=== PATIENT | female | born 1950 | race Caucasian/White ===

== ENCOUNTER 2019-08-03 11:05 | Emergency (ER) | payer MEDICARE, OTHER, SELFPAY ==
[2019-08-03 11:05] VITALS: BP 133/86; PULSE 68; RESP 18; TEMP 36.9; O2SAT 100
[2019-08-03 11:23] VITALS: PULSE 68
--- NOTE | 2019-08-03 12:37 | ED_ITS ---
HPI - Extremity Problem <RAGINI Bonilla - Last Filed: 08/03/19 14:10> General Chief complaint: Extremity Problem,Nontraumatic Stated complaint: right foot circulation being cut,numbness,pain Time Seen by Provider: 08/03/19 11:12 Source: patient Mode of arrival: Ambulatory Limitations: no limitations History of Present Illness HPI Narrative: This is a 69-year-old female, former smoker, who presents to ED with chief complaint of discomfort, numbness and tight fascia in right mid foot radiating to ankle. Patient states she has problem on right ankle since 2014 and had corrective surgery done in March [address] Villa for artificial joint removal and replacement. However, the surgery did not go well and has been having pain on right foot and ankle. 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 Patient has an appointment at [facility] with senior marketing specialist next week Tuesday. Patient had an appointment with pain management clinic this past Tuesday which got canceled due to bad weather. Patient was instructed by senior marketing specialist office that she needs to elevate her affected leg in 45 degree and states has been following the instruction at home. Patient had used gabapentin and opioids in the past for the nerve pain which do nothing for the pain. Patient denies fever, chills, nausea or vomiting. She has been using walking boot on affected food with ambulation. She states has a difficult time arranging a ride to [employer] to [facility]. Related Data Home Medications Medication Instructions Recorded Confirmed venlafaxine 25 mg PO DAILY #0 07/10/16 08/03/19 albuterol sulfate [ProAir HFA] 1 puff INHALATION DIRECTED 08/03/19 08/03/19 clobetasol 1 applic TOPICAL DIRECTED 08/03/19 08/03/19 diazepam 5 mg PO Q4H PRN 08/03/19 levothyroxine [Levoxyl] 75 mcg PO DAILY 08/03/19 08/03/19 liothyronine 5 mcg PO DAILY 08/03/19 08/03/19 metoprolol succinate [Toprol XL] 25 mg PO DAILY 08/03/19 08/03/19 mometasone 1 applic TOPICAL DAILY PRN 08/03/19 08/03/19 montelukast 10 mg PO DAILY 08/03/19 08/03/19 Allergies Allergy/AdvReac Type Severity Reaction Status Date / Time shellfish derived Allergy Mild N/V Verified 07/17/18 13:37 [SHELLFISH DERIVED] silver Allergy Mild Hives Verified 08/03/19 11:23 [From Tegaderm AG Mesh] cephalexin [From KEFLEX] Allergy Unknown HIVES Verified 07/17/18 13:37 midazolam [From Versed] AdvReac Unknown Verified 08/03/19 11:23 Review of Systems <RAGINI Bonilla - Last Filed: 08/03/19 14:10> Review of Systems Narrative: General: Denies fever, chills, fatigue, malaise, sweats. HEENT: Denies sinus pain, ear pain, sore throat, difficulty swallowing, dizzin ess. Respiratory: Denies dyspnea, cough, wheezing, hemoptysis, sputum. Cardiovascular: Denies chest pain, palpitations, orthopnea, edema. Gastrointestinal: Denies nausea, vomiting, abdominal pain, diarrhea, constipation, melena. : Denies dysuria, frequency, incontinence, hematuria, urinary retention. Musculoskeletal: See HPI Skin: Denies rash, skin lesions, or other. Neurologic: Denies weakness, headache, (+) numbness to R ankle/mid foot, change in speech, confusion, seizures, incoordination. Psychiatric: No concerning psychosocial issues. 12-point review of systems is negative except for those stated above. Patient History <RAGINI Bonilla - Last Filed: 08/03/19 14:10> Medical History Cauda equina syndrome (Acute) Colon polyps (Acute) Osteoporosis (Acute) Psoriasis (Acute) Rheumatoid arthritis (Acute) Shingles (Acute) Surgical History H/O foot surgery (Acute) History of colon resection (Acute) History of hip surgery (Acute) Social History Smoking Status: Former smoker Smoking Status: Former smoker alcohol intake frequency: 0-2 drinks per day Alcohol type: beer and wine Substance Use Type: marijuana Exam <Jez AndersRAGINI - Last Filed: 08/03/19 14:10> Narrative Exam Narrative: General appearance: well developed, well nourished, in no acute distress. Head: normocephalic, atraumatic, no scalp lesions, non-tender. ENT: Hearing grossly intact. Nose without bleeding, purulent discharge, septal hematoma or deviation. Turbinate without erythema or swelling. Mucous membrane moist, no mucosal lesion. Throat without erythema, tonsillar hypertrophy or exudate. Uvula in midline, airway patent. Neck/Thyroid: neck supple, full range of motion, no visible masses or meningeal signs. No JVD, non-tender without lymphadenopathy. Skin: no suspicious rashes, lesions over visible areas. Warm and dry and appropriate color for ethnicity. Heart: no clubbing, no cyanosis, no edema. Lungs: Breathing even and unlabored. No stridor. No accessory muscles used. Able to speak in full sentences. Chest: normal shape and expansion. Abdomen: non-obese, non-distended. Neurologic: alert and oriented. 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 Psych: good eye contact, normal affect. Initial Vital Signs Initial Vital Signs: Vital Signs Temperature 98.4 F 08/03/19 11:05 Pulse Rate 68 08/03/19 11:05 Respiratory Rate 18 08/03/19 11:05 Blood Pressure 133/86 08/03/19 11:05 Pulse Oximetry 100 08/03/19 11:05 Extrem Right lower extremity: foot Details: normal capillary refill, normal to inspection (Surgical wound near right 1st toe without signs and symptoms for infection), tenderness (R great toe when depressed), toes with normal ROM, no edema, vascular exam Details: dorsalis pedis pulse present, posterior tibial pulse present and normal capillary refill, tendon exam Details: active flexion normal and active flexion abnormal and motor-sensory exam Details: light-touch normal; no abrasion and no ecchymosis <Mary Goodwin DO - Last Filed: 08/04/19 07:04> Initial Vital Signs Initial Vital Signs: Vital Signs Temperature 98.4 F 08/03/19 11:05 Pulse Rate 68 08/03/19 11:05 Respiratory Rate 18 08/03/19 11:05 Blood Pressure 133/86 08/03/19 11:05 Pulse Oximetry 100 08/03/19 11:05 Scores <Jez RAGINI Anders - Last Filed: 08/03/19 14:10> GCS Suze coma scale eye opening: Spontaneous Ward coma scale verbal response: Orientated Ward coma scale motor response: Obey commands Ward coma scale total score: 15 Course <Jez RAGINI Anders - Last Filed: 08/03/19 14:10> Orders Ordered: Discontinued Medications Acetaminophen (Tylenol) 650 mg PO NOW ONE Stop: 08/03/19 12:22 Last Admin: 08/03/19 12:39 Dose: 650 mg Documented by: JOSE MIGUEL Ketorolac Tromethamine (Toradol) 30 mg IM NOW ONE Stop: 08/03/19 12:22 Last Admin: 08/03/19 12:38 Dose: 30 mg Documented by: JOSE MIGUEL Vital Signs Vital signs: Vital Signs - 8 hr 08/03/19 11:05 08/03/19 11:23 08/03/19 13:06 Temperature 98.4 F Pulse Rate 68 62 Pulse Rate [Right Dorsalis Pedis] 68 Pulse Rate [Right Posterior Tibial] 68 Respiratory Rate 18 18 Blood Pressure 133/86 134/72 Pulse Oximetry 100 100 <Mary Goodwin DO - Last Filed: 08/04/19 07:04> Orders Ordered: Discontinued Medications Acetaminophen (Tylenol) 650 mg PO NOW ONE Stop: 08/03/19 12:22 Last Admin: 08/03/19 12:39 Dose: 650 mg Documented by: JOSE MIGUEL Ketorolac Tromethamine (Toradol) 30 mg IM NOW ONE Stop: 08/03/19 12:22 Last Admin: 08/03/19 12:38 Dose: 30 mg Documented by: JOSE MIGUEL Vital Signs Vital signs: Vital Signs - 8 hr 08/03/19 11:05 08/03/19 11:23 08/03/19 13:06 Temperature 98.4 F Pulse Rate 68 62 Pulse Rate [Right Dorsalis Pedis] 68 Pulse Rate [Right Posterior Tibial] 68 Respiratory Rate 18 18 Blood Pressure 133/86 134/72 Pulse Oximetry 100 100 MDM - Extremity (Nontraumatic) <Jez RAGINI Anders - Last Filed: 08/03/19 14:10> Differential Diagnosis Differential diagnosis: Likely other (Right foot and ankle pain, postsurgical pain) Medical Records Attestation: I reviewed the patient's medical records. MDM Narrative Medical decision making narrative: This is a 69 year female who presents to ED with chronic low right foot and ankle pain. She has an appointment with senior marketing specialist at [facility] this coming week and is waiting to be seen by pain management clinic. Patient has been having pain since 2014 and had corrective surgery done in March 2019 without much change in pain. Patient has good dorsal pedal and posterior tibial pulses. Patient is not in severe discomfort at this time. There is no swelling noted. Cap refill is brisk. Patient requested to be transferred to higher level of care at [place] which patient does not meet criteria for transfer at this time. Patient advised to arrange a right [facility] for an appointment with senior marketing specialist as scheduled. Patient assured that patient's presentation is not consistent with compartment syndrome today. Patient was medicated with Tylenol and Toradol IM injection for pain management while in ED. patient advised to use [id number] Tylenol and or Motrin as needed for discomfort and return precautions were discussed with the patient. Patient verbalized understanding and agrees with the treatment plan at this time. Discharge Plan Departure Patient Disposition: Home Clinical Impression: Foot pain, right Ankle pain, right Qualifiers: Chronicity: unspecified Qualified Code(s): M25.571 - Pain in right ankle and joints of right foot Discharge Date/Time: 08/03/19 13:06 Instructions: DI for Ankle Pain, DI for Foot Pain Activity Restrictions/Additional Instructions: You have been diagnosed with [ and finding right foot and ankle paint after surgical procedure. You were medicated with Toradol injection and Tylenol in ED. Please follow-up with the senior marketing specialist at [facility] next week as scheduled. Please follow-up with pain management clinic for the 1st appointment as you are planning. Please arrange a ride to [place] appointment]. What to do: *Take your medications as directed. *Follow up with your primary care provider in 2-3 days, call for an appointment. Let them know you were seen in the ED and that we asked you to be seen in follow up. *Return to ED if you have any new, worsening, or concerning symptoms, such as [severe pain/swelling/numbness/weakness, chest pain, breathing difficulty, or any acute concerns]. Prescriptions: No Action venlafaxine 25 MG tablet 25 mg PO DAILY Qty: 0 RF: 0 liothyronine 5 mcg tablet 5 mcg PO DAILY RF: 0 levothyroxine [Levoxyl] 75 mcg tablet 75 mcg PO DAILY RF: 0 montelukast 10 mg tablet 10 mg PO DAILY RF: 0 metoprolol succinate [Toprol XL] 25 mg tablet extended release 24 hr 25 mg PO DAILY RF: 0 albuterol sulfate [ProAir HFA] 90 mcg/actuation HFA aerosol inhaler 1 puff INHALATION DIRECTED RF: 0 clobetasol 0.05 % solution 1 applic TOPICAL DIRECTED RF: 0 diazepam 5 mg tablet 5 mg PO Q4H PRN (Reason: Anxiety) RF: 0 mometasone 0.1 % solution 1 applic TOPICAL DAILY PRN (Reason: as directed) RF: 0 Referrals: Maria Dolores Mancia MD [Primary Care Provider] -
[2019-08-03] MEDS: KETOROLAC 60 MG/2 ML VIAL 30 MG IM (12:38)
[2019-08-03] MEDS: ACETAMINOPHEN 325 MG TABLET 650 MG PO (12:39)
[2019-08-03 13:06] VITALS: BP 134/72; PULSE 62; RESP 18; O2SAT 100
== END 2019-08-03 13:06 | disposition home or self-care (01) ==
PROVIDERS: Emergency Provider Nurse Practitioner Family; Family Provider Internal Medicine; PCP Internal Medicine
DX: M79.671 Pain in right foot (principal); M25.571 Pain in right ankle and joints of right foot
CPT/HCPCS: 96372; 99283; J1885

== ENCOUNTER → 2019-08-18 14:35 | Outpatient (CLI) | payer MEDICARE, OTHER, SELFPAY ==
--- NOTE | 2019-08-18 14:39 | DI.MRI.S_ITS ---
PROCEDURE: MR LUMBAR SPINE WO CON INDICATIONS: Lower back pain TECHNIQUE: Noncontrast sagittal T1 spin echo and T2 fast echo, sagittal STIR, axial T1 and T2 fast spin echo through the lumbar spine. In cases with scoliosis, additional coronal T2 fast spin echo may be performed. COMPARISON: None. FINDINGS: Image quality: Excellent. Alignment and Curvature: There is normal bony alignment. Bones: Postsurgical changes compatible with L4 laminectomy noted. Marrow is of normal overall signal. No acute vertebral body compression fractures. Spinal Cord: Conus medullaris terminates at the L1 level. Visualized cord demonstrates normal signal and size. Paraspinous Soft Tissues: No paravertebral masses. L1-L2: Loss of the signal and slight loss of disc height. Mild, diffuse disc bulge. Fissure noted in the posterior anulus. No central stenosis. No neural foraminal narrowing. No neural compression. L2-L3: Normal appearance. L3-L4: Slight loss of disc signal. Minimal, diffuse disc bulge. Mild bilateral facet hypertrophy. Mild narrowing of the central canal. No neural foraminal narrowing. No neural compression. L4-L5: Loss of the signal. Mild diffuse disc bulge. Fissure noted in posterior annulus. Moderate bilateral facet hypertrophy. Mild to moderate narrowing of the central canal. Mild bilateral neural foraminal narrowing. No neural compression. L5-S1: Slight loss of the signal. Minimal, diffuse disc bulge. Mild to moderate bilateral facet hypertrophy. No central stenosis. No neural foraminal narrowing. No neural compression. IMPRESSION: 1. Postsurgical compatible prior L4 laminectomy. 2. Multilevel degenerative disc disease. 3. Multilevel facet arthropathy. 4. Nevd-st-ilygazwi L4-L5 central canal narrowing. Mild L3-L4 central canal narrowing. 5. Mild bilateral L4-L5 neural foraminal narrowing. 6. No neural compression. 7. L1-L2 and L4-L5 disc annulus fissures. Dictated by: Telma Rodríguez MD, PhD on 08/20/2019 at 14:28 Approved by: Telma Rodríguez MD, PhD on 08/20/2019 at 14:34
== END ==
PROVIDERS: Family Provider Internal Medicine; PCP Internal Medicine; Referring Provider Psychiatry & Neurology Neurology; Visit Provider Physical Medicine & Rehabilitation
DX: M54.5 Low back pain (principal); G83.4 Cauda equina syndrome; M51.36 Other intervertebral disc degeneration, lumbar region; M47.816 Spondylosis without myelopathy or radiculopathy, lumbar region; M47.817 Spondylosis without myelopathy or radiculopathy, lumbosacral region; M48.061 Spinal stenosis, lumbar region without neurogenic claudication
CPT/HCPCS: 72148

== ENCOUNTER → 2019-08-21 09:27 | Outpatient (CLI) | payer MEDICARE, OTHER, SELFPAY ==
[2019-08-21 11:12] LABS: Thyroid Stimulating Hormone 0.05 uIU/mL (0.47-4.68)
[2019-08-22 15:45] LABS: Triiodothyronine T3 Total 119 ng/dL (76-181)
== END ==
PROVIDERS: Family Provider Internal Medicine; PCP Internal Medicine; Referring Provider Internal Medicine; Visit Provider Internal Medicine
DX: E06.3 Autoimmune thyroiditis (principal)
CPT/HCPCS: 36415; 84439; 84443; 84480

== ENCOUNTER → 2019-08-29 15:16 | Outpatient (CLI) | payer MEDICARE, OTHER, SELFPAY ==
--- NOTE | 2019-08-29 | DI.MG.S_ITS ---
BILATERAL DIGITAL SCREENING MAMMOGRAM 3D/2D WITH CAD WITH AUGMENTATION: 08/29/2019 CLINICAL: Patient presents for routine screening. S/P bilateral augmentation. Comparison is made to exams dated: 07/04/2015 mammogram - [facility] and 08/30/2017 mammogram - [facility]. The tissue of both breasts is heterogeneously dense. This may lower the sensitivity of mammography. Current study was also evaluated with a Computer Aided Detection (CAD) system. Bilateral breast implants are stable. There are benign vascular calcifications in both breasts. No significant masses, calcifications, or other findings are seen in either breast. There has been no significant interval change. IMPRESSION: There is no mammographic evidence of malignancy. A 1 year screening mammogram is recommended. This exam was interpreted at Station ID: [id number]. NOTE: For mammograms, a report in lay terms will be sent to the patient. Approximately 15% of breast malignancies will not be visualized mammographically. In the management of a palpable breast mass, a negative mammogram must not discourage biopsy of a clinically suspicious lesion. Electronically Signed By: Emeli vogt/lynnette:08/29/2019 16:51:14 letter sent: Normal Exam ACR BI-RADS Category 2: Benign Finding(s) [id number]
== END ==
PROVIDERS: Family Provider Internal Medicine; PCP Internal Medicine; Referring Provider Internal Medicine; Visit Provider Internal Medicine
DX: Z12.31 Encounter for screening mammogram for malignant neoplasm of breast (principal); Z98.82 Breast implant status; M85.832 Other specified disorders of bone density and structure, left forearm; Z78.0 Asymptomatic menopausal state; E07.9 Disorder of thyroid, unspecified; K92.9 Disease of digestive system, unspecified; Z90.722 Acquired absence of ovaries, bilateral; Z82.62 Family history of osteoporosis
CPT/HCPCS: 77063; 77067; 77080

== ENCOUNTER 2019-10-01 16:15 | Emergency (ER) | payer MEDICARE, OTHER, SELFPAY ==
[2019-10-01 16:20] VITALS: BP 133/60; PULSE 68; RESP 16; TEMP 36.8; O2SAT 97; BMI 17.7
--- NOTE | 2019-10-01 16:28 | DI.RAD.S_ITS ---
PROCEDURE: XR CHEST 2V INDICATIONS: cough, SOB. TECHNIQUE: 2 views of the chest were acquired. COMPARISON: [facility], , CHEST 1 VIEW, 07/10/2016, 22:41. FINDINGS: Surgical changes and devices: None. Lungs and pleura: Lungs are clear. No pleural effusions or pneumothorax. Mediastinum: Mediastinal contours are normal. Heart size is normal. Bones and chest wall: No suspicious bony abnormalities. Soft tissues appear unremarkable. IMPRESSION: Normal for age, source of current cough symptoms is not seen. Dictated by: Chuck Cole M.D. on 10/01/2019 at 16:52 Approved by: Chuck Cole M.D. on 10/01/2019 at 16:53
[2019-10-01 17:13] LABS: Influenza A - CEPHEID Flu A NEGATIVE (NEGATIVE); Influenza B - CEPHEID Flu B NEGATIVE (NEGATIVE)
--- NOTE | 2019-10-01 18:50 | ED.URI ---
HPI - URI/Sore Throat <Kristie PeraltaRAGINI - Last Filed: 10/01/19 20:59> General Chief Complaint: Upper Respiratory Symptoms Stated Complaint: WOULD LIKE TO GET TEST COV19 COUGH PAIN CHEST Time Seen by Provider: 10/01/19 16:28 Source: patient Mode of arrival: Ambulatory History of Present Illness HPI Narrative: 69-year-old female presents to the emergency department for COVID-19 concerns. She states she has had a dry cough for over week. She does have a history of asthma and has been using her Singulair to control it. She states she has not used her steroid inhaler as this may cause increased replication of the virus. Patient states she does have some rhinorrhea, reports chills. She states she feels like she had a fever but did not measure. She states that her daughter also has symptoms, she is concerned or increased shortness of breath. Patient has intermittent diarrhea, denies nausea vomiting or sore throat. She denies chest pain, vision changes, headaches, abdominal pain, or any other concerns. Related Data Home Medications Medication Instructions Recorded Confirmed venlafaxine 25 mg PO DAILY #0 07/10/16 08/03/19 albuterol sulfate [ProAir HFA] 1 puff INHALATION DIRECTED 08/03/19 08/03/19 clobetasol 1 applic TOPICAL DIRECTED 08/03/19 08/03/19 diazepam 5 mg PO Q4H PRN 08/03/19 levothyroxine [Levoxyl] 75 mcg PO DAILY 08/03/19 08/03/19 liothyronine 5 mcg PO DAILY 08/03/19 08/03/19 metoprolol succinate [Toprol XL] 25 mg PO DAILY 08/03/19 08/03/19 mometasone 1 applic TOPICAL DAILY PRN 08/03/19 08/03/19 montelukast 10 mg PO DAILY 08/03/19 08/03/19 alpha lipoic acid 300 mg capsule 300 - 1,000 mg PO DAILY cap 08/08/19 08/08/19 amoxicillin 500 mg capsule 2,000 mg PO ONCE PRN cap 08/08/19 08/08/19 ashwagandan 570 mg PO 08/08/19 aspirin 81 mg tablet,delayed 81 mg PO DAILY 08/08/19 08/08/19 release biotin 1,000 mcg chewable tablet 1,000 mcg PO DAILY 08/08/19 08/08/19 calcium 600 mg PO BID 08/08/19 cholecalciferol (vitamin D3) 25 2,000 unit PO BID cap 08/08/19 08/08/19 mcg (1,000 unit) capsule coenzyme Q10 75 mg capsule 100 mg PO DAILY cap 08/08/19 08/08/19 lysine 1,000 mg tablet 1,000 mg PO DAILY 08/08/19 08/08/19 magnesium malate PO 08/08/19 xcfssmkyhyyy-ihjyarpf-etucyi PO 08/08/19 08/08/19 nortriptyline 10 mg capsule 10 mg PO Q OTHER DAY cap 08/08/19 08/08/19 omega 3-6-9 1,000 mg PO TID 08/08/19 optimized folate 1,000 mg PO DAILY 08/08/19 vitamin E 1,000 unit capsule 1,000 unit PO DAILY 08/08/19 08/08/19 zinc sulfate 220 mg tablet 220 mg PO DAILY 08/08/19 08/08/19 Allergies Allergy/AdvReac Type Severity Reaction Status Date / Time fluoxetine [From Prozac] Allergy Severe Hallucinati Verified 10/01/19 16:26 ng shellfish derived Allergy Mild N/V Verified 10/01/19 16:26 [SHELLFISH DERIVED] silver Allergy Mild Hives Verified 10/01/19 16:26 [From Tegaderm AG Mesh] aripiprazole [From Abilify] Allergy Unknown Verified 10/01/19 16:27 cephalexin [From KEFLEX] Allergy Unknown HIVES Verified 10/01/19 16:26 midazolam [From Versed] AdvReac Unknown Verified 10/01/19 16:26 Review of Systems <RAGINI Roberts - Last Filed: 10/01/19 20:59> Review of Systems Narrative: REVIEW OF SYSTEMS: GENERAL: Reports chose. HENT: No head trauma or hearing loss. EYES: No loss of vision, double vision, eye pain, irritation or discharge. CARDIOVASCULAR: No chest pain or syncope. RESPIRATORY: Reports shortness of breath, see HPI. GASTROINTESTINAL: No nausea, vomiting, diarrhea, or constipation. MUSCULOSKELETAL: No weakness or injury. INTEGUMENTARY: No rash, lesions, or pruritus. NEURO: No memory loss, or confusion. Patient History <RAGINI Roberts - Last Filed: 10/01/19 20:59> Medical History Cauda equina syndrome (Acute) Chronic pain syndrome (Acute) Colon polyps (Acute) Gait instability (Acute) Osteoporosis (Acute) Psoriasis (Acute) Rheumatoid arthritis (Acute) Shingles (Acute) Surgical History H/O foot surgery (Acute) History of colon resection (Acute) History of hip surgery (Acute) Social History Smoking Status: Former smoker Smoking Status: Former smoker alcohol intake frequency: 0-2 drinks per day Alcohol type: beer and wine Substance Use Type: marijuana Exam <RAGINI Roberts - Last Filed: 10/01/19 20:59> Initial Vital Signs Initial Vital Signs: Vital Signs Temperature 98.3 F 10/01/19 16:20 Pulse Rate 68 10/01/19 16:20 Respiratory Rate 16 10/01/19 16:20 Blood Pressure 133/60 10/01/19 16:20 Pulse Oximetry 97 10/01/19 16:20 PHYSICAL EXAMINATION: GENERAL: Well groomed, alert, and cooperative. Answers questions promptly and appropriately. Vital signs noted. HENT: Normocephalic, atraumatic. Ear canals patent. Oropharynx without erythema. Tonsils are not present. EYES: Conjunctiva pink, sclera white, no periorbital swelling. No discharge. CHEST: Normal to inspection and without deformities. CARDIOVASCULAR: S1 and S2 sounds normal. Regular rate and rhythm, no murmurs, clicks, or bruits. RESPIRATORY: Normal respiratory rate, trachea midline, airway patent. No stridor, nasal flaring or accessory muscle use. Able to speak in full sentences. Lungs are clear in all cast without wheeze, rhonchi, or crackles. Occasional dry cough noted throughout exam. MUSCULOSKELETAL: Normal gait and coordination. Equal tone and mass bilaterally. EXTREMITIES: Moves all extremities. SKIN: Warm, dry, soft, appropriate color for ethnicity. No lesions, rashes, or wounds to visualized areas. NEURO: Alert and Oriented X 3. Good coordination. No ataxia or cognitive issues. PSYCH: Appropriate affect and mood. <Ephraim Friend DO - Last Filed: 10/01/19 23:20> Initial Vital Signs Initial Vital Signs: Vital Signs Temperature 98.3 F 10/01/19 16:20 Pulse Rate 68 10/01/19 16:20 Respiratory Rate 16 10/01/19 16:20 Blood Pressure 133/60 10/01/19 16:20 Pulse Oximetry 97 10/01/19 16:20 Course <RAGINI Roberts - Last Filed: 10/01/19 20:59> Orders Ordered: ED Orders 10/01/19 16:28 Chest [XR chest 2V] Stat 10/01/19 16:30 Influenza A & B (PCR) Stat Vital Signs Vital signs: Vital Signs - 8 hr 10/01/19 16:20 10/01/19 20:00 Temperature 98.3 F Pulse Rate 68 66 Respiratory Rate 16 18 Blood Pressure 133/60 Blood Pressure [Right Arm] 139/74 Pulse Oximetry 97 99 <Ephraim Friend DO - Last Filed: 10/01/19 23:20> Orders Ordered: ED Orders 10/01/19 16:28 Chest [XR chest 2V] Stat 10/01/19 16:30 Influenza A & B (PCR) Stat Vital Signs Vital signs: Vital Signs - 8 hr 10/01/19 16:20 10/01/19 20:00 Temperature 98.3 F Pulse Rate 68 66 Respiratory Rate 16 18 Blood Pressure 133/60 Blood Pressure [Right Arm] 139/74 Pulse Oximetry 97 99 MDM - URI/Sore Throat <RAGINI Roberts - Last Filed: 10/01/19 20:59> Medical Records Attestation: I reviewed the patient's medical records. Lab Data Attestation: I reviewed the patient's lab results. Labs: Lab Results 10/01/19 Range/Units 16:30 Influenza A (RT-PCR) Flu a negative (NEGATIVE) Influenza B (RT-PCR) Flu b negative (NEGATIVE) Imaging Data Chest x-ray: Radiologist's Impression: [address] [address] XRay Report Signed Patient: Rizwana Abarca TMR#: [id number] : 2Acct:[id number] Age/Sex: 69 / FDate of Service: 10/01/19 Loc: ED Accession Number: [id number] Procedure: XR chest 2V Ordering Provider: Roseline Reaves MD PROCEDURE: XR CHEST 2V INDICATIONS: cough, SOB. TECHNIQUE: 2 views of the chest were acquired. COMPARISON: [facility], , CHEST 1 VIEW, 07/10/2016, 22:41. FINDINGS: Surgical changes and devices: None. Lungs and pleura: Lungs are clear. No pleural effusions or pneumothorax. Mediastinum: Mediastinal contours are normal. Heart size is normal. Bones and chest wall: No suspicious bony abnormalities. Soft tissues appear unremarkable. IMPRESSION: Normal for age, source of current cough symptoms is not seen. Dictated by: Chuck Cole M.D. on 10/01/2019 at 16:52 Approved by: Chuck Cole M.D. on 10/01/2019 at 16:53 [facility] Narrative Medical decision making narrative: 69-year-old female with a history of asthma presenting to the emergency department for worsening shortness of breath over the past week, cough, and concerns for COVID-19. Patient's chest x-ray and influenza swab were negative. After an extensive conversation with patient, COVID-19 tests were sent to lab given worsening cough and shortness of breath and comorbidities. Patient was informed she will receive results in 5-6 days. She was instructed to remain on quarantine and home isolation, [id number] cold medications for symptom relief. Strict ED return precautions given for new or worsening symptoms such as severe shortness of breath, uncontrollable wheezing, uncontrollable vomiting, or any other concerns. Patient is well-appearing, hemodynamically stable and has good oxygen saturation, she was an appropriate candidate for discharge <Ephraim Friend DO - Last Filed: 10/01/19 23:20> Lab Data Labs: Lab Results 10/01/19 Range/Units 16:30 Influenza A (RT-PCR) Flu a negative (NEGATIVE) Influenza B (RT-PCR) Flu b negative (NEGATIVE) Discharge Plan Departure Patient Disposition: Home Clinical Impression: Cough Asthma Qualifiers: Asthma severity: mild Asthma persistence: intermittent Asthma complication type: uncomplicated Qualified Code(s): J45.20 - Mild intermittent asthma, uncomplicated Discharge Date/Time: 10/01/19 20:17 Instructions: DI for Viral Upper Respiratory Infection -- Adult Activity Restrictions/Additional Instructions: Thank you for entrusting me with your care today. As discussed, your chest x-ray and influenza swab are negative. You have been tested for the COVID-19 virus, this test can take 5-6 days to results. You need to remain in quarantine while your symptoms last and 3 days after symptoms have subsided. This means isolate herself with in your house as well. Take your asthma medications as directed, return to the emergency department for any new or worsening symptoms such as severe shortness of breath, chest pain, syncope, or any other concerns. Prescriptions: No Action venlafaxine 25 MG tablet 25 mg PO DAILY Qty: 0 RF: 0 liothyronine 5 mcg tablet 5 mcg PO DAILY RF: 0 levothyroxine [Levoxyl] 75 mcg tablet 75 mcg PO DAILY RF: 0 montelukast 10 mg tablet 10 mg PO DAILY RF: 0 metoprolol succinate [Toprol XL] 25 mg tablet extended release 24 hr 25 mg PO DAILY RF: 0 albuterol sulfate [ProAir HFA] 90 mcg/actuation HFA aerosol inhaler 1 puff INHALATION DIRECTED RF: 0 clobetasol 0.05 % solution 1 applic TOPICAL DIRECTED RF: 0 diazepam 5 mg tablet 5 mg PO Q4H PRN (Reason: Anxiety) RF: 0 mometasone 0.1 % solution 1 applic TOPICAL DAILY PRN (Reason: as directed) RF: 0 nortriptyline 10 mg capsule 10 mg PO Q OTHER DAY RF: 0 aspirin [Adult Low Dose Aspirin] 81 mg tablet,delayed release (DR/EC) 81 mg PO DAILY RF: 0 amoxicillin 500 mg capsule 2,000 mg PO ONCE PRN (Reason: prior to dental work) RF: 0 ashwagandan 570 mg PO RF: 0 vitamin E 1,000 unit capsule 1,000 unit PO DAILY RF: 0 alpha lipoic acid 300 mg capsule 300 - 1,000 mg PO DAILY RF: 0 Ultra CoQ10 75 mg capsule 100 mg PO DAILY RF: 0 biotin 1,000 mcg tablet,chewable 1,000 mcg PO DAILY RF: 0 zinc sulfate 220 mg tablet 220 mg PO DAILY RF: 0 omega 3-6-9 1,000 mg PO TID RF: 0 calcium 600 mg PO BID RF: 0 cholecalciferol (vitamin D3) 1,000 unit capsule 2,000 unit PO BID RF: 0 optimized folate 1,000 mg PO DAILY RF: 0 magnesium malate PO RF: 0 lysine 1,000 mg tablet 1,000 mg PO DAILY RF: 0 ieptwxcrqeie-csalfzwt-okjndy PO RF: 0 Referrals: Maria Dolores Mancia MD [Primary Care Provider] - <Ephraim Friend DO - Last Filed: 10/01/19 23:20> Sign Out Provider Sign Out Attestation: Dr Friend Co-Sign Statement: I was available for consultation during this patient's emergency department visit. This chart is signed by myself for administrative purposes only. I did not have direct contact with this patient during this visit. They were seen independently by the APC.
[2019-10-01 20:00] VITALS: BP 139/74; PULSE 66; RESP 18; O2SAT 99
[2019-10-11 01:34] LABS: COVID19 Sendout Not Detected (Not Detected)
== END 2019-10-01 20:17 | disposition home or self-care (01) ==
PROVIDERS: Emergency Medicine; Emergency Provider Nurse Practitioner; Family Provider Internal Medicine; PCP Internal Medicine
DX: J45.20 Mild intermittent asthma, uncomplicated (principal); R05 Cough; Z87.891 Personal history of nicotine dependence
CPT/HCPCS: 71046; 87502; 87635; 99282; 99283

== ENCOUNTER 2019-11-30 14:40 | Emergency (ER) | payer MEDICARE, OTHER, SELFPAY ==
[2019-11-30 14:49] VITALS: BP 133/89; PULSE 79; RESP 16; TEMP 36.8; O2SAT 100; BMI 17.2
[2019-11-30 15:00] VITALS: BP 167/85; PULSE 74; RESP 14; O2SAT 97
[2019-11-30 16:00] VITALS: BP 132/85; PULSE 68; RESP 19; O2SAT 99
--- NOTE | 2019-11-30 16:00 | DI.US.S_ITS ---
PROCEDURE: US ABDOMEN LIMITED INDICATIONS: UPPER ABD AND LEFT FLANK PAIN TECHNIQUE: Real-time focused scanning was performed of the abdomen, with image documentation. COMPARISON: None. FINDINGS: The liver is normal in size and appears homogeneous in echotexture. No gallstones, gallbladder wall thickening, or pericholecystic fluid. No biliary ductal dilatation. Visualized pancreas appears unremarkable sonographically. The spleen is normal in size. Left kidney measures up to 10.4 cm. No left hydronephrosis. Evaluation of the abdominal wall demonstrates a supraumbilical ventral abdominal hernia with a fascial defect measuring approximately 0.6 cm. Bowel herniation cannot be excluded. MPRESSION: 1. Small supraumbilical ventral abdominal wall hernia with bowel herniation excluded. Further evaluation may be obtained with a CT if clinically indicated. Dictated by: Inder Robertson M.D. on 11/30/2019 at 17:58 Approved by: Inder Robertson M.D. on 11/30/2019 at 18:00
--- NOTE | 2019-11-30 16:04 | PC.NURSE ---
Pt states she has a hernia, declines further assessment by RN, prefering to wait for Provider.
[2019-11-30 16:08] LABS: Add Manual Diff / Slide Review NO; Basophils Absolute Auto 100 /uL (0-100); Eosinophils Absolute Auto 400 /uL (0-450); Hematocrit 41.6 % (36-46); Lymphocytes Absolute Auto 1700 /uL (1100-4500); Lymphocytes Percent Auto 29.6 % (25-40); Mean Corpuscular HGB Conc 33.7 % (30-36); Mean Corpuscular Hemoglobin 32.6 PG (26-34); Mean Corpuscular Volume 96.8 fL (80-100); Monocytes Absolute Auto 600 /uL (0-900); Monocytes Percent Auto 9.8 % (3-14); Neutrophils Absolute Auto 3200 /uL (1500-7000); Neutrophils Percent Auto 53.6 % (50-75); Platelet Count 251 X10^3/uL (150-400); Red Blood Cell Count 4.29 X10^6/uL (4.0-5.2); Red Cell Distribution Width 13.2 % (11.6-14.8); White Blood Cell Count 5.9 X10^3/uL (4.5-11.0)
[2019-11-30 16:11] LABS: INR 0.9 (0.9-1.3); Prothrombin Time 10.2 SECONDS (10.1-12.7)
[2019-11-30] MEDS: SODIUM CHLORIDE 0.9% 1,000 ML 150 ML IV (16:13)
[2019-11-30 16:14] LABS: PTT Partial Thromboplastin Tim 30 SECONDS (26.4-36.2)
[2019-11-30] MEDS: PANTOPRAZOLE 40 MG VIAL IV (16:14)
[2019-11-30] MEDS: ONDANSETRON 4 MG/2 ML INJ IV (16:14)
[2019-11-30 16:16] LABS: Alanine Aminotransferase 27 IU/L (<35); Albumin 4.6 g/dL (3.5-5.0); Albumin Globulin Ratio 1.6 (1.0-2.8); Alkaline Phosphatase 73 U/L (38-126); Aspartate Aminotransferase 44 IU/L (14-36); BUN Creatinine Ratio 29.4 (6-22); Bilirubin Total 0.4 mg/dL (0.2-1.3); Blood Urea Nitrogen 15 mg/dL (7-17); Calcium 9.3 mg/dL (8.4-10.2); Carbon Dioxide 29 mmol/L (22-32); Chloride 98 mmol/L (98-107); Estimated Glomerular Filt Rate > 60.0 mL/min (>60); Globulin 2.9 g/dL (1.7-4.1); Glucose 110 mg/dL (80-110); HEMOLYSIS 19 (0-50); Lipase 93 U/L (23-300); Potassium 4.2 mmol/L (3.4-5.1); Sodium 136 mmol/L (137-145); Total Protein 7.5 g/dL (6.3-8.2)
[2019-11-30 18:00] VITALS: BP 142/80; PULSE 72; RESP 16; O2SAT 98
[2019-11-30] MEDS: DICYCLOMINE 10 MG CAPSULE PO (18:40)
[2019-11-30 19:00] VITALS: BP 140/83; PULSE 73; RESP 16; O2SAT 96
--- NOTE | 2019-12-01 00:28 | ED.ABDPAIN ---
HPI - Abdominal Pain <RAGINI Bonilla - Last Filed: 12/01/19 00:59> General Chief Complaint: Abdominal Pain Stated Complaint: Stomach pain, Left side pain front and back Time Seen by Provider: 11/30/19 15:31 Source: patient Mode of arrival: Ambulatory Limitations: no limitations History of Present Illness HPI narrative: This is a 69 year female, former smoker, who has chronic medical history as hypothyroidism, autoimmune disease, asthma, Raynaud syndrome, hepatitis-C, hypertension, cauda equina syndrome, foot and hip surgeries, colon resection due to GI bleed from colon polyps, osteoporosis, rheumatoid arthritis presents to ED with chief complain of nausea and left upper abdominal cramping and gas pain, diarrhea. Patient denies fever, chills, urinary symptoms. Reports unintentional weight loss of 16 lb since August 2019 and difficulty regaining weight even with high-caloric intake. Patient reports she has multiple food intolerances but her pain is not associated with certain types of foods. She states anything and everything she eats causes her discomfort symptoms. Patient reports the abdominal discomfort is constant and feels as pins and needles. She reports today the pain appears to be radiating to her back which is new and felt lightheaded since yesterday. She also states she had false negative test results for coronavirus in September and she was sick for 6 weeks. Patient states she is able to palpate hernia in her abdomen above the umbilicus which is easily reducible while she is in supine position but difficulty with reducing when she is standing position during last 10 days. Patient states her immune systems blow and she has been working on this problem last 1 year with multiple supplements including ashheididha. Related Data Home Medications Medication Instructions Recorded Confirmed venlafaxine 25 mg PO DAILY #0 07/10/16 08/03/19 albuterol sulfate [ProAir HFA] 1 puff INHALATION DIRECTED 08/03/19 08/03/19 clobetasol 1 applic TOPICAL DIRECTED 08/03/19 08/03/19 diazepam 5 mg PO Q4H PRN 08/03/19 levothyroxine [Levoxyl] 75 mcg PO DAILY 08/03/19 08/03/19 liothyronine 5 mcg PO DAILY 08/03/19 08/03/19 metoprolol succinate [Toprol XL] 25 mg PO DAILY 08/03/19 08/03/19 mometasone 1 applic TOPICAL DAILY PRN 08/03/19 08/03/19 montelukast 10 mg PO DAILY 08/03/19 08/03/19 alpha lipoic acid 300 mg capsule 300 - 1,000 mg PO DAILY cap 08/08/19 08/08/19 amoxicillin 500 mg capsule 2,000 mg PO ONCE PRN cap 08/08/19 08/08/19 ashwagandan 570 mg PO 08/08/19 aspirin 81 mg tablet,delayed 81 mg PO DAILY 08/08/19 08/08/19 release biotin 1,000 mcg chewable tablet 1,000 mcg PO DAILY 08/08/19 08/08/19 calcium 600 mg PO BID 08/08/19 cholecalciferol (vitamin D3) 25 2,000 unit PO BID cap 08/08/19 08/08/19 mcg (1,000 unit) capsule coenzyme Q10 75 mg capsule 100 mg PO DAILY cap 08/08/19 08/08/19 lysine 1,000 mg tablet 1,000 mg PO DAILY 08/08/19 08/08/19 magnesium malate PO 08/08/19 bysgdpwdmulv-cjgvfwpx-drdttj PO 08/08/19 08/08/19 nortriptyline 10 mg capsule 10 mg PO Q OTHER DAY cap 08/08/19 08/08/19 omega 3-6-9 1,000 mg PO TID 08/08/19 optimized folate 1,000 mg PO DAILY 08/08/19 vitamin E 1,000 unit capsule 1,000 unit PO DAILY 08/08/19 08/08/19 zinc sulfate 220 mg tablet 220 mg PO DAILY 08/08/19 08/08/19 Allergies Allergy/AdvReac Type Severity Reaction Status Date / Time fluoxetine [From Prozac] Allergy Severe Hallucinati Verified 10/01/19 16:26 ng shellfish derived Allergy Mild N/V Verified 10/01/19 16:26 [SHELLFISH DERIVED] silver Allergy Mild Hives Verified 10/01/19 16:26 [From Tegaderm AG Mesh] aripiprazole [From Abilify] Allergy Unknown Verified 10/01/19 16:27 cephalexin [From KEFLEX] Allergy Unknown HIVES Verified 10/01/19 16:26 midazolam [From Versed] AdvReac Unknown Verified 10/01/19 16:26 lactose AdvReac Verified 11/30/19 14:58 soy AdvReac Verified 11/30/19 14:58 sulfite AdvReac Verified 11/30/19 14:58 Review of Systems <RAGINI Bonilla - Last Filed: 12/01/19 00:59> Review of Systems Narrative: General: Denies fever, chills, fatigue, malaise, sweats. HEENT: Denies sinus pain, ear pain, sore throat, difficulty swallowing, (+) dizziness. Respiratory: Denies dyspnea, cough, wheezing, hemoptysis, sputum. Cardiovascular: Denies chest pain, palpitations, orthopnea, edema. Gastrointestinal: See HPI : Denies dysuria, frequency, incontinence, hematuria, urinary retention. Musculoskeletal: Denies weakness, joint pain or bony pain. Skin: Denies rash, skin lesions, or other. Neurologic: Denies weakness, headache, numbness, change in speech, confusion, seizures, incoordination. Psychiatric: No concerning psychosocial issues. 12-point review of systems is negative except for those stated above. Patient History <RAGINI Bonilla - Last Filed: 12/01/19 00:59> Medical History Asthma (Acute) Autoimmune disease (Acute) Cauda equina syndrome (Acute) Chronic pain syndrome (Acute) Colon polyps (Acute) Gait instability (Acute) Hepatitis C (Acute) Hypertension (Acute) Hypothyroidism (Acute) Osteoporosis (Acute) Psoriasis (Acute) Raynaud disease (Acute) Rheumatoid arthritis (Acute) Shingles (Acute) Surgical History H/O foot surgery (Acute) History of colon resection (Acute) History of hip surgery (Acute) Social History Smoking Status: Former smoker Smoking Status: Former smoker alcohol intake frequency: 0-2 drinks per day Alcohol type: beer and wine Substance Use Type: marijuana Exam <RAGINI Bonilla - Last Filed: 12/01/19 00:59> Narrative Exam Narrative: GEN: Alert, oriented x 3, thin appearing and nourished, and in no acute distress. Head: Normal cephalic, atraumatic. No scalp or temporal tenderness, palpable mass or rash. EYES: Pupils are equal, round, and reactive to light and accommodation. Extraocular muscles are intact bilaterally. There is no subconjunctival hemorrhage, exudate and sclera non-icteric. ENT: Hearing grossly intact. Nose without bleeding, purulent discharge or deviation. Facial sinuses nontender to palpate. Mucous membrane moist, no mucosal lesion. Throat without erythema, tonsillar hypertrophy or exudate. Uvula in midline, airway patent. Neck: Trachea in midline. No JVD, non-tender without lymphadenopathy. No masses or thyroid megaly. Supple, non-tender and no meningeal signs. CARDIAC: Normal regular rate and rhythm without murmurs, gallops, or rubs. No chest wall tenderness. No peripheral edema, cyanosis or pallor. Capillary refill is less than 2 seconds. RESPIRATORY: Lungs are clear to auscultate bilaterally. No cough, wheezes, rales, or rhonchi. No stridor, respiratory distress, increase work of breathing, or accessary muscle used. ABD: Abdomen soft, nontender and non-distended. Small nodule palpated in mid abdomen above umbelicus w/o bulging. No guarding or rebound tenderness to palpate. Bowel sounds are normal in all 4 quadrants. There is no palpable masses or organomegaly. Negative murphyps sign. EXT: Full painless ROM of all extremities with no loss of sensation, strength, effusion or edema. SKIN: Warm, dry, normal color for patient. No erythema, lesions or rash over visible areas. BACK: Nontender without deformity or crepitance. No flank tenderness. NEUROLOGICAL: Alert and oriented to place, time and person. Sensation and motor function intact bilaterally. No facial droops, dysphasia. PSYCHIATRIC: Anxious without hallucinations, abnormal affect or abnormal behaviors during the examination. Patient is not suicidal. Initial Vital Signs Initial Vital Signs: Vital Signs Temperature 98.2 F 11/30/19 14:49 Pulse Rate 79 11/30/19 14:49 Respiratory Rate 16 11/30/19 14:49 Blood Pressure 133/89 11/30/19 14:49 Pulse Oximetry 100 11/30/19 14:49 <Leatha Ma, DO - Last Filed: 12/01/19 08:00> Initial Vital Signs Initial Vital Signs: Vital Signs Temperature 98.2 F 11/30/19 14:49 Pulse Rate 79 11/30/19 14:49 Respiratory Rate 16 11/30/19 14:49 Blood Pressure 133/89 11/30/19 14:49 Pulse Oximetry 100 11/30/19 14:49 Scores <Jez TonCHALO barbourP - Last Filed: 12/01/19 00:59> GCS [place] coma scale eye opening: Spontaneous Suze coma scale verbal response: Orientated Suze coma scale motor response: Obey commands Suze coma scale total score: 15 Course <[facility] TrevinoP - Last Filed: 12/01/19 00:59> Orders Ordered: Discontinued Medications Dicyclomine HCl (Bentyl) 10 mg PO NOW ONE Stop: 11/30/19 18:35 Last Admin: 11/30/19 18:40 Dose: 10 mg Documented by: KBROTEM Sodium Chloride (Normal Saline 0.9%) 1,000 mls @ 150 mls/hr IV CONT PHI Last Infusion: 11/30/19 19:15 Dose: 0 mls/hr Documented by: Admin: 11/30/19 16:13 Dose: 150 mls/hr Documented by: NELLIE Ondansetron HCl (Zofran) 4 mg IV NOW ONE Stop: 11/30/19 16:01 Last Admin: 11/30/19 16:14 Dose: 4 mg Documented by: NELLIE Pantoprazole Sodium (Protonix) 40 mg IV NOW ONE Stop: 11/30/19 16:01 Last Admin: 11/30/19 16:14 Dose: 40 mg Documented by: NELLIE Vital Signs Vital signs: Vital Signs - 8 hr 11/30/19 18:00 11/30/19 19:00 Pulse Rate 72 73 Respiratory Rate 16 16 Blood Pressure [Left Arm] 142/80 H 140/83 Pulse Oximetry 98 96 <Leatha Ma DO - Last Filed: 12/01/19 08:00> Orders Ordered: Discontinued Medications Dicyclomine HCl (Bentyl) 10 mg PO NOW ONE Stop: 11/30/19 18:35 Last Admin: 11/30/19 18:40 Dose: 10 mg Documented by: KBROTEM Sodium Chloride (Normal Saline 0.9%) 1,000 mls @ 150 mls/hr IV CONT PHI Last Infusion: 11/30/19 19:15 Dose: 0 mls/hr Documented by: Admin: 11/30/19 16:13 Dose: 150 mls/hr Documented by: NELLIE Ondansetron HCl (Zofran) 4 mg IV NOW ONE Stop: 11/30/19 16:01 Last Admin: 11/30/19 16:14 Dose: 4 mg Documented by: NELLIE Pantoprazole Sodium (Protonix) 40 mg IV NOW ONE Stop: 11/30/19 16:01 Last Admin: 11/30/19 16:14 Dose: 40 mg Documented by: NELLIE Vital Signs Vital signs: Vital Signs - 8 hr 11/30/19 18:00 11/30/19 19:00 Pulse Rate 72 73 Respiratory Rate 16 16 Blood Pressure [Left Arm] 142/80 H 140/83 Pulse Oximetry 98 96 MDM - Abdominal Pain <Jez RAGINI Anders - Last Filed: 12/01/19 00:59> Differential Diagnosis Differential diagnosis: Likely abdominal pain, pancreatitis and other (Gallstone, cholecystitis, ventral hernia) Medical Records Attestation: I reviewed the patient's medical records. Lab Data Attestation: I reviewed the patient's lab results. Result diagrams: 11/30/19 15:38 11/30/19 15:38 Labs: Lab Results 11/30/19 11/30/19 11/30/19 Range/Units 15:38 15:38 15:38 WBC 5.9 (4.5-11.0) X10^3/uL RBC 4.29 (4.0-5.2) X10^6/uL Hgb 14.0 (12.0-16.0) g/dL Hct 41.6 (36-46) % MCV 96.8 (80-100) fL MCH 32.6 (26-34) PG MCHC 33.7 (30-36) % RDW 13.2 (11.6-14.8) % Plt Count 251 (150-400) X10^3/uL Neut % (Auto) 53.6 (50-75) % Lymph % (Auto) 29.6 (25-40) % Scott % (Auto) 9.8 (3-14) % Eos % (Auto) 6.0 H (2-4) % Baso % (Auto) 1.0 (0-2) % Neut # (Auto) 3200 (7786-6300) /uL Lymph # (Auto) 1700 (1735-2513) /uL Scott # (Auto) 600 (0-900) /uL Eos # (Auto) 400 (0-450) /uL Baso # (Auto) 100 (0-100) /uL PT 10.2 (10.1-12.7) SECONDS INR 0.9 (0.9-1.3) APTT 30 (26.4-36.2) SECONDS Sodium 136 L (137-145) mmol/L Potassium 4.2 (3.4-5.1) mmol/L Chloride 98 (98-107) mmol/L Carbon Dioxide 29 (22-32) mmol/L BUN 15 (7-17) mg/dL Creatinine 0.51 L (0.52-1.04) mg/dL Estimated GFR > 60.0 (>60) mL/min BUN/Creatinine Ratio 29.4 H (6-22) Glucose 110 (80-110) mg/dL Calcium 9.3 (8.4-10.2) mg/dL Total Bilirubin 0.4 (0.2-1.3) mg/dL AST 44 H (14-36) IU/L ALT 27 (<35) IU/L Alkaline Phosphatase 73 (38-126) U/L Total Protein 7.5 (6.3-8.2) g/dL Albumin 4.6 (3.5-5.0) g/dL Globulin 2.9 (1.7-4.1) g/dL Albumin/Globulin Ratio 1.6 (1.0-2.8) Lipase 93 (23-300) U/L Point of care testing: Urine Dip Bedside Urine Glucose Negative Bedside Urine Bilirubin - Negative Bedside Urine Ketone - Negative Urine Specific [place] 1.010 Bedside Urine Occult Blood - Negative Bedside Urine pH 7.5 Bedside Urine Protein - Negative Bedside Urine Urobilinogen - Negative Bedside Urine Nitrite - Negative Bedside Urine Leukocytes - Negative Esterase Imaging Data US - abdomen: Radiologist's Impression: [address] [address] Ultrasound Report Signed Patient: Rizwana Abarca TMR#: [id number] : [id number]:[id number] Age/Sex: 69 / FDate of Service: 11/30/19 Loc: ED Accession Number: [id number] Procedure: US abdomen limited Ordering Provider: Jez Anders PROCEDURE: US ABDOMEN LIMITED INDICATIONS: UPPER ABD AND LEFT FLANK PAIN TECHNIQUE: Real-time focused scanning was performed of the abdomen, with image documentation. COMPARISON: None. FINDINGS: The liver is normal in size and appears homogeneous in echotexture. No gallstones, gallbladder wall thickening, or pericholecystic fluid. No biliary ductal dilatation. Visualized pancreas appears unremarkable sonographically. The spleen is normal in size. Left kidney measures up to 10.4 cm. No left hydronephrosis. Evaluation of the abdominal wall demonstrates a supraumbilical ventral abdominal hernia with a fascial defect measuring approximately 0.6 cm. Bowel herniation cannot be excluded. MPRESSION: 1. Small supraumbilical ventral abdominal wall hernia with bowel herniation excluded. Further evaluation may be obtained with a CT if clinically indicated. Dictated by: Inder Robertson M.D. on 11/30/2019 at 17:58 Approved by: Inder Robertson M.D. on 11/30/2019 at 18:00 ECG Data Attestation: I personally reviewed and interpreted this ECG as follows: Prior ECG tracings: available for review Interpretation: Sinus rhythm rate at 69. Normal axis. IN interval 135, QRS duration 93, QT/QTC 375/394. No ST elevation or depression. MDM Narrative Medical decision making narrative: This is a 69-year-old female who is very anxious presents to ED with chief complain of upper left abdominal pain radiating to her back with nausea. Patient is very concerned of unintentional weight loss with difficulty regaining since August 2019. Patient has history of colon resection in 2010 due to colon polyps and GI bleed. Since then, patient reports she has been getting colonoscopy frequently and regularly by [facility] GI specialist. Patient reports she has multiple food intolerance but her pain is not associated with certain types of foods. She takes multiple supplements to boost her immune system for last 1 year. Physical exam appreciated small palpable nodule above umbilicus in mid abdomen which is easily reducible. patient was afebrile with within normal limits of vital signs. abdominal Ultrasound test indicates normal size liver with homogeneous echotexture, no gallstones, normal gallbladder or thickening without pericholecystic fluid. There is no biliary duct dilatation appreciated. Normal appearing pancreas without left hydronephrosis. There was 0.6 cm measuring supraumbilical ventral abdominal hernia with a fascial defect measuring approximately 0.6 cm without certain bowel herniation. Patient advised to avoid straining or lifting to prevent worsening hernia. CBC, CMP, lipase were unremarkable. POC urine test does not indicate infection. Patient was medicated with IV fluid, Protonix, Zofran, Bentyl for her discomfort and patient was not in acute distress. Patient advised to take tbha-cql-sfavkgi omeprazole, Tums, or Pepcid for symptoms persists and advised to take Tylenol and or Motrin as needed for discomfort. Patient advised to follow-up with primary care physician for re-evaluation and return precautions were discussed with the patient. Patient provided with [facility] contact information and a referral if patient has persistent discomfort or worsening signs and symptoms for hernia. Patient verbalized understanding and agreement with the treatment plan. <Leatha Ma, DO - Last Filed: 12/01/19 08:00> Lab Data Labs: Lab Results 11/30/19 11/30/19 11/30/19 Range/Units 15:38 15:38 15:38 WBC 5.9 (4.5-11.0) X10^3/uL RBC 4.29 (4.0-5.2) X10^6/uL Hgb 14.0 (12.0-16.0) g/dL Hct 41.6 (36-46) % MCV 96.8 (80-100) fL MCH 32.6 (26-34) PG MCHC 33.7 (30-36) % RDW 13.2 (11.6-14.8) % Plt Count 251 (150-400) X10^3/uL Neut % (Auto) 53.6 (50-75) % Lymph % (Auto) 29.6 (25-40) % Scott % (Auto) 9.8 (3-14) % Eos % (Auto) 6.0 H (2-4) % Baso % (Auto) 1.0 (0-2) % Neut # (Auto) 3200 (2966-3150) /uL Lymph # (Auto) 1700 (7991-0387) /uL Scott # (Auto) 600 (0-900) /uL Eos # (Auto) 400 (0-450) /uL Baso # (Auto) 100 (0-100) /uL PT 10.2 (10.1-12.7) SECONDS INR 0.9 (0.9-1.3) APTT 30 (26.4-36.2) SECONDS Sodium 136 L (137-145) mmol/L Potassium 4.2 (3.4-5.1) mmol/L Chloride 98 (98-107) mmol/L Carbon Dioxide 29 (22-32) mmol/L BUN 15 (7-17) mg/dL Creatinine 0.51 L (0.52-1.04) mg/dL Estimated GFR > 60.0 (>60) mL/min BUN/Creatinine Ratio 29.4 H (6-22) Glucose 110 (80-110) mg/dL Calcium 9.3 (8.4-10.2) mg/dL Total Bilirubin 0.4 (0.2-1.3) mg/dL AST 44 H (14-36) IU/L ALT 27 (<35) IU/L Alkaline Phosphatase 73 (38-126) U/L Total Protein 7.5 (6.3-8.2) g/dL Albumin 4.6 (3.5-5.0) g/dL Globulin 2.9 (1.7-4.1) g/dL Albumin/Globulin Ratio 1.6 (1.0-2.8) Lipase 93 (23-300) U/L Point of care testing: Urine Dip Bedside Urine Glucose Negative Bedside Urine Bilirubin - Negative Bedside Urine Ketone - Negative Urine Specific [place] 1.010 Bedside Urine Occult Blood - Negative Bedside Urine pH 7.5 Bedside Urine Protein - Negative Bedside Urine Urobilinogen - Negative Bedside Urine Nitrite - Negative Bedside Urine Leukocytes - Negative Esterase Discharge Plan Departure Patient Disposition: Home Clinical Impression: Abdominal pain Qualifiers: Abdominal location: upper abdomen, unspecified Qualified Code(s): R10.10 - Upper abdominal pain, unspecified Ventral hernia Qualifiers: Obstruction and gangrene presence: without obstruction or gangrene Qualified Code(s): K43.9 - Ventral hernia without obstruction or gangrene Discharge Date/Time: 11/30/19 19:27 Instructions: DI for Abdominal Pain-Adult, DI for Ventral Hernia Activity Restrictions/Additional Instructions: You have been diagnosed with [abdominal pain and small supraumbilical ventral abdominal wall hernia. Lab tests were unremarkable. Urine test does not indicate infection.]. What to do: *Take your medications as directed. You can try joqm-ysw-[id number] Tums that you have as needed. Please continue to reduced when he noticed hernia and avoid lifting or straining activity. You can take vrjl-[id number]-[id number] Tylenol and or Motrin as needed for discomfort. *Follow up with your primary care provider in 2-3 days, call for an appointment. Let them know you were seen in the ED and that we asked you to be seen in follow up. Please contact [facility] if hernia becomes persistent or worsening. *Return to ED if you have any new, worsening, or concerning symptoms, such as [chest pain, breathing difficulty, unable to tolerate fluids, fever, unable to reduce hernia, increasing pain or any acute concerns]. Prescriptions: No Action venlafaxine 25 MG tablet 25 mg PO DAILY Qty: 0 RF: 0 liothyronine 5 mcg tablet 5 mcg PO DAILY RF: 0 levothyroxine [Levoxyl] 75 mcg tablet 75 mcg PO DAILY RF: 0 montelukast 10 mg tablet 10 mg PO DAILY RF: 0 metoprolol succinate [Toprol XL] 25 mg tablet extended release 24 hr 25 mg PO DAILY RF: 0 albuterol sulfate [ProAir HFA] 90 mcg/actuation HFA aerosol inhaler 1 puff INHALATION DIRECTED RF: 0 clobetasol 0.05 % solution 1 applic TOPICAL DIRECTED RF: 0 diazepam 5 mg tablet 5 mg PO Q4H PRN (Reason: Anxiety) RF: 0 mometasone 0.1 % solution 1 applic TOPICAL DAILY PRN (Reason: as directed) RF: 0 nortriptyline 10 mg capsule 10 mg PO Q OTHER DAY RF: 0 aspirin [Adult Low Dose Aspirin] 81 mg tablet,delayed release (DR/EC) 81 mg PO DAILY RF: 0 amoxicillin 500 mg capsule 2,000 mg PO ONCE PRN (Reason: prior to dental work) RF: 0 ashwagandan 570 mg PO RF: 0 vitamin E 1,000 unit capsule 1,000 unit PO DAILY RF: 0 alpha lipoic acid 300 mg capsule 300 - 1,000 mg PO DAILY RF: 0 Ultra CoQ10 75 mg capsule 100 mg PO DAILY RF: 0 biotin 1,000 mcg tablet,chewable 1,000 mcg PO DAILY RF: 0 zinc sulfate 220 mg tablet 220 mg PO DAILY RF: 0 omega 3-6-9 1,000 mg PO TID RF: 0 calcium 600 mg PO BID RF: 0 cholecalciferol (vitamin D3) 1,000 unit capsule 2,000 unit PO BID RF: 0 optimized folate 1,000 mg PO DAILY RF: 0 magnesium malate PO RF: 0 lysine 1,000 mg tablet 1,000 mg PO DAILY RF: 0 ljywkcjerhor-mwpjgskn-vidcyq PO RF: 0 Referrals: [facility] [Provider Group] Maria Dolores Mancia MD [Primary Care Provider] -
== END 2019-11-30 19:27 | disposition home or self-care (01) ==
PROVIDERS: Emergency Provider Nurse Practitioner Family; Family Provider Internal Medicine; PCP Internal Medicine
DX: R10.10 Upper abdominal pain, unspecified (principal); K43.9 Ventral hernia without obstruction or gangrene; R19.7 Diarrhea, unspecified
CPT/HCPCS: 36415; 76705; 80053; 81003; 83690; 85025; 85610; 85730; 93005; 96361; 96374; 96375; 99284; C9113; J2405

== ENCOUNTER → 2019-12-18 09:52 | Outpatient (CLI) | payer MEDICARE, OTHER, SELFPAY ==
[2019-12-18 12:37] LABS: Free T3, Triiodothyronine Free 3.49 pg/mL (2.77-5.27); Free T4, Direct Thyroxine 0.71 ng/dL (0.78-2.19)
[2019-12-18 12:51] LABS: Thyroid Stimulating Hormone 2.32 uIU/mL (0.47-4.68)
== END ==
PROVIDERS: Family Provider Internal Medicine; PCP Internal Medicine; Referring Provider Internal Medicine; Visit Provider Internal Medicine
DX: E03.9 Hypothyroidism, unspecified (principal); E00.9 Congenital iodine-deficiency syndrome, unspecified
CPT/HCPCS: 36415; 84439; 84443; 84481

== ENCOUNTER → 2019-12-27 10:05 | Outpatient (CLI) | payer MEDICARE, OTHER, SELFPAY ==
[2019-12-27 11:18] LABS: Amylase 74 U/L (30-110); BUN Creatinine Ratio 34.5 (6-22); Blood Urea Nitrogen 19 mg/dL (7-17); Calcium 9.9 mg/dL (8.4-10.2); Carbon Dioxide 35 mmol/L (22-32); Chloride 97 mmol/L (98-107); Estimated Glomerular Filt Rate > 60.0 mL/min (>60); Glucose 90 mg/dL (80-110); HEMOLYSIS < 15 (0-50); Lipase 121 U/L (23-300); Sodium 136 mmol/L (137-145)
== END ==
PROVIDERS: Family Provider Internal Medicine; PCP Internal Medicine; Referring Provider Internal Medicine; Visit Provider Internal Medicine
DX: R10.12 Left upper quadrant pain (principal)
CPT/HCPCS: 36415; 80048; 82150; 83690

== ENCOUNTER → 2019-12-28 10:00 | Outpatient (CLI) | payer MEDICARE, OTHER, SELFPAY ==
--- NOTE | 2019-12-28 10:47 | DI.CT.S_ITS ---
PROCEDURE: CT ABDOMEN W CON INDICATIONS: Left upper quadrant pain TECHNIQUE: After the administration of oral and intravenous contrast, 5 mm thick sections acquired from the diaphragms to the iliac crests. 5 mm thick coronal and sagittal reformats were acquired. For radiation dose reduction, the following was used: automated exposure control, adjustment of mA and/or kV according to patient size. COMPARISON: None. FINDINGS: Image quality: Excellent. Lung bases: Lung bases are clear. Heart size is normal. Bilateral breast prostheses Solid organs: Mild hepatic steatosis. Liver is enlarged. Gallbladder unremarkable. Biliary system is non dilated. Pancreas enhances normally. Spleen is normal in size and enhancement. No adrenal nodules. Kidneys are normal in size, without hydronephrosis. Peritoneum and bowel: Contrast enhanced bowel loops appear normal in caliber. No free fluid or air. Nodes and vessels: No retroperitoneal or mesenteric adenopathy by size criteria. Aorta and inferior vena cava are normal in size. Bones: No suspicious bony lesions. No vertebral body compression fractures. Miscellaneous: No ventral hernias. IMPRESSION: Hepatic steatosis Hepatomegaly No specific visualized etiology for reported left upper quadrant pain. Dictated by: Emery Hudson M.D. on 12/28/2019 at 12:40 Approved by: Emery Hudson M.D. on 12/28/2019 at 12:46
== END ==
PROVIDERS: Family Provider Internal Medicine; PCP Internal Medicine; Referring Provider Internal Medicine; Visit Provider Internal Medicine
DX: R10.12 Left upper quadrant pain (principal); K76.0 Fatty (change of) liver, not elsewhere classified; R16.0 Hepatomegaly, not elsewhere classified
CPT/HCPCS: 74160; Q9967

== ENCOUNTER → 2020-01-03 10:37 | Outpatient (CLI) | payer MEDICARE, OTHER, SELFPAY ==
[2020-01-04 06:36] LABS: Thyroid Peroxidase Antibodies 36 IU/mL (0-34)
[2020-01-04 21:35] LABS: Thyroglobulin Antibodies < 1.0 IU/mL (0.0-0.9)
== END ==
PROVIDERS: Family Provider Internal Medicine; PCP Internal Medicine; Referring Provider Internal Medicine; Visit Provider Internal Medicine
DX: E03.9 Hypothyroidism, unspecified (principal)
CPT/HCPCS: 36415; 84432; 86376; 86800

== ENCOUNTER → 2020-01-17 11:13 | Outpatient (CLI) | payer MEDICARE, OTHER, SELFPAY ==
--- NOTE | 2020-01-17 | DI.US.S_ITS ---
PROCEDURE: US THYROID INDICATIONS: NONTOXIC SINGLE THYROID NODULE TECHNIQUE: Real-time scanning was performed of the thyroid gland, with image documentation. COMPARISON: None. FINDINGS: Right: Thyroid lobe measures 3.8 x 1.1 x 1.0 cm, and is homogeneous in echotexture. Left: Thyroid lobe measures 3.5 x 1.2 x 1.0 cm, and is homogenous in echotexture. Isthmus: 2.5 mm thick. IMPRESSION: Normal thyroid. Dictated by: Virgil PUENTE Interpreted: Dania Nguyen MD on 01/17/2020 at 12:39 Approved by: Dania Nguyen M.D. on 01/17/2020 at 13:35
== END ==
PROVIDERS: Family Provider Internal Medicine; PCP Internal Medicine; Referring Provider Internal Medicine; Visit Provider Internal Medicine
DX: E04.1 Nontoxic single thyroid nodule (principal)
CPT/HCPCS: 76536

== ENCOUNTER → 2020-01-23 18:41 | Outpatient (ROUT) | payer MEDICARE, OTHER, SELFPAY ==
[2020-01-23 19:33] LABS: Thyroid Stimulating Hormone 0.561 uIU/mL (0.47-4.68)
== END ==
PROVIDERS: Family Provider Internal Medicine; PCP Internal Medicine; Visit Provider Internal Medicine
DX: E03.9 Hypothyroidism, unspecified (principal)
CPT/HCPCS: 84439; 84443; 84481

== ENCOUNTER 2020-03-26 15:38 | Emergency (ER) | payer MEDICARE, OTHER, SELFPAY ==
[2020-03-26 15:46] VITALS: BP 146/80; PULSE 85; RESP 14; TEMP 37.2; O2SAT 95; BMI 17.6
--- NOTE | 2020-03-26 16:10 | DI.MRI.S_ITS ---
PROCEDURE: MR LUMBAR SPINE WO/W CON INDICATIONS: CAdua equina syndrome with hx of same TECHNIQUE: Noncontrast sagittal T1 spin echo and T2 fast spin echo, sagittal STIR, axial T1 and T2 fast spin echo through the lumbar spine. In cases with scoliosis, additional coronal T2 fast spin echo may be performed. After the administration of contrast, sagittal and axial T1 spin echo with fat saturation through the lumbar spine. COMPARISON: [facility], , MR LUMBAR SPINE WO CON, 08/18/2019, 14:46. FINDINGS: Image quality: Excellent. Alignment and curvature: There is normal bony alignment. Bones: There are postsurgical changes at L5. Marrow is of normal overall signal. No acute vertebral body compression fractures. No suspicious marrow enhancement. Spinal cord: Conus medullaris terminates at the L1 level. Visualized spinal cord demonstrates normal signal, without suspicious enhancement. Paraspinous soft tissues: No paravertebral masses or abnormal enhancement. L1-L2: Mild loss of disc height and disc desiccation. There is posterior posterior disc bulge and small posterior central annular fissure. The central canal is patent. No foraminal stenosis. No definitive nerve root impingement. No significant change from the last exam. L2-L3: Normal appearance. L3-L4: Mild loss of disc height and disc desiccation. There is mild posterior disc bulge. Mild bilateral facet arthropathy and hypertrophy of ligamentum flavum. The central canal is mildly narrowed. No foraminal stenosis. No definitive nerve root impingement. No significant change from the last exam. L4-L5: Left L5 hemilaminectomy. Preserved disc height. There is mild disc desiccation. There is mild posterior disc bulge and posterior central annular fissure. Mild bilateral facet arthropathy. The central canal is fqof-js-zhnamwelqa narrowed. Mild bilateral foraminal stenosis. No definitive nerve root impingement. No significant change from the last exam. L5-S1: Normal appearance of intervertebral disc. Ldmv-fo-yolpiqrv bilateral facet arthropathy. No central canal or foraminal stenosis. No significant change from the last exam. IMPRESSION: 1. Multilevel degenerative disc disease and facet arthropathy as described. 2. Hwvj-ne-yssdezep central canal stenosis at L4-L5, and mild central canal stenosis at L3-L4. 3. Mild bilateral foraminal stenosis at L4-L5. Dictated by: Dania Nguyen M.D. on 03/26/2020 at 17:19 Approved by: Dania Nguyen M.D. on 03/26/2020 at 17:27
[2020-03-26 16:23] LABS: Add Manual Diff / Slide Review NO; Basophils Absolute Auto 100 /uL (0-100); Basophils Percent Auto 0.9 % (0-2); Eosinophils Absolute Auto 300 /uL (0-450); Eosinophils Percent Auto 5.1 % (2-4); Hematocrit 37.9 % (36-46); Hemoglobin 12.5 g/dL (12.0-16.0); Lymphocytes Absolute Auto 2000 /uL (1100-4500); Lymphocytes Percent Auto 33.8 % (25-40); Mean Corpuscular HGB Conc 33.1 % (30-36); Mean Corpuscular Hemoglobin 32.1 PG (26-34); Mean Corpuscular Volume 96.9 fL (80-100); Monocytes Absolute Auto 500 /uL (0-900); Monocytes Percent Auto 8.5 % (3-14); Neutrophils Absolute Auto 3000 /uL (1500-7000); Neutrophils Percent Auto 51.7 % (50-75); Platelet Count 282 X10^3/uL (150-400); Red Blood Cell Count 3.91 X10^6/uL (4.0-5.2); Red Cell Distribution Width 12.8 % (11.6-14.8); White Blood Cell Count 5.9 X10^3/uL (4.5-11.0)
[2020-03-26 16:26] LABS: Alanine Aminotransferase 22 IU/L (<35); Albumin 4.4 g/dL (3.5-5.0); Albumin Globulin Ratio 1.7 (1.0-2.8); Alkaline Phosphatase 74 U/L (38-126); Aspartate Aminotransferase 34 IU/L (14-36); BUN Creatinine Ratio 33.3 (6-22); Bilirubin Total 0.3 mg/dL (0.2-1.3); Blood Urea Nitrogen 18 mg/dL (7-17); Carbon Dioxide 27 mmol/L (22-32); Chloride 100 mmol/L (98-107); Estimated Glomerular Filt Rate > 60.0 mL/min (>60); Globulin 2.6 g/dL (1.7-4.1); Glucose 124 mg/dL (80-110); HEMOLYSIS < 15 (0-50); Potassium 4.2 mmol/L (3.4-5.1); Sodium 134 mmol/L (137-145)
[2020-03-26 16:28] LABS: Appearance Urine UA CLEAR; Bacteria Urine None Seen; Bilirubin Urine UA NEGATIVE (NEGATIVE); Color Urine UA YELLOW; Glucose Urine UA NEGATIVE (Negative); Ketones Urine UA NEGATIVE (NEGATIVE); Leukocyte Esterase Urine UA NEGATIVE (NEGATIVE); Nitrite Urine UA NEGATIVE (Negative); Occult Blood Urine UA NEGATIVE (Negative); Protein Urine UA NEGATIVE (Negative); RBC Urine None Seen (0-5/HPF); Specific Gravity Urine UA <=1.005 (1.000-1.035); Urobilinogen Urine UA 0.2 E.U./dL (0.2); WBC Urine None Seen (0-5/HPF)
--- NOTE | 2020-03-26 16:28 | ED_ITS ---
HPI - Back Pain/Injury <Mary Goodwin, DO - Last Filed: 03/27/20 07:03> General Chief Complaint: Back Pain/Injury Stated Complaint: ?syndrome - states medical emergency Time Seen by Provider: 03/26/20 15:49 Source: patient Mode of arrival: Ambulatory Limitations: no limitations History of Present Illness HPI Narrative: Patient is a 69-year-old female with history of cauda equina syndrome presenting with right leg spasming and worsening urine and stool incontinence. She said a year ago and [place] she had emergency surgery for cauda equina syndrome at that time she had severe pain and weakness in her right leg. Today she is having spasming in that right leg and having some low back pain and spasming as well. She has had incontinence of urine since November but that has progressively gotten worse and now has incontinence of stool as well. She has chronic ongoing numbness of her right leg, but worse her today is she feels like she is having increased pain and spasming of that leg MD Complaint: back pain Related Data Home Medications Medication Instructions Recorded Confirmed venlafaxine 25 mg PO DAILY #0 07/10/16 12/12/19 albuterol sulfate [ProAir HFA] 1 puff INHALATION DIRECTED 08/03/19 12/12/19 clobetasol 1 applic TOPICAL DIRECTED 08/03/19 12/12/19 diazepam 5 mg PO Q4H PRN 08/03/19 12/12/19 levothyroxine [Levoxyl] 75 mcg PO DAILY 08/03/19 12/12/19 liothyronine 5 mcg PO DAILY 08/03/19 12/12/19 metoprolol succinate [Toprol XL] 25 mg PO DAILY 08/03/19 12/12/19 mometasone 1 applic TOPICAL DAILY PRN 08/03/19 12/12/19 montelukast 10 mg PO DAILY 08/03/19 12/12/19 alpha lipoic acid 300 mg capsule 300 - 1,000 mg PO DAILY cap 08/08/19 12/12/19 amoxicillin 500 mg capsule 2,000 mg PO ONCE PRN cap 08/08/19 12/12/19 ashwagandan 570 mg PO 08/08/19 12/12/19 aspirin 81 mg tablet,delayed 81 mg PO DAILY 08/08/19 12/12/19 release biotin 1,000 mcg chewable tablet 1,000 mcg PO DAILY 08/08/19 12/12/19 calcium 600 mg PO BID 08/08/19 12/12/19 cholecalciferol (vitamin D3) 25 2,000 unit PO BID cap 08/08/19 12/12/19 mcg (1,000 unit) capsule coenzyme Q10 75 mg capsule 100 mg PO DAILY cap 08/08/19 12/12/19 lysine 1,000 mg tablet 1,000 mg PO DAILY 08/08/19 12/12/19 magnesium malate PO 08/08/19 12/12/19 lollltfzvbql-tbktrvlx-czsxeg PO 08/08/19 12/12/19 nortriptyline 10 mg capsule 10 mg PO Q OTHER DAY cap 08/08/19 12/12/19 omega 3-6-9 1,000 mg PO TID 08/08/19 12/12/19 optimized folate 1,000 mg PO DAILY 08/08/19 12/12/19 vitamin E 1,000 unit capsule 1,000 unit PO DAILY 08/08/19 12/12/19 zinc sulfate 220 mg tablet 220 mg PO DAILY 08/08/19 12/12/19 Allergies Allergy/AdvReac Type Severity Reaction Status Date / Time fluoxetine [From Prozac] Allergy Severe Hallucinati Verified 12/12/19 09:43 ng shellfish derived Allergy Mild N/V Verified 12/12/19 09:43 [SHELLFISH DERIVED] silver Allergy Mild Hives Verified 12/12/19 09:43 [From Tegaderm AG Mesh] aripiprazole [From Abilify] Allergy Unknown Verified 12/12/19 09:43 cephalexin [From KEFLEX] Allergy Unknown HIVES Verified 12/12/19 09:43 midazolam [From Versed] AdvReac Unknown Verified 12/12/19 09:43 gluten AdvReac Verified 03/26/20 15:52 lactose AdvReac Verified 12/12/19 09:43 soy AdvReac Verified 12/12/19 09:43 sulfite AdvReac Verified 12/12/19 09:43 Review of Systems <Mary Goodwin DO - Last Filed: 03/27/20 07:03> Review of Systems Narrative: GENERAL: Denies chills, fatigue, malaise, fever, sweats, travel HEENT: Denies sinus pain, ear pain, sore throat, difficulty swallowing, neck pain RESPIRATORY: Denies dyspnea, cough, wheezing, hemoptysis, sputum. CARDIOVASCULAR: Denies chest pain, palpitations, orthopnea, edema GASTROINTESTINAL: Denies nausea, vomiting, abdominal pain, diarrhea, constipation, melena. : + incontinence MUSCULOSKELETAL: Denies weakness, joint pain, or bony pain SKIN: No rash, no erythema, no pruritus NEUROLOGIC: See HPI PSYCHIATRIC: No concerning psychosocial issues. 12 point review of systems is negative except for those stated above and HPI Patient History <Mary Goodwin DO - Last Filed: 03/27/20 07:03> Medical History Asthma (Acute) Autoimmune disease (Acute) Cauda equina syndrome (Acute) Chronic pain syndrome (Acute) Colon polyps (Acute) Gait instability (Acute) Hepatitis C (Acute) Hypertension (Acute) Hypothyroidism (Acute) Osteoporosis (Acute) Psoriasis (Acute) Raynaud disease (Acute) Rheumatoid arthritis (Acute) Shingles (Acute) Surgical History H/O foot surgery (Acute) History of colon resection (Acute) History of hip surgery (Acute) Social History Smoking Status: Former smoker Smoking Status: Former smoker alcohol intake frequency: 0-2 drinks per day Alcohol type: beer and wine Substance Use Type: marijuana Exam <Mary Goodwin DO - Last Filed: 03/27/20 07:03> Initial Vital Signs Initial Vital Signs: Vital Signs Temperature 98.9 F 03/26/20 15:46 Pulse Rate 85 03/26/20 15:46 Respiratory Rate 14 03/26/20 15:46 Blood Pressure 146/80 H 03/26/20 15:46 Pulse Oximetry 95 03/26/20 15:46 GENERAL: Well-appearing, well-nourished and in no acute distress. HEENT: Head atraumatic,EOMI, pupils reactive, face symmetric, moist mucous membranes CARDIOVASCULAR: Regular rate and rhythm without murmurs, rubs or gallops. RESPIRATORY: Breath sounds equal bilaterally, no wheezes rales or rhonchi. ABDOMEN: Soft, nontender. Normoactive bowel sounds all 4 quadrants. No guarding or rebound. EXTREMITIES: Normal range of motion, no clubbing or edema. Neurovascularly intact NEUROLOGICAL: Alert and oriented x4.Normal gait and speech. Cranial nerves II through XII grossly intact. Increased reflexes on the right side 3 out of for, decreased sensation to sharp and dull on the right side strength is equal bilaterally 5/5. No saddle anesthesia SKIN: Warm, dry, no laceration, no petechiae, no rashes or lesions. <Roseline Reaves MD - Last Filed: 03/26/20 19:02> Initial Vital Signs Initial Vital Signs: Vital Signs Temperature 98.9 F 03/26/20 15:46 Pulse Rate 85 03/26/20 15:46 Respiratory Rate 14 03/26/20 15:46 Blood Pressure 146/80 H 03/26/20 15:46 Pulse Oximetry 95 03/26/20 15:46 Scores <Mary Goodwin DO - Last Filed: 03/27/20 07:03> ABCD2 Citation: Lancet. 2006Aug 13;369(8780):283-92. Validation and refinement of scores to predict very early stroke risk after transient ischaemic attack. Jake SC1, Roxy PM, Ludy MN, Harley MF, Laura JS, Maryam AL, Edis S. Course <Mary Goodwin DO - Last Filed: 03/27/20 07:03> Orders Ordered: ED Orders 03/26/20 16:00 Complete Blood Count AUTO DIFF Stat Comprehensive Metabolic Panel Stat 03/26/20 16:10 MR lumbar spine wo/w con Stat 03/26/20 16:20 Urinalysis and Microscopic Stat Vital Signs Vital signs: Vital Signs - 8 hr 03/26/20 15:46 03/26/20 18:36 Temperature 98.9 F Pulse Rate 85 72 Respiratory Rate 14 18 Blood Pressure 146/80 H 128/62 Pulse Oximetry 95 96 <Roseline Reaves MD - Last Filed: 03/26/20 19:02> Orders Ordered: ED Orders 03/26/20 16:00 Complete Blood Count AUTO DIFF Stat Comprehensive Metabolic Panel Stat 03/26/20 16:10 MR lumbar spine wo/w con Stat 03/26/20 16:20 Urinalysis and Microscopic Stat Vital Signs Vital signs: Vital Signs - 8 hr 03/26/20 15:46 03/26/20 18:36 Temperature 98.9 F Pulse Rate 85 72 Respiratory Rate 14 18 Blood Pressure 146/80 H 128/62 Pulse Oximetry 95 96 MDM - Back Pain/Injury <Mary Goodwin, - Last Filed: 03/27/20 07:03> Lab Data Result diagrams: 03/26/20 16:00 03/26/20 16:00 Labs: Lab Results 03/26/20 03/26/20 03/26/20 Range/Units 16:00 16:00 16:20 WBC 5.9 (4.5-11.0) X10^3/uL RBC 3.91 L (4.0-5.2) X10^6/uL Hgb 12.5 (12.0-16.0) g/dL Hct 37.9 (36-46) % MCV 96.9 (80-100) fL MCH 32.1 (26-34) PG MCHC 33.1 (30-36) % RDW 12.8 (11.6-14.8) % Plt Count 282 (150-400) X10^3/uL Neut % (Auto) 51.7 (50-75) % Lymph % (Auto) 33.8 (25-40) % [place] % (Auto) 8.5 (3-14) % Eos % (Auto) 5.1 H (2-4) % Baso % (Auto) 0.9 (0-2) % Neut # (Auto) 3000 (2173-6146) /uL Lymph # (Auto) 2000 (9489-4996) /uL [place] # (Auto) 500 (0-900) /uL Eos # (Auto) 300 (0-450) /uL Baso # (Auto) 100 (0-100) /uL Sodium 134 L (137-145) mmol/L Potassium 4.2 (3.4-5.1) mmol/L Chloride 100 (98-107) mmol/L Carbon Dioxide 27 (22-32) mmol/L BUN 18 H (7-17) mg/dL Creatinine 0.54 (0.52-1.04) mg/dL Estimated GFR > 60.0 (>60) mL/min BUN/Creatinine Ratio 33.3 H (6-22) Glucose 124 H (80-110) mg/dL Calcium 9.0 (8.4-10.2) mg/dL Total Bilirubin 0.3 (0.2-1.3) mg/dL AST 34 (14-36) IU/L ALT 22 (<35) IU/L Alkaline Phosphatase 74 (38-126) U/L Total Protein 7.0 (6.3-8.2) g/dL Albumin 4.4 (3.5-5.0) g/dL Globulin 2.6 (1.7-4.1) g/dL Albumin/Globulin Ratio 1.7 (1.0-2.8) Urine Color Yellow Urine Appearance Clear Urine pH 5.0 (4.5-8.0) Ur Specific [place] <=1.005 (1.000-1.035) Urine Protein Negative (Negative) Urine Glucose (UA) Negative (Negative) g/dL Urine Ketones Negative (NEGATIVE) Urine Occult Blood Negative (Negative) Urine Nitrate Negative (Negative) Urine Bilirubin Negative (NEGATIVE) Urine Urobilinogen 0.2 (0.2) E.U./dL Ur Leukocyte Esterase Negative (NEGATIVE) Urine RBC None seen (0-5/HPF) Urine WBC None seen (0-5/HPF) Urine Bacteria None seen (None) Ur Culture Indicated? Cult not indicated MDM Narrative Medical decision making narrative: Signed out to Dr. Delvalle awaiting MRI results anticipate discharge. <Roseline Reaves MD - Last Filed: 03/26/20 19:02> Medical Records Attestation: I reviewed the patient's medical records. Lab Data Attestation: I reviewed the patient's lab results. Labs: Lab Results 03/26/20 03/26/20 03/26/20 Range/Units 16:00 16:00 16:20 WBC 5.9 (4.5-11.0) X10^3/uL RBC 3.91 L (4.0-5.2) X10^6/uL Hgb 12.5 (12.0-16.0) g/dL Hct 37.9 (36-46) % MCV 96.9 (80-100) fL MCH 32.1 (26-34) PG MCHC 33.1 (30-36) % RDW 12.8 (11.6-14.8) % Plt Count 282 (150-400) X10^3/uL Neut % (Auto) 51.7 (50-75) % Lymph % (Auto) 33.8 (25-40) % [place] % (Auto) 8.5 (3-14) % Eos % (Auto) 5.1 H (2-4) % Baso % (Auto) 0.9 (0-2) % Neut # (Auto) 3000 (2334-4668) /uL Lymph # (Auto) 2000 (0051-2426) /uL [place] # (Auto) 500 (0-900) /uL Eos # (Auto) 300 (0-450) /uL Baso # (Auto) 100 (0-100) /uL Sodium 134 L (137-145) mmol/L Potassium 4.2 (3.4-5.1) mmol/L Chloride 100 (98-107) mmol/L Carbon Dioxide 27 (22-32) mmol/L BUN 18 H (7-17) mg/dL Creatinine 0.54 (0.52-1.04) mg/dL Estimated GFR > 60.0 (>60) mL/min BUN/Creatinine Ratio 33.3 H (6-22) Glucose 124 H (80-110) mg/dL Calcium 9.0 (8.4-10.2) mg/dL Total Bilirubin 0.3 (0.2-1.3) mg/dL AST 34 (14-36) IU/L ALT 22 (<35) IU/L Alkaline Phosphatase 74 (38-126) U/L Total Protein 7.0 (6.3-8.2) g/dL Albumin 4.4 (3.5-5.0) g/dL Globulin 2.6 (1.7-4.1) g/dL Albumin/Globulin Ratio 1.7 (1.0-2.8) Urine Color Yellow Urine Appearance Clear Urine pH 5.0 (4.5-8.0) Ur Specific [place] <=1.005 (1.000-1.035) Urine Protein Negative (Negative) Urine Glucose (UA) Negative (Negative) g/dL Urine Ketones Negative (NEGATIVE) Urine Occult Blood Negative (Negative) Urine Nitrate Negative (Negative) Urine Bilirubin Negative (NEGATIVE) Urine Urobilinogen 0.2 (0.2) E.U./dL Ur Leukocyte Esterase Negative (NEGATIVE) Urine RBC None seen (0-5/HPF) Urine WBC None seen (0-5/HPF) Urine Bacteria None seen (None) Ur Culture Indicated? Cult not indicated Imaging Data Lumbar spine MRI: Radiologist's Impression: FINDINGS: Image quality: Excellent. Alignment and curvature: There is normal bony alignment. Bones: There are postsurgical changes at L5. Marrow is of normal overall signal. No acute vertebral body compression fractures. No suspicious marrow enhancement. Spinal cord: Conus medullaris terminates at the L1 level. Visualized spinal cord demonstrates normal signal, without suspicious enhancement. Paraspinous soft tissues: No paravertebral masses or abnormal enhancement. L1-L2: Mild loss of disc height and disc desiccation. There is posterior posterior disc bulge and small posterior central annular fissure. The central canal is patent. No foraminal stenosis. No definitive nerve root impingement. No significant change from the last exam. L2-L3: Normal appearance. L3-L4: Mild loss of disc height and disc desiccation. There is mild posterior disc bulge. Mild bilateral facet arthropathy and hypertrophy of ligamentum flavum. The central canal is mildly narrowed. No foraminal stenosis. No definitive nerve root impingement. No significant change from the last exam. L4-L5: Left L5 hemilaminectomy. Preserved disc height. There is mild disc desiccation. There is mild posterior disc bulge and posterior central annular fissure. Mild bilateral facet arthropathy. The central canal is nqrg-ya-ahrmlexeke narrowed. Mild bilateral foraminal stenosis. No definitive nerve root impingement. No significant change from the last exam. L5-S1: Normal appearance of intervertebral disc. Airw-ur-upyiltmt bilateral facet arthropathy. No central canal or foraminal stenosis. No significant change from the last exam. IMPRESSION: 1. Multilevel degenerative disc disease and facet arthropathy as described. 2. Luux-mk-neaigvyv central canal stenosis at L4-L5, and mild central canal stenosis at L3-L4. 3. Mild bilateral foraminal stenosis at L4-L5. Dictated by: Dania Nguyen M.D. on 03/26/2020 at 17:19 MDM Narrative Medical decision making narrative: No acute findings on MRI to suggest immediate pathology to explain the worsening urinary and bowel incontinence. She is safe for home discharge. Recommended close follow-up Discharge Plan Departure Patient Disposition: Home Clinical Impression: Bladder incontinence Qualifiers: Urinary Incontinence type: other incontinence Qualified Code(s): N39.498 - Other specified urinary incontinence Bowel incontinence Qualifiers: Fecal incontinence type: unspecified Qualified Code(s): R15.9 - Full incontinence of feces Discharge Date/Time: 03/26/20 19:15 Instructions: DI for Low Back Pain Activity Restrictions/Additional Instructions: Your MRI scan does not show any acute findings and specifically does not show an abscess or cauda equinus syndrome. I would recommend that you go back to Dr. Mancia so she can help you figure out which specialists to see next to help with the dramatic bowel and bladder incontinence issues. My guess is that a urogynecologist as well as a interior decorator painting of both going to be helpful in figuring out where the actual pathology is so that then we can find effective treatment for you. I wish you the best Prescriptions: No Action venlafaxine 25 MG tablet 25 mg PO DAILY Qty: 0 RF: 0 liothyronine 5 mcg tablet 5 mcg PO DAILY RF: 0 levothyroxine [Levoxyl] 75 mcg tablet 75 mcg PO DAILY RF: 0 montelukast 10 mg tablet 10 mg PO DAILY RF: 0 metoprolol succinate [Toprol XL] 25 mg tablet extended release 24 hr 25 mg PO DAILY RF: 0 albuterol sulfate [ProAir HFA] 90 mcg/actuation HFA aerosol inhaler 1 puff INHALATION DIRECTED RF: 0 clobetasol 0.05 % solution 1 applic TOPICAL DIRECTED RF: 0 diazepam 5 mg tablet 5 mg PO Q4H PRN (Reason: Anxiety) RF: 0 mometasone 0.1 % solution 1 applic TOPICAL DAILY PRN (Reason: as directed) RF: 0 nortriptyline 10 mg capsule 10 mg PO Q OTHER DAY RF: 0 aspirin [Adult Low Dose Aspirin] 81 mg tablet,delayed release (DR/EC) 81 mg PO DAILY RF: 0 amoxicillin 500 mg capsule 2,000 mg PO ONCE PRN (Reason: prior to dental work) RF: 0 ashwagandan 570 mg PO RF: 0 vitamin E 1,000 unit capsule 1,000 unit PO DAILY RF: 0 alpha lipoic acid 300 mg capsule 300 - 1,000 mg PO DAILY RF: 0 Ultra CoQ10 75 mg capsule 100 mg PO DAILY RF: 0 biotin 1,000 mcg tablet,chewable 1,000 mcg PO DAILY RF: 0 zinc sulfate 220 mg tablet 220 mg PO DAILY RF: 0 omega 3-6-9 1,000 mg PO TID RF: 0 calcium 600 mg PO BID RF: 0 cholecalciferol (vitamin D3) 1,000 unit capsule 2,000 unit PO BID RF: 0 optimized folate 1,000 mg PO DAILY RF: 0 magnesium malate PO RF: 0 lysine 1,000 mg tablet 1,000 mg PO DAILY RF: 0 zxcjegvmyzta-jddtfghd-imkvat PO RF: 0 Referrals: Maria Dolores Mancia MD [Primary Care Provider] -
[2020-03-26 16:35] LABS: Culture Indicated Urine Cult Not Indicated
--- NOTE | 2020-03-26 17:17 | PC.NURSE ---
Pt is at MRI
[2020-03-26 18:36] VITALS: BP 128/62; PULSE 72; RESP 18; O2SAT 96
== END 2020-03-26 19:15 | disposition home or self-care (01) ==
PROVIDERS: Emergency Medicine; Emergency Provider Emergency Medicine; Family Provider Internal Medicine; PCP Internal Medicine
DX: N39.498 Other specified urinary incontinence (principal); R15.9 Full incontinence of feces; M54.5 Low back pain; M79.604 Pain in right leg
CPT/HCPCS: 72158; 80053; 81001; 85025; 99283; 99284

== ENCOUNTER → 2020-04-03 11:33 | Outpatient (CLI) | payer MEDICARE, OTHER, SELFPAY ==
[2020-04-03 16:42] LABS: Hep C Virus Ab w/Reflex Quant REACTIVE s/c (NEGATIVE)
[2020-04-05 18:36] LABS: ANA Screen, IFA Negative (.)
== END ==
PROVIDERS: Family Provider Internal Medicine; PCP Internal Medicine; Referring Provider Internal Medicine; Visit Provider Internal Medicine
DX: B18.2 Chronic viral hepatitis C (principal); M25.50 Pain in unspecified joint
CPT/HCPCS: 36415; 86038; 86803; 87522

== ENCOUNTER → 2020-05-23 13:15 | Outpatient (CLI) | payer MEDICARE, OTHER, SELFPAY ==
[2020-05-23 14:43] LABS: Free T3, Triiodothyronine Free 2.57 pg/mL (2.77-5.27)
== END ==
PROVIDERS: Family Provider Internal Medicine; PCP Internal Medicine; Referring Provider Internal Medicine; Visit Provider Internal Medicine
DX: E03.9 Hypothyroidism, unspecified (principal)
CPT/HCPCS: 36415; 84439; 84443; 84481

== ENCOUNTER → 2020-06-09 13:54 | Outpatient (CLI) | payer MEDICARE, OTHER, SELFPAY ==
[2020-06-09 15:50] LABS: Free T3, Triiodothyronine Free 3.19 pg/mL (2.77-5.27); Free T4, Direct Thyroxine 0.96 ng/dL (0.78-2.19)
[2020-06-09 16:04] LABS: Thyroid Stimulating Hormone 1.29 uIU/mL (0.47-4.68)
[2020-06-10 17:58] LABS: Anti Thyroglobulin Antibody <1.0 IU/mL (0.0-0.9); Thyroid Peroxidase Antibodies 12 IU/mL (0-34)
== END ==
PROVIDERS: Family Provider Internal Medicine; PCP Internal Medicine; Referring Provider Internal Medicine; Visit Provider Internal Medicine
DX: E03.9 Hypothyroidism, unspecified (principal)
CPT/HCPCS: 36415; 84439; 84443; 84481; 86376; 86800

== ENCOUNTER 2020-07-25 16:19 | Emergency (ER) | payer MEDICARE, OTHER, SELFPAY ==
[2020-07-25 16:29] VITALS: BP 171/87; PULSE 85; RESP 14; TEMP 37.2; O2SAT 97; BMI 18.3
--- NOTE | 2020-07-25 19:27 | ED_ITS ---
HPI - Skin/Abscess/Foreign Bdy <Rl Bhatt, DO - Last Filed: 07/27/20 00:21> General Chief complaint: Skin/Abscess/Foreign Body Stated complaint: worms in whole body Time Seen by Provider: 07/25/20 19:24 Source: patient and family Mode of arrival: Ambulatory Limitations: no limitations History of Present Illness HPI narrative: 70-year-old female former smoker who uses marijuana, with history of asthma and hypothyroidism presents with her family and a chief complaint of a massive worm infestation from head to toe. She states that this has been going on for least a few days and she has worms crawling out of her scalp, her ears her nose and in her bowel movements. She states they constantly crawl out of her skin and in fast food. She states she was at the local grocery store and she watched worms crawl out of her arms into the cucumber, back of the cucumber and into her arms. She has calmed was photos in her phone that are demonstrating examples of this. She denies any thoughts of hurting herself or others. She has no insight into her arrival. She denies any trauma, use of drugs or alcohol. She denies any change in her medications. She has had no international travel MD complaint: lesion Onset (ago): day(s) Tetanus up to date: yes Location: generalized Severity: moderate Relieving factors: none Exacerbating factors: none Treatments prior to arrival: none Related Data Home Medications Medication Instructions Recorded Confirmed venlafaxine 25 mg PO DAILY #0 07/10/16 12/12/19 albuterol sulfate [ProAir HFA] 1 puff INHALATION DIRECTED 08/03/19 12/12/19 clobetasol 1 applic TOPICAL DIRECTED 08/03/19 12/12/19 diazepam 5 mg PO Q4H PRN 08/03/19 12/12/19 levothyroxine [Levoxyl] 75 mcg PO DAILY 08/03/19 12/12/19 liothyronine 5 mcg PO DAILY 08/03/19 12/12/19 metoprolol succinate [Toprol XL] 25 mg PO DAILY 08/03/19 12/12/19 mometasone 1 applic TOPICAL DAILY PRN 08/03/19 12/12/19 montelukast 10 mg PO DAILY 08/03/19 12/12/19 alpha lipoic acid 300 mg capsule 300 - 1,000 mg PO DAILY cap 08/08/19 12/12/19 amoxicillin 500 mg capsule 2,000 mg PO ONCE PRN cap 08/08/19 12/12/19 ashwagandan 570 mg PO 08/08/19 12/12/19 aspirin 81 mg tablet,delayed 81 mg PO DAILY 08/08/19 12/12/19 release biotin 1,000 mcg chewable tablet 1,000 mcg PO DAILY 08/08/19 12/12/19 calcium 600 mg PO BID 08/08/19 12/12/19 cholecalciferol (vitamin D3) 25 2,000 unit PO BID cap 08/08/19 12/12/19 mcg (1,000 unit) capsule coenzyme Q10 75 mg capsule 100 mg PO DAILY cap 08/08/19 12/12/19 lysine 1,000 mg tablet 1,000 mg PO DAILY 08/08/19 12/12/19 magnesium malate PO 08/08/19 12/12/19 [id number] PO 08/08/19 12/12/19 nortriptyline 10 mg capsule 10 mg PO Q OTHER DAY cap 08/08/19 12/12/19 omega 3-6-9 1,000 mg PO TID 08/08/19 12/12/19 optimized folate 1,000 mg PO DAILY 08/08/19 12/12/19 vitamin E 1,000 unit capsule 1,000 unit PO DAILY 08/08/19 12/12/19 zinc sulfate 220 mg tablet 220 mg PO DAILY 08/08/19 12/12/19 Allergies Allergy/AdvReac Type Severity Reaction Status Date / Time fluoxetine [From Prozac] Allergy Severe Hallucinati Verified 07/25/20 16:29 ng shellfish derived Allergy Mild N/V Verified 07/25/20 16:29 [SHELLFISH DERIVED] silver Allergy Mild Hives Verified 07/25/20 16:29 [From Tegaderm AG Mesh] aripiprazole [From Abilify] Allergy Unknown Verified 07/25/20 16:29 cephalexin [From KEFLEX] Allergy Unknown HIVES Verified 07/25/20 16:29 midazolam [From Versed] AdvReac Unknown Verified 07/25/20 16:29 gluten AdvReac Verified 07/25/20 16:29 lactose AdvReac Verified 07/25/20 16:29 soy AdvReac Verified 07/25/20 16:29 sulfite AdvReac Verified 07/25/20 16:29 Review of Systems <Rl Bhatt DO - Last Filed: 07/27/20 00:21> Constitutional Constitutional: Denies chills, Denies fatigue, Denies fever(s), Denies frequent falls, Denies lethargy and Denies weakness Eyes Eyes: Denies change in vision, Denies eye discharge, Denies irritation and Denies loss of vision ENT Ears, Nose, Mouth, and Throat: Denies change in voice, Denies dizziness, Denies neck pain, Denies sore throat and Denies throat swelling Cardiovascular Cardiovascular: Denies chest pain, Denies irregular heart rhythm, Denies lightheadedness, Denies palpitations, Denies dyspnea, Denies dyspnea on exertion and Denies orthopnea Respiratory Respiratory: Denies cough, Denies dyspnea, Denies dyspnea on exertion and Denies wheezing Gastrointestinal Gastrointestinal: Denies abdominal pain, Denies change in bowel habits, Denies diarrhea, Denies nausea and Denies vomiting Musculoskeletal Musculoskeletal: Denies neck pain and Denies numbness Integumentary/Breasts Skin/Breast: Denies pruritus, Denies erythema, Denies rash, Reports sores and Reports wounds Neurologic Neurologic: Denies behavioral changes, Denies confusion, Denies dizziness, Denies frequent falls, Denies loss of vision, Denies numbness and Denies weakness Psychiatric Psychiatric: Denies anxiety, Denies behavioral changes, Denies confusion, Denies depression, Denies homicidal ideation and Denies suicidal ideation Endocrine Endocrine: Denies fatigue, Denies flushing and Denies palpitations Hematologic/Lymphatic Hematologic/Lymphatic: Denies easy bruising Allergic/Immunologic Allergic/Immunologic: Denies urticaria, Denies throat swelling and Denies wheezing Patient History <Rl Bhatt DO - Last Filed: 07/27/20 00:21> Medical History (Updated 07/26/20 @ 11:36 by Leatha Ma DO) Asthma Autoimmune disease Cauda equina syndrome Chronic pain syndrome Colon polyps Gait instability Hepatitis C Hypertension Hypothyroidism Osteoporosis Psoriasis Raynaud disease Rheumatoid arthritis Shingles Surgical History H/O foot surgery History of colon resection History of hip surgery Social History Smoking Status: Former smoker Smoking Status: Former smoker alcohol intake frequency: 0-2 drinks per day Alcohol type: beer and wine Substance Use Type: marijuana Exam <Rl Bhatt DO - Last Filed: 07/27/20 00:21> Narrative Exam Narrative: GENERAL: [62] year old patient appears stated age. Well- nourished, well-developed patient, in mild distress. Pressured speech, difficult to direct HEAD: Atraumatic. Normocephalic. Scalp examined for worms, none obviously noted. EYES: Pupils equal round and reactive. Extraocular motions intact. No scleral icterus. No injection or drainage. ENT: Nose without bleeding, purulent drainage. Throat without erythema, tonsillar hypertrophy or exudate. Airway patent. NECK: Trachea midline. Non tender CARDIOVASCULAR: Regular rate and rhythm without murmurs, gallops, or rubs. RESPIRATORY: Clear to auscultation. Breath sounds equal bilaterally. No wheezes, rales, or rhonchi. GASTROINTESTINAL: Abdomen soft, non-tender, nondistended. EXTREMITIES: No edema or joint tenderness. BACK: Nontender without deformity or crepitance. No flank tenderness. NEURO: AOx3. SKIN: No rash or erythema of visible areas. Few areas of dried skin between her toes which she refers to as clear evidence of worms. Initial Vital Signs Initial Vital Signs: Vital Signs Temperature 99.0 F 07/25/20 16:29 Pulse Rate 85 07/25/20 16:29 Respiratory Rate 14 07/25/20 16:29 Blood Pressure 171/87 H 07/25/20 16:29 Pulse Oximetry 97 07/25/20 16:29 <Leatha Ma DO - Last Filed: 07/26/20 19:51> Initial Vital Signs Initial Vital Signs: Vital Signs Temperature 99.0 F 07/25/20 16:29 Pulse Rate 85 07/25/20 16:29 Respiratory Rate 14 07/25/20 16:29 Blood Pressure 171/87 H 07/25/20 16:29 Pulse Oximetry 97 07/25/20 16:29 Course <Rl Bhatt DO - Last Filed: 07/27/20 00:21> Course Course Narrative: There is no evidence of worm infestation. Her presentation would suggest that she is having an acute psychotic episode. There is no medical abnormality noted. She is gravely disabled and lacks insight. She is medically cleared and certainly seems fit for psychiatric evaluation by DCR for likely hospitalization. Our [employer] OFFICER has seen patient and written a note, recommending DCR involvement I share the opinion with [employer] OFFICER and DCR that this is acute barbara with psychosis. This has been rapid in onset. Patient has no evidence of memory impairment, chronic evolution or other classic elements of dementia. It is my opinion that this patient needs hospitalization and treatment of her acute condition. Orders Ordered: Discontinued Medications Sodium Chloride (Normal Saline 0.9%) 1,000 mls @ 150 mls/hr IV CONT PHI Last Admin: 07/26/20 00:49 Dose: Not Given Documented by: KGALLAG Levothyroxine Sodium (Levothyroxine 75 Mcg Tablet) 75 mcg PO DAILY@0600 [facility]I Levothyroxine Sodium (Levothyroxine 75 Mcg Tablet) 75 mcg PO DAILY@0600 [facility] Last Admin: 07/26/20 02:49 Dose: 75 mcg Documented by: MATT Magnesium Oxide (Magnesium Oxide 400 Mg Tablet) 400 mg PO NOW ONE Stop: 07/26/20 02:14 Last Admin: 07/26/20 02:49 Dose: 400 mg Documented by: KGMANINDERAG Olanzapine (Olanzapine Odt 10 Mg Tab) 10 mg PO NOW ONE Stop: 07/26/20 02:37 Last Admin: 07/26/20 02:49 Dose: 10 mg Documented by: KGALLAG Olanzapine (Olanzapine Odt 10 Mg Tab) 10 mg PO NOW ONE Stop: 07/26/20 12:22 Last Admin: 07/26/20 12:29 Dose: Not Given Documented by: MMINOR Vital Signs Vital signs: Vital Signs - 8 hr 07/26/20 11:55 Temperature 98.1 F Pulse Rate 82 Respiratory Rate 18 Blood Pressure 123/67 Pulse Oximetry 98 <Leatha Ma DO - Last Filed: 07/26/20 19:51> Orders Ordered: Discontinued Medications Sodium Chloride (Normal Saline 0.9%) 1,000 mls @ 150 mls/hr IV CONT PHI Last Admin: 07/26/20 00:49 Dose: Not Given Documented by: KGALLAG Levothyroxine Sodium (Levothyroxine 75 Mcg Tablet) 75 mcg PO DAILY@0600 [facility] Levothyroxine Sodium (Levothyroxine 75 Mcg Tablet) 75 mcg PO DAILY@0600 [facility] Last Admin: 07/26/20 02:49 Dose: 75 mcg Documented by: MATT Magnesium Oxide (Magnesium Oxide 400 Mg Tablet) 400 mg PO NOW ONE Stop: 07/26/20 02:14 Last Admin: 07/26/20 02:49 Dose: 400 mg Documented by: MATT Olanzapine (Olanzapine Odt 10 Mg Tab) 10 mg PO NOW ONE Stop: 07/26/20 02:37 Last Admin: 07/26/20 02:49 Dose: 10 mg Documented by: MATT Olanzapine (Olanzapine Odt 10 Mg Tab) 10 mg PO NOW ONE Stop: 07/26/20 12:22 Last Admin: 07/26/20 12:29 Dose: Not Given Documented by: SUZY Reevaluation(s) Reevaluation #1: Patient is awake, alert. She received olanzapine overnight which allowed her to sleep. Gabriella from [facility] was here earlier this evening, he has returned in effort to find the patient placement. Time: 09:19 Reevaluation #2: Patient accepted at [facility]. She is current involuntary second to debility from her delusions and psychiatric issues but she has been cooperative during her stay. Time: 11:36 Vital Signs Vital signs: Vital Signs - 8 hr 07/26/20 11:55 Temperature 98.1 F Pulse Rate 82 Respiratory Rate 18 Blood Pressure 123/67 Pulse Oximetry 98 MDM - Skin/Abscess/Foreign Bdy <Rl Bhatt, DO - Last Filed: 07/27/20 00:21> Lab Data Result diagrams: 07/25/20 19:46 07/25/20 19:46 Labs: Lab Results 07/25/20 07/25/20 07/25/20 Range/Units 19:46 19:46 19:46 WBC 6.5 (4.5-11.0) X10^3/uL RBC 4.26 (4.0-5.2) X10^6/uL Hgb 13.7 (12.0-16.0) g/dL Hct 40.2 (36-46) % MCV 94.3 (80-100) fL MCH 32.1 (26-34) PG MCHC 34.1 (30-36) % RDW 13.8 (11.6-14.8) % Plt Count 254 (150-400) X10^3/uL Neut % (Auto) 56.7 (50-75) % Lymph % (Auto) 24.8 L (25-40) % [place] % (Auto) 13.8 (3-14) % Eos % (Auto) 3.9 (2-4) % Baso % (Auto) 0.8 (0-2) % Neut # (Auto) 3700 (6552-0683) /uL Lymph # (Auto) 1600 (2016-8604) /uL [place] # (Auto) 900 (0-900) /uL Eos # (Auto) 200 (0-450) /uL Baso # (Auto) 100 (0-100) /uL Sodium 137 (137-145) mmol/L Potassium 4.2 (3.4-5.1) mmol/L Chloride 100 (98-107) mmol/L Carbon Dioxide 31 (22-32) mmol/L BUN 23 H (7-17) mg/dL Creatinine 0.78 (0.52-1.04) mg/dL Estimated GFR > 60.0 (>60) mL/min BUN/Creatinine Ratio 29.5 H (6-22) Glucose 110 (80-110) mg/dL Calcium 9.6 (8.4-10.2) mg/dL Total Bilirubin 0.3 (0.2-1.3) mg/dL AST 47 H (14-36) IU/L ALT 42 H (<35) IU/L Alkaline Phosphatase 69 (38-126) U/L Total Protein 8.0 (6.3-8.2) g/dL Albumin 5.0 (3.5-5.0) g/dL Globulin 3.0 (1.7-4.1) g/dL Albumin/Globulin Ratio 1.7 (1.0-2.8) TSH 4.39 (0.47-4.68) uIU/mL Urine Color Urine Appearance Urine pH (4.5-8.0) Ur Specific [place] (1.000-1.035) Urine Protein (Negative) Urine Glucose (UA) (Negative) g/dL Urine Ketones (NEGATIVE) Urine Occult Blood (Negative) Urine Nitrate (Negative) Urine Bilirubin (NEGATIVE) Urine Urobilinogen (0.2) E.U./dL Ur Leukocyte Esterase (NEGATIVE) Urine RBC (0-5/HPF) Urine WBC (0-5/HPF) Urine Bacteria (None) Ur Culture Indicated? Salicylates < 1.0 (<20) mg/dL U Opiates 300ng/mL cut (Negative) Ur Oxycodone Screen (Negative) Urine Methadone Screen (Negative) Ur Barbiturates Screen (Negative) U Tricyclic Antidepress (Negative) Ur Phencyclidine Scrn (Negative) Ur Amphetamines Screen (Negative) U Methamphetamines Scrn (Negative) Ur MDMA Scrn (Ecstasy) (Negative) U Benzodiazepines Scrn (Negative) Urine Cocaine Screen (Negative) U Marijuana (THC) Screen (Negative) Ethyl Alcohol < 10 ( - 10) mg/dL SARS-CoV-2 (PCR) (Negative) 07/25/20 07/25/20 07/26/20 Range/Units 19:46 19:46 00:40 WBC (4.5-11.0) X10^3/uL RBC (4.0-5.2) X10^6/uL Hgb (12.0-16.0) g/dL Hct (36-46) % MCV (80-100) fL MCH (26-34) PG MCHC (30-36) % RDW (11.6-14.8) % Plt Count (150-400) X10^3/uL Neut % (Auto) (50-75) % Lymph % (Auto) (25-40) % [place] % (Auto) (3-14) % Eos % (Auto) (2-4) % Baso % (Auto) (0-2) % Neut # (Auto) (9916-0789) /uL Lymph # (Auto) (3787-5266) /uL [place] # (Auto) (0-900) /uL Eos # (Auto) (0-450) /uL Baso # (Auto) (0-100) /uL Sodium (137-145) mmol/L Potassium (3.4-5.1) mmol/L Chloride (98-107) mmol/L Carbon Dioxide (22-32) mmol/L BUN (7-17) mg/dL Creatinine (0.52-1.04) mg/dL Estimated GFR (>60) mL/min BUN/Creatinine Ratio (6-22) Glucose (80-110) mg/dL Calcium (8.4-10.2) mg/dL Total Bilirubin (0.2-1.3) mg/dL AST (14-36) IU/L ALT (<35) IU/L Alkaline Phosphatase (38-126) U/L Total Protein (6.3-8.2) g/dL Albumin (3.5-5.0) g/dL Globulin (1.7-4.1) g/dL Albumin/Globulin Ratio (1.0-2.8) TSH (0.47-4.68) uIU/mL Urine Color Yellow Urine Appearance Clear Urine pH 6.0 (4.5-8.0) Ur Specific [place] 1.020 (1.000-1.035) Urine Protein Negative (Negative) Urine Glucose (UA) Negative (Negative) g/dL Urine Ketones Trace H (NEGATIVE) Urine Occult Blood 1+ H (Negative) Urine Nitrate Negative (Negative) Urine Bilirubin Negative (NEGATIVE) Urine Urobilinogen 0.2 (0.2) E.U./dL Ur Leukocyte Esterase Negative (NEGATIVE) Urine RBC 5-10/hpf H (0-5/HPF) Urine WBC None seen (0-5/HPF) Urine Bacteria None seen (None) Ur Culture Indicated? Cult not indicated Salicylates (<20) mg/dL U Opiates 300ng/mL cut Negative (Negative) Ur Oxycodone Screen Negative (Negative) Urine Methadone Screen Negative (Negative) Ur Barbiturates Screen Negative (Negative) U Tricyclic Antidepress Negative (Negative) Ur Phencyclidine Scrn Negative (Negative) Ur Amphetamines Screen Negative (Negative) U Methamphetamines Scrn Negative (Negative) Ur MDMA Scrn (Ecstasy) Negative (Negative) U Benzodiazepines Scrn Negative (Negative) Urine Cocaine Screen Negative (Negative) U Marijuana (THC) Screen Positive H (Negative) Ethyl Alcohol ( - 10) mg/dL SARS-CoV-2 (PCR) Negative (Negative) <Leatha Ma DO - Last Filed: 07/26/20 19:51> Lab Data Attestation: I reviewed the patient's lab results. Labs: Lab Results 07/25/20 07/25/20 07/25/20 Range/Units 19:46 19:46 19:46 WBC 6.5 (4.5-11.0) X10^3/uL RBC 4.26 (4.0-5.2) X10^6/uL Hgb 13.7 (12.0-16.0) g/dL Hct 40.2 (36-46) % MCV 94.3 (80-100) fL MCH 32.1 (26-34) PG MCHC 34.1 (30-36) % RDW 13.8 (11.6-14.8) % Plt Count 254 (150-400) X10^3/uL Neut % (Auto) 56.7 (50-75) % Lymph % (Auto) 24.8 L (25-40) % [place] % (Auto) 13.8 (3-14) % Eos % (Auto) 3.9 (2-4) % Baso % (Auto) 0.8 (0-2) % Neut # (Auto) 3700 (9990-6691) /uL Lymph # (Auto) 1600 (2046-7175) /uL [place] # (Auto) 900 (0-900) /uL Eos # (Auto) 200 (0-450) /uL Baso # (Auto) 100 (0-100) /uL Sodium 137 (137-145) mmol/L Potassium 4.2 (3.4-5.1) mmol/L Chloride 100 (98-107) mmol/L Carbon Dioxide 31 (22-32) mmol/L BUN 23 H (7-17) mg/dL Creatinine 0.78 (0.52-1.04) mg/dL Estimated GFR > 60.0 (>60) mL/min BUN/Creatinine Ratio 29.5 H (6-22) Glucose 110 (80-110) mg/dL Calcium 9.6 (8.4-10.2) mg/dL Total Bilirubin 0.3 (0.2-1.3) mg/dL AST 47 H (14-36) IU/L ALT 42 H (<35) IU/L Alkaline Phosphatase 69 (38-126) U/L Total Protein 8.0 (6.3-8.2) g/dL Albumin 5.0 (3.5-5.0) g/dL Globulin 3.0 (1.7-4.1) g/dL Albumin/Globulin Ratio 1.7 (1.0-2.8) TSH 4.39 (0.47-4.68) uIU/mL Urine Color Urine Appearance Urine pH (4.5-8.0) Ur Specific [place] (1.000-1.035) Urine Protein (Negative) Urine Glucose (UA) (Negative) g/dL Urine Ketones (NEGATIVE) Urine Occult Blood (Negative) Urine Nitrate (Negative) Urine Bilirubin (NEGATIVE) Urine Urobilinogen (0.2) E.U./dL Ur Leukocyte Esterase (NEGATIVE) Urine RBC (0-5/HPF) Urine WBC (0-5/HPF) Urine Bacteria (None) Ur Culture Indicated? Salicylates < 1.0 (<20) mg/dL U Opiates 300ng/mL cut (Negative) Ur Oxycodone Screen (Negative) Urine Methadone Screen (Negative) Ur Barbiturates Screen (Negative) U Tricyclic Antidepress (Negative) Ur Phencyclidine Scrn (Negative) Ur Amphetamines Screen (Negative) U Methamphetamines Scrn (Negative) Ur MDMA Scrn (Ecstasy) (Negative) U Benzodiazepines Scrn (Negative) Urine Cocaine Screen (Negative) U Marijuana (THC) Screen (Negative) Ethyl Alcohol < 10 ( - 10) mg/dL SARS-CoV-2 (PCR) (Negative) 07/25/20 07/25/20 07/26/20 Range/Units 19:46 19:46 00:40 WBC (4.5-11.0) X10^3/uL RBC (4.0-5.2) X10^6/uL Hgb (12.0-16.0) g/dL Hct (36-46) % MCV (80-100) fL MCH (26-34) PG MCHC (30-36) % RDW (11.6-14.8) % Plt Count (150-400) X10^3/uL Neut % (Auto) (50-75) % Lymph % (Auto) (25-40) % [place] % (Auto) (3-14) % Eos % (Auto) (2-4) % Baso % (Auto) (0-2) % Neut # (Auto) (4685-6545) /uL Lymph # (Auto) (0907-0536) /uL [place] # (Auto) (0-900) /uL Eos # (Auto) (0-450) /uL Baso # (Auto) (0-100) /uL Sodium (137-145) mmol/L Potassium (3.4-5.1) mmol/L Chloride (98-107) mmol/L Carbon Dioxide (22-32) mmol/L BUN (7-17) mg/dL Creatinine (0.52-1.04) mg/dL Estimated GFR (>60) mL/min BUN/Creatinine Ratio (6-22) Glucose (80-110) mg/dL Calcium (8.4-10.2) mg/dL Total Bilirubin (0.2-1.3) mg/dL AST (14-36) IU/L ALT (<35) IU/L Alkaline Phosphatase (38-126) U/L Total Protein (6.3-8.2) g/dL Albumin (3.5-5.0) g/dL Globulin (1.7-4.1) g/dL Albumin/Globulin Ratio (1.0-2.8) TSH (0.47-4.68) uIU/mL Urine Color Yellow Urine Appearance Clear Urine pH 6.0 (4.5-8.0) Ur Specific [place] 1.020 (1.000-1.035) Urine Protein Negative (Negative) Urine Glucose (UA) Negative (Negative) g/dL Urine Ketones Trace H (NEGATIVE) Urine Occult Blood 1+ H (Negative) Urine Nitrate Negative (Negative) Urine Bilirubin Negative (NEGATIVE) Urine Urobilinogen 0.2 (0.2) E.U./dL Ur Leukocyte Esterase Negative (NEGATIVE) Urine RBC 5-10/hpf H (0-5/HPF) Urine WBC None seen (0-5/HPF) Urine Bacteria None seen (None) Ur Culture Indicated? Cult not indicated Salicylates (<20) mg/dL U Opiates 300ng/mL cut Negative (Negative) Ur Oxycodone Screen Negative (Negative) Urine Methadone Screen Negative (Negative) Ur Barbiturates Screen Negative (Negative) U Tricyclic Antidepress Negative (Negative) Ur Phencyclidine Scrn Negative (Negative) Ur Amphetamines Screen Negative (Negative) U Methamphetamines Scrn Negative (Negative) Ur MDMA Scrn (Ecstasy) Negative (Negative) U Benzodiazepines Scrn Negative (Negative) Urine Cocaine Screen Negative (Negative) U Marijuana (THC) Screen Positive H (Negative) Ethyl Alcohol ( - 10) mg/dL SARS-CoV-2 (PCR) Negative (Negative) MDM Narrative Medical decision making narrative: Patient accepted for transfer to the [facility]. Discharge Plan Departure Patient Disposition: [facility] Clinical Impression: Delusion Prescriptions: No Action venlafaxine 25 MG tablet 25 mg PO DAILY Qty: 0 RF: 0 liothyronine 5 mcg tablet 5 mcg PO DAILY RF: 0 levothyroxine [Levoxyl] 75 mcg tablet 75 mcg PO DAILY RF: 0 montelukast 10 mg tablet 10 mg PO DAILY RF: 0 metoprolol succinate [Toprol XL] 25 mg tablet extended release 24 hr 25 mg PO DAILY RF: 0 albuterol sulfate [ProAir HFA] 90 mcg/actuation HFA aerosol inhaler 1 puff INHALATION DIRECTED RF: 0 clobetasol 0.05 % solution 1 applic TOPICAL DIRECTED RF: 0 diazepam 5 mg tablet 5 mg PO Q4H PRN (Reason: Anxiety) RF: 0 mometasone 0.1 % solution 1 applic TOPICAL DAILY PRN (Reason: as directed) RF: 0 nortriptyline 10 mg capsule 10 mg PO Q OTHER DAY RF: 0 aspirin [Adult Low Dose Aspirin] 81 mg tablet,delayed release (DR/EC) 81 mg PO DAILY RF: 0 amoxicillin 500 mg capsule 2,000 mg PO ONCE PRN (Reason: prior to dental work) RF: 0 ashwagandan 570 mg PO RF: 0 vitamin E 1,000 unit capsule 1,000 unit PO DAILY RF: 0 alpha lipoic acid 300 mg capsule 300 - 1,000 mg PO DAILY RF: 0 Ultra CoQ10 75 mg capsule 100 mg PO DAILY RF: 0 biotin 1,000 mcg tablet,chewable 1,000 mcg PO DAILY RF: 0 zinc sulfate 220 mg tablet 220 mg PO DAILY RF: 0 omega 3-6-9 1,000 mg PO TID RF: 0 calcium 600 mg PO BID RF: 0 cholecalciferol (vitamin D3) 1,000 unit capsule 2,000 unit PO BID RF: 0 optimized folate 1,000 mg PO DAILY RF: 0 magnesium malate PO RF: 0 lysine 1,000 mg tablet 1,000 mg PO DAILY RF: 0 [id number]-vlarolmi-sccbbk PO RF: 0 Referrals: Maria Dolores Mancia MD [Primary Care Provider] -
--- NOTE | 2020-07-25 19:31 | DI.CT.S_ITS ---
PROCEDURE: CT HEAD/BRAIN WO CON INDICATIONS: altered TECHNIQUE: Noncontrast 4.5 mm thick angled axial sections acquired from the foramen magnum to the vertex, with coronal and sagittal reformats. For radiation dose reduction, the following was used: automated exposure control, adjustment of mA and/or kV according to patient size. COMPARISON: None. FINDINGS: Image quality: Excellent. CSF spaces: Basal cisterns are patent. No extra-axial fluid collections. The ventricles are symmetric in size and shape. Brain: No intracranial bleeds or masses. There is cerebral volume loss for age, with resultant ventricular and sulcal prominence. There are periventricular and deep white matter chronic small vessel ischemic changes. There is intracranial internal carotid artery atherosclerosis. Skull and face: Calvarium and visualized facial bones appear intact, without suspicious lesions. Sinuses: Visualized sinuses and mastoids are clear. IMPRESSION: No acute intracranial process. Dictated by: Emery Hudson M.D. on 07/25/2020 at 20:35 Approved by: Emery Hudson M.D. on 07/25/2020 at 20:37
[2020-07-25 19:35] VITALS: BP 173/90; PULSE 94; RESP 16; O2SAT 96
--- NOTE | 2020-07-25 19:35 | CM.SWNOTE ---
FARMWORKER ANIMAL assessment FARMWORKER ANIMAL - Building Energy Consultant Assessment FARMWORKER ANIMAL - Building Energy Consultant Assessment Start: 07/25/20 19:07 Freq: Status: Active Protocol: Document 07/25/20 19:07 ESPERANZA (Rec: 07/25/20 19:35 ESPERANZA [id number]) FARMWORKER ANIMAL/Building Energy Consultant Assessment Time Spent with Patient Start date 07/25/20 Visit Start Time 18:30 End date 07/25/20 Visit End Time 19:05 Total time Care Management spent on 35 patient visit-in minutes Mental Health Screening Include Onset, Duration, Intensity Presenting Problem Patient presents to ED with stated complaint of worms all over my body. Patient explains that she has samples which she brought to ED, has noticed them jumping off of her body onto the produce at the grocery store, and has noticed them crawling out of her cat's eyes. Patient also explains she has a purpose and was sent by God to fulfill this purpose. When asked to elaborate, patient states that the purpose is good but that god has directed her not to disclose purpose. Precipitating Event(s) Patient reports that on May 23, she pulled out of my major depressive disorder, and states that her psychiatrist told her she no longer needs to see him. Patient states she became enlightened on May 23, and states that she discovered many skills that she did not know she had prior to this. Patient endorses poor sleep previous night and limited eating. Patient Strengths Patient presents as very articulate. Current Behavioral Health Provider(s) Greg Mark psychiatrist. Include Facility, Provider, Ph. # Psych. Hx Mental Health and Chemical Patient endorses history of Dependency major depressive disorder. Patient denies ETOH or other substance use, states she cleansed herself from chemicals. Family Hx of Behavioral Abuse None reported. Psychiatric Hospitalizations (date(s)/ None reported. location) Psychosocial information & Support Patient is a 70 y/o female who Systems lives with her daughter and young grandchild. 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 Patient presents to ED with other daughter who appears supportive and expresses concern for the safety of patient and grandchild based on patient's current presentation. School/Work None reported. Legal Concerns Legal Matters - Outstanding Issues None reported. Mental Status Orientation (Person/Place/Time) Oriented x3. Stated Mood I have these worms Affect (Congruent with Mood?) Slightly Euphoric, incongruent with mood and thought content . Thought Content - Specify/Describe Patient presents with fixed Obsessions, Delusions, Hallucinations obsession and delusion of worms which she explains are throughout her body, and states that she is specifically concerned with the ones that are crawling in my head. Patient explains these worms in significant detail, and at various points in assessment, points to spots on her body where she can see the worms. Patient also demonstrates grandiose thinking, discussing and discusses that she has a purpose assigned by God that no one else would understand. Thought Processes (Zurwxsn-Uwpoydvp-Yajs Detailed Objwdube-Lqfemcsy-Qdhafsbqxk- Guehbjtplksqgy-Pjkilre-Uixomsrxixkd- Thought Blocking) Speech (Fnowwa-Beus-Kjgfncp-Rapid-Soft- Rapid Loud-Pressured) Motor (Qrhaxc-Exmlhqogs-Vqtk-Other) Slightly excessive Insight (Tryf-Oubw-Oyiz/Limited) Poor. Patient volunteers I'm not psychotic during conversation with FARMWORKER ANIMAL. Judgement (Qfet-Wcau-Flrr/Limited) Poor/Limited Impulse Control (Adequate-Impaired) Intact for assessment Memory (Xkgqztehn-Dfhizl-Lunvim, Intact for interview, not Impaired-Intact) formally assessed. Concentration (Intact-Impaired) Mostly intact. Attention (Intact-Impaired) Mostly intact. Behavior (Appropriate-Inappropriate) Appropriate. Risk Assessment Suicidal Ideation (Plan) No Homicidal Ideation (Plan) No Comment Patient denies SI/HI. Intervention Intervention FARMWORKER ANIMAL meets with patient and daughter in waiting room due to high ED census. Patient explains that she is worried about worms that she has throughout her body. Patient is unable to state an exact date that she began to notice the worms, but does anchor much of her conversation to May 23. Patient reports that on this date she began to feel enlightened. Patient endorses lack of sleep and reduced appetite, though is unable to put a specific timeline on this. Patient's daughter expresses significant worry based on patient's current presentation and states that patient's fixation with worms has been getting worse. Based on presentation of grandiose thinking, delusion with visual hallucination, lack of insight, symptoms consistent with manic episode, it is the opinion of this FARMWORKER ANIMAL that patient receive inpatient treatment for current episode of psychosis. Recommend DCR consult for KHUSHI/ grave disability if patient not voluntary. Plan RA Plan FARMWORKER ANIMAL will update ED staff on current presentation due to upcoming shift change. CARMEN Meier
[2020-07-25 19:58] LABS: Add Manual Diff / Slide Review NO; Basophils Absolute Auto 100 /uL (0-100); Basophils Percent Auto 0.8 % (0-2); Eosinophils Absolute Auto 200 /uL (0-450); Eosinophils Percent Auto 3.9 % (2-4); Hematocrit 40.2 % (36-46); Hemoglobin 13.7 g/dL (12.0-16.0); Lymphocytes Absolute Auto 1600 /uL (1100-4500); Lymphocytes Percent Auto 24.8 % (25-40); Mean Corpuscular HGB Conc 34.1 % (30-36); Mean Corpuscular Hemoglobin 32.1 PG (26-34); Mean Corpuscular Volume 94.3 fL (80-100); Monocytes Absolute Auto 900 /uL (0-900); Monocytes Percent Auto 13.8 % (3-14); Neutrophils Absolute Auto 3700 /uL (1500-7000); Neutrophils Percent Auto 56.7 % (50-75); Platelet Count 254 X10^3/uL (150-400); Red Blood Cell Count 4.26 X10^6/uL (4.0-5.2); Red Cell Distribution Width 13.8 % (11.6-14.8); White Blood Cell Count 6.5 X10^3/uL (4.5-11.0)
[2020-07-25 20:05] LABS: Alanine Aminotransferase 42 IU/L (<35); Albumin Globulin Ratio 1.7 (1.0-2.8); Alkaline Phosphatase 69 U/L (38-126); Aspartate Aminotransferase 47 IU/L (14-36); BUN Creatinine Ratio 29.5 (6-22); Bilirubin Total 0.3 mg/dL (0.2-1.3); Blood Urea Nitrogen 23 mg/dL (7-17); Calcium 9.6 mg/dL (8.4-10.2); Carbon Dioxide 31 mmol/L (22-32); Chloride 100 mmol/L (98-107); Estimated Glomerular Filt Rate > 60.0 mL/min (>60); Ethanol (ETOH) < 10 mg/dL; Glucose 110 mg/dL (80-110); HEMOLYSIS < 15 (0-50); Potassium 4.2 mmol/L (3.4-5.1); Salicylate < 1.0 mg/dL (<20); Sodium 137 mmol/L (137-145); UR Morphine/Opiate cutoff 300 Negative (Negative); Ur Creatinine Normal (Normal); Ur Specific Gravity Normal (Normal); Urine Amphetamines Negative (Negative); Urine Barbiturates Negative (Negative); Urine Benzodiazepines Negative (Negative); Urine Cocaine Negative (Negative); Urine MDMA Negative (Negative); Urine Methadone Negative (Negative); Urine Methamphetamines Negative (Negative); Urine Oxycodone Negative (Negative); Urine Phencyclidine Negative (Negative); Urine Tetrahydrocannabinol Positive (Negative); Urine Tricyclic Antidepressant Negative (Negative); Urine pH Normal (Normal)
--- NOTE | 2020-07-25 20:17 | PC.NURSE ---
Pt has been itching her whole body trying to get the worms out. Red and scabbed areas over bilateral legs and across abdomen. States she has been itching her head aggressively as well but for years. She has been trying to get the worms out with tweezers and such at home. She believes her grandson has the worms as well.
[2020-07-25 20:38] LABS: Bacteria Urine None Seen; WBC Urine None Seen (0-5/HPF)
[2020-07-25 20:40] LABS: Appearance Urine UA CLEAR; Bilirubin Urine UA NEGATIVE (NEGATIVE); Color Urine UA YELLOW; Glucose Urine UA NEGATIVE (Negative); Ketones Urine UA TRACE (NEGATIVE); Leukocyte Esterase Urine UA NEGATIVE (NEGATIVE); Nitrite Urine UA NEGATIVE (Negative); Occult Blood Urine UA 1+ (Negative); Protein Urine UA NEGATIVE (Negative); Urobilinogen Urine UA 0.2 E.U./dL (0.2)
[2020-07-25 20:41] LABS: Thyroid Stimulating Hormone 4.39 uIU/mL (0.47-4.68)
[2020-07-25 20:46] LABS: Culture Indicated Urine Cult Not Indicated; RBC Urine 5-10/HPF (0-5/HPF)
--- NOTE | 2020-07-26 00:11 | PC.NURSE ---
DCR here talking with patient
[2020-07-26 01:08] LABS: COVID19 -Nasal RAPID Negative (Negative)
[2020-07-26 02:07] VITALS: BP 149/67; PULSE 90; RESP 18; TEMP 37.3; O2SAT 96
[2020-07-26] MEDS: OLANZapine ODT 10 MG TAB PO (02:49)
[2020-07-26] MEDS: MAGNESIUM OXIDE 400 MG TABLET PO (02:49)
[2020-07-26] MEDS: LEVOTHYROXINE 75 MCG TABLET PO (02:49)
[2020-07-26 11:55] VITALS: BP 123/67; PULSE 82; RESP 18; TEMP 36.7; O2SAT 98
--- NOTE | 2020-07-26 12:37 | PC.NURSE ---
Report to TORIE Duque at [facility], #[phone]
== END 2020-07-26 12:30 | disposition short-term general hospital (02) ==
PROVIDERS: Emergency Medicine; Emergency Provider Emergency Medicine; Family Provider Internal Medicine; PCP Internal Medicine
DX: F22 Delusional disorders (principal); R07.9 Chest pain, unspecified; J45.909 Unspecified asthma, uncomplicated; F12.90 Cannabis use, unspecified, uncomplicated; E03.9 Hypothyroidism, unspecified; Z20.822 Contact with and (suspected) exposure to COVID-19
CPT/HCPCS: 36415; 70450; 80053; 80305; 80320; 80329; 81001; 84443; 85025; 87635; 93005; 99284; C9803; G0480

== ENCOUNTER 2020-09-22 21:28 | Emergency (ER) | payer MEDICARE, OTHER, SELFPAY ==
[2020-09-22 21:36] VITALS: BP 178/89; PULSE 115; RESP 24; TEMP 37.3; O2SAT 100
--- NOTE | 2020-09-22 21:51 | ED_ITS ---
HPI - Psych General Chief Complaint: Psychiatric Symptoms Stated Complaint: WORDS ARE COMING OUT WRONG Time Seen by Provider: 09/22/20 21:34 Source: patient and police Mode of arrival: other (Place) Limitations: no limitations History of Present Illness HPI Narrative: Patient is a 70-year-old female who arrived to the emergency department by police for evaluation of potential bipolar/manic episode. The police were called by the patient's daughter. The patient lives with her daughter and also her grand kids. Per report over the past couple days the patient has been having episodes where she has been very excited. Per the police and also per the patient's daughter who I talked to over the phone the patient has been making comments about going through a ?portal ?and also comments about ?the devil? the patient's daughter also states that the patient told her today that she was diagnosed with a ?brain cancer ?by her doctor. Patient's daughter states this is not true. Here the patient states that she w as brought here to the emergency department by the police for evaluation. She states she feels safe at home. She states she is not hearing voices. She states that her daughter ?over reacts ?. She also states that her daughter is very concerned because her daughter's just left for work for month. Patient denies any alcohol use. Denies any drug use. She states that she has been ?misdiagnosed ?with bipolar in the past. She has seen a psychiatrist in the past but not now. She states she is not currently on any medications. Related Data Home Medications Medication Instructions Recorded Confirmed venlafaxine 25 mg PO DAILY #0 07/10/16 12/12/19 albuterol sulfate [ProAir HFA] 1 puff INHALATION DIRECTED 08/03/19 12/12/19 clobetasol 1 applic TOPICAL DIRECTED 08/03/19 12/12/19 diazepam 5 mg PO Q4H PRN 08/03/19 12/12/19 levothyroxine [Levoxyl] 75 mcg PO DAILY 08/03/19 12/12/19 liothyronine 5 mcg PO DAILY 08/03/19 12/12/19 metoprolol succinate [Toprol XL] 25 mg PO DAILY 08/03/19 12/12/19 mometasone 1 applic TOPICAL DAILY PRN 08/03/19 12/12/19 montelukast 10 mg PO DAILY 08/03/19 12/12/19 alpha lipoic acid 300 mg capsule 300 - 1,000 mg PO DAILY cap 08/08/19 12/12/19 amoxicillin 500 mg capsule 2,000 mg PO ONCE PRN cap 08/08/19 12/12/19 ashwagandan 570 mg PO 08/08/19 12/12/19 aspirin 81 mg tablet,delayed 81 mg PO DAILY 08/08/19 12/12/19 release biotin 1,000 mcg chewable tablet 1,000 mcg PO DAILY 08/08/19 12/12/19 calcium 600 mg PO BID 08/08/19 12/12/19 cholecalciferol (vitamin D3) 25 2,000 unit PO BID cap 08/08/19 12/12/19 mcg (1,000 unit) capsule coenzyme Q10 75 mg capsule 100 mg PO DAILY cap 08/08/19 12/12/19 lysine 1,000 mg tablet 1,000 mg PO DAILY 08/08/19 12/12/19 magnesium malate PO 08/08/19 12/12/19 vmzxiqthoqqw-owotpduj-afyfbm PO 08/08/19 12/12/19 nortriptyline 10 mg capsule 10 mg PO Q OTHER DAY cap 08/08/19 12/12/19 omega 3-6-9 1,000 mg PO TID 08/08/19 12/12/19 optimized folate 1,000 mg PO DAILY 08/08/19 12/12/19 vitamin E 1,000 unit capsule 1,000 unit PO DAILY 08/08/19 12/12/19 zinc sulfate 50 mg zinc (220 mg) 220 mg PO DAILY 08/08/19 12/12/19 tablet Allergies Allergy/AdvReac Type Severity Reaction Status Date / Time fluoxetine [From Prozac] Allergy Severe Hallucinati Verified 07/25/20 16:29 ng shellfish derived Allergy Mild N/V Verified 07/25/20 16:29 [SHELLFISH DERIVED] silver Allergy Mild Hives Verified 07/25/20 16:29 [From Tegaderm AG Mesh] aripiprazole [From Abilify] Allergy Unknown Verified 07/25/20 16:29 cephalexin [From KEFLEX] Allergy Unknown HIVES Verified 07/25/20 16:29 midazolam [From Versed] AdvReac Unknown Verified 01/08/21 16:29 gluten AdvReac Verified 07/25/20 16:29 lactose AdvReac Verified 07/25/20 16:29 soy AdvReac Verified 07/25/20 16:29 sulfite AdvReac Verified 07/25/20 16:29 Review of Systems Constitutional Constitutional: Denies fever(s) and Denies headache(s) ENT Ears, Nose, Mouth, and Throat: Denies headache(s) Cardiovascular Cardiovascular: Denies chest pain and Denies dyspnea Respiratory Respiratory: Denies dyspnea Gastrointestinal Gastrointestinal: Denies abdominal pain Integumentary/Breasts Skin/Breast: Denies rash Neurologic Neurologic: Denies headache(s) Comments: see hpi Psychiatric Comments: see hpi Hematologic/Lymphatic On Anticoagulants: No Allergic/Immunologic Allergic/Immunologic: Denies urticaria Patient History Medical History Asthma Autoimmune disease Cauda equina syndrome Chronic pain syndrome Colon polyps Gait instability Hepatitis C Hypertension Hypothyroidism Osteoporosis Psoriasis Raynaud disease Rheumatoid arthritis Shingles Surgical History H/O foot surgery History of colon resection History of hip surgery Social History Smoking Status: Former smoker Smoking Status: Former smoker alcohol intake frequency: 0-2 drinks per day Alcohol type: beer and wine Substance Use Type: marijuana Exam Initial Vital Signs Initial Vital Signs: Vital Signs Temperature 99.1 F 09/22/20 21:36 Pulse Rate 115 H 09/22/20 21:36 Respiratory Rate 24 09/22/20 21:36 Blood Pressure 178/89 H 09/22/20 21:36 Pulse Oximetry 100 09/22/20 21:36 Const General: cooperative, well developed and well groomed Limitations: mental status not altered HENMT Head: normal to inspection and normocephalic Resp Effort & Inspection: normal respiratory effort Cardio Rate: tachycardic Skin Lesions: no lesions Rashes: no rashes Neuro General: patient alert, patient awake and patient oriented x3 Speech: other (Pressured speech) Gait: normal gait Extrem General: normal to inspection Psych Appearance: grossly normal, well kempt and not disheveled Speech and Movement: not agitated and speech clear Mood: manic mood, No angry and No irritable mood Affect: normal affect Attitude: cooperative Thought Process: tangential Thought Content: no hallucinations, no homicidality and suicidality Scores GCS Suze coma scale eye opening: Spontaneous Suze coma scale verbal response: Orientated [place] coma scale motor response: Obey commands Suze coma scale total score: 15 Course Vital Signs Vital signs: Vital Signs - 8 hr 09/22/20 21:36 09/22/20 22:58 Temperature 99.1 F Pulse Rate 115 H 99 H Respiratory Rate 24 18 Blood Pressure 178/89 H 186/90 H Pulse Oximetry 100 100 MDM - Psych MDM Narrative Medical decision making narrative: Patient is alert oriented x3. Has a GCS of 15. Is not clinically intoxicated. She is calm and cooperative. She is not disheveled. She denies SI or HI. Patient states that she feels safe at home. States she is not hearing voices. She is not seeing things that others do not see. Patient states she does not want to be admitted to the hospital. States she does not want to stay here in the emergency department tonight to talk with social Work tomorrow. Patient is somewhat tangential with talking about why she is here however she is easily redirectable. Patient does not want voluntary admission. I do not feel patient meets criteria for grave disability. I do not feel she meets criteria for an involuntary admission. I did talk with the patient's daughter over the phone. I do understand their concern however I tried to explain to her that unfortunately if the patient does not want to stay here in the emergency department to talk with social Work overnight that we may be limited on what we can offer her this evening. I asked the patient multiple times she would like to stay and she said no. States she does feel safe at home. Will discharge the patient home. Discharge Plan Departure Patient Disposition: Home Clinical Impression: Bipolar disorder Instructions: DI for Bipolar Disorder Activity Restrictions/Additional Instructions: I recommend you continue all of your medications as directed. I also highly recommend that tomorrow you contact your primary doctor and also your psychiatrist for a follow-up. You can return to the emergency department for any new or worsening symptoms Prescriptions: No Action venlafaxine 25 MG tablet 25 mg PO DAILY Qty: 0 RF: 0 liothyronine 5 mcg tablet 5 mcg PO DAILY RF: 0 levothyroxine [Levoxyl] 75 mcg tablet 75 mcg PO DAILY RF: 0 montelukast 10 mg tablet 10 mg PO DAILY RF: 0 metoprolol succinate [Toprol XL] 25 mg tablet extended release 24 hr 25 mg PO DAILY RF: 0 albuterol sulfate [ProAir HFA] 90 mcg/actuation HFA aerosol inhaler 1 puff INHALATION DIRECTED RF: 0 clobetasol 0.05 % solution 1 applic TOPICAL DIRECTED RF: 0 diazepam 5 mg tablet 5 mg PO Q4H PRN (Reason: Anxiety) RF: 0 mometasone 0.1 % solution 1 applic TOPICAL DAILY PRN (Reason: as directed) RF: 0 nortriptyline 10 mg capsule 10 mg PO Q OTHER DAY RF: 0 aspirin [Adult Low Dose Aspirin] 81 mg tablet,delayed release (DR/EC) 81 mg PO DAILY RF: 0 amoxicillin 500 mg capsule 2,000 mg PO ONCE PRN (Reason: prior to dental work) RF: 0 ashwagandan 570 mg PO RF: 0 vitamin E 1,000 unit capsule 1,000 unit PO DAILY RF: 0 alpha lipoic acid 300 mg capsule 300 - 1,000 mg PO DAILY RF: 0 Ultra CoQ10 75 mg capsule 100 mg PO DAILY RF: 0 biotin 1,000 mcg tablet,chewable 1,000 mcg PO DAILY RF: 0 zinc sulfate 220 mg tablet 220 mg PO DAILY RF: 0 omega 3-6-9 1,000 mg PO TID RF: 0 calcium 600 mg PO BID RF: 0 cholecalciferol (vitamin D3) 1,000 unit capsule 2,000 unit PO BID RF: 0 optimized folate 1,000 mg PO DAILY RF: 0 magnesium malate PO RF: 0 lysine 1,000 mg tablet 1,000 mg PO DAILY RF: 0 chiujqjbaaoe-lgwxjzab-mlptoh PO RF: 0 Referrals: Maria Dolores Mancia MD [Primary Care Provider] -
[2020-09-22 22:58] VITALS: BP 186/90; PULSE 99; RESP 18; O2SAT 100
== END 2020-09-22 23:11 | disposition home or self-care (01) ==
PROVIDERS: Emergency Provider Emergency Medicine; Family Provider Internal Medicine; PCP Internal Medicine
DX: F31.9 Bipolar disorder, unspecified (principal)
CPT/HCPCS: 99283

== ENCOUNTER 2020-09-27 13:07 | Emergency (ER) | payer MEDICARE, OTHER, SELFPAY ==
[2020-09-27 13:14] VITALS: BP 114/83; PULSE 94; RESP 16; TEMP 36.8; O2SAT 97; BMI 17.4
--- NOTE | 2020-09-27 13:56 | PC.NURSE ---
patient speaks in short choppy sentences. skips from idea to idea and does not explain the transitions. She asked staff what do you see then does not wait for a response stating i have a bag because everyone will humor me the says Im fully awake now and im challenged. She reports she has had some parasites in her for a long time. 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 Nothing is seen on the patients skin beyond what looks like a small 2mm splinter in her finger
--- NOTE | 2020-09-27 13:59 | ED_ITS ---
HPI - Psych <Leatha Tovar, CONFLICT RESOLUTION PROFESSIONAL-BC - Last Filed: 09/27/20 20:22> General Chief Complaint: Psychiatric Symptoms Stated Complaint: Parasites Time Seen by Provider: 09/27/20 13:26 Source: patient Mode of arrival: Ambulatory Limitations: no limitations History of Present Illness HPI Narrative: The patient is a 70-year-old female former smoker with history of asthma and hypothyroidism who presents with a chief complaint of a ?massive parasite infestation.She states that her parasites have been worst over the past a few days to weeks. She states that she is being washed, and that people have tried to get into her house. She presents with a bag of parasites that she is removed from her body as well as pictures thereof, she states that one is shaped like a shark. She was seen at this facility on the she states that people are coming through her cellphone at this time. She does not stay whether she feels safe at home or not. She states that she sees things that the rest above cannot. She refers to her primary care provider as ?a robot.She states that her psychiatrist recently put her on Seroquel and risperidone, but they paralyzed her. She stops as medications as the parasites were able to feed on her all night and she woke up soaked. She states that the parasites are now and he informed and are attacking her through her cellphone, and that they scanned 500 dollars from her. She states that she does not eat and drink like the rest of us that she has different requirements. She states that she does not sleep like rest of us as she has different requirements. Related Data Home Medications Medication Instructions Recorded Confirmed venlafaxine 25 mg PO DAILY #0 07/10/16 12/12/19 albuterol sulfate [ProAir HFA] 1 puff INHALATION DIRECTED 08/03/19 12/12/19 clobetasol 1 applic TOPICAL DIRECTED 08/03/19 12/12/19 diazepam 5 mg PO Q4H PRN 08/03/19 12/12/19 levothyroxine [Levoxyl] 75 mcg PO DAILY 08/03/19 12/12/19 liothyronine 5 mcg PO DAILY 08/03/19 12/12/19 metoprolol succinate [Toprol XL] 25 mg PO DAILY 08/03/19 12/12/19 mometasone 1 applic TOPICAL DAILY PRN 08/03/19 12/12/19 montelukast 10 mg PO DAILY 08/03/19 12/12/19 alpha lipoic acid 300 mg capsule 300 - 1,000 mg PO DAILY cap 08/08/19 12/12/19 amoxicillin 500 mg capsule 2,000 mg PO ONCE PRN cap 08/08/19 12/12/19 ashwagandan 570 mg PO 08/08/19 12/12/19 aspirin 81 mg tablet,delayed 81 mg PO DAILY 08/08/19 12/12/19 release biotin 1,000 mcg chewable tablet 1,000 mcg PO DAILY 08/08/19 12/12/19 calcium 600 mg PO BID 08/08/19 12/12/19 cholecalciferol (vitamin D3) 25 2,000 unit PO BID cap 08/08/19 12/12/19 mcg (1,000 unit) capsule coenzyme Q10 75 mg capsule 100 mg PO DAILY cap 08/08/19 12/12/19 lysine 1,000 mg tablet 1,000 mg PO DAILY 08/08/19 12/12/19 magnesium malate PO 08/08/19 12/12/19 eazjszcwilpo-ynfzpsne-wrkthd PO 08/08/19 12/12/19 nortriptyline 10 mg capsule 10 mg PO Q OTHER DAY cap 08/08/19 12/12/19 omega 3-6-9 1,000 mg PO TID 08/08/19 12/12/19 optimized folate 1,000 mg PO DAILY 08/08/19 12/12/19 vitamin E 1,000 unit capsule 1,000 unit PO DAILY 08/08/19 12/12/19 zinc sulfate 50 mg zinc (220 mg) 220 mg PO DAILY 08/08/19 12/12/19 tablet Allergies Allergy/AdvReac Type Severity Reaction Status Date / Time fluoxetine [From Prozac] Allergy Severe Hallucinati Verified 07/25/20 16:29 ng shellfish derived Allergy Mild N/V Verified 07/25/20 16:29 [SHELLFISH DERIVED] silver Allergy Mild Hives Verified 07/25/20 16:29 [From Tegaderm AG Mesh] aripiprazole [From Abilify] Allergy Unknown Verified 07/25/20 16:29 cephalexin [From KEFLEX] Allergy Unknown HIVES Verified 07/25/20 16:29 midazolam [From Versed] AdvReac Unknown Verified 07/25/20 16:29 gluten AdvReac Verified 07/25/20 16:29 lactose AdvReac Verified 07/25/20 16:29 soy AdvReac Verified 07/25/20 16:29 sulfite AdvReac Verified 07/25/20 16:29 Review of Systems <ELIZA Berger - Last Filed: 09/27/20 20:22> Review of Systems Narrative: GENERAL: Denies chills, fatigue, malaise, fever, sweats. HEENT: Denies sinus pain, ear pain, sore throat, difficulty swallowing, dizziness. RESPIRATORY: Denies dyspnea, cough, wheezing, hemoptysis, sputum. CARDIOVASCULAR: Denies chest pain, palpitations, orthopnea, edema, GASTROINTESTINAL: Denies nausea, vomiting, abdominal pain, diarrhea, cons tipation, melena. : Denies dysuria, frequency, incontinence, hematuria, urinary retention. MUSCULOSKELETAL: denies weakness, joint pain, or bony pain SKIN: Denies rash, skin lesions, or other NEUROLOGIC: See HPI PSYCHIATRIC: See HPI 12 point review of systems is negative except for those stated above Patient History <ELIZA Berger - Last Filed: 09/27/20 20:22> Medical History (Updated 09/27/20 @ 20:07 by ELIZA Berger) Asthma Autoimmune disease Cauda equina syndrome Chronic pain syndrome Colon polyps Gait instability Hepatitis C Hypertension Hypothyroidism Osteoporosis Psoriasis Raynaud disease Rheumatoid arthritis Shingles Surgical History H/O foot surgery History of colon resection History of hip surgery Social History Smoking Status: Former smoker Smoking Status: Former smoker alcohol intake frequency: 0-2 drinks per day Alcohol type: beer and wine Substance Use Type: marijuana Exam <ELIZA Berger - Last Filed: 09/27/20 20:22> Narrative Exam Narrative: GENERAL: This is a well-nourished, well-developed patient, in mild distress. HEAD: Atraumatic. Normocephalic. No temporal or scalp tenderness. EYES: Pupils equal round and reactive. Extraocular motions intact. No scleral icterus. No injection or drainage. ENT: Nose without bleeding, purulent drainage or septal hematoma. Wearing a mass Airway patent. NECK: Trachea midline. No JVD or lymphadenopathy. Supple, nontender, no meningeal signs. CARDIOVASCULAR: Regular rate and rhythm RESPIRATORY: Clear to auscultation. Breath sounds equal bilaterally. No wheezes, rales, or rhonchi. No cough. No increased respiratory effort. No accessory muscle use. GASTROINTESTINAL: Abdomen soft, non-tender, nondistended. No hepato- splenomegaly, or palpable masses. No guarding. EXTREMITIES: No clubbing, cyanosis, or edema. No joint tenderness, effusion, or edema noted. BACK: Nontender without deformity or crepitance. No flank tenderness. NEURO: Alert, tangential, pressured speech SKIN: No rash or erythema. Multiple scabs noted over bilateral arms, head. 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 - [employer] Urgent 09/27/20 14:10 UA Complete [Urinalysis and Microscopic] Stat Urine Drug Screen, Rapid Stat 09/27/20 14:40 COVID19 Stat 09/27/20 15:10 Acetaminophen Stat Complete Blood Count AUTO DIFF Stat Comprehensive Metabolic Panel Stat Ethanol (ETOH) Stat Salicylate Stat Thyroid Stimulating Hormone Stat Vital Signs Vital signs: Vital Signs - 8 hr 09/27/20 13:14 Temperature 98.3 F Pulse Rate 94 H Respiratory Rate 16 Blood Pressure 114/83 Pulse Oximetry 97 <Roseline Reaves MD - Last Filed: 09/28/20 06:58> Orders Ordered: ED Orders 09/27/20 13:47 Consult to RUBBISH 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 Result diagrams: 09/27/20 15:10 09/27/20 15:10 Labs: Lab Results 09/27/20 09/27/20 09/27/20 Range/Units 14:10 14:10 14:40 WBC (4.5-11.0) X10^3/uL RBC (4.0-5.2) X10^6/uL Hgb (12.0-16.0) g/dL Hct (36-46) % MCV (80-100) fL MCH (26-34) PG MCHC (30-36) % RDW (11.6-14.8) % Plt Count (150-400) X10^3/uL Neut % (Auto) (50-75) % Lymph % (Auto) (25-40) % [place] % (Auto) (3-14) % Eos % (Auto) (2-4) % Baso % (Auto) (0-2) % Neut # (Auto) (0415-7816) /uL Lymph # (Auto) (0490-2334) /uL [place] # (Auto) (0-900) /uL Eos # (Auto) (0-450) /uL Baso # (Auto) (0-100) /uL Sodium (137-145) mmol/L Potassium (3.4-5.1) mmol/L Chloride (98-107) mmol/L Carbon Dioxide (22-32) mmol/L BUN (7-17) mg/dL Creatinine (0.52-1.04) mg/dL Estimated GFR (>60) mL/min BUN/Creatinine Ratio (6-22) Glucose (80-110) mg/dL Calcium (8.4-10.2) mg/dL Total Bilirubin (0.2-1.3) mg/dL AST (14-36) IU/L ALT (<35) IU/L Alkaline Phosphatase (38-126) U/L Total Protein (6.3-8.2) g/dL Albumin (3.5-5.0) g/dL Globulin (1.7-4.1) g/dL Albumin/Globulin Ratio (1.0-2.8) TSH (0.47-4.68) uIU/mL Urine Color Yellow Urine Appearance Clear Urine pH 6.0 (4.5-8.0) Ur Specific [place] 1.025 (1.000-1.035) Urine Protein Negative (Negative) Urine Glucose (UA) Negative (Negative) g/dL Urine Ketones Negative (NEGATIVE) Urine Occult Blood Trace-intact (Negative) Urine Nitrate Negative (Negative) Urine Bilirubin Negative (NEGATIVE) Urine Urobilinogen 0.2 (0.2) E.U./dL Ur Leukocyte Esterase Negative (NEGATIVE) Urine RBC 1-5/hpf (0-5/HPF) Urine WBC None seen (0-5/HPF) Ur Squamous Epith Cells 0-1 /hpf (0-5/HPF) Calcium Oxalate Crystal Occasional H Urine Bacteria None seen (None) Ur Culture Indicated? Cult not indicated Salicylates (<20) mg/dL U Opiates 300ng/mL cut Negative (Negative) Ur Oxycodone Screen Negative (Negative) Urine Methadone Screen Negative (Negative) Acetaminophen (10-30) ug/mL Ur Barbiturates Screen Negative (Negative) U Tricyclic Antidepress Negative (Negative) Ur Phencyclidine Scrn Negative (Negative) Ur Amphetamines Screen Negative (Negative) U Methamphetamines Scrn Negative (Negative) Ur MDMA Scrn (Ecstasy) Negative (Negative) U Benzodiazepines Scrn Negative (Negative) Urine Cocaine Screen Negative (Negative) U Marijuana (THC) Screen Positive H (Negative) Ethyl Alcohol ( - 10) mg/dL SARS-CoV-2 (PCR) Negative (Negative) 09/27/20 09/27/20 09/27/20 Range/Units 15:10 15:10 15:10 WBC 6.3 (4.5-11.0) X10^3/uL RBC 4.39 (4.0-5.2) X10^6/uL Hgb 13.7 (12.0-16.0) g/dL Hct 41.2 (36-46) % MCV 93.8 (80-100) fL MCH 31.2 (26-34) PG MCHC 33.2 (30-36) % RDW 12.8 (11.6-14.8) % Plt Count 334 (150-400) X10^3/uL Neut % (Auto) 65.4 (50-75) % Lymph % (Auto) 22.1 L (25-40) % [place] % (Auto) 9.2 (3-14) % Eos % (Auto) 2.4 (2-4) % Baso % (Auto) 0.9 (0-2) % Neut # (Auto) 4100 (1630-2537) /uL Lymph # (Auto) 1400 (9949-0309) /uL [place] # (Auto) 600 (0-900) /uL Eos # (Auto) 200 (0-450) /uL Baso # (Auto) 100 (0-100) /uL Sodium 134 L (137-145) mmol/L Potassium 4.0 (3.4-5.1) mmol/L Chloride 101 (98-107) mmol/L Carbon Dioxide 29 (22-32) mmol/L BUN 18 H (7-17) mg/dL Creatinine 0.44 L (0.52-1.04) mg/dL Estimated GFR > 60.0 (>60) mL/min BUN/Creatinine Ratio 40.9 H (6-22) Glucose 122 H (80-110) mg/dL Calcium 9.5 (8.4-10.2) mg/dL Total Bilirubin 0.3 (0.2-1.3) mg/dL AST 54 H (14-36) IU/L ALT 33 (<35) IU/L Alkaline Phosphatase 79 (38-126) U/L Total Protein 7.2 (6.3-8.2) g/dL Albumin 4.5 (3.5-5.0) g/dL Globulin 2.7 (1.7-4.1) g/dL Albumin/Globulin Ratio 1.7 (1.0-2.8) TSH 4.77 H (0.47-4.68) uIU/mL Urine Color Urine Appearance Urine pH (4.5-8.0) Ur Specific [place] (1.000-1.035) Urine Protein (Negative) Urine Glucose (UA) (Negative) g/dL Urine Ketones (NEGATIVE) Urine Occult Blood (Negative) Urine Nitrate (Negative) Urine Bilirubin (NEGATIVE) Urine Urobilinogen (0.2) E.U./dL Ur Leukocyte Esterase (NEGATIVE) Urine RBC (0-5/HPF) Urine WBC (0-5/HPF) Ur Squamous Epith Cells (0-5/HPF) Calcium Oxalate Crystal Urine Bacteria (None) Ur Culture Indicated? Salicylates < 1.0 (<20) mg/dL U Opiates 300ng/mL cut (Negative) Ur Oxycodone Screen (Negative) Urine Methadone Screen (Negative) Acetaminophen < 10 L (10-30) ug/mL Ur Barbiturates Screen (Negative) U Tricyclic Antidepress (Negative) Ur Phencyclidine Scrn (Negative) Ur Amphetamines Screen (Negative) U Methamphetamines Scrn (Negative) Ur MDMA Scrn (Ecstasy) (Negative) U Benzodiazepines Scrn (Negative) Urine Cocaine Screen (Negative) U Marijuana (THC) Screen (Negative) Ethyl Alcohol < 10 ( - 10) mg/dL SARS-CoV-2 (PCR) (Negative) MDM Narrative Medical decision making narrative: The patient is a 70-year-old female who presents for chief complaint of parasites. The patient appears on my initial evaluation to be gravely disabled. I spoke with Alice MORALES who agrees with this statement, and we elected to pursue DCR evaluation. I spoke with patient's daughter, Shelly with her permission, who is expresses concern that the patient is not safe at home, that her statements or scaring her children, that she states that she will be taking the children throughout portal. Shelly can be reached at [phone]. She was evaluated by a DCR, who states that the patient is acutely psychotic and agrees with her need for inpatient care at this point. A bed was found at [facility]. Transfer paperwork is signed. Patient signed out to Dr Reaves pending transportation at 20:20. Patient remains on one-to-one. DCR Tanvir informed patient's family. <Roseline Reaves MD - Last Filed: 09/28/20 06:58> Lab Data Labs: Lab Results 09/27/20 09/27/20 09/27/20 Range/Units 14:10 14:10 14:40 WBC (4.5-11.0) X10^3/uL RBC (4.0-5.2) X10^6/uL Hgb (12.0-16.0) g/dL Hct (36-46) % MCV (80-100) fL MCH (26-34) PG MCHC (30-36) % RDW (11.6-14.8) % Plt Count (150-400) X10^3/uL Neut % (Auto) (50-75) % Lymph % (Auto) (25-40) % [place] % (Auto) (3-14) % Eos % (Auto) (2-4) % Baso % (Auto) (0-2) % Neut # (Auto) (7541-9595) /uL Lymph # (Auto) (6796-0958) /uL [place] # (Auto) (0-900) /uL Eos # (Auto) (0-450) /uL Baso # (Auto) (0-100) /uL Sodium (137-145) mmol/L Potassium (3.4-5.1) mmol/L Chloride (98-107) mmol/L Carbon Dioxide (22-32) mmol/L BUN (7-17) mg/dL Creatinine (0.52-1.04) mg/dL Estimated GFR (>60) mL/min BUN/Creatinine Ratio (6-22) Glucose (80-110) mg/dL Calcium (8.4-10.2) mg/dL Total Bilirubin (0.2-1.3) mg/dL AST (14-36) IU/L ALT (<35) IU/L Alkaline Phosphatase (38-126) U/L Total Protein (6.3-8.2) g/dL Albumin (3.5-5.0) g/dL Globulin (1.7-4.1) g/dL Albumin/Globulin Ratio (1.0-2.8) TSH (0.47-4.68) uIU/mL Urine Color Yellow Urine Appearance Clear Urine pH 6.0 (4.5-8.0) Ur Specific [place] 1.025 (1.000-1.035) Urine Protein Negative (Negative) Urine Glucose (UA) Negative (Negative) g/dL Urine Ketones Negative (NEGATIVE) Urine Occult Blood Trace-intact (Negative) Urine Nitrate Negative (Negative) Urine Bilirubin Negative (NEGATIVE) Urine Urobilinogen 0.2 (0.2) E.U./dL Ur Leukocyte Esterase Negative (NEGATIVE) Urine RBC 1-5/hpf (0-5/HPF) Urine WBC None seen (0-5/HPF) Ur Squamous Epith Cells 0-1 /hpf (0-5/HPF) Calcium Oxalate Crystal Occasional H Urine Bacteria None seen (None) Ur Culture Indicated? Cult not indicated Salicylates (<20) mg/dL U Opiates 300ng/mL cut Negative (Negative) Ur Oxycodone Screen Negative (Negative) Urine Methadone Screen Negative (Negative) Acetaminophen (10-30) ug/mL Ur Barbiturates Screen Negative (Negative) U Tricyclic Antidepress Negative (Negative) Ur Phencyclidine Scrn Negative (Negative) Ur Amphetamines Screen Negative (Negative) U Methamphetamines Scrn Negative (Negative) Ur MDMA Scrn (Ecstasy) Negative (Negative) U Benzodiazepines Scrn Negative (Negative) Urine Cocaine Screen Negative (Negative) U Marijuana (THC) Screen Positive H (Negative) Ethyl Alcohol ( - 10) mg/dL SARS-CoV-2 (PCR) Negative (Negative) 09/27/20 09/27/20 09/27/20 Range/Units 15:10 15:10 15:10 WBC 6.3 (4.5-11.0) X10^3/uL RBC 4.39 (4.0-5.2) X10^6/uL Hgb 13.7 (12.0-16.0) g/dL Hct 41.2 (36-46) % MCV 93.8 (80-100) fL MCH 31.2 (26-34) PG MCHC 33.2 (30-36) % RDW 12.8 (11.6-14.8) % Plt Count 334 (150-400) X10^3/uL Neut % (Auto) 65.4 (50-75) % Lymph % (Auto) 22.1 L (25-40) % [place] % (Auto) 9.2 (3-14) % Eos % (Auto) 2.4 (2-4) % Baso % (Auto) 0.9 (0-2) % Neut # (Auto) 4100 (8666-7923) /uL Lymph # (Auto) 1400 (5869-9428) /uL [place] # (Auto) 600 (0-900) /uL Eos # (Auto) 200 (0-450) /uL Baso # (Auto) 100 (0-100) /uL Sodium 134 L (137-145) mmol/L Potassium 4.0 (3.4-5.1) mmol/L Chloride 101 (98-107) mmol/L Carbon Dioxide 29 (22-32) mmol/L BUN 18 H (7-17) mg/dL Creatinine 0.44 L (0.52-1.04) mg/dL Estimated GFR > 60.0 (>60) mL/min BUN/Creatinine Ratio 40.9 H (6-22) Glucose 122 H (80-110) mg/dL Calcium 9.5 (8.4-10.2) mg/dL Total Bilirubin 0.3 (0.2-1.3) mg/dL AST 54 H (14-36) IU/L ALT 33 (<35) IU/L Alkaline Phosphatase 79 (38-126) U/L Total Protein 7.2 (6.3-8.2) g/dL Albumin 4.5 (3.5-5.0) g/dL Globulin 2.7 (1.7-4.1) g/dL Albumin/Globulin Ratio 1.7 (1.0-2.8) TSH 4.77 H (0.47-4.68) uIU/mL Urine Color Urine Appearance Urine pH (4.5-8.0) Ur Specific [place] (1.000-1.035) Urine Protein (Negative) Urine Glucose (UA) (Negative) g/dL Urine Ketones (NEGATIVE) Urine Occult Blood (Negative) Urine Nitrate (Negative) Urine Bilirubin (NEGATIVE) Urine Urobilinogen (0.2) E.U./dL Ur Leukocyte Esterase (NEGATIVE) Urine RBC (0-5/HPF) Urine WBC (0-5/HPF) Ur Squamous Epith Cells (0-5/HPF) Calcium Oxalate Crystal Urine Bacteria (None) Ur Culture Indicated? Salicylates < 1.0 (<20) mg/dL U Opiates 300ng/mL cut (Negative) Ur Oxycodone Screen (Negative) Urine Methadone Screen (Negative) Acetaminophen < 10 L (10-30) ug/mL Ur Barbiturates Screen (Negative) U Tricyclic Antidepress (Negative) Ur Phencyclidine Scrn (Negative) Ur Amphetamines Screen (Negative) U Methamphetamines Scrn (Negative) Ur MDMA Scrn (Ecstasy) (Negative) U Benzodiazepines Scrn (Negative) Urine Cocaine Screen (Negative) U Marijuana (THC) Screen (Negative) Ethyl Alcohol < 10 ( - 10) mg/dL SARS-CoV-2 (PCR) (Negative) Discharge Plan Departure Patient Disposition: Xfer Psychiatric Hosp Clinical Impression: Acute psychosis Referrals: Maria Dolores Mancia MD [Primary Care Provider] - <Roseline Reaves MD - Last Filed: 09/28/20 06:58> Cosign ED Attending Cosignature Attestation: I was immediately available in the department for consultation throughout this patient's visit. I agree with documentation as above. Roseline Reaves MD
[2020-09-27 14:12] LABS: Bacteria Urine None Seen; WBC Urine None Seen (0-5/HPF)
[2020-09-27 14:17] LABS: Appearance Urine UA CLEAR; Bilirubin Urine UA NEGATIVE (NEGATIVE); Color Urine UA YELLOW; Glucose Urine UA NEGATIVE (Negative); Ketones Urine UA NEGATIVE (NEGATIVE); Leukocyte Esterase Urine UA NEGATIVE (NEGATIVE); Nitrite Urine UA NEGATIVE (Negative); Occult Blood Urine UA TRACE-INTACT (Negative); Protein Urine UA NEGATIVE (Negative); Specific Gravity Urine UA 1.025 (1.000-1.035); Urobilinogen Urine UA 0.2 E.U./dL (0.2)
[2020-09-27 14:23] LABS: Ur Creatinine Normal (Normal); Ur Specific Gravity Normal (Normal); Urine pH Normal (Normal)
[2020-09-27 14:24] LABS: UR Morphine/Opiate cutoff 300 Negative (Negative); Urine Amphetamines Negative (Negative); Urine Barbiturates Negative (Negative); Urine Benzodiazepines Negative (Negative); Urine Cocaine Negative (Negative); Urine MDMA Negative (Negative); Urine Methadone Negative (Negative); Urine Methamphetamines Negative (Negative); Urine Oxycodone Negative (Negative); Urine Phencyclidine Negative (Negative); Urine Tetrahydrocannabinol Positive (Negative); Urine Tricyclic Antidepressant Negative (Negative)
--- NOTE | 2020-09-27 14:24 | PC.NURSE ---
this nurse witness to patient allowing PAULA Tovar to discuss her case with patients daughter.
[2020-09-27 14:32] LABS: Calcium Oxalate Crystals Urine Occasional; Culture Indicated Urine Cult Not Indicated; RBC Urine 1-5/HPF (0-5/HPF); Squamous Epithelial Cell Urine 0-1 /HPF (0-5/HPF)
[2020-09-27 15:02] LABS: COVID19 -Nasal RAPID Negative (Negative)
[2020-09-27 15:20] LABS: Add Manual Diff / Slide Review NO; Basophils Absolute Auto 100 /uL (0-100); Basophils Percent Auto 0.9 % (0-2); Eosinophils Absolute Auto 200 /uL (0-450); Eosinophils Percent Auto 2.4 % (2-4); Hematocrit 41.2 % (36-46); Hemoglobin 13.7 g/dL (12.0-16.0); Lymphocytes Absolute Auto 1400 /uL (1100-4500); Lymphocytes Percent Auto 22.1 % (25-40); Mean Corpuscular HGB Conc 33.2 % (30-36); Mean Corpuscular Hemoglobin 31.2 PG (26-34); Mean Corpuscular Volume 93.8 fL (80-100); Monocytes Absolute Auto 600 /uL (0-900); Monocytes Percent Auto 9.2 % (3-14); Neutrophils Absolute Auto 4100 /uL (1500-7000); Neutrophils Percent Auto 65.4 % (50-75); Platelet Count 334 X10^3/uL (150-400); Red Blood Cell Count 4.39 X10^6/uL (4.0-5.2); Red Cell Distribution Width 12.8 % (11.6-14.8); White Blood Cell Count 6.3 X10^3/uL (4.5-11.0)
[2020-09-27 15:35] LABS: Acetaminophen < 10 ug/mL (10-30); Alanine Aminotransferase 33 IU/L (<35); Albumin 4.5 g/dL (3.5-5.0); Albumin Globulin Ratio 1.7 (1.0-2.8); Alkaline Phosphatase 79 U/L (38-126); Aspartate Aminotransferase 54 IU/L (14-36); BUN Creatinine Ratio 40.9 (6-22); Bilirubin Total 0.3 mg/dL (0.2-1.3); Blood Urea Nitrogen 18 mg/dL (7-17); Calcium 9.5 mg/dL (8.4-10.2); Carbon Dioxide 29 mmol/L (22-32); Chloride 101 mmol/L (98-107); Estimated Glomerular Filt Rate > 60.0 mL/min (>60); Ethanol (ETOH) < 10 mg/dL; Globulin 2.7 g/dL (1.7-4.1); Glucose 122 mg/dL (80-110); HEMOLYSIS < 15 (0-50); Salicylate < 1.0 mg/dL (<20); Sodium 134 mmol/L (137-145); Total Protein 7.2 g/dL (6.3-8.2)
[2020-09-27 16:13] LABS: Thyroid Stimulating Hormone 4.77 uIU/mL (0.47-4.68)
[2020-09-27 21:04] VITALS: BP 162/95; PULSE 81; RESP 20; TEMP 36.8; O2SAT 98
== END 2020-09-27 21:09 ==
PROVIDERS: Emergency Provider Nurse Practitioner Family; Family Provider Internal Medicine; PCP Internal Medicine
DX: F23 Brief psychotic disorder (principal)
CPT/HCPCS: 36415; 80053; 80305; 80320; 80329; 81001; 84443; 85025; 87635; 99284; C9803; G0480

== ENCOUNTER → 2020-10-21 07:58 | Outpatient (CLI) | payer MEDICARE, OTHER, SELFPAY ==
[2020-10-21 09:02] LABS: Lithium 0.4 mmol/L (0.6-1.2)
== END ==
PROVIDERS: Family Provider Internal Medicine; PCP Internal Medicine; Referring Provider Psychiatry & Neurology Psychiatry; Visit Provider Psychiatry & Neurology Psychiatry
DX: F39 Unspecified mood [affective] disorder (principal)
CPT/HCPCS: 36415; 80178

== ENCOUNTER → 2020-10-22 08:06 | Outpatient (CLI) | payer MEDICARE, OTHER, SELFPAY ==
[2020-10-22 08:54] LABS: Add Manual Diff / Slide Review NO; Basophils Absolute Auto 100 /uL (0-100); Basophils Percent Auto 0.9 % (0-2); Eosinophils Absolute Auto 800 /uL (0-450); Hematocrit 38.7 % (36-46); Hemoglobin 13.1 g/dL (12.0-16.0); Lymphocytes Absolute Auto 1000 /uL (1100-4500); Lymphocytes Percent Auto 14.4 % (25-40); Mean Corpuscular HGB Conc 33.9 % (30-36); Mean Corpuscular Hemoglobin 31.7 PG (26-34); Mean Corpuscular Volume 93.3 fL (80-100); Monocytes Absolute Auto 900 /uL (0-900); Monocytes Percent Auto 12.8 % (3-14); Neutrophils Absolute Auto 4200 /uL (1500-7000); Neutrophils Percent Auto 60.9 % (50-75); Platelet Count 254 X10^3/uL (150-400); Red Blood Cell Count 4.15 X10^6/uL (4.0-5.2); Red Cell Distribution Width 12.7 % (11.6-14.8); White Blood Cell Count 6.9 X10^3/uL (4.5-11.0)
[2020-10-22 09:03] LABS: Hemoglobin A1C% w Est Avg Glu 5.4 % (4.0-6.0)
[2020-10-22 09:13] LABS: Cholesterol 159 mg/dL (140-199); HDL Cholesterol 61 mg/dL (40-60); LDL Cholesterol Calculated 85 mg/dL (<100); Triglycerides 65 mg/dL (35-150)
== END ==
PROVIDERS: Family Provider Internal Medicine; PCP Internal Medicine; Referring Provider Physician Assistant; Visit Provider Physician Assistant
DX: Z00.00 Encounter for general adult medical examination without abnormal findings (principal)
CPT/HCPCS: 36415; 80061; 83036; 85025

== ENCOUNTER → 2020-11-14 11:58 | Outpatient (CLI) | payer MEDICARE, OTHER, SELFPAY ==
[2020-11-14 13:37] LABS: Free T4, Direct Thyroxine 1.44 ng/dL (0.78-2.19)
[2020-11-14 13:53] LABS: Thyroid Stimulating Hormone 1.11 uIU/mL (0.47-4.68)
== END ==
PROVIDERS: Family Provider Internal Medicine; PCP Physician Assistant; Referring Provider Internal Medicine Endocrinology, Diabetes & Metabolism; Visit Provider Internal Medicine Endocrinology, Diabetes & Metabolism
DX: F31.12 Bipolar disorder, current episode manic without psychotic features, moderate (principal); E03.8 Other specified hypothyroidism; E06.3 Autoimmune thyroiditis
CPT/HCPCS: 36415; 84439; 84443

== ENCOUNTER → 2020-11-28 16:19 | Outpatient (CLI) | payer MEDICARE, OTHER, SELFPAY ==
[2020-11-28 17:22] LABS: Add Manual Diff / Slide Review NO; Basophils Absolute Auto 0 /uL (0-100); Basophils Percent Auto 0.8 % (0-2); Eosinophils Absolute Auto 200 /uL (0-450); Eosinophils Percent Auto 3.7 % (2-4); Hematocrit 45.2 % (36-46); Lymphocytes Absolute Auto 1500 /uL (1100-4500); Lymphocytes Percent Auto 26.1 % (25-40); Mean Corpuscular HGB Conc 33.2 % (30-36); Mean Corpuscular Hemoglobin 31.9 PG (26-34); Monocytes Absolute Auto 600 /uL (0-900); Monocytes Percent Auto 10.1 % (3-14); Neutrophils Absolute Auto 3400 /uL (1500-7000); Neutrophils Percent Auto 59.3 % (50-75); Platelet Count 293 X10^3/uL (150-400); Red Blood Cell Count 4.71 X10^6/uL (4.0-5.2); White Blood Cell Count 5.8 X10^3/uL (4.5-11.0)
[2020-11-28 17:26] LABS: Alanine Aminotransferase 21 IU/L (<35); Albumin 4.6 g/dL (3.5-5.0); Albumin Globulin Ratio 1.6 (1.0-2.8); Alkaline Phosphatase 67 U/L (38-126); Aspartate Aminotransferase 27 IU/L (14-36); BUN Creatinine Ratio 22.8 (6-22); Bilirubin Total 0.4 mg/dL (0.2-1.3); Blood Urea Nitrogen 13 mg/dL (7-17); Calcium 9.8 mg/dL (8.4-10.2); Carbon Dioxide 31 mmol/L (22-32); Chloride 98 mmol/L (98-107); Estimated Glomerular Filt Rate > 60.0 mL/min (>60); Globulin 2.9 g/dL (1.7-4.1); Glucose 89 mg/dL (80-110); HEMOLYSIS 16 (0-50); Potassium 3.7 mmol/L (3.4-5.1); Sodium 137 mmol/L (137-145); Total Protein 7.5 g/dL (6.3-8.2)
[2020-11-28 17:43] LABS: Vitamin D 25 Hydroxy (D3) 64.2 ng/mL (30.0-100.0)
[2020-11-28 18:32] LABS: Folate > 20.0 ng/mL (2.76-20.0); Vitamin B12 > 1000 pg/mL (239-931)
== END ==
PROVIDERS: Family Provider Internal Medicine; PCP Physician Assistant; Referring Provider Physician Assistant; Visit Provider Physician Assistant
DX: D72.19 Other eosinophilia (principal); Z79.899 Other long term (current) drug therapy; Z78.9 Other specified health status; T45.2X1A Poisoning by vitamins, accidental (unintentional), initial encounter
CPT/HCPCS: 36415; 80053; 82306; 82607; 82746; 85025

== ENCOUNTER → 2020-12-04 10:08 | Outpatient (CLI) | payer MEDICARE, OTHER, SELFPAY ==
--- NOTE | 2020-12-04 | DI.MG.S_ITS ---
BILATERAL DIGITAL SCREENING MAMMOGRAM 3D/2D WITH CAD WITH AUGMENTATION: 12/04/2020 CLINICAL: Routine screening. Family history of breast cancer. Comparison is made to exams dated: 08/29/2019 mammogram - [facility], 08/30/2017 mammogram - [facility], and 12/06/2014 mammogram - [facility]. The tissue of both breasts is heterogeneously dense. This may lower the sensitivity of mammography. Current study was also evaluated with a Computer Aided Detection (CAD) system. Bilateral breast implants are stable. There are benign vascular calcifications in both breasts. No significant masses, calcifications, or other findings are seen in either breast. There has been no significant interval change. IMPRESSION: BENIGN There is no mammographic evidence of malignancy. A 1 year screening mammogram is recommended. This exam was interpreted at Station ID: [id number]. NOTE: For mammograms, a report in lay terms will be sent to the patient. Approximately 15% of breast malignancies will not be visualized mammographically. In the management of a palpable breast mass, a negative mammogram must not discourage biopsy of a clinically suspicious lesion. Electronically Signed By: Clive juares/lynnette:12/04/2020 18:13:53 letter sent: Normal Exam ACR BI-RADS Category 2: Benign Finding(s) 3342F
== END ==
PROVIDERS: Family Provider Internal Medicine; PCP Physician Assistant; Referring Provider Physician Assistant; Visit Provider Physician Assistant
DX: Z12.31 Encounter for screening mammogram for malignant neoplasm of breast (principal); Z80.3 Family history of malignant neoplasm of breast
CPT/HCPCS: 77063; 77067

== ENCOUNTER → 2021-01-07 12:55 | Outpatient (CLI) | payer MEDICARE, OTHER, SELFPAY ==
[2021-01-07 15:21] LABS: TSH w/ Reflex to FT4 0.79 uIU/mL (0.47-4.68)
== END ==
PROVIDERS: Family Provider Internal Medicine; PCP Physician Assistant; Referring Provider Internal Medicine Endocrinology, Diabetes & Metabolism; Visit Provider Internal Medicine Endocrinology, Diabetes & Metabolism
DX: F31.12 Bipolar disorder, current episode manic without psychotic features, moderate (principal); F31.2 Bipolar disorder, current episode manic severe with psychotic features; E03.8 Other specified hypothyroidism; E06.3 Autoimmune thyroiditis
CPT/HCPCS: 36415; 84443

== ENCOUNTER → 2021-02-09 12:04 | Outpatient (CLI) | payer MEDICARE, OTHER, SELFPAY | PROVIDERS: Family Provider Internal Medicine; PCP Physician Assistant; Referring Provider Internal Medicine; Visit Provider Internal Medicine | DX: Z13.820 Encounter for screening for osteoporosis; M85.88 Other specified disorders of bone density and structure, other site; Z78.0 Asymptomatic menopausal state; M06.9 Rheumatoid arthritis, unspecified; E07.9 Disorder of thyroid, unspecified; K92.9 Disease of digestive system, unspecified; Z90.722 Acquired absence of ovaries, bilateral; Z87.891 Personal history of nicotine dependence; Z82.62 Family history of osteoporosis | CPT/HCPCS: 77080 ==

== ENCOUNTER → 2021-02-20 11:23 | Outpatient (CLI) | payer MEDICARE, OTHER, SELFPAY ==
--- NOTE | 2021-02-20 | DI.RAD.S_ITS ---
PROCEDURE: XR CHEST 2V INDICATIONS: Generalized hyperhidrosis TECHNIQUE: 2 views of the chest were acquired. COMPARISON: [facility], CR, XR CHEST 2V, 10/01/2019, 16:25. FINDINGS: Surgical changes and devices: None. Lungs and pleura: Lungs are clear. No pleural effusions or pneumothorax. Mediastinum: Mediastinal contours are normal. Heart size is normal. Bones and chest wall: No suspicious bony abnormalities. Soft tissues appear unremarkable. IMPRESSION: No acute cardiopulmonary abnormality Dictated by: Dimas Simmons M.D. on 02/20/2021 at 11:45 Approved by: Dimas Simmons M.D. on 02/20/2021 at 11:46
== END ==
PROVIDERS: Family Provider Internal Medicine; PCP Internal Medicine; Referring Provider Internal Medicine; Visit Provider Internal Medicine
DX: R61 Generalized hyperhidrosis (principal)
CPT/HCPCS: 71046

== ENCOUNTER → 2021-05-05 13:00 | Outpatient (CLI) | payer MEDICARE, OTHER, SELFPAY ==
[2021-05-05 15:15] LABS: TSH w/ Reflex to FT4 1.01 uIU/mL (0.47-4.68)
[2021-05-05 17:08] LABS: Follicle Stimulating Hormone 79.5 mIU/mL; Luteinizing Hormone 24.1 mIU/mL
[2021-05-05 17:24] LABS: Estradiol, Total < 6.4 pg/mL
[2021-05-09 17:36] LABS: Metanephrine,Plasma 28.8 pg/mL (0.0-88.0)
[2021-05-13 13:09] LABS: Percent Free Testosterone 1.44 % (0.50-2.80); Testosterone Free 0.12 ng/dL (0.10-0.85)
== END ==
PROVIDERS: Family Provider Internal Medicine; PCP Internal Medicine; Referring Provider Student in an Organized Health Care Education/Training Program; Visit Provider Student in an Organized Health Care Education/Training Program
DX: E03.9 Hypothyroidism, unspecified (principal); R23.2 Flushing
CPT/HCPCS: 36415; 82670; 83001; 83002; 83835; 84270; 84402; 84403; 84443

== ENCOUNTER → 2022-04-23 11:33 | Outpatient (CLI) | payer MEDICARE, OTHER, SELFPAY ==
[2022-04-23 14:07] LABS: COVID19 -Nasal RAPID Negative (Negative)
== END ==
PROVIDERS: PCP Physician Assistant; Visit Provider Surgery
DX: Z20.822 Contact with and (suspected) exposure to COVID-19 (principal); Z01.812 Encounter for preprocedural laboratory examination
CPT/HCPCS: 87635; C9803

== ENCOUNTER 2022-04-26 09:09 | Day surgery (SDC) | payer MEDICARE, OTHER, SELFPAY ==
--- NOTE | 2022-04-26 | PATH_ITS ---
[facility] Accession Number: [id number] . 01 Material submitted: . sigmoid colon - SIGMOID POLYP . 01 Diagnosis: Sigmoid Colon, Polyp, Biopsy: Hyperplastic polyp. MRV 04/28/2022 1537 Local . 01 Electronically signed: . Danyelle Whipple MD, Pathologist NPI- [id number] . 01 Gross description: . SIGMOID POLYP: Received in formalin is 1 fragment(s) of devries, soft tissue measuring 0.8 x 0.4 x 0.2 cm submitted entirely in 1 cassette(s) /ABDON 04/27/2022 1856 Local . 01 Pathologist provided ICD-10: K63.5 . 01 CPT . 953241 Specimen Comment: A courtesy copy of this report has been sent to [phone] Specimen Comment: [phone], [phone] Performed at: 01 [facility] [address] [place] [address], [place], [place] [id number] MD Inder Rodriguez MD Phone: [phone]
[2022-04-26 09:29] VITALS: BP 129/79; PULSE 71; RESP 16; TEMP 36.4; O2SAT 99; BMI 18.9
[2022-04-26] MEDS: LACTATED RINGERS 1,000 ML 84 ML IV (09:51)
--- NOTE | 2022-04-26 09:54 | PM.HP.1 ---
History of Present Illness History of Present Illness Date Patient Seen: 04/26/22 Chief complaint: Colonoscopy Narrative: 71-year-old female with history of colon polyps who is here for surveillance Patient History Medical History (Updated 02/16/22 @ 15:55 by James Lema DO) Abnormal Pap smear of cervix Acute neck pain Acute thoracic back pain Ankle pain (~2019) Asthma Autoimmune disease Cataracts, bilateral (~2006) Cauda equina syndrome (~2020) Cervical somatic dysfunction Chicken pox Chronic pain syndrome Colon polyps (~2006) Cranial somatic dysfunction Foot pain (~2014) Gait instability Gastric ulcer (~2015) Arie's disease (~2019) Heavy menstrual period Hepatitis C History of urinary incontinence (~2019) Hypertension Hypothyroidism (~1993) Migraines Mumps (~1959) Osteoarthritis Osteopenia Osteoporosis Ovarian cyst Painful menstrual periods Psoriasis Raynaud disease Recurrent sinusitis Rheumatoid arthritis Segmental and somatic dysfunction of rib cage Shingles Spine pain, lumbar (~2016) Thoracic region somatic dysfunction Thyroid nodule (~2019) Transient ischemic attack (TIA) Surgical History (Updated 10/08/21 @ 19:38 by Queta Banerjee) H/O foot surgery History of colon resection History of hip surgery History of hysterectomy (~2006) Family & Social History Family History (Updated 10/08/21 @ 19:46 by Queta Banerjee) Father History of heart disease Mother History of heart disease Hyperlipidemia Hypertension Stroke Grandfather Parkinson's disease Grandmother Stroke Grandfather History of heart disease Hypertension Leukemia Grandmother Colon cancer Social History: household members children Tobacco & Substance use: Smoking Status Former smoker alcohol intake frequency 0-2 drinks per day Substance Use Type marijuana Meds Home Medications and Allergies Home Medications Medication Instructions Recorded Confirmed Type diazepam 5 mg tablet 5 mg PO Q4H PRN Anxiety 08/03/19 02/16/22 History levothyroxine 75 mcg tablet 75 mcg PO DAILY 08/03/19 04/26/22 History (Levoxyl) biotin 1,000 mcg chewable tablet 1,000 mcg PO DAILY 08/08/19 04/26/22 History calcium 600 mg PO BID 08/08/19 02/16/22 History cholecalciferol (vitamin D3) 25 2,000 unit PO BID 08/08/19 04/26/22 History mcg (1,000 unit) capsule lysine 1,000 mg tablet 1,000 mg PO DAILY 08/08/19 02/16/22 History magnesium malate PO 08/08/19 02/15/22 History njzaumnefktg-ycfsuxyf-jhqfge PO 08/08/19 02/16/22 History [Centrum Silver] omega 3-6-9 1,000 mg PO TID 08/08/19 02/16/22 History duloxetine 30 mg capsule,delayed 30 mg PO BID 12/07/21 04/26/22 History release olanzapine 5 mg tablet (Zyprexa) 5 mg PO DAILY 12/07/21 02/16/22 History estradiol 0.5 mg tablet 0.5 mg PO DAILY #90 tabs 02/15/22 04/26/22 Rx Allergies Allergy/AdvReac Type Severity Reaction Status Date / Time fluoxetine [From Prozac] Allergy Severe Hallucinati Verified 04/26/22 09:25 ng shellfish derived Allergy Mild N/V Verified 04/26/22 09:25 [SHELLFISH DERIVED] aripiprazole [From Abilify] Allergy Unknown Verified 04/26/22 09:25 cephalexin [From KEFLEX] Allergy Unknown HIVES Verified 04/26/22 09:25 silver AdvReac Mild Verified 04/26/22 09:25 [From Tegaderm AG Mesh] Exam Vital Signs (past 8 hours): - 04/26/22 09:29 Temperature 97.6 F Pulse Rate 71 Respiratory Rate 16 Blood Pressure 129/79 Pulse Oximetry 99 Oxygen Delivery Method Room Air Oxygen Delivery Method Room Air Narrative Exam Narrative: General: Patient is well developed, not in apparent distress Cardiovascular: Regular rate and rhythm, no murmurs, rubs, or gallops; no evidence of edema; no palpable abdominal aortic aneurysm Gastrointestinal: Normoactive bowel sounds, soft, nontender, nondistended, no rebound tenderness, no hepatosplenomegaly, no evidence of hernia Assessment & Plan Assessment & Plan narrative: 71-year-old female here for colon polyp surveillance; history of ileocolonic anastomosis in the past Regarding the procedure(s), the risks and potential complications, benefits, and alternatives (including not doing the procedure) were discussed with the patient. The risks include but are not limited to bleeding, splenic injury, infection, perforation which may require surgical intervention, missed lesions, and adverse reactions to sedative medicines. After a question and answer period, the patient agreed to proceed with the procedure(s) and gives informed consent. Time Spent With Patient Critical Care time: I spent a total of [] minutes of critical care time on this patient's care today; this time is exclusive of procedural time.
--- NOTE | 2022-04-26 10:21 | PM.OP.COLON ---
Operative Date/Time/Diagnoses Date of procedure: 04/26/22 Procedure Notes Procedure in detail: Surgeon: Sai Wright MD Procedure: Colonoscopy with polypectomy Preoperative diagnosis: History of colon polyps Postoperative diagnosis: Ileocolonic anastomosis in transverse colon; sigmoid polyp status post polypectomy, hypertrophied anal papillae Medications: Monitored anesthesia care Preanesthesia Assessment An H and P was performed/updated and the Px?s ASA class is 2. The procedure was discussed in detail with the patient. The potential risks and complications including infection, bleeding, missed lesions, perforation, need for surgery in case of perforation, prolonged hospital stay, and were explained. A brief question and answer period was allotted and once all questions were answered, informed consent was obtained. The patient was brought back to the procedure room and placed on standard monitoring. The patient?s vital signs were monitored continuously throughout the entire procedure. Prior to starting, a timeout was performed to confirm the patient?s identity, allergies, medications, and procedure. Procedure in detail The patient was placed in left lateral decubitus position and once adequate sedation was obtained a JAZLYN was performed. The digital rectal examination did not reveal any palpable lesions. The tip of the colonoscope was placed in the anal canal and advanced without difficulty all the way to the cecum which was identified by the appendiceal orifice and the ileocecal valve. Careful examination of all abreu of the colon was performed with irrigation of any residual stool. In the proximal transverse colon there was note of a end-to-side ileocolonic anastomosis which appeared healthy. Due to significant looping the neoterminal ileum was unable to be intubated In the sigmoid colon, there was note of a 4 mm sessile polyp which was removed by means of cold snare. Resection retrieval was complete with minimal bleeding Back pain retroflexion was performed in the rectum which revealed hypertrophied anal papillae The patient tolerated the procedure well and will be brought back to the recovery area to be discharged once criteria are met. The prep was judged to be good and adequate to identify polyps less than 5 mm. The withdrawal time was 7 mins. Complications There were no complications and estimated blood loss was minimal. Recommendations: Resume previous diet Continue outPx medications Follow up pathology results Repeat colonoscopy in 5 years An emergency contact number was given to the patient for any complications related to the procedure
[2022-04-26 10:52] VITALS: BP 94/59; PULSE 68; RESP 14; TEMP 36.8; O2SAT 100
[2022-04-26 10:57] VITALS: BP 100/59; PULSE 65; RESP 14; O2SAT 99
[2022-04-26 11:03] VITALS: BP 109/72; PULSE 69; RESP 16; O2SAT 98
[2022-04-26 11:11] VITALS: BP 115/72; PULSE 69; RESP 16; TEMP 36.7; O2SAT 100
== END 2022-04-26 11:32 | disposition home or self-care (01) ==
PROVIDERS: PCP Physician Assistant; Referring Provider Internal Medicine Gastroenterology; Visit Provider Internal Medicine Gastroenterology
PROC: 0DJD8ZZ Inspection of Lower Intestinal Tract, Via Natural or Artificial Opening Endoscopic (ICD-10-PCS; CPT 45378; principal; 2022-04-26 10:30)
DX: Z12.11 Encounter for screening for malignant neoplasm of colon (principal); Z86.010 Personal history of colon polyps; K63.5 Polyp of colon; K64.4 Residual hemorrhoidal skin tags
CPT/HCPCS: 45385; J2704

== ENCOUNTER → 2022-05-14 12:43 | Outpatient (CLI) | payer MEDICARE, OTHER, SELFPAY ==
--- NOTE | 2022-05-14 | DI.MG.S_ITS ---
BILATERAL DIGITAL SCREENING MAMMOGRAM 3D/2D WITH CAD WITH AUGMENTATION: 05/14/2022 CLINICAL: Routine screening. Family history of breast cancer. Comparison is made to exams dated: 12/04/2020 mammogram, 08/29/2019 mammogram - [facility], and 08/30/2017 mammogram - [facility]. There are scattered areas of fibroglandular density in both breasts (category b / 25%-50% glandular tissue). Current study was also evaluated with a Computer Aided Detection (CAD) system. Bilateral breast implants are stable. There are benign vascular calcifications in both breasts. No significant masses, calcifications, or other findings are seen in either breast. There has been no significant interval change. IMPRESSION: BENIGN There is no mammographic evidence of malignancy. A 1 year screening mammogram is recommended. Based on the Tyrer Cuzick model (a risk assessment model) the patient's lifetime risk is 8.0% and her 10 year risk is 4.7%. According to the ACR, ACS, and NCCN guidelines, an annual breast MRI exam along with mammogram is recommended if the patient's lifetime risk is 20% or greater. This exam was interpreted at Station ID: [id number]. NOTE: For mammograms, a report in lay terms will be sent to the patient. Approximately 15% of breast malignancies will not be visualized mammographically. In the management of a palpable breast mass, a negative mammogram must not discourage biopsy of a clinically suspicious lesion. Electronically Signed By: Emeli vogt/lynnette:05/14/2022 13:50:55 letter sent: Normal Exam ACR BI-RADS Category 2: Benign Finding(s) 3342F
== END ==
PROVIDERS: PCP Physician Assistant; Referring Provider Physician Assistant; Visit Provider Physician Assistant
DX: Z12.31 Encounter for screening mammogram for malignant neoplasm of breast (principal); Z80.3 Family history of malignant neoplasm of breast
CPT/HCPCS: 77063; 77067

== ENCOUNTER → 2022-06-18 12:11 | Outpatient (CLI) | payer MEDICARE, OTHER, SELFPAY ==
--- NOTE | 2022-06-18 | DI.MRI.S_ITS ---
PROCEDURE: MR CERVICAL SPINE WO CON INDICATIONS: Radiculopathy, cervical region TECHNIQUE: Noncontrast sagittal T1 spin echo and T2 fast spin echo, sagittal STIR, foraminal oblique sagittal T2 fast spin echo, and axial gradient echo or T2 fast spin echo through the cervical spine. COMPARISON: None. FINDINGS: Image quality: This examination is limited by involuntary motion artifact. Alignment and Curvature: There is wxqs-pp-ufzekaiy retrolisthesis seen at the C4-C5 level. Minimal anterolisthesis is seen at C6-C7. Bone Marrow: Marrow demonstrates normal overall signal. Spinal Cord: Visualized spinal cord has normal size and signal. No cerebellar tonsillar herniation. Paraspinous Soft Tissues: No paravertebral masses. Prevertebral soft tissues are normal in thickness. C2-C3: The disc height is well-preserved. Loss of disc signal is seen at this level. A mild degree of generalized disc osteophyte complex is seen. Mild right-sided and rypl-jq-lmwryyfc left-sided facet hypertrophy can be seen. No neural foraminal narrowing or central canal narrowing can be seen. C3-C4: Moderate loss of disc height is seen. Loss of disc signal is seen. Moderate generalized disc osteophyte complex is seen. Bilateral neural foraminal narrowing seen, left worse than right. Moderate central canal narrowing is seen. There is associated mass effect upon the ventral spinal cord. C4-C5: At least moderate loss of disc height and disc signal can be seen. Moderate disc osteophyte complex is seen, which is eccentric to the right side. There is qyyu-dd-xxvebved right-sided and moderate left-sided neural foraminal narrowing. At least moderate bilateral neural foraminal narrowing seen. At least moderate central canal narrowing is seen. There is associated mass effect upon the ventral spinal cord. C5-C6: Fusion change can be seen at this level. Mild to moderate disc osteophyte complex is seen. Mild facet joint hypertrophy is seen. There is moderate left-sided and ecye-nz-pxscgnwt right-sided neural foraminal narrowing. Mild central canal narrowing is seen. C6-C7: At least moderate loss of disc height and disc signal can be seen. Moderate generalized disc osteophyte complex is seen. At least moderate disc osteophyte complex is seen. There is at least moderate bilateral neural foraminal narrowing seen. Mild to moderate central canal narrowing is seen. C7-T1: Mild loss of disc height is seen. Loss of disc signal is seen. A mild degree of generalized disc osteophyte complex is seen. Moderate facet joint hypertrophy is seen. No significant central canal narrowing is seen. IMPRESSION: Multiple levels of cervical spine degenerative change can be seen, which are overall worst at C3-C4 and C4-C5. Prior C5-C6 vertebral body fusion. Dictated by: Sky Metcalf M.D. on 06/18/2022 at 13:00 Approved by: Sky Metcalf M.D. on 06/18/2022 at 13:05
== END ==
PROVIDERS: PCP Physician Assistant; Referring Provider Physical Medicine & Rehabilitation Pain Medicine; Visit Provider Physical Medicine & Rehabilitation Pain Medicine
DX: M47.22 Other spondylosis with radiculopathy, cervical region (principal); Z98.1 Arthrodesis status
CPT/HCPCS: 72141

== ENCOUNTER → 2022-07-27 13:17 | Outpatient (CLI) | payer MEDICARE, OTHER, SELFPAY ==
--- NOTE | 2022-07-27 13:19 | DI.RAD.S_ITS ---
PROCEDURE: FL BARIUM SWALLOW W SPEECH INDICATIONS: Dysphagia, unspecified COMPARISON: None. TECHNIQUE: Examination was conducted in conjunction with speech pathology per standard protocol. In the lateral projection, filming was performed of the patient swallowing. AP projection filming may also be performed with patient swallowing. COMPARISON: FINDINGS: Function: The oral preparatory phase appears normal, with proper containment. The subsequent oral propulsive phase, pharyngeal phase, and esophageal phase of swallowing also appear normal with all proffered substances. No laryngotracheal penetration or aspiration. Moderate amount of vallecular pooling is noted. Morphology: No cricopharyngeal bar is identified. Prevertebral soft tissue prominence at C4-5 level is seen. Bony fusion at C5-6 level is seen. No Zenker's diverticulum. IMPRESSION: Prevertebral soft tissue swelling at C4-5 level which may represent postsurgical scarring related to cervical spine fusion, suggest GI and possible endoscopic correlation. No aspiration or penetration is noted during the swallowing. Please correlate with speech pathology notes for more detailed findings. Dictated by: Moreno Renee M.D. on 07/27/2022 at 17:05 Approved by: Moreno Renee M.D. on 07/27/2022 at 17:07
--- NOTE | 2022-07-28 11:36 | ST.SWALLOW ---
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 According to the pt she has a PMH of Myofacial dysfunction, spinal stenosis . cervical fusion of C5-C6. She also reported cervical osteophytes at C4-C5 which were noted and reported in MRI results dated 06/18/22. Pt reports choking several timed on dense foods such as meats , bagel style breads among others, which she stated get stuck on the left side of her throat (pointing to the left side of her laryngeal area. She reports airway occlusion several times during which she was able to dislodge and clear her airway herself. She noted that she is only eating foods that are easy to swallow, such as yogurt, liquids, or foods with a lot of sauce and soft textures. Pt has an appointment for a GI consult on 08/21/22. 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 She was seated in the fluoroscopy chair. She agreed to proceed. Patient Positioning Position View Lat-A/P Imaging Lateral View Textures Administered Trials Presented Thin Liquid via Spoon,Thin Liquid via Cup,Pudding Thick Liquid via Spoon,Regular Textures,Barium Tablet Oral Phase Source: MBSIMP (TM) (C) Bolus Specific Scoring Grid Lip Closure No Impairment (WNL) Tongue Control During Bolus Hold No Impairment (WNL) Bolus Prep/Mastication No Impairment (WNL) Bolus Transport/Lingual Motion No Impairment (WNL) A/P Lingual Propulsion Delay No Oral Residue No Impairment (WNL) Nasal Regurgitation No Additional Oral Phase Observations OME was informally observed and noted to be WNL. Speech was clear and distinct. Oral Phase of the swallow was noted to be WNL. Good mastication, bolus control and A-P transition was WNL. Dentiton was natural in good health. Pharyngeal Phase Source: MBSIMP (TM) (C) Bolus Specific Scoring Grid Delayed Initiation of Pharyngeal Swallow No Soft Palate Elevation No Impairment (WNL) Tongue Base Strength/Range of Motion Mild Impairment Residue Along the Tongue Base Yes Clearance of Residue Along Tongue Base Moderate Impairment Laryngeal Elevation WFL Anterior Hyoid Movement WFL Epiglottic Range of Motion WFL Vallecular Residue Yes Clearance of Vallecular Residue Mild Impairment Laryngeal Vestibular Closure No Impairment (WNL) Pharyngeal Stripping Wave Moderate Impairment Posterior Pharyngeal Wall Residue Yes Clearance of Posterior Pharyngeal Wall Minimal Impairment Residue Upper Esophageal Sphincter Opening Moderate Impairment Residue in the Pyriform Sinuses No Esophageal Clearance Upright Position Mild Impairment Pharyngoesophageal Backflow Observed No Additional Pharyngeal Phase Observations Pt's laryngeal elevation and hyoid movement as well as epiglottic inversion were observed to be WNL. Mild tongue base weakness with reduced pharyngolaryngeal contact resulted in residual contrast remaining at the valeculla and the posterior wall of the pharynx. Liquid boluses were noted to pass through the pharynx into the esophagus with minimal difficulty. Minimal liquid residue was observed across all liquid trials. There appeared to be reduced activity of the constrictors of the posterior pharyngeal wall which resulted in decreased control of the solid boluses to the esophagus. Additionally, decreased UES extension and duration appeared to result in obstruction of the bolus flow of the solid trials into the esophagus. For example, a small amount of the solids bolus was able to pass through the UES, but a majority of the bolus remained within the pharynx near an open airway. The pt was observed to choke and then spit out the remaining bolus in her mouth. She reported that she was afraid she was going to occlude her airway and stated that this is what occurs during meals daily with solid foods. A/P View Textures Administered Trials Presented Regular Textures,Barium Tablet A/P View Observations Pharyngeal Contraction Mild Impairment Vocal Fold Function Good Esophageal Function Narrowing Esophageal Clearance Upright Position Mild Impairment Esophageal Observations Esophageal Function Pt's esophagus appears to be distorted by osteophytes at C4 -C5 which were at the level of the UES. Her esophagus was noted to be narrow and pushed forward in her neck by the osteophytes. In a lateral view , the esophagus was wavy from superior to inferior. Additionally, for solids only, a large soft tissue bulge on the posterior wall of the esophagus (CP Bar?) was observed that further restricted bolus flow through to the stomach. With an A-P view, the bolus passed lateral to the larynx on the left side before moving to a mid position. this may be related to the pt's concern for a globus sensation near her larynx (left side of neck). The barium tablet was swallowed without difficulty and cleared to the stomach in a timely manner. Clinical Impressions Rehabilitation Potential Good Patient Appropriate for Therapy Yes: Review MBSS with pt and determine need for therapy at that time Recommendations Diet Liquids Order Thin Diet Order Dysphagia Mechanical Medication Recommendation As Tolerated,Whole in Carrier, Crushed in Carrier Aspiration Precautions Recommended Precautions Upright at 90 Degrees, Alternate Liquids/Solids,Small Bites/Sips,Effortful Swallow, Sudhakar Maneuvor Treatment Plan Therapy Recommendations Outpatient Speech Therapy Recommended Referrals GI Consult Compensatory Strategies Recommendations Reclined Position,Mendelsonn Maneuver,Small Bites and Sips, Alternate Liquids/Solids
--- NOTE | 2022-07-28 11:37 | ST.OPPOC ---
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 According to the pt she has a PMH of Myofacial dysfunction, spinal stenosis. cervical fusion of C5-C6. She also reported cervical osteophytes at C4-C5 which were noted and reported in MRI results dated 06/18/22. Pt reports choking several timed on dense foods such as meats, bagal style breads among others, which she stated get stuck on the left side of her throat (pointing to the left side of her laryngeal area. She reports airway occlusion several times during which she was able to dislodge and clear her airway herself. She noted that she is only eating foods that are easy to swallow, such as yogurt, liquids, or foods with a lot of sauce and soft textures. Pt has an appointment for a GI consult on 08/21/22. Mod Barium Swallow Oral Phase OME was informally observed and noted to be WNL. Other Observations Speech was clear and distinct. Oral Phase of the swallow was noted to be WNL. Good mastication, bolus control and A-P transition was WNL. Dentition was natural in good health. Mod Barium Swallow Lateral Pt's laryngeal elevation and hyoid movement as View Pharyngeal Other well as epiglottic inversion were observed to be Observation WNL. Mild tongue base weakness with reduced pharyngolaryngeal contact resulted in residual contrast remaining at the valeculla and the posterior wall of the pharynx. Liquid boluses were noted to pass through the pharynx into the esophagus with minimal difficulty. Minimal liquid residue was observed across all liquid trials. There appeared to be reduced activity of the constrictors of the posterior pharyngeal wall which resulted in decreased control of the solid boluses to the esophagus. Additionally, decreased UES extension and duration appeared to result in obstruction of the bolus flow of the solid trials into the esophagus. For example, a small amount of the solids bolus was able to pass through the UES, but a majority of the bolus remained within the pharynx near an open airway. The pt was observed to choke and then spit out the remaining bolus in her mouth. She reported that she was afraid she was going to occlude her airway and stated that this is what occurs during meals daily with solid foods. Solid Recommendations Dysphagia Mechanical Recommended Precautions Upright at 90 Degrees,Alternate Liquids/Solids, Small Bites/Sips,Effortful Swallow,Sudhakar Maneuvor Mod Barium Swallow Recommended Outpatient Speech Therapy Treatments Recommended Referrals GI Consult Comment: Electronically Signed by: PAUL Machado 07/28/22 8280 If you are in agreement with this Plan of Care, please return a signed and dated copy. I have reviewed this Plan of Care and certify that the skilled therapy services above are required to meet the patient?s needs. Physician Signature Date Printed Name and Credentials Clinical Instructor Signature Printed Name and Credentials
== END ==
PROVIDERS: PCP Physician Assistant; Referring Provider Physician Assistant; Visit Provider Physician Assistant
DX: R13.10 Dysphagia, unspecified (principal); M79.89 Other specified soft tissue disorders; Z98.1 Arthrodesis status
CPT/HCPCS: 74230; 92611

== ENCOUNTER → 2022-08-05 13:03 | Outpatient (CLI) | payer MEDICARE, OTHER, SELFPAY ==
--- NOTE | 2022-08-05 | DI.MRI.S_ITS ---
PROCEDURE: MR LUMBAR SPINE WO CON INDICATIONS: LOW BACK PAIN TECHNIQUE: Noncontrast sagittal T1 spin echo and T2 fast echo, sagittal STIR, and T2 fast spin echo through the lumbar spine. In cases with scoliosis, additional coronal T2 fast spin echo may be performed. COMPARISON: [facility], CT, CT ABDOMEN W CON, 12/28/2019, 11:06. [facility], MR, MR LUMBAR SPINE WO CON, 08/18/2019, 14:46. FINDINGS: Image quality: Excellent. Alignment and Curvature: There is normal bony alignment. Bone Marrow: Marrow is of normal overall signal. No acute vertebral body compression fractures. Spinal Cord: Conus medullaris terminates at the L1 level. Visualized cord demonstrates normal signal and size. Paraspinous Soft Tissues: No paravertebral masses. T12-L1: Mild disc bulge. No canal stenosis or foraminal stenosis. L1-L2: Unchanged disc bulge. Mild facet hypertrophy. No canal stenosis or foraminal stenosis. L2-L3: No canal stenosis or foraminal stenosis. L3-L4: Unchanged findings. Mild facet hypertrophy. Mild canal stenosis. No significant foraminal stenosis. L4-L5: Slight interval progression of findings. Remote posterior laminectomy. Posterior annulus tear and disc bulge, as before. Increased posterior ligamentous hypertrophy. Moderate canal stenosis. No foraminal stenosis. L5-S1: Prominent bilateral facet hypertrophy, as before. Minimal disc bulge. No canal stenosis. No significant foraminal stenosis. IMPRESSION: 1. Slight progression of findings at L4-L5. There is now moderate canal stenosis. 2. Unchanged findings at L3-L4. Mild canal stenosis. 3. Unchanged prominent bilateral facet arthropathy at L5-S1. Dictated by: Harpal Sanchez M.D. on 08/05/2022 at 16:10 Approved by: Harpal Sanchez M.D. on 08/05/2022 at 16:31
== END ==
PROVIDERS: PCP Physician Assistant; Referring Provider Psychiatry & Neurology Neurology; Visit Provider Psychiatry & Neurology Neurology
DX: M47.817 Spondylosis without myelopathy or radiculopathy, lumbosacral region (principal); M51.36 Other intervertebral disc degeneration, lumbar region; M48.061 Spinal stenosis, lumbar region without neurogenic claudication; M54.50 Low back pain, unspecified; G83.4 Cauda equina syndrome; G89.29 Other chronic pain
CPT/HCPCS: 72148

== ENCOUNTER 2022-08-10 12:00 | Observation (INO) | payer MEDICARE, OTHER, SELFPAY ==
[2022-08-10] VITALS (12 sets, daily range): BP systolic 112–166; BP diastolic 68–97; PULSE 62–74; RESP 18–20; TEMP 36.2–36.4; O2SAT 97–100; BMI 19.1
--- NOTE | 2022-08-10 13:01 | DI.CT.S_ITS ---
PROCEDURE: CT ANGIO HEAD AND NECK INDICATIONS: Memory loss, prior TIA TECHNIQUE: Pre-contrast 4.5 mm thick sections acquired from the foramen magnum to the vertex. After the administration of intravenous contrast, 1 mm thick sections acquired from the aortic arch through the [place] of Sy. Post-contrast 4.5 mm thick sections then re-acquired from the foramen magnum to the vertex. 3-dimensional [id number]-lhrfwqvafq (MIP) and/or volume rendering reformats were acquired of the central intracranial vasculature and neck separately. For radiation dose reduction, the following was used: automated exposure control, adjustment of mA and/or kV according to patient size. COMPARISON: None. FINDINGS: Image quality: Excellent. BRAIN: CSF spaces: Ventricles are normal in size and shape. Basal cisterns are patent. No extra-axial fluid collections. Brain: No midline shift. No intracranial bleeds or masses. [place]-white matter interface appears intact. Skull and face: Calvarium and facial bones appear intact, without suspicious lesions. Orbits appear normal. Sinuses: Sinuses and mastoids are clear. HEAD CT ANGIOGRAPHY: Anterior circulation: There is a 5 mm fusiform aneurysm involving the left A2 segment. No other aneurysms are seen. Intracranial internal carotid arteries are normal in size and flow. The flow within the paired anterior cerebral arteries is normal and symmetric. The flow within the middle cerebral arteries is normal and symmetric. The anterior communicating artery is seen. Posterior circulation: Visualized portions of the vertebral arteries demonstrate normal caliber, and join to form a normal appearing basilar artery. Flow within the posterior cerebral arteries is normal and symmetric. No aneurysms are seen. NECK CT ANGIOGRAPHY: Carotid system: The great vessels demonstrate a conventional anatomy as they arise from the aortic arch. The left common carotid artery origin was suboptimally seen due to beam hardening artifact. Where it can be seen, proximal left CCA is normal. Origin of the right common carotid artery is normal. The common carotid arteries demonstrate normal caliber and courses. The bifurcation regions are both widely patent. The internal carotid arteries demonstrate normal calibers and courses. In the distal cervical portion of the right ICA, there is a saccular aneurysm measuring 8 mm in length and about 1.0 cm and greatest diameter. Proximal vessel diameter for comparison is 5 mm. There is no evidence of thrombus. Posterior circulation: The origins of the vertebral arteries both appear widely patent. The more superior extracranial portions of both vertebral arteries also demonstrate normal courses and calibers. They join to form a normal appearing basilar artery. Soft tissues: Visualized neck soft tissues demonstrate no suspicious abnormalities. Bones: No suspicious bony lesions. There is fusion of the C5-6 vertebral body. Severe disc degeneration seen elsewhere in the cervical spine. Visualized cervical spine appears normally aligned. IMPRESSION: 1. No evidence of acute process. 2. 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 Neuro surgical consult is recommended. 3. 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 4. No evidence arterial occlusion or stenosis. Any quantitative measurements of stenosis were performed using NASCET criteria. Dictated by: Divya Ruano M.D. on 08/10/2022 at 12:45 Approved by: Divya Ruano M.D. on 08/10/2022 at 13:00
--- NOTE | 2022-08-10 13:11 | DI.RAD.S_ITS ---
PROCEDURE: XR CHEST 2V INDICATIONS: memory loss, headache TECHNIQUE: 2 views of the chest were acquired. COMPARISON: [facility], , XR CHEST 2V, 02/20/2021, 11:30. FINDINGS: Surgical changes and devices: None. Lungs and pleura: Lungs are clear. No pleural effusions or pneumothorax. Mediastinum: Mediastinal contours are normal. Heart size is normal. Bones and chest wall: No suspicious bony abnormalities. Soft tissues appear unremarkable. IMPRESSION: Macro normal chest Dictated by: Israel Abarca M.D. on 08/10/2022 at 13:27 Approved by: Israel Abarca M.D. on 08/10/2022 at 13:28
[2022-08-10] MEDS: ACETAMINOPHEN 325 MG TABLET 975 MG PO (13:30)
[2022-08-10] MEDS: SODIUM CHLORIDE 0.9% 1,000 ML 1000 ML IV (13:39)
[2022-08-10 13:43] LABS: Appearance Urine UA CLEAR; Bilirubin Urine UA NEGATIVE (NEGATIVE); Color Urine UA YELLOW; Glucose Urine UA NEGATIVE (Negative); Ketones Urine UA NEGATIVE (NEGATIVE); Leukocyte Esterase Urine UA NEGATIVE (NEGATIVE); Nitrite Urine UA NEGATIVE (Negative); Occult Blood Urine UA NEGATIVE (Negative); Protein Urine UA NEGATIVE (Negative); Specific Gravity Urine UA <=1.005 (1.000-1.035); Urobilinogen Urine UA 0.2 E.U./dL (0.2)
[2022-08-10 13:44] LABS: pH Urine UA 7.5 (4.5-8.0)
[2022-08-10 13:57] LABS: Bacteria Urine None Seen; Culture Indicated Urine Cult Not Indicated; RBC Urine None Seen (0-5/HPF); Squamous Epithelial Cell Urine 0-1 /HPF (0-5/HPF); WBC Urine None Seen (0-5/HPF)
[2022-08-10 14:05] LABS: Add Manual Diff / Slide Review NO; Basophils Absolute Auto 100 /uL (0-100); Basophils Percent Auto 1.5 % (0-2); Eosinophils Absolute Auto 500 /uL (0-450); Eosinophils Percent Auto 13.4 % (2-4); Hemoglobin 14.1 g/dL (12.0-16.0); Lymphocytes Absolute Auto 1400 /uL (1100-4500); Lymphocytes Percent Auto 37.4 % (25-40); Mean Corpuscular HGB Conc 33.4 % (30-36); Mean Corpuscular Hemoglobin 31.7 PG (26-34); Mean Corpuscular Volume 94.8 fL (80-100); Monocytes Absolute Auto 400 /uL (0-900); Neutrophils Absolute Auto 1400 /uL (1500-7000); Neutrophils Percent Auto 37.7 % (50-75); Platelet Count 210 X10^3/uL (150-400); Red Blood Cell Count 4.43 X10^6/uL (4.0-5.2); Red Cell Distribution Width 12.6 % (11.6-14.8); White Blood Cell Count 3.8 X10^3/uL (4.5-11.0)
[2022-08-10 14:11] LABS: Prothrombin Time 11.8 SECONDS (10.1-12.7)
[2022-08-10 14:13] LABS: PTT Partial Thromboplastin Tim 35 SECONDS (26-36)
[2022-08-10 14:17] LABS: Acetaminophen < 10 ug/mL (10-30); Alanine Aminotransferase 18 IU/L (<35); Albumin 4.2 g/dL (3.5-5.0); Albumin Globulin Ratio 1.4 (1.0-2.8); Alkaline Phosphatase 41 U/L (38-126); Aspartate Aminotransferase 26 IU/L (14-36); BUN Creatinine Ratio 21.2 (6-22); Bilirubin Total 0.5 mg/dL (0.2-1.3); Blood Urea Nitrogen 14 mg/dL (7-17); Calcium 9.5 mg/dL (8.4-10.2); Carbon Dioxide 33 mmol/L (22-32); Chloride 99 mmol/L (98-107); Estimated Glomerular Filt Rate > 60 mL/min (>60); Ethanol (ETOH) < 10 mg/dL; Globulin 2.9 g/dL (1.7-4.1); Glucose 96 mg/dL (80-110); HEMOLYSIS < 15 (0-50); Lipase 95 U/L (23-300); Potassium 3.9 mmol/L (3.4-5.1); Salicylate < 1.0 mg/dL (<20); Sodium 138 mmol/L (137-145); Total Protein 7.1 g/dL (6.3-8.2)
--- NOTE | 2022-08-10 14:19 | DI.MRI.S_ITS ---
PROCEDURE: MR HEAD/BRAIN WO CON INDICATIONS: Memory loss TECHNIQUE: Non-contrast axial T1 spin echo, axial T2 fast spin echo, sagittal and axial FLAIR, coronal T2 fast spin echo, axial gradient echo, axial diffusion and ADC through the brain. COMPARISON: None. FINDINGS: Image quality: Excellent. CSF spaces: Ventricles appear symmetric in size and shape. Basal cisterns are patent. No extra-axial fluid collections. Brain: No intracranial bleeds or mass effects. There is mild cerebral volume loss for age. There are mild periventricular and deep white matter chronic small vessel ischemic changes. Brainstem appears normal. Diffusion-weighted images show no acute ischemic insults. No chronic ischemic insults. Normal intravascular flow voids are present. Skull and face: Calvarial bone marrow is normal in signal. Orbits are normal. Sinuses: Sinuses and mastoids are clear. IMPRESSION: No acute intracranial abnormality. Mild global cerebral volume loss and chronic microvascular ischemic changes. Dictated by: Israel Abarca M.D. on 08/10/2022 at 15:12 Approved by: Israel Abarca M.D. on 08/10/2022 at 15:13
[2022-08-10 14:28] LABS: Troponin I < 0.012 ng/mL (0.01-0.034)
--- NOTE | 2022-08-10 15:10 | ED_ITS ---
HPI - Headache <Brian See PA-C - Last Filed: 08/10/22 19:08> General Chief Complaint: Headache Stated Complaint: headache, memory loss, confus, Time Seen by Provider: 08/10/22 12:04 Mode of arrival: Ambulatory History of Present Illness HPI Narrative: 72-year-old female with past medical history hypothyroidism, asthma, Raynaud's, hep C, hypertension, cauda equina, osteoporosis, bipolar, rheumatoid arthritis presents to the ED with 2 days of memory loss, left-sided headache. Patient states that she has had the headache for the past several months since December 2021, the characteristics of the headache remain unchanged. Patient states that the headache is intermittent, but she has had them on most days. At worst, pain is 8/10. Patient is here in the ED with her daughter who was also able to provide history. Patient's daughter states that patient appeared tired and slept in yesterday morning, woke up in a panic since she had to go to her physical therapy appointment, however she did go. Patient states that she was outside when the patient returned, appeared somewhat confused and out of it like she was on something, however daughter says she was unable to put her finger exactly on what was wrong. Patient went into the house and took a long nap on the sofa. This morning, patient again slept in, woke up, says she t hought it was still Tuesday (i.e. Yesterday) and called her physical therapy appointment to apologize for not showing up. The physical therapy office told her that she had actually come in yesterday although she was a little late to the appointment. Patient states that she is unable to remember going to the physical therapy appointment, can not remember if she actually went to [facility] as she had planned on the way back. Patient is able to remember all other incidents other than that period of time. Patient states that she is having some word-finding difficulty, although in conversation with the patient it is not apparent. Patient's daughter states that patient's speech seems a little slower than normal, however that is also not apparent in my interaction today. Patient denies fever, chills, neck stiffness, neck pain, cough, sore throat, rhinorrhea, chest pain, shortness of breath, nausea, vomiting, dysuria, lightheadedness, dizziness, syncope. Patient did state that she has a history of a TIA sometime ago, but details unclear. 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 Patient's daughter denies the patient has any history of memory issues or dementia. Patient does have some mental health issues including bipolar disorder, depression for which she is on Latuda and Cymbalta. Related Data Home Medications Medication Instructions Recorded Confirmed biotin 1,000 mcg chewable tablet 1,000 mcg PO DAILY 08/08/19 08/10/22 calcium 600 mg PO BID 08/08/19 08/10/22 cholecalciferol (vitamin D3) 25 2,000 unit PO BID 08/08/19 08/10/22 mcg (1,000 unit) capsule magnesium malate 200 mg PO QPM 08/08/19 08/10/22 [id number] See Rx Instructions .Route .COMPLEX 08/08/19 08/11/22 [Centrum Silver] omega 3-6-9 1,000 mg PO BID 08/08/19 08/10/22 duloxetine 30 mg capsule,delayed 30 mg PO BID 12/07/21 08/10/22 release lurasidone 40 mg tablet (Latuda) 40 mg PO BEDTIME 08/10/22 08/10/22 zolpidem 10 mg tablet 10 mg BEDTIME 08/10/22 08/10/22 Previous Rx's Medication Instructions Recorded aspirin 81 mg tablet,delayed 81 mg PO DAILY #90 tabs 08/12/22 release levothyroxine 50 mcg tablet 50 mcg PO DAILY@0600 #90 tabs 08/12/22 (Synthroid) Allergies Allergy/AdvReac Type Severity Reaction Status Date / Time fluoxetine [From Prozac] Allergy Severe Hallucinati Verified 04/26/22 09:25 ng shellfish derived Allergy Mild N/V Verified 04/26/22 09:25 [SHELLFISH DERIVED] aripiprazole [From Abilify] Allergy Unknown Verified 04/26/22 09:25 cephalexin [From KEFLEX] Allergy Unknown HIVES Verified 04/26/22 09:25 silver AdvReac Mild Verified 04/26/22 09:25 [From Tegaderm AG Mesh] Review of Systems <Brian See PA-C - Last Filed: 08/10/22 19:08> Review of Systems ROS Unobtainable: All systems reviewed & are unremarkable except as noted in HPI and below Constitutional Constitutional: Denies chills, Denies fatigue, Denies fever(s), Denies frequent falls, Reports headache(s), Denies lethargy and Denies weakness Eyes Eyes: Denies change in vision, Denies eye discharge, Denies irritation and Denies loss of vision ENT Ears, Nose, Mouth, and Throat: Denies change in voice, Denies dizziness, Reports headache(s), Denies neck pain, Denies sore throat and Denies throat swelling Cardiovascular Cardiovascular: Denies chest pain, Denies irregular heart rhythm, Denies lightheadedness, Denies palpitations, Denies dyspnea, Denies dyspnea on exertion and Denies orthopnea Respiratory Respiratory: Denies cough, Denies dyspnea, Denies dyspnea on exertion and Denies wheezing Gastrointestinal Gastrointestinal: Denies abdominal pain, Denies change in bowel habits, Denies diarrhea, Denies nausea and Denies vomiting Genitourinary Genitourinary: Denies hematuria, Denies flank pain, Denies urinary incontinence and Denies urinary urgency Musculoskeletal Musculoskeletal: Denies back pain, Denies muscle weakness, Denies neck pain, Denies numbness and Denies tingling Integumentary/Breasts Skin/Breast: Denies pruritus, Denies erythema, Denies rash and Denies wounds Neurologic Neurologic: Denies behavioral changes, Denies confusion, Denies dizziness, Denies frequent falls, Reports headache(s), Denies loss of vision, Reports memory loss, Denies numbness, Denies tingling and Denies weakness Psychiatric Psychiatric: Denies anxiety, Denies behavioral changes, Denies confusion, Denies depression, Reports memory loss, Denies homicidal ideation and Denies suicidal ideation Endocrine Endocrine: Denies fatigue, Denies flushing and Denies palpitations Hematologic/Lymphatic Hematologic/Lymphatic: Denies easy bruising Allergic/Immunologic Allergic/Immunologic: Denies urticaria, Denies throat swelling and Denies wheezing Patient History <Brian See PA-C - Last Filed: 08/10/22 19:08> Medical History (Updated 08/11/22 @ 05:17 by TRIPP Nelson-) Abnormal Pap smear of cervix Acute neck pain Acute tension-type headache Acute thoracic back pain Ankle pain (~2019) Asthma Autoimmune disease Cataracts, bilateral (~2006) Cauda equina syndrome (~2020) Cervical somatic dysfunction Chicken pox Chronic pain syndrome Colon polyps (~2006) COVID Cranial somatic dysfunction Foot pain (~2014) Gait instability Gastric ulcer (~2015) Arie's disease (~2019) Heavy menstrual period Hepatitis C History of urinary incontinence (~2019) Hypertension Hypothyroidism (~1993) Migraines Mumps (~1959) Osteoarthritis Osteopenia Osteoporosis Ovarian cyst Painful menstrual periods Psoriasis Raynaud disease Recurrent sinusitis Rheumatoid arthritis Segmental and somatic dysfunction of abdomen and other regions Segmental and somatic dysfunction of rib cage Shingles Somatic dysfunction of lower extremity Spine pain, lumbar (~2016) Thoracic region somatic dysfunction Thyroid nodule (~2019) Transient ischemic attack (TIA) Surgical History (Updated 08/11/22 @ 05:17 by ELIZA Nelson) H/O foot surgery History of colon resection History of hip surgery History of hysterectomy (~2006) Status post implantation of urinary electronic stimulator device Family History Father History of heart disease Mother History of heart disease Hyperlipidemia Hypertension Stroke Grandfather Parkinson's disease Grandmother Stroke Grandfather History of heart disease Hypertension Leukemia Grandmother Colon cancer Social History household members: family and children Smoking Status: Former smoker Smoking Status: Former smoker alcohol intake frequency: 0-2 drinks per day Alcohol type: beer and wine Substance Use Type: marijuana Exam <Brian See PA-C - Last Filed: 08/10/22 19:08> Narrative Exam Narrative: Const General:?cooperative, healthy appearing and comfortable [facility] Head:?normal to inspection Ears:?hearing grossly normal bilaterally Nose:?external nose normal Face and sinus:?normal facial exam and sinuses nontender Mouth:?oral mucosae normal Throat:?posterior oropharynx normal Eyes General:?appearance normal, both eyes and all related structures Neck Neck:?normal visual inspection and no lymphadenopathy noted Resp Effort & Inspection:?normal respiratory effort Auscultation:?clear to auscultation bilaterally Cardio Rate:?regular rate Rhythm:?regular rhythm Neuro General:?patient alert, patient awake and patient oriented x3; PERRLA; CN 1 through 12 intact bilaterally; gait normal; negative pronator drift; negative [id number], negative [id number]; no speech deficits appreciated on exam Initial Vital Signs Initial Vital Signs: Vital Signs Pulse Rate 64 08/10/22 12:05 Blood Pressure 164/78 H 08/10/22 12:05 Pulse Oximetry 100 08/10/22 12:05 <Hira Russell MD - Last Filed: 08/26/22 07:24> Initial Vital Signs Initial Vital Signs: Vital Signs Pulse Rate 64 08/10/22 12:05 Blood Pressure 164/78 H 08/10/22 12:05 Pulse Oximetry 100 08/10/22 12:05 Course <Brian See PA-C - Last Filed: 08/10/22 19:08> Orders Ordered: Discontinued Medications Acetaminophen (Acetaminophen 325 Mg Tablet) 975 mg PO NOW ONE Stop: 08/10/22 12:58 Last Admin: 08/10/22 13:30 Dose: 975 mg Documented By: ANAND Acetaminophen (Acetaminophen 325 Mg Tablet) 650 mg PO Q6H PRN PRN Reason: Fever/Mild Pain (1-3) Last Admin: 08/11/22 05:38 Dose: 650 mg Documented By: Admin: 08/10/22 20:45 Dose: 650 mg Documented By: Acetaminophen (Acetaminophen 325 Mg Tablet) 650 mg PO Q4H PRN PRN Reason: Fever/Mild Pain (1-3) Last Admin: 08/12/22 08:48 Dose: 650 mg Documented By: Admin: 08/11/22 20:01 Dose: 650 mg Documented By: Admin: 08/11/22 09:35 Dose: 650 mg Documented By: ED Aspirin (Aspirin 81 Mg Chew Tab) 324 mg PO NOW ONE Stop: 08/10/22 15:16 Last Admin: 08/10/22 16:11 Dose: 324 mg Documented By: ANAND Aspirin (Aspirin Ec 81 Mg Tablet) 81 mg PO DAILY [facility] [place] Last Admin: 08/12/22 08:47 Dose: 81 mg Documented By: Admin: 08/11/22 08:56 Dose: 81 mg Documented By: ED Atorvastatin Calcium (Atorvastatin 20 Mg Tablet) 20 mg PO BEDTIME [facility] [place] Last Admin: 08/11/22 20:01 Dose: 20 mg Documented By: Admin: 08/10/22 20:46 Dose: Not Given Documented By: Calcium Carbonate (Calcium Carbonate 500 Mg Tab) 1,000 mg PO Q4HR PRN PRN Reason: Dyspepsia Clopidogrel Bisulfate (Clopidogrel 75 Mg Tablet) 75 mg PO DAILY [facility] [place] Last Admin: 08/12/22 08:47 Dose: 75 mg Documented By: Admin: 08/11/22 08:56 Dose: 75 mg Documented By: ED Diazepam (Diazepam 5 Mg Tablet) 5 mg PO NOW ONE Stop: 08/11/22 09:12 Last Admin: 08/11/22 09:35 Dose: 5 mg Documented By: ED Duloxetine HCl (Duloxetine 30 Mg Capsule) 30 mg PO BID [facility] [place] Last Admin: 08/12/22 08:47 Dose: 30 mg Documented By: Admin: 08/11/22 20:01 Dose: 30 mg Documented By: Admin: 08/11/22 08:56 Dose: 30 mg Documented By: Admin: 08/10/22 20:35 Dose: 30 mg Documented By: Enoxaparin Sodium (Enoxaparin 40 Mg/0.4 Ml Syringe) 40 mg SUBCUT DAILY [facility] [place] Last Admin: 08/12/22 08:47 Dose: 40 mg Documented By: Admin: 08/11/22 08:55 Dose: 40 mg Documented By: ED Sodium Chloride (Normal Saline 0.9%) 1,000 mls @ 1,000 mls/hr IV BOLUS ONE Stop: 08/10/22 13:56 Last Infusion: 08/10/22 15:33 Dose: 0 mls/hr Documented By: Admin: 08/10/22 13:39 Dose: 1,000 mls/hr Documented By: ANAND Ketorolac Tromethamine (Ketorolac 30 Mg/Ml Vial) 15 mg IV NOW ONE Stop: 08/10/22 16:47 Last Admin: 08/10/22 16:53 Dose: 15 mg Documented By: BHARATHI Levothyroxine Sodium (Levothyroxine 50 Mcg Tablet) 50 mcg PO DAILY@0600 [facility] [place] Last Admin: 08/12/22 06:27 Dose: 50 mcg Documented By: Admin: 08/11/22 05:21 Dose: 50 mcg Documented By: Naloxone HCl (Naloxone 0.4 Mg/Ml Vial) 0.2 mg IV Q2MIN PRN PRN Reason: Opiate Reversal Non-Formulary Medication (Lurasidone [Latuda]) 40 mg PO DAILY [facility] [place] Last Admin: 08/11/22 10:08 Dose: Not Given Documented By: JENNIFER Lurasidone [Latuda] (40 Mg Tablet) 40 mg PO DAILY@1700 [facility] [place] Last Admin: 08/11/22 17:16 Dose: 40 mg Documented By: ED Ondansetron HCl (Ondansetron 4 Mg/2 Ml Inj) 4 mg IV Q8HR PRN PRN Reason: Nausea And Vomiting Sodium Chloride (Sodium Chloride 0.9% Flush) 10 ml IV PRN PRN PRN Reason: Flush Sodium Chloride (Sodium Chloride 0.9% Flush) 10 ml IV BID [facility] [place] Last Admin: 08/12/22 08:52 Dose: 10 ml Documented By: Admin: 08/11/22 20:02 Dose: 10 ml Documented By: Zolpidem Tartrate (Zolpidem 5 Mg Tablet) 5 mg PO BEDTIME PRN PRN Reason: Sleep Last Admin: 08/11/22 20:01 Dose: 5 mg Documented By: Admin: 08/10/22 22:29 Dose: 5 mg Documented By: Vital Signs Vital signs: Vital Signs - 8 hr 08/10/22 12:13 08/10/22 12:05 08/10/22 12:05 Temperature 97.6 F Pulse Rate 64 64 Respiratory Rate 20 Blood Pressure 164/78 H 164/78 H Pulse Oximetry 98 100 Oxygen Delivery Method Room Air 08/10/22 12:30 08/10/22 12:30 08/10/22 13:26 Temperature Pulse Rate 66 74 Respiratory Rate Blood Pressure 156/77 H Pulse Oximetry 100 98 Oxygen Delivery Method 08/10/22 13:26 08/10/22 13:30 08/10/22 13:30 Temperature Pulse Rate 62 Respiratory Rate Blood Pressure 166/87 H 159/93 H Pulse Oximetry 99 Oxygen Delivery Method 08/10/22 14:00 08/10/22 15:03 08/10/22 15:05 Temperature Pulse Rate 65 68 Respiratory Rate Blood Pressure 151/97 H Pulse Oximetry 98 98 Oxygen Delivery Method 08/10/22 15:05 08/10/22 15:30 08/10/22 15:30 Temperature Pulse Rate 70 63 Respiratory Rate Blood Pressure 143/81 H Pulse Oximetry 98 97 Oxygen Delivery Method 08/10/22 16:00 08/10/22 16:00 08/10/22 16:30 Temperature Pulse Rate 65 Respiratory Rate Blood Pressure 145/80 H 145/96 H Pulse Oximetry 97 Oxygen Delivery Method 08/10/22 16:30 Temperature Pulse Rate 67 Respiratory Rate Blood Pressure Pulse Oximetry 99 Oxygen Delivery Method <Hira Russell MD - Last Filed: 08/26/22 07:24> Orders Ordered: Discontinued Medications Acetaminophen (Acetaminophen 325 Mg Tablet) 975 mg PO NOW ONE Stop: 08/10/22 12:58 Last Admin: 08/10/22 13:30 Dose: 975 mg Documented By: ANAND Acetaminophen (Acetaminophen 325 Mg Tablet) 650 mg PO Q6H PRN PRN Reason: Fever/Mild Pain (1-3) Last Admin: 08/11/22 05:38 Dose: 650 mg Documented By: Admin: 08/10/22 20:45 Dose: 650 mg Documented By: Acetaminophen (Acetaminophen 325 Mg Tablet) 650 mg PO Q4H PRN PRN Reason: Fever/Mild Pain (1-3) Last Admin: 08/12/22 08:48 Dose: 650 mg Documented By: Admin: 08/11/22 20:01 Dose: 650 mg Documented By: Admin: 08/11/22 09:35 Dose: 650 mg Documented By: ED Aspirin (Aspirin 81 Mg Chew Tab) 324 mg PO NOW ONE Stop: 08/10/22 15:16 Last Admin: 08/10/22 16:11 Dose: 324 mg Documented By: ANAND Aspirin (Aspirin Ec 81 Mg Tablet) 81 mg PO DAILY [facility] [place] Last Admin: 08/12/22 08:47 Dose: 81 mg Documented By: Admin: 08/11/22 08:56 Dose: 81 mg Documented By: ED Atorvastatin Calcium (Atorvastatin 20 Mg Tablet) 20 mg PO BEDTIME [facility] [place] Last Admin: 08/11/22 20:01 Dose: 20 mg Documented By: Admin: 08/10/22 20:46 Dose: Not Given Documented By: Calcium Carbonate (Calcium Carbonate 500 Mg Tab) 1,000 mg PO Q4HR PRN PRN Reason: Dyspepsia Clopidogrel Bisulfate (Clopidogrel 75 Mg Tablet) 75 mg PO DAILY [facility] [place] Last Admin: 08/12/22 08:47 Dose: 75 mg Documented By: Admin: 08/11/22 08:56 Dose: 75 mg Documented By: ED Diazepam (Diazepam 5 Mg Tablet) 5 mg PO NOW ONE Stop: 08/11/22 09:12 Last Admin: 08/11/22 09:35 Dose: 5 mg Documented By: ED Duloxetine HCl (Duloxetine 30 Mg Capsule) 30 mg PO BID [facility] [place] Last Admin: 08/12/22 08:47 Dose: 30 mg Documented By: Admin: 08/11/22 20:01 Dose: 30 mg Documented By: Admin: 08/11/22 08:56 Dose: 30 mg Documented By: Admin: 08/10/22 20:35 Dose: 30 mg Documented By: Enoxaparin Sodium (Enoxaparin 40 Mg/0.4 Ml Syringe) 40 mg SUBCUT DAILY [facility] [place] Last Admin: 08/12/22 08:47 Dose: 40 mg Documented By: Admin: 08/11/22 08:55 Dose: 40 mg Documented By: ED Sodium Chloride (Normal Saline 0.9%) 1,000 mls @ 1,000 mls/hr IV BOLUS ONE Stop: 08/10/22 13:56 Last Infusion: 08/10/22 15:33 Dose: 0 mls/hr Documented By: Admin: 08/10/22 13:39 Dose: 1,000 mls/hr Documented By: ANAND Ketorolac Tromethamine (Ketorolac 30 Mg/Ml Vial) 15 mg IV NOW ONE Stop: 08/10/22 16:47 Last Admin: 08/10/22 16:53 Dose: 15 mg Documented By: BHARATHI Levothyroxine Sodium (Levothyroxine 50 Mcg Tablet) 50 mcg PO DAILY@0600 [facility] [place] Last Admin: 08/12/22 06:27 Dose: 50 mcg Documented By: Admin: 08/11/22 05:21 Dose: 50 mcg Documented By: Naloxone HCl (Naloxone 0.4 Mg/Ml Vial) 0.2 mg IV Q2MIN PRN PRN Reason: Opiate Reversal Non-Formulary Medication (Lurasidone [Latuda]) 40 mg PO DAILY [facility] [place] Last Admin: 08/11/22 10:08 Dose: Not Given Documented By: JENNIFER Lurasidone [Latuda] (40 Mg Tablet) 40 mg PO DAILY@1700 [facility] [place] Last Admin: 08/11/22 17:16 Dose: 40 mg Documented By: ED Ondansetron HCl (Ondansetron 4 Mg/2 Ml Inj) 4 mg IV Q8HR PRN PRN Reason: Nausea And Vomiting Sodium Chloride (Sodium Chloride 0.9% Flush) 10 ml IV PRN PRN PRN Reason: Flush Sodium Chloride (Sodium Chloride 0.9% Flush) 10 ml IV BID [facility] Last Admin: 08/12/22 08:52 Dose: 10 ml Documented By: Admin: 08/11/22 20:02 Dose: 10 ml Documented By: Zolpidem Tartrate (Zolpidem 5 Mg Tablet) 5 mg PO BEDTIME PRN PRN Reason: Sleep Last Admin: 08/11/22 20:01 Dose: 5 mg Documented By: Admin: 08/10/22 22:29 Dose: 5 mg Documented By: Vital Signs Vital signs: Vital Signs - 8 hr 08/10/22 12:13 08/10/22 12:05 08/10/22 12:05 Temperature 97.6 F Pulse Rate 64 64 Respiratory Rate 20 Blood Pressure 164/78 H 164/78 H Pulse Oximetry 98 100 Oxygen Delivery Method Room Air 08/10/22 12:30 08/10/22 12:30 08/10/22 13:26 Temperature Pulse Rate 66 74 Respiratory Rate Blood Pressure 156/77 H Pulse Oximetry 100 98 Oxygen Delivery Method 08/10/22 13:26 08/10/22 13:30 08/10/22 13:30 Temperature Pulse Rate 62 Respiratory Rate Blood Pressure 166/87 H 159/93 H Pulse Oximetry 99 Oxygen Delivery Method 08/10/22 14:00 08/10/22 15:03 08/10/22 15:05 Temperature Pulse Rate 65 68 Respiratory Rate Blood Pressure 151/97 H Pulse Oximetry 98 98 Oxygen Delivery Method 08/10/22 15:05 08/10/22 15:30 08/10/22 15:30 Temperature Pulse Rate 70 63 Respiratory Rate Blood Pressure 143/81 H Pulse Oximetry 98 97 Oxygen Delivery Method 08/10/22 16:00 08/10/22 16:00 08/10/22 16:30 Temperature Pulse Rate 65 Respiratory Rate Blood Pressure 145/80 H 145/96 H Pulse Oximetry 97 Oxygen Delivery Method 08/10/22 16:30 Temperature Pulse Rate 67 Respiratory Rate Blood Pressure Pulse Oximetry 99 Oxygen Delivery Method MDM - Headache <Brian See PA-C - Last Filed: 08/10/22 19:08> Lab Data 08/10/22 13:41 08/10/22 13:41 Labs: Lab Results 08/10/22 08/10/22 08/10/22 Range/Units 13:25 13:25 13:41 WBC 3.8 L (4.5-11.0) X10^3/uL RBC 4.43 (4.0-5.2) X10^6/uL Hgb 14.1 (12.0-16.0) g/dL Hct 42.0 (36-46) % MCV 94.8 (80-100) fL MCH 31.7 (26-34) PG MCHC 33.4 (30-36) % RDW 12.6 (11.6-14.8) % Plt Count 210 (150-400) X10^3/uL Neut % (Auto) 37.7 L (50-75) % Lymph % (Auto) 37.4 (25-40) % Boyd % (Auto) 10.0 (3-14) % Eos % (Auto) 13.4 H (2-4) % Baso % (Auto) 1.5 (0-2) % Neut # (Auto) 1400 L (0279-4347) /uL Lymph # (Auto) 1400 (8226-3660) /uL Boyd # (Auto) 400 (0-900) /uL Eos # (Auto) 500 H (0-450) /uL Baso # (Auto) 100 (0-100) /uL PT (10.1-12.7) SECONDS INR (0.9-1.3) APTT (26-36) SECONDS Sodium (137-145) mmol/L Potassium (3.4-5.1) mmol/L Chloride (98-107) mmol/L Carbon Dioxide (22-32) mmol/L BUN (7-17) mg/dL Creatinine (0.52-1.04) mg/dL Estimated GFR (>60) mL/min BUN/Creatinine Ratio (6-22) Glucose (80-110) mg/dL Lactate (0.7-2.1) mmol/L Calcium (8.4-10.2) mg/dL Total Bilirubin (0.2-1.3) mg/dL AST (14-36) IU/L ALT (<35) IU/L Alkaline Phosphatase (38-126) U/L Troponin I (0.01-0.034) ng/mL NT-Pro-B Natriuret Pep (<125) pg/mL Total Protein (6.3-8.2) g/dL Albumin (3.5-5.0) g/dL Globulin (1.7-4.1) g/dL Albumin/Globulin Ratio (1.0-2.8) Triglycerides (35-150) mg/dL Cholesterol (140-199) mg/dL LDL Cholesterol, Calc (<100) mg/dL HDL Cholesterol (40-60) mg/dL Lipase (23-300) U/L TSH (0.47-4.68) uIU/mL Free T4 (0.78-2.19) ng/dL Thyroxine (T4) (5.5-11.0) ug/dL Free T3 (2.77-5.27) pg/mL Urine Color Yellow Urine Appearance Clear Urine pH 7.5 (4.5-8.0) Ur Specific [place] <=1.005 (1.000-1.035) Urine Protein Negative (Negative) Urine Glucose (UA) Negative (Negative) g/dL Urine Ketones Negative (NEGATIVE) Urine Occult Blood Negative (Negative) Urine Nitrate Negative (Negative) Urine Bilirubin Negative (NEGATIVE) Urine Urobilinogen 0.2 (0.2) E.U./dL Ur Leukocyte Esterase Negative (NEGATIVE) Urine RBC None seen (0-5/HPF) Urine WBC None seen (0-5/HPF) Ur Squamous Epith Cells 0-1 /hpf (0-5/HPF) Urine Bacteria None seen (None) Ur Culture Indicated? Cult not indicated Salicylates (<20) mg/dL U Opiates 300ng/mL cut Negative (Negative) Ur Oxycodone Screen Negative (Negative) Urine Methadone Screen Negative (Negative) Acetaminophen (10-30) ug/mL Ur Barbiturates Screen Negative (Negative) U Tricyclic Antidepress Positive H (Negative) Ur Phencyclidine Scrn Negative (Negative) Ur Amphetamines Screen Negative (Negative) U Methamphetamines Scrn Negative (Negative) Ur MDMA Scrn (Ecstasy) Negative (Negative) U Benzodiazepines Scrn Positive H (Negative) Urine Cocaine Screen Negative (Negative) U Marijuana (THC) Screen Negative (Negative) Ethyl Alcohol ( - 10) mg/dL SARS-CoV-2 (PCR) (Negative) Influenza A (RT-PCR) (NEGATIVE) Influenza B (RT-PCR) (NEGATIVE) RSV (PCR) (Negative) 08/10/22 08/10/22 08/10/22 Range/Units 13:41 13:41 13:41 WBC (4.5-11.0) X10^3/uL RBC (4.0-5.2) X10^6/uL Hgb (12.0-16.0) g/dL Hct (36-46) % MCV (80-100) fL MCH (26-34) PG MCHC (30-36) % RDW (11.6-14.8) % Plt Count (150-400) X10^3/uL Neut % (Auto) (50-75) % Lymph % (Auto) (25-40) % Boyd % (Auto) (3-14) % Eos % (Auto) (2-4) % Baso % (Auto) (0-2) % Neut # (Auto) (5719-3607) /uL Lymph # (Auto) (9544-0394) /uL Boyd # (Auto) (0-900) /uL Eos # (Auto) (0-450) /uL Baso # (Auto) (0-100) /uL PT (10.1-12.7) SECONDS INR (0.9-1.3) APTT (26-36) SECONDS Sodium 138 (137-145) mmol/L Potassium 3.9 (3.4-5.1) mmol/L Chloride 99 (98-107) mmol/L Carbon Dioxide 33 H (22-32) mmol/L BUN 14 (7-17) mg/dL Creatinine 0.66 (0.52-1.04) mg/dL Estimated GFR > 60 (>60) mL/min BUN/Creatinine Ratio 21.2 (6-22) Glucose 96 (80-110) mg/dL Lactate 1.0 (0.7-2.1) mmol/L Calcium 9.5 (8.4-10.2) mg/dL Total Bilirubin 0.5 (0.2-1.3) mg/dL AST 26 (14-36) IU/L ALT 18 (<35) IU/L Alkaline Phosphatase 41 (38-126) U/L Troponin I < 0.012 (0.01-0.034) ng/mL NT-Pro-B Natriuret Pep (<125) pg/mL Total Protein 7.1 (6.3-8.2) g/dL Albumin 4.2 (3.5-5.0) g/dL Globulin 2.9 (1.7-4.1) g/dL Albumin/Globulin Ratio 1.4 (1.0-2.8) Triglycerides (35-150) mg/dL Cholesterol (140-199) mg/dL LDL Cholesterol, Calc (<100) mg/dL HDL Cholesterol (40-60) mg/dL Lipase 95 (23-300) U/L TSH 0.260 L (0.47-4.68) uIU/mL Free T4 (0.78-2.19) ng/dL Thyroxine (T4) (5.5-11.0) ug/dL Free T3 (2.77-5.27) pg/mL Urine Color Urine Appearance Urine pH (4.5-8.0) Ur Specific [place] (1.000-1.035) Urine Protein (Negative) Urine Glucose (UA) (Negative) g/dL Urine Ketones (NEGATIVE) Urine Occult Blood (Negative) Urine Nitrate (Negative) Urine Bilirubin (NEGATIVE) Urine Urobilinogen (0.2) E.U./dL Ur Leukocyte Esterase (NEGATIVE) Urine RBC (0-5/HPF) Urine WBC (0-5/HPF) Ur Squamous Epith Cells (0-5/HPF) Urine Bacteria (None) Ur Culture Indicated? Salicylates (<20) mg/dL U Opiates 300ng/mL cut (Negative) Ur Oxycodone Screen (Negative) Urine Methadone Screen (Negative) Acetaminophen (10-30) ug/mL Ur Barbiturates Screen (Negative) U Tricyclic Antidepress (Negative) Ur Phencyclidine Scrn (Negative) Ur Amphetamines Screen (Negative) U Methamphetamines Scrn (Negative) Ur MDMA Scrn (Ecstasy) (Negative) U Benzodiazepines Scrn (Negative) Urine Cocaine Screen (Negative) U Marijuana (THC) Screen (Negative) Ethyl Alcohol < 10 ( - 10) mg/dL SARS-CoV-2 (PCR) (Negative) Influenza A (RT-PCR) (NEGATIVE) Influenza B (RT-PCR) (NEGATIVE) RSV (PCR) (Negative) 01/24/23 01/24/23 01/24/23 Range/Units 13:41 13:41 13:41 WBC (4.5-11.0) X10^3/uL RBC (4.0-5.2) X10^6/uL Hgb (12.0-16.0) g/dL Hct (36-46) % MCV (80-100) fL MCH (26-34) PG MCHC (30-36) % RDW (11.6-14.8) % Plt Count (150-400) X10^3/uL Neut % (Auto) (50-75) % Lymph % (Auto) (25-40) % Boyd % (Auto) (3-14) % Eos % (Auto) (2-4) % Baso % (Auto) (0-2) % Neut # (Auto) (6301-3135) /uL Lymph # (Auto) (1475-6990) /uL [place] # (Auto) (0-900) /uL Eos # (Auto) (0-450) /uL Baso # (Auto) (0-100) /uL PT 11.8 (10.1-12.7) SECONDS INR 1.0 (0.9-1.3) APTT 35 (26-36) SECONDS Sodium (137-145) mmol/L Potassium (3.4-5.1) mmol/L Chloride (98-107) mmol/L Carbon Dioxide (22-32) mmol/L BUN (7-17) mg/dL Creatinine (0.52-1.04) mg/dL Estimated GFR (>60) mL/min BUN/Creatinine Ratio (6-22) Glucose (80-110) mg/dL Lactate (0.7-2.1) mmol/L Calcium (8.4-10.2) mg/dL Total Bilirubin (0.2-1.3) mg/dL AST (14-36) IU/L ALT (<35) IU/L Alkaline Phosphatase (38-126) U/L Troponin I (0.01-0.034) ng/mL NT-Pro-B Natriuret Pep (<125) pg/mL Total Protein (6.3-8.2) g/dL Albumin (3.5-5.0) g/dL Globulin (1.7-4.1) g/dL Albumin/Globulin Ratio (1.0-2.8) Triglycerides (35-150) mg/dL Cholesterol (140-199) mg/dL LDL Cholesterol, Calc (<100) mg/dL HDL Cholesterol (40-60) mg/dL Lipase (23-300) U/L TSH (0.47-4.68) uIU/mL Free T4 (0.78-2.19) ng/dL Thyroxine (T4) (5.5-11.0) ug/dL Free T3 (2.77-5.27) pg/mL Urine Color Urine Appearance Urine pH (4.5-8.0) Ur Specific [place] (1.000-1.035) Urine Protein (Negative) Urine Glucose (UA) (Negative) g/dL Urine Ketones (NEGATIVE) Urine Occult Blood (Negative) Urine Nitrate (Negative) Urine Bilirubin (NEGATIVE) Urine Urobilinogen (0.2) E.U./dL Ur Leukocyte Esterase (NEGATIVE) Urine RBC (0-5/HPF) Urine WBC (0-5/HPF) Ur Squamous Epith Cells (0-5/HPF) Urine Bacteria (None) Ur Culture Indicated? Salicylates < 1.0 (<20) mg/dL U Opiates 300ng/mL cut (Negative) Ur Oxycodone Screen (Negative) Urine Methadone Screen (Negative) Acetaminophen < 10 (10-30) ug/mL Ur Barbiturates Screen (Negative) U Tricyclic Antidepress (Negative) Ur Phencyclidine Scrn (Negative) Ur Amphetamines Screen (Negative) U Methamphetamines Scrn (Negative) Ur MDMA Scrn (Ecstasy) (Negative) U Benzodiazepines Scrn (Negative) Urine Cocaine Screen (Negative) U Marijuana (THC) Screen (Negative) Ethyl Alcohol ( - 10) mg/dL SARS-CoV-2 (PCR) Negative (Negative) Influenza A (RT-PCR) Flu a negative (NEGATIVE) Influenza B (RT-PCR) Flu b negative (NEGATIVE) RSV (PCR) Negative (Negative) 08/10/22 08/10/22 08/10/22 Range/Units 13:41 13:41 13:41 WBC (4.5-11.0) X10^3/uL RBC (4.0-5.2) X10^6/uL Hgb (12.0-16.0) g/dL Hct (36-46) % MCV (80-100) fL MCH (26-34) PG MCHC (30-36) % RDW (11.6-14.8) % Plt Count (150-400) X10^3/uL Neut % (Auto) (50-75) % Lymph % (Auto) (25-40) % Boyd % (Auto) (3-14) % Eos % (Auto) (2-4) % Baso % (Auto) (0-2) % Neut # (Auto) (7439-0363) /uL Lymph # (Auto) (1514-5386) /uL [place] # (Auto) (0-900) /uL Eos # (Auto) (0-450) /uL Baso # (Auto) (0-100) /uL PT (10.1-12.7) SECONDS INR (0.9-1.3) APTT (26-36) SECONDS Sodium (137-145) mmol/L Potassium (3.4-5.1) mmol/L Chloride (98-107) mmol/L Carbon Dioxide (22-32) mmol/L BUN (7-17) mg/dL Creatinine (0.52-1.04) mg/dL Estimated GFR (>60) mL/min BUN/Creatinine Ratio (6-22) Glucose (80-110) mg/dL Lactate (0.7-2.1) mmol/L Calcium (8.4-10.2) mg/dL Total Bilirubin (0.2-1.3) mg/dL AST (14-36) IU/L ALT (<35) IU/L Alkaline Phosphatase (38-126) U/L Troponin I (0.01-0.034) ng/mL NT-Pro-B Natriuret Pep (<125) pg/mL Total Protein (6.3-8.2) g/dL Albumin (3.5-5.0) g/dL Globulin (1.7-4.1) g/dL Albumin/Globulin Ratio (1.0-2.8) Triglycerides 68 (35-150) mg/dL Cholesterol 165 (140-199) mg/dL LDL Cholesterol, Calc 75 (<100) mg/dL HDL Cholesterol 76 H (40-60) mg/dL Lipase (23-300) U/L TSH (0.47-4.68) uIU/mL Free T4 1.01 (0.78-2.19) ng/dL Thyroxine (T4) 6.03 (5.5-11.0) ug/dL Free T3 3.19 (2.77-5.27) pg/mL Urine Color Urine Appearance Urine pH (4.5-8.0) Ur Specific [place] (1.000-1.035) Urine Protein (Negative) Urine Glucose (UA) (Negative) g/dL Urine Ketones (NEGATIVE) Urine Occult Blood (Negative) Urine Nitrate (Negative) Urine Bilirubin (NEGATIVE) Urine Urobilinogen (0.2) E.U./dL Ur Leukocyte Esterase (NEGATIVE) Urine RBC (0-5/HPF) Urine WBC (0-5/HPF) Ur Squamous Epith Cells (0-5/HPF) Urine Bacteria (None) Ur Culture Indicated? Salicylates (<20) mg/dL U Opiates 300ng/mL cut (Negative) Ur Oxycodone Screen (Negative) Urine Methadone Screen (Negative) Acetaminophen (10-30) ug/mL Ur Barbiturates Screen (Negative) U Tricyclic Antidepress (Negative) Ur Phencyclidine Scrn (Negative) Ur Amphetamines Screen (Negative) U Methamphetamines Scrn (Negative) Ur MDMA Scrn (Ecstasy) (Negative) U Benzodiazepines Scrn (Negative) Urine Cocaine Screen (Negative) U Marijuana (THC) Screen (Negative) Ethyl Alcohol ( - 10) mg/dL SARS-CoV-2 (PCR) (Negative) Influenza A (RT-PCR) (NEGATIVE) Influenza B (RT-PCR) (NEGATIVE) RSV (PCR) (Negative) 08/10/22 Range/Units 13:41 WBC (4.5-11.0) X10^3/uL RBC (4.0-5.2) X10^6/uL Hgb (12.0-16.0) g/dL Hct (36-46) % MCV (80-100) fL MCH (26-34) PG MCHC (30-36) % RDW (11.6-14.8) % Plt Count (150-400) X10^3/uL Neut % (Auto) (50-75) % Lymph % (Auto) (25-40) % [place] % (Auto) (3-14) % Eos % (Auto) (2-4) % Baso % (Auto) (0-2) % Neut # (Auto) (6292-6054) /uL Lymph # (Auto) (9559-8386) /uL [place] # (Auto) (0-900) /uL Eos # (Auto) (0-450) /uL Baso # (Auto) (0-100) /uL PT (10.1-12.7) SECONDS INR (0.9-1.3) APTT (26-36) SECONDS Sodium (137-145) mmol/L Potassium (3.4-5.1) mmol/L Chloride (98-107) mmol/L Carbon Dioxide (22-32) mmol/L BUN (7-17) mg/dL Creatinine (0.52-1.04) mg/dL Estimated GFR (>60) mL/min BUN/Creatinine Ratio (6-22) Glucose (80-110) mg/dL Lactate (0.7-2.1) mmol/L Calcium (8.4-10.2) mg/dL Total Bilirubin (0.2-1.3) mg/dL AST (14-36) IU/L ALT (<35) IU/L Alkaline Phosphatase (38-126) U/L Troponin I (0.01-0.034) ng/mL NT-Pro-B Natriuret Pep 42 (<125) pg/mL Total Protein (6.3-8.2) g/dL Albumin (3.5-5.0) g/dL Globulin (1.7-4.1) g/dL Albumin/Globulin Ratio (1.0-2.8) Triglycerides (35-150) mg/dL Cholesterol (140-199) mg/dL LDL Cholesterol, Calc (<100) mg/dL HDL Cholesterol (40-60) mg/dL Lipase (23-300) U/L TSH (0.47-4.68) uIU/mL Free T4 (0.78-2.19) ng/dL Thyroxine (T4) (5.5-11.0) ug/dL Free T3 (2.77-5.27) pg/mL Urine Color Urine Appearance Urine pH (4.5-8.0) Ur Specific [place] (1.000-1.035) Urine Protein (Negative) Urine Glucose (UA) (Negative) g/dL Urine Ketones (NEGATIVE) Urine Occult Blood (Negative) Urine Nitrate (Negative) Urine Bilirubin (NEGATIVE) Urine Urobilinogen (0.2) E.U./dL Ur Leukocyte Esterase (NEGATIVE) Urine RBC (0-5/HPF) Urine WBC (0-5/HPF) Ur Squamous Epith Cells (0-5/HPF) Urine Bacteria (None) Ur Culture Indicated? Salicylates (<20) mg/dL U Opiates 300ng/mL cut (Negative) Ur Oxycodone Screen (Negative) Urine Methadone Screen (Negative) Acetaminophen (10-30) ug/mL Ur Barbiturates Screen (Negative) U Tricyclic Antidepress (Negative) Ur Phencyclidine Scrn (Negative) Ur Amphetamines Screen (Negative) U Methamphetamines Scrn (Negative) Ur MDMA Scrn (Ecstasy) (Negative) U Benzodiazepines Scrn (Negative) Urine Cocaine Screen (Negative) U Marijuana (THC) Screen (Negative) Ethyl Alcohol ( - 10) mg/dL SARS-CoV-2 (PCR) (Negative) Influenza A (RT-PCR) (NEGATIVE) Influenza B (RT-PCR) (NEGATIVE) RSV (PCR) (Negative) Urine Dip Bedside Urine Glucose Negative Bedside Urine Bilirubin - Negative Bedside Urine Ketone - Negative Urine Specific [place] 1.005 Bedside Urine Occult Blood - Negative Bedside Urine pH 7.5 Bedside Urine Protein - Negative Bedside Urine Urobilinogen - Negative Bedside Urine Nitrite - Negative Bedside Urine Leukocytes - Negative Esterase MDM Narrative Medical decision making narrative: 72-year-old female with past medical history hypothyroidism, asthma, Raynaud's, hep C, hypertension, cauda equina, osteoporosis, bipolar, rheumatoid arthritis presents to the ED with 2 days of memory loss, left-sided headache. Concern for TIA versus CVA versus primary headache versus UTI versus tox versus metabolic derangements versus thyroid derangements versus psych issues versus dementia versus other. Obtained labs, troponin, UA, urine drug screen, ethanol, salicylate, acetaminophen levels, TSH, chest x-ray, EKG, CT head, CTA head and neck. TSH low at 0.260. Remaining labs within normal limits. EKG is normal sinus rhythm with left axis deviation, no acute ST-T changes. Chest x-ray without acute findings. 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 CT shows no evidence of an acute process. CT also shows no evidence of an arterial occlusion or stenosis. Brain MRI was obtained and shows no acute findings. Will consult neurosurgery regarding the unruptured aneurysms. [facility] neurosurgery was consulted, they reviewed the patient, and given that patient is stable, recommend outpatient follow-up with Dr. Ephraim Crowley. Patient's symptoms most likely due to a TIA, will admit to complete a TIA workup. Hospitalist was consulted, patient was accepted for admission for a TIA workup. Patient continues to be stable in the ED leading up to the abdomen. Data collected from:? Patient and daughter ? Medical records reviewed:??Yes ? Imaging studies independently reviewed: Yes <Hira Russell MD - Last Filed: 08/26/22 07:24> Lab Data Labs: Lab Results 08/10/22 08/10/22 08/10/22 Range/Units 13:25 13:25 13:41 WBC 3.8 L (4.5-11.0) X10^3/uL RBC 4.43 (4.0-5.2) X10^6/uL Hgb 14.1 (12.0-16.0) g/dL Hct 42.0 (36-46) % MCV 94.8 (80-100) fL MCH 31.7 (26-34) PG MCHC 33.4 (30-36) % RDW 12.6 (11.6-14.8) % Plt Count 210 (150-400) X10^3/uL Neut % (Auto) 37.7 L (50-75) % Lymph % (Auto) 37.4 (25-40) % Boyd % (Auto) 10.0 (3-14) % Eos % (Auto) 13.4 H (2-4) % Baso % (Auto) 1.5 (0-2) % Neut # (Auto) 1400 L (9039-8793) /uL Lymph # (Auto) 1400 (2515-1995) /uL Boyd # (Auto) 400 (0-900) /uL Eos # (Auto) 500 H (0-450) /uL Baso # (Auto) 100 (0-100) /uL PT (10.1-12.7) SECONDS INR (0.9-1.3) APTT (26-36) SECONDS Sodium (137-145) mmol/L Potassium (3.4-5.1) mmol/L Chloride (98-107) mmol/L Carbon Dioxide (22-32) mmol/L BUN (7-17) mg/dL Creatinine (0.52-1.04) mg/dL Estimated GFR (>60) mL/min BUN/Creatinine Ratio (6-22) Glucose (80-110) mg/dL Lactate (0.7-2.1) mmol/L Calcium (8.4-10.2) mg/dL Total Bilirubin (0.2-1.3) mg/dL AST (14-36) IU/L ALT (<35) IU/L Alkaline Phosphatase (38-126) U/L Troponin I (0.01-0.034) ng/mL NT-Pro-B Natriuret Pep (<125) pg/mL Total Protein (6.3-8.2) g/dL Albumin (3.5-5.0) g/dL Globulin (1.7-4.1) g/dL Albumin/Globulin Ratio (1.0-2.8) Triglycerides (35-150) mg/dL Cholesterol (140-199) mg/dL LDL Cholesterol, Calc (<100) mg/dL HDL Cholesterol (40-60) mg/dL Lipase (23-300) U/L TSH (0.47-4.68) uIU/mL Free T4 (0.78-2.19) ng/dL Thyroxine (T4) (5.5-11.0) ug/dL Free T3 (2.77-5.27) pg/mL Urine Color Yellow Urine Appearance Clear Urine pH 7.5 (4.5-8.0) Ur Specific [place] <=1.005 (1.000-1.035) Urine Protein Negative (Negative) Urine Glucose (UA) Negative (Negative) g/dL Urine Ketones Negative (NEGATIVE) Urine Occult Blood Negative (Negative) Urine Nitrate Negative (Negative) Urine Bilirubin Negative (NEGATIVE) Urine Urobilinogen 0.2 (0.2) E.U./dL Ur Leukocyte Esterase Negative (NEGATIVE) Urine RBC None seen (0-5/HPF) Urine WBC None seen (0-5/HPF) Ur Squamous Epith Cells 0-1 /hpf (0-5/HPF) Urine Bacteria None seen (None) Ur Culture Indicated? Cult not indicated Salicylates (<20) mg/dL U Opiates 300ng/mL cut Negative (Negative) Ur Oxycodone Screen Negative (Negative) Urine Methadone Screen Negative (Negative) Acetaminophen (10-30) ug/mL Ur Barbiturates Screen Negative (Negative) U Tricyclic Antidepress Positive H (Negative) Ur Phencyclidine Scrn Negative (Negative) Ur Amphetamines Screen Negative (Negative) U Methamphetamines Scrn Negative (Negative) Ur MDMA Scrn (Ecstasy) Negative (Negative) U Benzodiazepines Scrn Positive H (Negative) Urine Cocaine Screen Negative (Negative) U Marijuana (THC) Screen Negative (Negative) Ethyl Alcohol ( - 10) mg/dL SARS-CoV-2 (PCR) (Negative) Influenza A (RT-PCR) (NEGATIVE) Influenza B (RT-PCR) (NEGATIVE) RSV (PCR) (Negative) 08/10/22 08/10/22 08/10/22 Range/Units 13:41 13:41 13:41 WBC (4.5-11.0) X10^3/uL RBC (4.0-5.2) X10^6/uL Hgb (12.0-16.0) g/dL Hct (36-46) % MCV (80-100) fL MCH (26-34) PG MCHC (30-36) % RDW (11.6-14.8) % Plt Count (150-400) X10^3/uL Neut % (Auto) (50-75) % Lymph % (Auto) (25-40) % [place] % (Auto) (3-14) % Eos % (Auto) (2-4) % Baso % (Auto) (0-2) % Neut # (Auto) (2018-6430) /uL Lymph # (Auto) (3546-0149) /uL [place] # (Auto) (0-900) /uL Eos # (Auto) (0-450) /uL Baso # (Auto) (0-100) /uL PT (10.1-12.7) SECONDS INR (0.9-1.3) APTT (26-36) SECONDS Sodium 138 (137-145) mmol/L Potassium 3.9 (3.4-5.1) mmol/L Chloride 99 (98-107) mmol/L Carbon Dioxide 33 H (22-32) mmol/L BUN 14 (7-17) mg/dL Creatinine 0.66 (0.52-1.04) mg/dL Estimated GFR > 60 (>60) mL/min BUN/Creatinine Ratio 21.2 (6-22) Glucose 96 (80-110) mg/dL Lactate 1.0 (0.7-2.1) mmol/L Calcium 9.5 (8.4-10.2) mg/dL Total Bilirubin 0.5 (0.2-1.3) mg/dL AST 26 (14-36) IU/L ALT 18 (<35) IU/L Alkaline Phosphatase 41 (38-126) U/L Troponin I < 0.012 (0.01-0.034) ng/mL NT-Pro-B Natriuret Pep (<125) pg/mL Total Protein 7.1 (6.3-8.2) g/dL Albumin 4.2 (3.5-5.0) g/dL Globulin 2.9 (1.7-4.1) g/dL Albumin/Globulin Ratio 1.4 (1.0-2.8) Triglycerides (35-150) mg/dL Cholesterol (140-199) mg/dL LDL Cholesterol, Calc (<100) mg/dL HDL Cholesterol (40-60) mg/dL Lipase 95 (23-300) U/L TSH 0.260 L (0.47-4.68) uIU/mL Free T4 (0.78-2.19) ng/dL Thyroxine (T4) (5.5-11.0) ug/dL Free T3 (2.77-5.27) pg/mL Urine Color Urine Appearance Urine pH (4.5-8.0) Ur Specific [place] (1.000-1.035) Urine Protein (Negative) Urine Glucose (UA) (Negative) g/dL Urine Ketones (NEGATIVE) Urine Occult Blood (Negative) Urine Nitrate (Negative) Urine Bilirubin (NEGATIVE) Urine Urobilinogen (0.2) E.U./dL Ur Leukocyte Esterase (NEGATIVE) Urine RBC (0-5/HPF) Urine WBC (0-5/HPF) Ur Squamous Epith Cells (0-5/HPF) Urine Bacteria (None) Ur Culture Indicated? Salicylates (<20) mg/dL U Opiates 300ng/mL cut (Negative) Ur Oxycodone Screen (Negative) Urine Methadone Screen (Negative) Acetaminophen (10-30) ug/mL Ur Barbiturates Screen (Negative) U Tricyclic Antidepress (Negative) Ur Phencyclidine Scrn (Negative) Ur Amphetamines Screen (Negative) U Methamphetamines Scrn (Negative) Ur MDMA Scrn (Ecstasy) (Negative) U Benzodiazepines Scrn (Negative) Urine Cocaine Screen (Negative) U Marijuana (THC) Screen (Negative) Ethyl Alcohol < 10 ( - 10) mg/dL SARS-CoV-2 (PCR) (Negative) Influenza A (RT-PCR) (NEGATIVE) Influenza B (RT-PCR) (NEGATIVE) RSV (PCR) (Negative) 08/10/22 08/10/22 08/10/22 Range/Units 13:41 13:41 13:41 WBC (4.5-11.0) X10^3/uL RBC (4.0-5.2) X10^6/uL Hgb (12.0-16.0) g/dL Hct (36-46) % MCV (80-100) fL MCH (26-34) PG MCHC (30-36) % RDW (11.6-14.8) % Plt Count (150-400) X10^3/uL Neut % (Auto) (50-75) % Lymph % (Auto) (25-40) % [place] % (Auto) (3-14) % Eos % (Auto) (2-4) % Baso % (Auto) (0-2) % Neut # (Auto) (0285-3906) /uL Lymph # (Auto) (7095-3842) /uL [place] # (Auto) (0-900) /uL Eos # (Auto) (0-450) /uL Baso # (Auto) (0-100) /uL PT 11.8 (10.1-12.7) SECONDS INR 1.0 (0.9-1.3) APTT 35 (26-36) SECONDS Sodium (137-145) mmol/L Potassium (3.4-5.1) mmol/L Chloride (98-107) mmol/L Carbon Dioxide (22-32) mmol/L BUN (7-17) mg/dL Creatinine (0.52-1.04) mg/dL Estimated GFR (>60) mL/min BUN/Creatinine Ratio (6-22) Glucose (80-110) mg/dL Lactate (0.7-2.1) mmol/L Calcium (8.4-10.2) mg/dL Total Bilirubin (0.2-1.3) mg/dL AST (14-36) IU/L ALT (<35) IU/L Alkaline Phosphatase (38-126) U/L Troponin I (0.01-0.034) ng/mL NT-Pro-B Natriuret Pep (<125) pg/mL Total Protein (6.3-8.2) g/dL Albumin (3.5-5.0) g/dL Globulin (1.7-4.1) g/dL Albumin/Globulin Ratio (1.0-2.8) Triglycerides (35-150) mg/dL Cholesterol (140-199) mg/dL LDL Cholesterol, Calc (<100) mg/dL HDL Cholesterol (40-60) mg/dL Lipase (23-300) U/L TSH (0.47-4.68) uIU/mL Free T4 (0.78-2.19) ng/dL Thyroxine (T4) (5.5-11.0) ug/dL Free T3 (2.77-5.27) pg/mL Urine Color Urine Appearance Urine pH (4.5-8.0) Ur Specific [place] (1.000-1.035) Urine Protein (Negative) Urine Glucose (UA) (Negative) g/dL Urine Ketones (NEGATIVE) Urine Occult Blood (Negative) Urine Nitrate (Negative) Urine Bilirubin (NEGATIVE) Urine Urobilinogen (0.2) E.U./dL Ur Leukocyte Esterase (NEGATIVE) Urine RBC (0-5/HPF) Urine WBC (0-5/HPF) Ur Squamous Epith Cells (0-5/HPF) Urine Bacteria (None) Ur Culture Indicated? Salicylates < 1.0 (<20) mg/dL U Opiates 300ng/mL cut (Negative) Ur Oxycodone Screen (Negative) Urine Methadone Screen (Negative) Acetaminophen < 10 (10-30) ug/mL Ur Barbiturates Screen (Negative) U Tricyclic Antidepress (Negative) Ur Phencyclidine Scrn (Negative) Ur Amphetamines Screen (Negative) U Methamphetamines Scrn (Negative) Ur MDMA Scrn (Ecstasy) (Negative) U Benzodiazepines Scrn (Negative) Urine Cocaine Screen (Negative) U Marijuana (THC) Screen (Negative) Ethyl Alcohol ( - 10) mg/dL SARS-CoV-2 (PCR) Negative (Negative) Influenza A (RT-PCR) Flu a negative (NEGATIVE) Influenza B (RT-PCR) Flu b negative (NEGATIVE) RSV (PCR) Negative (Negative) 08/10/22 08/10/22 08/10/22 Range/Units 13:41 13:41 13:41 WBC (4.5-11.0) X10^3/uL RBC (4.0-5.2) X10^6/uL Hgb (12.0-16.0) g/dL Hct (36-46) % MCV (80-100) fL MCH (26-34) PG MCHC (30-36) % RDW (11.6-14.8) % Plt Count (150-400) X10^3/uL Neut % (Auto) (50-75) % Lymph % (Auto) (25-40) % [place] % (Auto) (3-14) % Eos % (Auto) (2-4) % Baso % (Auto) (0-2) % Neut # (Auto) (1542-1943) /uL Lymph # (Auto) (1101-0244) /uL [place] # (Auto) (0-900) /uL Eos # (Auto) (0-450) /uL Baso # (Auto) (0-100) /uL PT (10.1-12.7) SECONDS INR (0.9-1.3) APTT (26-36) SECONDS Sodium (137-145) mmol/L Potassium (3.4-5.1) mmol/L Chloride (98-107) mmol/L Carbon Dioxide (22-32) mmol/L BUN (7-17) mg/dL Creatinine (0.52-1.04) mg/dL Estimated GFR (>60) mL/min BUN/Creatinine Ratio (6-22) Glucose (80-110) mg/dL Lactate (0.7-2.1) mmol/L Calcium (8.4-10.2) mg/dL Total Bilirubin (0.2-1.3) mg/dL AST (14-36) IU/L ALT (<35) IU/L Alkaline Phosphatase (38-126) U/L Troponin I (0.01-0.034) ng/mL NT-Pro-B Natriuret Pep (<125) pg/mL Total Protein (6.3-8.2) g/dL Albumin (3.5-5.0) g/dL Globulin (1.7-4.1) g/dL Albumin/Globulin Ratio (1.0-2.8) Triglycerides 68 (35-150) mg/dL Cholesterol 165 (140-199) mg/dL LDL Cholesterol, Calc 75 (<100) mg/dL HDL Cholesterol 76 H (40-60) mg/dL Lipase (23-300) U/L TSH (0.47-4.68) uIU/mL Free T4 1.01 (0.78-2.19) ng/dL Thyroxine (T4) 6.03 (5.5-11.0) ug/dL Free T3 3.19 (2.77-5.27) pg/mL Urine Color Urine Appearance Urine pH (4.5-8.0) Ur Specific [place] (1.000-1.035) Urine Protein (Negative) Urine Glucose (UA) (Negative) g/dL Urine Ketones (NEGATIVE) Urine Occult Blood (Negative) Urine Nitrate (Negative) Urine Bilirubin (NEGATIVE) Urine Urobilinogen (0.2) E.U./dL Ur Leukocyte Esterase (NEGATIVE) Urine RBC (0-5/HPF) Urine WBC (0-5/HPF) Ur Squamous Epith Cells (0-5/HPF) Urine Bacteria (None) Ur Culture Indicated? Salicylates (<20) mg/dL U Opiates 300ng/mL cut (Negative) Ur Oxycodone Screen (Negative) Urine Methadone Screen (Negative) Acetaminophen (10-30) ug/mL Ur Barbiturates Screen (Negative) U Tricyclic Antidepress (Negative) Ur Phencyclidine Scrn (Negative) Ur Amphetamines Screen (Negative) U Methamphetamines Scrn (Negative) Ur MDMA Scrn (Ecstasy) (Negative) U Benzodiazepines Scrn (Negative) Urine Cocaine Screen (Negative) U Marijuana (THC) Screen (Negative) Ethyl Alcohol ( - 10) mg/dL SARS-CoV-2 (PCR) (Negative) Influenza A (RT-PCR) (NEGATIVE) Influenza B (RT-PCR) (NEGATIVE) RSV (PCR) (Negative) 08/10/22 Range/Units 13:41 WBC (4.5-11.0) X10^3/uL RBC (4.0-5.2) X10^6/uL Hgb (12.0-16.0) g/dL Hct (36-46) % MCV (80-100) fL MCH (26-34) PG MCHC (30-36) % RDW (11.6-14.8) % Plt Count (150-400) X10^3/uL Neut % (Auto) (50-75) % Lymph % (Auto) (25-40) % Boyd % (Auto) (3-14) % Eos % (Auto) (2-4) % Baso % (Auto) (0-2) % Neut # (Auto) (1214-2703) /uL Lymph # (Auto) (6101-8379) /uL Boyd # (Auto) (0-900) /uL Eos # (Auto) (0-450) /uL Baso # (Auto) (0-100) /uL PT (10.1-12.7) SECONDS INR (0.9-1.3) APTT (26-36) SECONDS Sodium (137-145) mmol/L Potassium (3.4-5.1) mmol/L Chloride (98-107) mmol/L Carbon Dioxide (22-32) mmol/L BUN (7-17) mg/dL Creatinine (0.52-1.04) mg/dL Estimated GFR (>60) mL/min BUN/Creatinine Ratio (6-22) Glucose (80-110) mg/dL Lactate (0.7-2.1) mmol/L Calcium (8.4-10.2) mg/dL Total Bilirubin (0.2-1.3) mg/dL AST (14-36) IU/L ALT (<35) IU/L Alkaline Phosphatase (38-126) U/L Troponin I (0.01-0.034) ng/mL NT-Pro-B Natriuret Pep 42 (<125) pg/mL Total Protein (6.3-8.2) g/dL Albumin (3.5-5.0) g/dL Globulin (1.7-4.1) g/dL Albumin/Globulin Ratio (1.0-2.8) Triglycerides (35-150) mg/dL Cholesterol (140-199) mg/dL LDL Cholesterol, Calc (<100) mg/dL HDL Cholesterol (40-60) mg/dL Lipase (23-300) U/L TSH (0.47-4.68) uIU/mL Free T4 (0.78-2.19) ng/dL Thyroxine (T4) (5.5-11.0) ug/dL Free T3 (2.77-5.27) pg/mL Urine Color Urine Appearance Urine pH (4.5-8.0) Ur Specific [place] (1.000-1.035) Urine Protein (Negative) Urine Glucose (UA) (Negative) g/dL Urine Ketones (NEGATIVE) Urine Occult Blood (Negative) Urine Nitrate (Negative) Urine Bilirubin (NEGATIVE) Urine Urobilinogen (0.2) E.U./dL Ur Leukocyte Esterase (NEGATIVE) Urine RBC (0-5/HPF) Urine WBC (0-5/HPF) Ur Squamous Epith Cells (0-5/HPF) Urine Bacteria (None) Ur Culture Indicated? Salicylates (<20) mg/dL U Opiates 300ng/mL cut (Negative) Ur Oxycodone Screen (Negative) Urine Methadone Screen (Negative) Acetaminophen (10-30) ug/mL Ur Barbiturates Screen (Negative) U Tricyclic Antidepress (Negative) Ur Phencyclidine Scrn (Negative) Ur Amphetamines Screen (Negative) U Methamphetamines Scrn (Negative) Ur MDMA Scrn (Ecstasy) (Negative) U Benzodiazepines Scrn (Negative) Urine Cocaine Screen (Negative) U Marijuana (THC) Screen (Negative) Ethyl Alcohol ( - 10) mg/dL SARS-CoV-2 (PCR) (Negative) Influenza A (RT-PCR) (NEGATIVE) Influenza B (RT-PCR) (NEGATIVE) RSV (PCR) (Negative) Urine Dip Bedside Urine Glucose Negative Bedside Urine Bilirubin - Negative Bedside Urine Ketone - Negative Urine Specific [place] 1.005 Bedside Urine Occult Blood - Negative Bedside Urine pH 7.5 Bedside Urine Protein - Negative Bedside Urine Urobilinogen - Negative Bedside Urine Nitrite - Negative Bedside Urine Leukocytes - Negative Esterase Discharge Plan Departure Patient Disposition: Admitted As Inpatient Clinical Impression: TIA (transient ischemic attack) Admit Date/Time: 08/10/22 17:43 Admit Provider: Na Lara <Hira Russell MD - Last Filed: 08/26/22 07:24> Cosign ED Attending Cosignature Attestation: I was immediately available in the department for consultation. ?This documentation has been reviewed and I agree with assessment and plan. Supervised by Hira Russell MD
[2022-08-10 15:30] LABS: Free T4, Direct Thyroxine 1.01 ng/dL (0.78-2.19); T4 Total Thyroxine 6.03 ug/dL (5.5-11.0)
[2022-08-10 15:50] LABS: Influenza A - CEPHEID Flu A NEGATIVE (NEGATIVE); Influenza B - CEPHEID Flu B NEGATIVE (NEGATIVE); Respiratory Syncytial Virus Negative (Negative)
[2022-08-10 16:09] LABS: COVID-19 CEPHEID 4-PLEX PCR Negative (Negative)
[2022-08-10] MEDS: ASPIRIN 81 MG CHEW TAB 324 MG PO (16:11)
[2022-08-10 16:17] LABS: UR Morphine/Opiate cutoff 300 Negative (Negative); Ur Creatinine Normal (Normal); Ur Specific Gravity Normal (Normal); Urine Amphetamines Negative (Negative); Urine Barbiturates Negative (Negative); Urine Benzodiazepines Positive (Negative); Urine Cocaine Negative (Negative); Urine MDMA Negative (Negative); Urine Methadone Negative (Negative); Urine Methamphetamines Negative (Negative); Urine Oxycodone Negative (Negative); Urine Phencyclidine Negative (Negative); Urine Tetrahydrocannabinol Negative (Negative); Urine Tricyclic Antidepressant Positive (Negative); Urine pH Normal (Normal)
[2022-08-10 16:27] LABS: Free T3, Triiodothyronine Free 3.19 pg/mL (2.77-5.27)
[2022-08-10] MEDS: KETOROLAC 30 MG/ML VIAL 15 MG IV (16:53)
--- NOTE | 2022-08-10 18:33 | PC.NURSE ---
Pt is A&OX3, VSS,afebrile on RA. She arrives to room 214 at 1830 this evening from ED. She is settled into the room and oriented to the unit routines. notified of arrival.
--- NOTE | 2022-08-10 19:51 | DI.ECHO.S_ITS ---
[facility]+ [facility] +---------+ : : [address] : : : : [id number] : : : : Phone: [phone]+ Echocardiogram Report + + :Name: SHELL KIM Study Date: 08/11/2022 Height: 63 in : :[facility] ReadingLocation: Weight: 108 lb : : Gender: Female BSA: 1.5 m2 : :: 1950 Age: 72 yrs BP: 123/78 mmHg: :Reason For Study: TIA : :Ordering Physician: GENA, : :HANNA Performed By: Marsha Mata : :Referring: HANNA AVERY : + + Interpretation Summary The ejection fraction is estimated to be 55-60%. Injection of contrast documented no interatrial shunt. There is mild mitral regurgitation. There is mild tricuspid regurgitation. The right ventricular systolic pressure is estimated to be at least 20 mmHg based on an estimated right atrial pressure of 8 mm Hg. Procedure: A two-dimensional transthoracic echocardiogram with color flow and Doppler was performed. The study quality was technically adequate. A saline contrast injection was performed to assess for cardiac shunting. The injection was performed through an intravenous line in the right arm. The patient was in sinus rhythm with heart rates between 65-75 bpm during the exam. Left Ventricle: The left ventricle is normal in size and wall thickness. The ejection fraction is estimated to be 55-60%. There are no focal wall motion abnormalities. Right Ventricle: The right ventricle is normal in size and function. Atria: The left atrial size is normal. Right atrial size is normal. There is no Doppler evidence for an interatrial shunt. Injection of contrast documented no interatrial shunt. Mitral Valve: The mitral valve is normal in structure and function. There is mild mitral regurgitation. Aortic Valve: The aortic valve is not well visualized. There is no aortic valve stenosis. No aortic regurgitation is present. Tricuspid Valve: The tricuspid valve is normal in structure and function. There is mild tricuspid regurgitation. The right ventricular systolic pressure is estimated to be at least 20 mmHg based on an estimated right atrial pressure of 8 mm Hg. Pulmonic Valve: The pulmonic valve is not well visualized. There is no pulmonic valvular regurgitation. Great Vessels: The aortic root is normal size. The dimensions of the ascending aorta are normal. The IVC is dilated (diameter is greater than 2.1 cm) yet it collapses greater than 50% with a sniff. This suggests a right atrial pressure of 8 mm Hg. Pericardium/ Pleura There is no pericardial effusion. There is no pleural effusion. MMode/2D Measurements & Calculations LVIDd: 4.2 cm LVOT diam: 2.0 cm LVIDs: 2.9 cm Ao root diam: 3.4 cm FS: 31.5 % asc Aorta Diam: 3.1 cm IVSd: 0.69 cm Ao Arch Diam (Prox Trans): 2.4 cm LVPWd: 0.86 cm LV wharton. diameter/BSA (cm/m^2): 2.8 LV sys. diameter/BSA (cm/m^2): 1.9 LA A2 area: 12.5 cm2 RA long axis: 4.7 cm LA A4 area: 10.2 cm2 RA area: 13.9 cm2 LA length (vol): 3.7 cm RA vol: 34.7 ml LA vol: 29.6 ml RA : 23.3 ml/m2 LA vol index: 19.9 ml/m2 IVC diam: 2.1 cm RVD1 (basal): 3.1 cm RVD2 (mid): 2.6 cm TAPSE: 1.8 cm Doppler Measurements & Calculations Ao V2 max: 104.7 cm/sec LVOT Max Juan: 95.8 cm/sec Ao V2 mean: 73.5 cm/sec LV V1 max P.7 mmHg Ao max P.4 mmHg LV V1 VTI: 17.8 cm Ao mean P.4 mmHg EDWARD(I,D): 2.8 cm2 Ao V2 VTI: 20.4 cm EDWARD(V,D): 2.9 cm2 sev ratio: 0.87 EDWARD indexed to BSA (cm^2/m^2): 1.9 MV E max juan: 76.0 cm/sec TR max juan: 169.4 cm/sec MV A max juan: 87.5 cm/sec TR max P.5 mmHg MV E/A: 0.87 PA V2 max: 80.9 cm/sec Med Peak E' Juan: 6.5 cm/sec PA V2 mean: 56.9 cm/sec E/E' med: 11.8 PA mean P.4 mmHg Lat Peak E' Juan: 7.4 cm/sec E/E' lat: 10.3 E/e' average: 11.0 MV dec time: 0.16 sec SVLVOT): 56.6 ml Reading Physician:02:43 PM
--- NOTE | 2022-08-10 20:01 | PM.HP.1 ---
History of Present Illness History of Present Illness Date Patient Seen: 08/10/22 Time Patient Seen: 20:01 Chief complaint: headache, memory loss, confus, Narrative: Rizwana Araujo is a 72-year-old female with past medical history hypothyroidism, asthma, Raynaud's, hep C, hx of TIA, cauda [id number], cervical laminectomy 2008, Covid, osteoporosis, bipolar, anxiety rheumatoid arthritis, InterStim placement for urinary incontinence neurogenic bladder presents to the ED with memory loss of the previous 24hrs.? Patient notes that she is had ongoing neurological symptoms that come and go since February of 2022 which include daily headaches, left-sided chest discomfort, bilateral toe numbness and tingling to the bottom of her feet, body aches, chills, urinary incontinence, bowel incontinence and difficulty swallowing, she notes no recent acute changes in these symptoms within the past week or 2. Patient is following up with Dr. Sanchez [facility] regarding these issues. On admit patient improving memory recall of the previous 24 hrs and alert orientated unable to articulate the events leading to her admit today. She denies Changes in vision, speech impairment, weakness, difficulty with ambulation, recent falls, head injury, LOC, fever, cough, recent exposure to illness, abdominal pain, nausea, vomiting, urinary retention, dysuria, frequency, urgency, hematuria, bowel changes, constipation, melena, rashes, recent changes to medication, illness, injury, or trauma. On admit vital stable temp 7.6, 6, 67, 20 90% room air. WBC 3.8, bicarb 33, urinalysis tox screen is positive for tricyclic depressants, benzodiazepines, lactate, initial troponin, salicylates, acetaminophen are all negative. COVID, influenza a/B/RSV negative, urinalysis negative, TSH 0.260, but free T4/T4/T3 are all WNL. Chest x-ray negative, initial troponin unremarkable, EKG NSR without ST or T-wave changes, CTA:5 mm left anterior cerebral artery aneurysm, and 1.0 cm right distal cervical ICA aneurysm, with no evidence arterial occlusion or stenosis. Brain MRI: Negative for any acute intracranial. [facility] neurosurgery consult advised that no surgical intervention or immediate acute care intervention is required at this time patient to follow-up outpatient with Dr. Ephraim Crowley. Patient admitted for TIA Patient History Medical History (Updated 08/11/22 @ 05:17 by TRIPP Nelson-) Abnormal Pap smear of cervix Acute neck pain Acute tension-type headache Acute thoracic back pain Ankle pain (~2019) Asthma Autoimmune disease Cataracts, bilateral (~2006) Cauda equina syndrome (~2020) Cervical somatic dysfunction Chicken pox Chronic pain syndrome Colon polyps (~2006) COVID Cranial somatic dysfunction Foot pain (~2014) Gait instability Gastric ulcer (~2015) Arie's disease (~2019) Heavy menstrual period Hepatitis C History of urinary incontinence (~2019) Hypertension Hypothyroidism (~1993) Migraines Mumps (~1959) Osteoarthritis Osteopenia Osteoporosis Ovarian cyst Painful menstrual periods Psoriasis Raynaud disease Recurrent sinusitis Rheumatoid arthritis Segmental and somatic dysfunction of abdomen and other regions Segmental and somatic dysfunction of rib cage Shingles Somatic dysfunction of lower extremity Spine pain, lumbar (~2016) Thoracic region somatic dysfunction Thyroid nodule (~2019) Transient ischemic attack (TIA) Surgical History (Updated 08/11/22 @ 05:17 by TRIPP Nelson-SERA) H/O foot surgery History of colon resection History of hip surgery History of hysterectomy (~2006) Status post implantation of urinary electronic stimulator device Family & Social History Family History Father History of heart disease Mother History of heart disease Hyperlipidemia Hypertension Stroke Grandfather Parkinson's disease Grandmother Stroke Grandfather History of heart disease Hypertension Leukemia Grandmother Colon cancer Social History: household members family,children Prior Living Arrangements House Safety & Behavioral: Feels Safe in Current Yes Environment Been Physically Hurt or No Threatened By a Person Tobacco & Substance use: Tobacco type cannabis/marijuana Smoking Status Former smoker alcohol intake frequency 0-2 drinks per day Substance Use Type marijuana Meds Home Medications and Allergies Home Medications Medication Instructions Recorded Confirmed Type levothyroxine 75 mcg tablet 75 mcg PO DAILY 08/03/19 08/10/22 History (Levoxyl) biotin 1,000 mcg chewable tablet 1,000 mcg PO DAILY 08/08/19 08/10/22 History calcium 600 mg PO BID 08/08/19 08/10/22 History cholecalciferol (vitamin D3) 25 2,000 unit PO BID 08/08/19 08/10/22 History mcg (1,000 unit) capsule magnesium malate 200 mg PO QPM 08/08/19 08/10/22 History [id number] PO 08/08/19 02/16/22 History [Centrum Silver] omega 3-6-9 1,000 mg PO BID 08/08/19 08/10/22 History duloxetine 30 mg capsule,delayed 30 mg PO BID 12/07/21 08/10/22 History release lurasidone 40 mg tablet (Latuda) 40 mg PO BEDTIME 08/10/22 08/10/22 History zolpidem 10 mg tablet 10 mg BEDTIME 08/10/22 08/10/22 History Allergies Allergy/AdvReac Type Severity Reaction Status Date / Time fluoxetine [From Prozac] Allergy Severe Hallucinati Verified 04/26/22 09:25 ng shellfish derived Allergy Mild N/V Verified 04/26/22 09:25 [SHELLFISH DERIVED] aripiprazole [From Abilify] Allergy Unknown Verified 04/26/22 09:25 cephalexin [From KEFLEX] Allergy Unknown HIVES Verified 04/26/22 09:25 silver AdvReac Mild Verified 04/26/22 09:25 [From Tegaderm AG Mesh] Review of Systems Review of Systems Narrative: All 12 point systems reviewed with the patient and are negative except otherwise documented in HPI. Exam Vital Signs (past 8 hours): - 08/10/22 12:13 08/10/22 12:05 08/10/22 12:05 Temperature 97.6 F Pulse Rate 64 64 Respiratory Rate 20 Blood Pressure 164/78 H 164/78 H Pulse Oximetry 98 100 Oxygen Delivery Method Room Air 08/10/22 12:30 08/10/22 12:30 08/10/22 13:26 Temperature Pulse Rate 66 74 Respiratory Rate Blood Pressure 156/77 H Pulse Oximetry 100 98 Oxygen Delivery Method 08/10/22 13:26 08/10/22 13:30 08/10/22 13:30 Temperature Pulse Rate 62 Respiratory Rate Blood Pressure 166/87 H 159/93 H Pulse Oximetry 99 Oxygen Delivery Method 08/10/22 14:00 08/10/22 15:03 08/10/22 15:05 Temperature Pulse Rate 65 68 Respiratory Rate Blood Pressure 151/97 H Pulse Oximetry 98 98 Oxygen Delivery Method 08/10/22 15:05 08/10/22 15:30 08/10/22 15:30 Temperature Pulse Rate 70 63 Respiratory Rate Blood Pressure 143/81 H Pulse Oximetry 98 97 Oxygen Delivery Method 08/10/22 16:00 08/10/22 16:00 08/10/22 16:30 Temperature Pulse Rate 65 Respiratory Rate Blood Pressure 145/80 H 145/96 H Pulse Oximetry 97 Oxygen Delivery Method 08/10/22 16:30 Temperature Pulse Rate 67 Respiratory Rate Blood Pressure Pulse Oximetry 99 Oxygen Delivery Method Oxygen Delivery Method Room Air Narrative Exam Narrative: General: Patient is a thin frail elderly appearing female, in no distress at this time. HEENT: Normocephalic, atraumatic, extraocular muscles intact, oral pharynx is clear and mucous membranes are moist. Neck is supple and symmetric, trachea is midline, no adenopathy, no thyroid enlargement, nontender, no masses palpated. Negative for JVD Chest: Normal AP diameter and contour without kyphoscoliosis, no nasal flaring, retractions, or tachypneic labored breathing. Lungs: Auscultation of all lung cast are clear without adventitious sounds, wheezes, rhonchi, or rales. Cardio: regular rate and rhythm without murmur, rubs, or gallops, no carotid bruit, no cardiac pulsations present. Abdomen: Soft nontender, negative for organomegaly, or masses. Bowel sounds are present in all 4 quadrants without guarding or rebound, no CVA tenderness. Musculoskeletal: Muscle strength and tone are equal within normal limits, no deformity, crepitus, effusions, cyanosis, clubbing or edema present. Full range of motion intact radial and pedal pulses are normal. Skin: Warm dry and intact without rashes, ulcerations or petechiae. Neuro: Alert and orientated x3, extremely articulate excellent recall as to medical care management providers and HPI. Strength is +5/5 in all extremities, sensation to touch intact, no gross deficits noted of cranial nerves. Psych: Patient has a well-kept appearance, appropriate affect, mental status attitude thought context and judgment are appropriate for age. Objective Labs 08/10/22 13:41 08/10/22 13:41 Labs: Laboratory Results - last 24 hr 08/10/22 08/10/22 08/10/22 13:25 13:25 13:41 WBC 3.8 L RBC 4.43 Hgb 14.1 Hct 42.0 MCV 94.8 MCH 31.7 MCHC 33.4 RDW 12.6 Plt Count 210 Neut % (Auto) 37.7 L Lymph % (Auto) 37.4 [place] % (Auto) 10.0 Eos % (Auto) 13.4 H Baso % (Auto) 1.5 Neut # (Auto) 1400 L Lymph # (Auto) 1400 [place] # (Auto) 400 Eos # (Auto) 500 H Baso # (Auto) 100 PT INR APTT Sodium Potassium Chloride Carbon Dioxide BUN Creatinine Estimated GFR BUN/Creatinine Ratio Glucose Lactate Calcium Total Bilirubin AST ALT Alkaline Phosphatase Troponin I Total Protein Albumin Globulin Albumin/Globulin Ratio Lipase TSH Free T4 Thyroxine (T4) Free T3 Urine Color Yellow Urine Appearance Clear Urine pH 7.5 Ur Specific [place] <=1.005 Urine Protein Negative Urine Glucose (UA) Negative Urine Ketones Negative Urine Occult Blood Negative Urine Nitrate Negative Urine Bilirubin Negative Urine Urobilinogen 0.2 Ur Leukocyte Esterase Negative Urine RBC None seen Urine WBC None seen Ur Squamous Epith Cells 0-1 /hpf Urine Bacteria None seen Ur Culture Indicated? Cult not indicated Salicylates U Opiates 300ng/mL cut Negative Ur Oxycodone Screen Negative Urine Methadone Screen Negative Acetaminophen Ur Barbiturates Screen Negative U Tricyclic Antidepress Positive H Ur Phencyclidine Scrn Negative Ur Amphetamines Screen Negative U Methamphetamines Scrn Negative Ur MDMA Scrn (Ecstasy) Negative U Benzodiazepines Scrn Positive H Urine Cocaine Screen Negative U Marijuana (THC) Screen Negative Ethyl Alcohol SARS-CoV-2 (PCR) Influenza A (RT-PCR) Influenza B (RT-PCR) RSV (PCR) 08/10/22 08/10/22 08/10/22 13:41 13:41 13:41 WBC RBC Hgb Hct MCV MCH MCHC RDW Plt Count Neut % (Auto) Lymph % (Auto) [place] % (Auto) Eos % (Auto) Baso % (Auto) Neut # (Auto) Lymph # (Auto) [place] # (Auto) Eos # (Auto) Baso # (Auto) PT INR APTT Sodium 138 Potassium 3.9 Chloride 99 Carbon Dioxide 33 H BUN 14 Creatinine 0.66 Estimated GFR > 60 BUN/Creatinine Ratio 21.2 Glucose 96 Lactate 1.0 Calcium 9.5 Total Bilirubin 0.5 AST 26 ALT 18 Alkaline Phosphatase 41 Troponin I < 0.012 Total Protein 7.1 Albumin 4.2 Globulin 2.9 Albumin/Globulin Ratio 1.4 Lipase 95 TSH 0.260 L Free T4 Thyroxine (T4) Free T3 Urine Color Urine Appearance Urine pH Ur Specific [place] Urine Protein Urine Glucose (UA) Urine Ketones Urine Occult Blood Urine Nitrate Urine Bilirubin Urine Urobilinogen Ur Leukocyte Esterase Urine RBC Urine WBC Ur Squamous Epith Cells Urine Bacteria Ur Culture Indicated? Salicylates U Opiates 300ng/mL cut Ur Oxycodone Screen Urine Methadone Screen Acetaminophen Ur Barbiturates Screen U Tricyclic Antidepress Ur Phencyclidine Scrn Ur Amphetamines Screen U Methamphetamines Scrn Ur MDMA Scrn (Ecstasy) U Benzodiazepines Scrn Urine Cocaine Screen U Marijuana (THC) Screen Ethyl Alcohol < 10 SARS-CoV-2 (PCR) Influenza A (RT-PCR) Influenza B (RT-PCR) RSV (PCR) 08/10/22 08/10/22 08/10/22 13:41 13:41 13:41 WBC RBC Hgb Hct MCV MCH MCHC RDW Plt Count Neut % (Auto) Lymph % (Auto) [place] % (Auto) Eos % (Auto) Baso % (Auto) Neut # (Auto) Lymph # (Auto) [place] # (Auto) Eos # (Auto) Baso # (Auto) PT 11.8 INR 1.0 APTT 35 Sodium Potassium Chloride Carbon Dioxide BUN Creatinine Estimated GFR BUN/Creatinine Ratio Glucose Lactate Calcium Total Bilirubin AST ALT Alkaline Phosphatase Troponin I Total Protein Albumin Globulin Albumin/Globulin Ratio Lipase TSH Free T4 Thyroxine (T4) Free T3 Urine Color Urine Appearance Urine pH Ur Specific [place] Urine Protein Urine Glucose (UA) Urine Ketones Urine Occult Blood Urine Nitrate Urine Bilirubin Urine Urobilinogen Ur Leukocyte Esterase Urine RBC Urine WBC Ur Squamous Epith Cells Urine Bacteria Ur Culture Indicated? Salicylates < 1.0 U Opiates 300ng/mL cut Ur Oxycodone Screen Urine Methadone Screen Acetaminophen < 10 Ur Barbiturates Screen U Tricyclic Antidepress Ur Phencyclidine Scrn Ur Amphetamines Screen U Methamphetamines Scrn Ur MDMA Scrn (Ecstasy) U Benzodiazepines Scrn Urine Cocaine Screen U Marijuana (THC) Screen Ethyl Alcohol SARS-CoV-2 (PCR) Negative Influenza A (RT-PCR) Flu a negative Influenza B (RT-PCR) Flu b negative RSV (PCR) Negative 08/10/22 08/10/22 13:41 13:41 WBC RBC Hgb Hct MCV MCH MCHC RDW Plt Count Neut % (Auto) Lymph % (Auto) [place] % (Auto) Eos % (Auto) Baso % (Auto) Neut # (Auto) Lymph # (Auto) [place] # (Auto) Eos # (Auto) Baso # (Auto) PT INR APTT Sodium Potassium Chloride Carbon Dioxide BUN Creatinine Estimated GFR BUN/Creatinine Ratio Glucose Lactate Calcium Total Bilirubin AST ALT Alkaline Phosphatase Troponin I Total Protein Albumin Globulin Albumin/Globulin Ratio Lipase TSH Free T4 1.01 Thyroxine (T4) 6.03 Free T3 3.19 Urine Color Urine Appearance Urine pH Ur Specific [place] Urine Protein Urine Glucose (UA) Urine Ketones Urine Occult Blood Urine Nitrate Urine Bilirubin Urine Urobilinogen Ur Leukocyte Esterase Urine RBC Urine WBC Ur Squamous Epith Cells Urine Bacteria Ur Culture Indicated? Salicylates U Opiates 300ng/mL cut Ur Oxycodone Screen Urine Methadone Screen Acetaminophen Ur Barbiturates Screen U Tricyclic Antidepress Ur Phencyclidine Scrn Ur Amphetamines Screen U Methamphetamines Scrn Ur MDMA Scrn (Ecstasy) U Benzodiazepines Scrn Urine Cocaine Screen U Marijuana (THC) Screen Ethyl Alcohol SARS-CoV-2 (PCR) Influenza A (RT-PCR) Influenza B (RT-PCR) RSV (PCR) Assessment & Plan Assessment & Plan narrative: Rizwana Araujo is a 72-year-old female with past medical history hypothyroidism, asthma, Raynaud's, hep C, hx of TIA, cauda equina 2019, laminectomy, osteoporosis, bipolar, anxiety rheumatoid arthritis, neurostimulator implant secondary to neurogenic bladder urinary incontinence presents to the ED with memory loss of the previous 24hrs. Patient is admitted for observation for TIA-symptoms appear to continued to be resolving, expected discharge tomorrow. 1. TIA, acute, with history of TIA, chronic, present on admission-resolving -Memory loss 24hrs -admitted under TIA protocol: Overnight observation, Plavix, ASA, Lipitor, lipid panel, PT/OT evaluation -Brain MRI: Negative for any acute intracranial processes. -EKG NSR without ST or T-wave changes -initial troponin negative 2. Aneurysm, cerebral artery, right distal cervical ICA, acute, present on admission -managed by [facility] -as evidence by CTA imagin mm left anterior cerebral artery aneurysm, and 1.0 cm right distal cervical ICA aneurysm, with no evidence arterial occlusion or stenosis. -Brain MRI: Negative for any acute intracranial. -[facility] neurosurgery consult advised that no surgical intervention or immediate acute care intervention is required at this time patient to follow-up outpatient with Dr. Ephraim Crowley. 3 Hypothyroidism, secondary to thyroid nodule, acute on chronic, present on admission -TSH 0.260, free T4/T4/T3 WNL -levothyroxine change from patient's 75 mcg to 50 mcg recommend follow-up repeat TSH and free T4 testing in 6 weeks with PCP 4. Elevated blood pressure without the diagnosis of hypertension, acute, present on admission -ED blood pressure is 164/78, 156/77, on admit 145/96 -patient does not appear to be on medication, will allow for permissive hypertension at this time. -patient reports normal blood pressure is 100/70 5. Bipolar, depression, with anxiety, chronic, present on admission -continue duloxetine, Latuda, Ambien, diazepam 6. Malnutrition,moderate,acute on chronic, present on admission -as evidence by BMI 19.1 -patient's malnutrition places them at high risk for medical and surgical complications because of the severe malnutrition in relation to acute illness/chronic illness. This increases the difficulty in complexity of medical management and increases the chances poor outcomes such as mortality and morbidity as well as impaired wound healing, and immune suppression. -dietary consult ordered to evaluate and implement steps to improve caloric intake and nutrition. Code status:Full Surrogate decision maker: Colette Richard PCR:Negative DVT/VTE prophylaxis: Lovenox and SCDs Disposition: Patient admitted for observation, overnight monitoring for TIA symptoms, expected length of stay less than 2 midnights I have utilized all available immediate resources to obtain, update, or review the patient's current medications. I confirmed that the patient's advanced care plan is present, Code status is documented and/or surrogate decision maker is listed in the patient's medical record. I have personally reviewed patient's chart notes from PCP, specialists, diagnostic imaging, and laboratory results. Time Spent With Patient Critical Care time: I spent a total of [] minutes of critical care time on this patient's care today; this time is exclusive of procedural time.
[2022-08-10 20:27] LABS: Cholesterol 165 mg/dL (140-199); HDL Cholesterol 76 mg/dL (40-60); LDL Cholesterol Calculated 75 mg/dL (<100); Triglycerides 68 mg/dL (35-150)
[2022-08-10] MEDS: DULOXETINE 30 MG CAPSULE PO (20:35)
[2022-08-10 20:36] LABS: NT-proBNP (BNP-Adult 18+) 42 pg/mL (<125)
[2022-08-10] MEDS: ACETAMINOPHEN 325 MG TABLET 650 MG PO (20:45)
[2022-08-10] MEDS: ZOLPIDEM 5 MG TABLET PO (22:29)
[2022-08-11 03:33] VITALS: BP 123/78; PULSE 64; RESP 18; TEMP 36.6; O2SAT 99
[2022-08-11] MEDS: LEVOTHYROXINE 50 MCG TABLET PO (05:21)
[2022-08-11] MEDS: ACETAMINOPHEN 325 MG TABLET 650 MG PO ×3 (05:38→20:01)
[2022-08-11 06:39] LABS: BUN Creatinine Ratio 18.6 (6-22); Blood Urea Nitrogen 11 mg/dL (7-17); Calcium 8.7 mg/dL (8.4-10.2); Carbon Dioxide 32 mmol/L (22-32); Chloride 98 mmol/L (98-107); Estimated Glomerular Filt Rate > 60 mL/min (>60); Glucose 88 mg/dL (80-110); HEMOLYSIS < 15 (0-50); Sodium 138 mmol/L (137-145)
[2022-08-11 06:41] LABS: Hemoglobin A1C% w Est Avg Glu 5.4 % (4.0-6.0)
[2022-08-11 07:53] VITALS: BP 133/77; PULSE 69; RESP 16; TEMP 36.7; O2SAT 97
--- NOTE | 2022-08-11 08:00 | PM.PN.1 ---
Subjective Subjective Date Patient Seen: 08/11/22 Interval history: Patient feeling better. Full TIA workup negative thus far. Exam Vital Signs (past 8 hours): - 08/11/22 03:33 Temperature 97.8 F Pulse Rate 64 Respiratory Rate 18 Blood Pressure 123/78 Pulse Oximetry 99 Oxygen Flow Rate 0 Oxygen Delivery Method Room Air Oxygen Flow Rate 0 Narrative Exam Narrative: General: Patient is a thin frail elderly appearing female, in no distress at this time. HEENT: Normocephalic, atraumatic, extraocular muscles intact, oral pharynx is clear and mucous membranes are moist. Neck is supple and symmetric, trachea is midline, no adenopathy, no thyroid enlargement, nontender, no masses palpated. Negative for JVD Chest: Normal AP diameter and contour without kyphoscoliosis, no nasal flaring, retractions, or tachypneic labored breathing. Lungs: Auscultation of all lung cast are clear without adventitious sounds, wheezes, rhonchi, or rales. Cardio: regular rate and rhythm without murmur, rubs, or gallops, no carotid bruit, no cardiac pulsations present. Abdomen: Soft nontender, negative for organomegaly, or masses. Bowel sounds are present in all 4 quadrants without guarding or rebound, no CVA tenderness. Musculoskeletal: Muscle strength and tone are equal within normal limits, no deformity, crepitus, effusions, cyanosis, clubbing or edema present. Full range of motion intact radial and pedal pulses are normal. Skin: Warm dry and intact without rashes, ulcerations or petechiae. Neuro: Alert and orientated x3, extremely articulate excellent recall as to medical care management providers and HPI. Strength is +5/5 in all extremities, sensation to touch intact, no gross deficits noted of cranial nerves. Psych: Patient has a well-kept appearance, appropriate affect, mental status attitude thought context and judgment are appropriate for age. Objective Labs 08/10/22 13:41 08/11/22 05:16 Labs: Laboratory Results - last 24 hr 08/10/22 08/10/22 08/10/22 13:25 13:25 13:41 WBC 3.8 L RBC 4.43 Hgb 14.1 Hct 42.0 MCV 94.8 MCH 31.7 MCHC 33.4 RDW 12.6 Plt Count 210 Neut % (Auto) 37.7 L Lymph % (Auto) 37.4 [place] % (Auto) 10.0 Eos % (Auto) 13.4 H Baso % (Auto) 1.5 Neut # (Auto) 1400 L Lymph # (Auto) 1400 [place] # (Auto) 400 Eos # (Auto) 500 H Baso # (Auto) 100 PT INR APTT Sodium Potassium Chloride Carbon Dioxide BUN Creatinine Estimated GFR BUN/Creatinine Ratio Glucose Hemoglobin A1c Lactate Calcium Total Bilirubin AST ALT Alkaline Phosphatase Troponin I NT-Pro-B Natriuret Pep Total Protein Albumin Globulin Albumin/Globulin Ratio Triglycerides Cholesterol LDL Cholesterol, Calc HDL Cholesterol Lipase TSH Free T4 Thyroxine (T4) Free T3 Urine Color Yellow Urine Appearance Clear Urine pH 7.5 Ur Specific [place] <=1.005 Urine Protein Negative Urine Glucose (UA) Negative Urine Ketones Negative Urine Occult Blood Negative Urine Nitrate Negative Urine Bilirubin Negative Urine Urobilinogen 0.2 Ur Leukocyte Esterase Negative Urine RBC None seen Urine WBC None seen Ur Squamous Epith Cells 0-1 /hpf Urine Bacteria None seen Ur Culture Indicated? Cult not indicated Salicylates U Opiates 300ng/mL cut Negative Ur Oxycodone Screen Negative Urine Methadone Screen Negative Acetaminophen Ur Barbiturates Screen Negative U Tricyclic Antidepress Positive H Ur Phencyclidine Scrn Negative Ur Amphetamines Screen Negative U Methamphetamines Scrn Negative Ur MDMA Scrn (Ecstasy) Negative U Benzodiazepines Scrn Positive H Urine Cocaine Screen Negative U Marijuana (THC) Screen Negative Ethyl Alcohol SARS-CoV-2 (PCR) Influenza A (RT-PCR) Influenza B (RT-PCR) RSV (PCR) 08/10/22 08/10/22 08/10/22 13:41 13:41 13:41 WBC RBC Hgb Hct MCV MCH MCHC RDW Plt Count Neut % (Auto) Lymph % (Auto) [place] % (Auto) Eos % (Auto) Baso % (Auto) Neut # (Auto) Lymph # (Auto) [place] # (Auto) Eos # (Auto) Baso # (Auto) PT INR APTT Sodium 138 Potassium 3.9 Chloride 99 Carbon Dioxide 33 H BUN 14 Creatinine 0.66 Estimated GFR > 60 BUN/Creatinine Ratio 21.2 Glucose 96 Hemoglobin A1c Lactate 1.0 Calcium 9.5 Total Bilirubin 0.5 AST 26 ALT 18 Alkaline Phosphatase 41 Troponin I < 0.012 NT-Pro-B Natriuret Pep Total Protein 7.1 Albumin 4.2 Globulin 2.9 Albumin/Globulin Ratio 1.4 Triglycerides Cholesterol LDL Cholesterol, Calc HDL Cholesterol Lipase 95 TSH 0.260 L Free T4 Thyroxine (T4) Free T3 Urine Color Urine Appearance Urine pH Ur Specific [place] Urine Protein Urine Glucose (UA) Urine Ketones Urine Occult Blood Urine Nitrate Urine Bilirubin Urine Urobilinogen Ur Leukocyte Esterase Urine RBC Urine WBC Ur Squamous Epith Cells Urine Bacteria Ur Culture Indicated? Salicylates U Opiates 300ng/mL cut Ur Oxycodone Screen Urine Methadone Screen Acetaminophen Ur Barbiturates Screen U Tricyclic Antidepress Ur Phencyclidine Scrn Ur Amphetamines Screen U Methamphetamines Scrn Ur MDMA Scrn (Ecstasy) U Benzodiazepines Scrn Urine Cocaine Screen U Marijuana (THC) Screen Ethyl Alcohol < 10 SARS-CoV-2 (PCR) Influenza A (RT-PCR) Influenza B (RT-PCR) RSV (PCR) 08/10/22 08/10/22 08/10/22 13:41 13:41 13:41 WBC RBC Hgb Hct MCV MCH MCHC RDW Plt Count Neut % (Auto) Lymph % (Auto) [place] % (Auto) Eos % (Auto) Baso % (Auto) Neut # (Auto) Lymph # (Auto) [place] # (Auto) Eos # (Auto) Baso # (Auto) PT 11.8 INR 1.0 APTT 35 Sodium Potassium Chloride Carbon Dioxide BUN Creatinine Estimated GFR BUN/Creatinine Ratio Glucose Hemoglobin A1c Lactate Calcium Total Bilirubin AST ALT Alkaline Phosphatase Troponin I NT-Pro-B Natriuret Pep Total Protein Albumin Globulin Albumin/Globulin Ratio Triglycerides Cholesterol LDL Cholesterol, Calc HDL Cholesterol Lipase TSH Free T4 Thyroxine (T4) Free T3 Urine Color Urine Appearance Urine pH Ur Specific [place] Urine Protein Urine Glucose (UA) Urine Ketones Urine Occult Blood Urine Nitrate Urine Bilirubin Urine Urobilinogen Ur Leukocyte Esterase Urine RBC Urine WBC Ur Squamous Epith Cells Urine Bacteria Ur Culture Indicated? Salicylates < 1.0 U Opiates 300ng/mL cut Ur Oxycodone Screen Urine Methadone Screen Acetaminophen < 10 Ur Barbiturates Screen U Tricyclic Antidepress Ur Phencyclidine Scrn Ur Amphetamines Screen U Methamphetamines Scrn Ur MDMA Scrn (Ecstasy) U Benzodiazepines Scrn Urine Cocaine Screen U Marijuana (THC) Screen Ethyl Alcohol SARS-CoV-2 (PCR) Negative Influenza A (RT-PCR) Flu a negative Influenza B (RT-PCR) Flu b negative RSV (PCR) Negative 08/10/22 08/10/22 08/10/22 13:41 13:41 13:41 WBC RBC Hgb Hct MCV MCH MCHC RDW Plt Count Neut % (Auto) Lymph % (Auto) [place] % (Auto) Eos % (Auto) Baso % (Auto) Neut # (Auto) Lymph # (Auto) [place] # (Auto) Eos # (Auto) Baso # (Auto) PT INR APTT Sodium Potassium Chloride Carbon Dioxide BUN Creatinine Estimated GFR BUN/Creatinine Ratio Glucose Hemoglobin A1c Lactate Calcium Total Bilirubin AST ALT Alkaline Phosphatase Troponin I NT-Pro-B Natriuret Pep Total Protein Albumin Globulin Albumin/Globulin Ratio Triglycerides 68 Cholesterol 165 LDL Cholesterol, Calc 75 HDL Cholesterol 76 H Lipase TSH Free T4 1.01 Thyroxine (T4) 6.03 Free T3 3.19 Urine Color Urine Appearance Urine pH Ur Specific [place] Urine Protein Urine Glucose (UA) Urine Ketones Urine Occult Blood Urine Nitrate Urine Bilirubin Urine Urobilinogen Ur Leukocyte Esterase Urine RBC Urine WBC Ur Squamous Epith Cells Urine Bacteria Ur Culture Indicated? Salicylates U Opiates 300ng/mL cut Ur Oxycodone Screen Urine Methadone Screen Acetaminophen Ur Barbiturates Screen U Tricyclic Antidepress Ur Phencyclidine Scrn Ur Amphetamines Screen U Methamphetamines Scrn Ur MDMA Scrn (Ecstasy) U Benzodiazepines Scrn Urine Cocaine Screen U Marijuana (THC) Screen Ethyl Alcohol SARS-CoV-2 (PCR) Influenza A (RT-PCR) Influenza B (RT-PCR) RSV (PCR) 08/10/22 08/11/22 08/11/22 13:41 05:16 05:16 WBC RBC Hgb Hct MCV MCH MCHC RDW Plt Count Neut % (Auto) Lymph % (Auto) [place] % (Auto) Eos % (Auto) Baso % (Auto) Neut # (Auto) Lymph # (Auto) [place] # (Auto) Eos # (Auto) Baso # (Auto) PT INR APTT Sodium 138 Potassium 4.0 Chloride 98 Carbon Dioxide 32 BUN 11 Creatinine 0.59 Estimated GFR > 60 BUN/Creatinine Ratio 18.6 Glucose 88 Hemoglobin A1c 5.4 Lactate Calcium 8.7 Total Bilirubin AST ALT Alkaline Phosphatase Troponin I NT-Pro-B Natriuret Pep 42 Total Protein Albumin Globulin Albumin/Globulin Ratio Triglycerides Cholesterol LDL Cholesterol, Calc HDL Cholesterol Lipase TSH Free T4 Thyroxine (T4) Free T3 Urine Color Urine Appearance Urine pH Ur Specific [place] Urine Protein Urine Glucose (UA) Urine Ketones Urine Occult Blood Urine Nitrate Urine Bilirubin Urine Urobilinogen Ur Leukocyte Esterase Urine RBC Urine WBC Ur Squamous Epith Cells Urine Bacteria Ur Culture Indicated? Salicylates U Opiates 300ng/mL cut Ur Oxycodone Screen Urine Methadone Screen Acetaminophen Ur Barbiturates Screen U Tricyclic Antidepress Ur Phencyclidine Scrn Ur Amphetamines Screen U Methamphetamines Scrn Ur MDMA Scrn (Ecstasy) U Benzodiazepines Scrn Urine Cocaine Screen U Marijuana (THC) Screen Ethyl Alcohol SARS-CoV-2 (PCR) Influenza A (RT-PCR) Influenza B (RT-PCR) RSV (PCR) [facility] Medical History (Updated 08/11/22 @ 05:17 by TRIPP Nelson-SERA) Abnormal Pap smear of cervix Acute neck pain Acute tension-type headache Acute thoracic back pain Ankle pain (~2019) Asthma Autoimmune disease Cataracts, bilateral (~2006) Cauda equina syndrome (~2020) Cervical somatic dysfunction Chicken pox Chronic pain syndrome Colon polyps (~2006) COVID Cranial somatic dysfunction Foot pain (~2014) Gait instability Gastric ulcer (~2015) Arie's disease (~2019) Heavy menstrual period Hepatitis C History of urinary incontinence (~2019) Hypertension Hypothyroidism (~1993) Migraines Mumps (~1959) Osteoarthritis Osteopenia Osteoporosis Ovarian cyst Painful menstrual periods Psoriasis Raynaud disease Recurrent sinusitis Rheumatoid arthritis Segmental and somatic dysfunction of abdomen and other regions Segmental and somatic dysfunction of rib cage Shingles Somatic dysfunction of lower extremity Spine pain, lumbar (~2016) Thoracic region somatic dysfunction Thyroid nodule (~2019) Transient ischemic attack (TIA) Surgical History (Updated 08/11/22 @ 05:17 by ELIZA Nelson) H/O foot surgery History of colon resection History of hip surgery History of hysterectomy (~2006) Status post implantation of urinary electronic stimulator device Family History Father History of heart disease Mother History of heart disease Hyperlipidemia Hypertension Stroke Grandfather Parkinson's disease Grandmother Stroke Grandfather History of heart disease Hypertension Leukemia Grandmother Colon cancer Social History household members: family and children Smoking Status: Former smoker Assessment & Plan Assessment & Plan narrative: Rizwana Araujo is a 72-year-old female with past medical history hypothyroidism, asthma, Raynaud's, hep C, hx of TIA, cauda equina 2019, laminectomy, osteoporosis, bipolar, anxiety rheumatoid arthritis, neurostimulator implant secondary to neurogenic bladder urinary incontinence presents to the ED with memory loss of the previous 24hrs. Patient is admitted for observation for TIA-symptoms appear to continued to be resolving, expected discharge tomorrow. 1. TIA, acute, with history of TIA, chronic, present on admission-resolving -Memory loss 24hrs -admitted under TIA protocol: Overnight observation, Plavix, ASA, Lipitor, lipid panel, PT/OT evaluation -Brain MRI: Negative for any acute intracranial processes. -EKG NSR without ST or T-wave changes -initial troponin negative 2. Aneurysm, cerebral artery, right distal cervical ICA, acute, present on admission -managed by [facility] Neurology -as evidence by CTA imagin mm left anterior cerebral artery aneurysm, and 1.0 cm right distal cervical ICA aneurysm, with no evidence arterial occlusion or stenosis. -Brain MRI: Negative for any acute intracranial. -[facility] neurosurgery consult advised that no surgical intervention or immediate acute care intervention is required at this time patient to follow-up outpatient with Dr. Ephraim Crowley. 3 Hypothyroidism, secondary to thyroid nodule, acute on chronic, present on admission -TSH 0.260, free T4/T4/T3 WNL -levothyroxine change from patient's 75 mcg to 50 mcg recommend follow-up repeat TSH and free T4 testing in 6 weeks with PCP 4. Elevated blood pressure without the diagnosis of hypertension, acute, present on admission -ED blood pressure is 164/78, 156/77, on admit 145/96 -patient does not appear to be on medication, will allow for permissive hypertension at this time. -patient reports normal blood pressure is 100/70 5. Bipolar, depression, with anxiety, chronic, present on admission -continue duloxetine, Latuda, Ambien, diazepam 6. Malnutrition,moderate,acute on chronic, present on admission -as evidence by BMI 19.1 -patient's malnutrition places them at high risk for medical and surgical complications because of the severe malnutrition in relation to acute illness/chronic illness. This increases the difficulty in complexity of medical management and increases the chances poor outcomes such as mortality and morbidity as well as impaired wound healing, and immune suppression. -dietary consult ordered to evaluate and implement steps to improve caloric intake and nutrition. Code status:Full Surrogate decision maker: Colette PERALTA PCR:Negative DVT/VTE prophylaxis: Lovenox and SCDs Disposition: Home on 08/12. Time Spent With Patient Critical Care time: I spent a total of [] minutes of critical care time on this patient's care today; this time is exclusive of procedural time.
[2022-08-11] MEDS: ENOXAPARIN 40 MG/0.4 ML SYRINGE SUBCUT (08:55)
[2022-08-11] MEDS: DULOXETINE 30 MG CAPSULE PO ×2 (08:56→20:01)
[2022-08-11] MEDS: CLOPIDOGREL 75 MG TABLET PO (08:56)
[2022-08-11] MEDS: ASPIRIN EC 81 MG TABLET PO (08:56)
[2022-08-11] MEDS: diazePAM 5 MG TABLET PO (09:35)
--- NOTE | 2022-08-11 11:00 | CM.DANOTE ---
DCP: Case received, EMR reviewed and met with patient. Introduced self and role. Was able to obtain information regarding patient's baseline activity level prior to admit, as well as her current living situation. DCP assessment completed with information currently available. Patient is a 72 year old female who admitted yesterday afternoon to the care of the hospitalist team. PCP: Dr. Lane. Payer: confirmed: Medicare/[employer]. Patient came to the hospital via private vehicle secondary to having increased fatigue, somewhat confused. Notes indicate that patient was supposed to go to her outpatient P.T. appointment, but confused about appointment time. Patient was diagnosed with TIA, has had MRI. Patient has history of hypothyroidism, bipolar, anxiety, bladder urinary incontinence. Met with patient in her room. He had just met with Tangela, chief librarian extension department here at the hospital. She resides with daughter and family here in [place]. At her baseline, she is independent, does yoga, and walking. She stated, she has just felt more tired lately. Confirmed that her primary provider is Laurence Lane. P: DCP to continue to follow. She does have therapy orders, and they will work with her today. Plan is home when medically stable, possibly today. Brittany Jordan RN/Director Recreation Center Discharge Planning/Care Management CM Discharge Assessment Start: 08/11/22 10:58 Freq: Status: Active Protocol: Document 08/11/22 10:58 (Rec: 08/11/22 11:00 [id number]) Discharge Planning Assessment Assigned Encephalographer Brittany Jordan RN/Director [facility]creation Center Advance Directives? Yes Advance Directives on File Yes History Provided By Patient,Medical Record Prior Living Arrangements House Household Members family,children Type of transporation used prior to Drives own vehicle admit Independent with ADL's Yes Is patient alert and oriented? Yes Caregiver for Another No Barriers to Discharge No Comment Patient lives with family Discharge Plan Home Transportation Arrangement Family Referrals Initiated None needed Whiteboard Updated in Patient Room with Yes name and ext. # of Encephalographer Review Status In Process Next Review Type Continued Stay Review
--- NOTE | 2022-08-11 11:31 | PT.IIE ---
Current Diagnoses Transient cerebral ischemic attack, unspecified (08/10/22) Surgical History (Last Updated 08/11/22 @ 05:17 [facility] H/O foot surgery History of colon resection History of hip surgery History of hysterectomy (~2006) Status post implantation of urinary electronic stimulator device Medical History (Last Updated 08/11/22 @ 05:17 by GUME Nelson) Abnormal Pap smear of cervix Acute neck pain Acute tension-type headache Acute thoracic back pain Ankle pain (~2019) Asthma Autoimmune disease Cataracts, bilateral (~2006) Cauda equina syndrome (~2020) Cervical somatic dysfunction Chicken pox Chronic pain syndrome Colon polyps (~2006) COVID Cranial somatic dysfunction Foot pain (~2014) Gait instability Gastric ulcer (~2015) Arie's disease (~2019) Heavy menstrual period Hepatitis C History of urinary incontinence (~2019) Hypertension Hypothyroidism (~1993) Migraines Mumps (~1959) Osteoarthritis Osteopenia Osteoporosis Ovarian cyst Painful menstrual periods Psoriasis Raynaud disease Recurrent sinusitis Rheumatoid arthritis Segmental and somatic dysfunction of abdomen and other regions Segmental and somatic dysfunction of rib cage Shingles Somatic dysfunction of lower extremity Spine pain, lumbar (~2016) Thoracic region somatic dysfunction Thyroid nodule (~2019) Transient ischemic attack (TIA) Physical Therapy Inpatient Evaluation/Re-Eval M1 PT/OT-IP Prior Functional Status Start: 08/11/22 13:18 Freq: NEEDED Status: Active Protocol: Document 08/11/22 11:31 AB (Rec: 08/11/22 13:36 AB [id number]) Medical Review Prior Functional Status Medical History Reviewed Yes Communication able to make needs known Mobility and Gait pt stated that she is independent with all mobilities and ambulation without AD Prior Functional Level (Other details) pt stated that she goes to [facility] for outpt PT for myofascial release due to her cauda equina syndrome Social History Household Members family,children Living Arrangements House Number of Stairs To Enter/Railing? no steps to enter the house but has 2 steps L rail ascending to get to her bedroom Home Environment Standard Height Toilet,Tub/ Shower Home Equipment Hand Held Shower,Grab Bars In Shower Additional Social History Comment pt lives with her daughter and daughter's family but will not have assistance since her daughter goes to work M2 PT-IP Current Condition Start: 08/11/22 13:18 Freq: NEEDED Status: Active Protocol: Document 08/11/22 11:31 AB (Rec: 08/11/22 13:36 AB [id number]) Physical Therapy Current Condition Current Condition Evaluation Date 08/11/22 Treatment Diagnosis TIA; difficulty in walking Onset Date 08/10/22 M3 PT-IP Subjective Start: 08/11/22 13:18 Freq: NEEDED Status: Active Protocol: Document 08/11/22 11:31 AB (Rec: 08/11/22 13:36 AB [id number]) Subjective Physical Therapy Visit Type Type Initial Evaluation Visit Start Time 11:31 Visit Stop Time 11:57 Total Visit Minutes 26 Number of [employer]IE[employer]ATIVE OFFICER Visits 0 Physical Therapy Visit Comments Patient Comments agreeable to do PT M4 PT-IP Mobility and Gait Start: 08/11/22 13:18 Freq: NEEDED Status: Active Protocol: Document 08/11/22 11:31 AB (Rec: 08/11/22 13:36 AB [id number]) PT-Bed Mobility Assessment Supine to Sit Supine to Sit Independent Sit to Supine Sit to Supine Independent PT-Transfer Assessment Sit to and From Stand Sit to and from Stand Standby Assistance,Use of Upper Extremities Equipment Transfer Assistive Device None Orthotic/Prosthetic Devices or Brace: No Comments Mobility Comments BP in supine: 104/47. pt completed supine to sit mod I. able to sit on EOB SBA. BP checked: 104/74. pt completed sit to stand SBA and ambulated to the stairs ~ 125 ft without AD SBA. presents with unsteady gait with increase lateral R lean and LLE crossing midline. pt with slight LOB but with recovery and unable to walk a straight path. pt completed up/down stairs using L rail asceding SBA. pt ambulated back to her room without AD SBA. Balance assessment and training: able to stand with narrow SHERRIE SBA to CGA ( initial increase in lateral trunk lean to the R and posterior leaning): educated pt on COG and strategies to recover COG back to SHERRIE; able to stand with NBOS and eyes closed; able to maintain balance with perturbations. instructed pt to walk a strainght path and educated on weight shifting COG on LE and how to recover back : pt able to walk a straight path with decrease lateral trunk lean and deviation. pt requested to go back to bed ; sit to supine mod I. call light and table placed within reach. Gait Assessment Gait Gait Assistance Required: Standby Assistance Distance (Feet) 125 Able to Maintain Weight Bearing Status Yes During Gait Assistive Devices Assistive Device None Orthotic/Prosthetic Devices or Brace: No Gait Deviations General Gait Pattern Ataxic,Lateral Trunk Lean Factors Limiting Gait Function Factors Limiting Gait Function Decreased Activity Tolerance, Decreased Strength,Poor Balance,Poor Safety Awareness Stair Climbing Assessment Evaluation Level of Assist On Stairs Standby Assistance Devices Stair Climbing Assistive Devices Left Railing Technique/Endurance Stair Climbing Direction Ascend and Descend Stair Climbing Technique Step to Step Number of Steps Climbed 3 Query Text: Stair Climbing Set # Repetitions (reps) 1 PT-Balance Assessment Sitting Balance and Reactions Static Sitting Balance Ability Normal Dynamic Sitting Balance Ability Normal Standing Balance and Reactions Static Standing Balance Ability Good Dynamic Standing Balance Ability Fair Device Used without AD M5 PT-IP Objective Assessments Start: 08/11/22 13:18 Freq: NEEDED Status: Active Protocol: Document 08/11/22 11:31 AB (Rec: 08/11/22 13:36 [email or web address] Orientation Orientation/Cognition Level of Alertness Alert Orientation Name,Age,Place Language Function Ability No Deficits Noted Safety Awareness Decreased Safety Awareness Memory Description No Deficits Noted Gross Range of Motion Lower Extremity ROM Assessment Within Functional Limits Strength Lower Extremity Strength Hip 4/5 Knee 4-/5 Ankle has h/o R foot fusion Muscle Tone Muscle Tone WNL Yes M6 PT-IP Treatment Start: 08/11/22 13:18 Freq: NEEDED Status: Active Protocol: Document 08/11/22 11:31 AB (Rec: 08/11/22 13:36 AB [email or web address]) Physical Therapy Treatment Education Education Provided Safety M7 PT-IP Assessment and Plan Start: 08/11/22 13:18 Freq: NEEDED Status: Active Protocol: Document 08/11/22 11:31 AB (Rec: 08/11/22 13:36 AB [email or web address]) PT Summary Assessment and Plan Potential Rehabilitation Potential Fair Status of Condition at Evaluation Stable Summary Impairments Pain,Strength,Balance, Coordination,Sensation,Bed Mobility,Transfers,Gait, Activity Tolerance Assessment Summary pt requiring SBA with mobility and presents with unsteady gait without AD. pt with slight LOB during ambulation but with recovery. pt educated and completed balance training and has improved ambulation afterwards but will benefit from further PT to improve balance and ambulation to decrease risk of falls. pt will benefit from outpt PT. Goals Transfer Goal Independent Gait Goal Independent Gait Distance 200 Other Goals up/down 2 steps L rail mod I Days to Meet Goals 3 Frequency of Treatment Frequency Of Treatment Once a Day Treatment Plan Physical Therapy Treatment Plan Transfer Training,Gait Training,Therapeutic Exercise, Balance Retraining,Discharge Planning,Hot or Cold Pack, Neuromuscular Re-ed, Coordination Retraining,Manual Therapy Precautions Other Precautions falls Recommendations To Nursing Amount of Assist Needed Standby Assistance Discharge Recommendations PT Discharge Recommendations Home with Assistance, Outpatient PT Transportation Needs at Discharge Private Vehicle
[2022-08-11 11:40] VITALS: BP 104/72; PULSE 74; RESP 16; TEMP 36.9; O2SAT 96
--- NOTE | 2022-08-11 13:35 | DIET.CONS ---
Dietary Consultation Note Admission Date: 08/10/2022 17:43 Assessment: 72 yo F admitted for TIA and aneurysms was consulted for low BMI (19.1) and possible malnutrition (MNA 9). Pts wt has been stable for past few yrs despite maintaining low BMI 19. 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 Pt sees consumer insights intern for MBSS. Pt consuming soft and moist foods to help maintain weight and LBM. Pt reports regular intake yogurt and cream soups. Pt consumed 100% of breakfast this morning. Pt is physically active, walks 1 mile 2x/d and does yoga. Ht: 160.02 cm Wt: 48.9 kg BMI: 19.1 UBW: 48-50kg Last BM: 08/10/22 (08/10/22 18:39) MNA: 9 Mook Score: 23 Diet: 08/10/22 Breakfast General (Regular) Diet Diet Modifications: Nutrition Percent Meal Consumed 100% 08/11/22 08:50 Labs: RBC 4.43 X10^6/uL (4.0-5.2) 08/10/22 13:41 Hgb 14.1 g/dL (12.0-16.0) 08/10/22 13:41 Hct 42.0 % (36-46) 08/10/22 13:41 Creatinine 0.59 mg/dL (0.52-1.04) 08/11/22 05:16 Hemoglobin A1c 5.4 % (4.0-6.0) 08/11/22 05:16 Lactate 1.0 mmol/L (0.7-2.1) 08/10/22 13:41 NT-Pro-B Natriuret Pep 42 pg/mL (<125) 08/10/22 13:41 Nutrition Diagnosis: Chronic moderate malnutrition r/t physiological causes resulting in diminished intake aeb swallow difficulty with osteophytes impacting esophageal function, BMI 19.1 (low for age). -The patient is at much higher risk for medical and surgical complications because of malnutrition. This increases the difficulty and complexity of medical and surgical interventions and increases the chances of poor outcomes such as morbidity and mortality. Interventions: 1. pt retired SPECIAL [employer]ATION PARAPROFESSIONAL has keen understanding of strategies to support swallow and energy intake.? 2. If POs <75% at meals, will add oral nutrition supplement. Electronically Signed by: Tangela Stokes 08/11/22 13:35 Clinical Dietitian [address] [address]
--- NOTE | 2022-08-11 15:20 | OT.IP.EVAL ---
Current Diagnoses Transient cerebral ischemic attack, unspecified (08/10/22) Past Medical History (Last Updated 08/11/22 @ 05:17 by TRIPP Nelson-) Abnormal Pap smear of cervix Acute neck pain Acute tension-type headache Acute thoracic back pain Ankle pain (~2019) Asthma Autoimmune disease Cataracts, bilateral (~2006) Cauda equina syndrome (~2020) Cervical somatic dysfunction Chicken pox Chronic pain syndrome Colon polyps (~2006) COVID Cranial somatic dysfunction Foot pain (~2014) Gait instability Gastric ulcer (~2015) Arie's disease (~2019) Heavy menstrual period Hepatitis C History of urinary incontinence (~2019) Hypertension Hypothyroidism (~1993) Migraines Mumps (~1959) Osteoarthritis Osteopenia Osteoporosis Ovarian cyst Painful menstrual periods Psoriasis Raynaud disease Recurrent sinusitis Rheumatoid arthritis Segmental and somatic dysfunction of abdomen and other regions Segmental and somatic dysfunction of rib cage Shingles Somatic dysfunction of lower extremity Spine pain, lumbar (~2016) Thoracic region somatic dysfunction Thyroid nodule (~2019) Transient ischemic attack (TIA) Surgical History (Last Updated 08/11/22 @ 05:17 by TRIPP Nelson-) H/O foot surgery History of colon resection History of hip surgery History of hysterectomy (~2006) Status post implantation of urinary electronic stimulator device Occupational Therapy Inpatient Evaluation/Re-Eval M1 PT/OT-IP Prior Functional Status Start: 08/11/22 13:18 Freq: NEEDED Status: Active Protocol: Document 08/11/22 15:28 [facility] (Rec: 08/11/22 15:59 [facility] [id number]) Medical Review Prior Functional Status Medical History Reviewed Yes Communication able to make needs known Mobility and Gait pt stated that she is independent with all mobilities and ambulation without AD Activities of Daily Living and IADL's Pt states able to do her ADl and IADl on her own and drives . Prior Functional Level (Other details) pt stated that she goes to [place] for outpt PT for myofascial release due to her cauda equina syndrome Social History Household Members family,children Living Arrangements House Number of Stairs To Enter/Railing? no steps to enter the house but has 2 steps L rail ascending to get to her bedroom Home Environment Standard Height Toilet,Tub/ Shower Home Equipment Hand Held Shower,Medical Apparatus Model Maker,Grab Bars In Shower Additional Social History Comment pt lives with her daughter and daughter's family but will not have assistance since her daughter goes to work M2 OT-IP Current Condition Start: 08/11/22 15:28 Freq: Status: Active Protocol: Document 08/11/22 15:28 [facility] (Rec: 08/11/22 15:59 [facility] [id number]) Occupational Therapy Current Condition Current Condition Evaluation Date 08/11/22 Treatment Diagnosis TIA, right aneurysm Diagnosis Onset Date 08/10/22 M3 OT- IP Subjective and Pain Start: 08/11/22 15:28 Freq: Status: Active Protocol: Document 08/11/22 15:28 [facility] (Rec: 08/11/22 15:59 [facility] [id number]) OT- Subjective Occupational Therapy Visit Type Type Initial Evaluation Visit Start Time 14:50 Visit Stop Time 15:20 Total Visit Minutes 30 Occupational Therapy Visit Comments Patient Comments Pt states feeling very tired and when able to check on her the third time agreed to do OT eval. Patient/Caregiver Goals TO go home. OT Pain Assessment Pain When Pain Assessed At Rest Pain Present Pain Present Pain Reported M4 OT- IP ADL's Start: 08/11/22 15:28 Freq: Status: Active Protocol: Document 08/11/22 15:28 [facility] (Rec: 08/11/22 15:59 [facility] [id number]) OT [id number] Comments OT Self-Feeding Comments NOt at meal time. Pt states has difficulty with meats and is aware to chew her food thoroughly. 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 Pt states usually has a mechanical soft diet at home but not wanting her current diet here changed. OT ADL-Grooming General Evaluation Grooming Ability Independent Comments OT Grooming Comments Able to stand at the sink for grooming needs. OT ADL-Oral Care Comments Oral Care Comments Able to do while standing. OT ADL-Dressing General Eval Lower Body Dressing Ability Independent Comments OT Dressing Comments Pt able to carmella/doff her socks on her own. OT ADL-Toileting Comments OT Toileting Comments Pt states has been using the toilet on her own. OT ADL-Bathing Comments OT Bathing Comments To try a shower tomorrow if pt still here. Pt states does not use a shower chair , but encouraged pt to get a shower chair for safety. M5 OT- IP IADL's Start: 08/11/22 15:28 Freq: Status: Active Protocol: Document 08/11/22 15:28 [facility] (Rec: 08/11/22 15:59 [facility] [id number]) OT-Instrumental Activities of Daily Living Home Safety Awareness Home Safety Comments Increased time to answer home safety. Medication Management Medication Management Comments Pt states uses a pill box. Money Management Money Management Comments Pt states uses a credit card to pay her bills. M6 OT- IP Functional Cognition Start: 08/11/22 15:28 Freq: Status: Active Protocol: Document 08/11/22 15:28 [facility] (Rec: 08/11/22 15:59 [facility] [id number]) Cognitive Factors Limiting Selfcare Function Cognitive Ability Level of Alertness Alert,Drowsy Patient Orientation Name,Place,Situation Attention Span Ability Capable of Focused Attention, Unable to Sustain Attention Ability to Follow Commands Able to Follow One Step Commands with Increased Time, Able to Follow One Step Commands with Repetition Memory Description Short Term Impaired,Working Impaired Safety Awareness Underestimates Need for Assistance Problem Solving Ability Unable to Identify Errors, Needs Assist to Identify Solutions Executive Function Ability Unable to Hold Focus,Unable to Switch Focus,Unable to Organize Plans,Unable to Remember Details Cognitive Comments Cognitive Assessment Comments Pt able to sequence through ADL and mobility needs. Pt scored 267 seconds on TrAil Making Part B and MOD vc . Pt' s score implies severe impairments for visual attention, speed of processing , mental flexibility, executive functioning, and task switching. Pt is well aware that she will not be driving at this time. Pt does not recall driving to and from [place] on Tuesday. OT- Vision and Hearing OT- Hearing Assessment OT- Hearing Assessment WFL OT- Vision Assessment Visual Acuity WFL Occular Pursuits WFL Visual Martinez WFL Diplopia Absent M7 OT- IP Mobility and Balance Start: 08/11/22 15:28 Freq: Status: Active Protocol: Document 08/11/22 15:28 [facility] (Rec: 08/11/22 15:59 [facility] [id number]) OT- Bed Mobility Assessment Supine to Sit Supine to Sit Assist Independent Sit to Supine Sit to Supine Assist Independent OT-Transfer Assessment Sit to and From Stand Sit to and from Stand Standby Assistance Transfers Transfer Ability Standby Assistance Technique Transfer Destination Bed Devices Transfer Assistive Devices None Comments Mobility Comments Pt able to get into and out of the bed on her own. Slight unsteady gait during turns at times. Suggested at this time pt to have someone walk her dog. OT- Gait Assessment Comments Gait Ability Comments Pt resistent to use a device to walk with at this time even though she realizes that she is a little unsteady on her feet. OT- Balance Assessment Sitting Balance and Reactions Static Sitting Balance Ability Normal Dynamic Sitting Balance Ability Normal Standing Balance and Reactions Static Standing Balance Ability Good Dynamic Standing Balance Ability Fair M8 OT- IP Objective Assessments Start: 08/11/22 15:28 Freq: Status: Active Protocol: Document 08/11/22 15:28 [facility] (Rec: 08/11/22 15:59 [facility] [id number]) OT Gross Range of Motion Upper Extremity Range of Motion ROM Impairments grossly WFL OT Strength Upper Extremity Strength Assessment Within Functional Limits OT- Coordination Assessment Upper Extremity Finger to Nose Test Within Functional Limits OT-Muscle Tone Assessment Muscle Tone WNL Yes OT Sensation Assessment Comments Summary Comments Intact for light touch M9 OT- IP Assessment and Plan Start: 08/11/22 15:28 Freq: Status: Active Protocol: Document 08/11/22 15:28 [facility] (Rec: 08/11/22 15:59 [facility] [id number]) OT Summary Assessment and Plan Potential Rehabilitation Potential Good Analytic Complexity at Evaluation Moderate Summary OT Impairments Pain,Balance,Functional Cognition,Functional Mobility, Dressing,Toileting,Bathing, Toilet Transfers,Shower Transfers,Activity Tolerance Progress Towards Goals Slow Progress due to Medical Issues,Slow Progress due to Activity Tolerance Assessment Summary Pt MOD complexity and main barriers are fatigue and decreased functional cognition and scored 267 seconds on TrAil Making Part B and MOD vc . Pt's score implies severe impairments for visual attention, speed of processing , mental flexibility, executive functioning, and task switching. Pt will benefit from 24/7 available assist at home but not 1:1 assist. Goals Toileting Goal Independent Bathing Goal Independent Toilet Transfer Goal Independent Shower Transfer Goal Independent Days to Meet Goals 3 Frequency of Treatment Frequency Of Treatment Once a Day Treatment Plan OT Treatment Plan ADL Training,Functional Cognition Training,Functional Mobility,Patient/Family Education,Discharge Planning Discharge Recommendations OT Discharge Recommendations Home with 24/7 Assist Available,Outpatient PT Other Discharge Recommendations Pt to have 24/7 assist available but not 1:1 assist Home Equipment Needs shower chair Transportation Needs at Discharge Private Vehicle
[2022-08-11 15:45] VITALS: BP 97/61; PULSE 70; RESP 16; TEMP 36.9; O2SAT 95
[2022-08-11] MEDS: LURASIDONE 40 MG 40 EACH PO (17:16)
[2022-08-11 19:25] VITALS: BP 106/61; PULSE 70; RESP 18; TEMP 37.1; O2SAT 97
[2022-08-11] MEDS: ATORVASTATIN 20 MG TABLET PO (20:01)
[2022-08-11] MEDS: ZOLPIDEM 5 MG TABLET PO (20:01)
[2022-08-11] MEDS: SODIUM CHLORIDE 0.9% FLUSH 10 ML IV (20:02)
[2022-08-12 00:54] VITALS: BP 126/78; PULSE 64; RESP 18; TEMP 36.3; O2SAT 98
[2022-08-12 04:00] VITALS: BP 117/66; PULSE 72; RESP 18; TEMP 36.5; O2SAT 95
[2022-08-12] MEDS: LEVOTHYROXINE 50 MCG TABLET PO (06:27)
--- NOTE | 2022-08-12 07:56 | PM.DS.1 ---
History of Present Illness History of Present Illness Date Patient Seen: 08/12/22 Time Patient Seen: 20:01 Chief complaint: headache, memory loss, confus, Narrative: Rizwana Araujo is a 72-year-old female with past medical history hypothyroidism, asthma, Raynaud's, hep C, hx of TIA, cauda [id number], cervical laminectomy 2008, Covid, osteoporosis, bipolar, anxiety rheumatoid arthritis, InterStim placement for urinary incontinence neurogenic bladder presents to the ED with memory loss of the previous 24hrs.? Patient notes that she is had ongoing neurological symptoms that come and go since February of 2022 which include daily headaches, left-sided chest discomfort, bilateral toe numbness and tingling to the bottom of her feet, body aches, chills, urinary incontinence, bowel incontinence and difficulty swallowing, she notes no recent acute changes in these symptoms within the past week or 2. Patient is following up with Dr. Sanchez [facility] regarding these issues. On admit patient improving memory recall of the previous 24 hrs and alert orientated unable to articulate the events leading to her admit today. She denies Changes in vision, speech impairment, weakness, difficulty with ambulation, recent falls, head injury, LOC, fever, cough, recent exposure to illness, abdominal pain, nausea, vomiting, urinary retention, dysuria, frequency, urgency, hematuria, bowel changes, constipation, melena, rashes, recent changes to medication, illness, injury, or trauma. On admit vital stable temp 7.6, 6, 67, 20 90% room air. WBC 3.8, bicarb 33, urinalysis tox screen is positive for tricyclic depressants, benzodiazepines, lactate, initial troponin, salicylates, acetaminophen are all negative. COVID, influenza a/B/RSV negative, urinalysis negative, TSH 0.260, but free T4/T4/T3 are all WNL. Chest x-ray negative, initial troponin unremarkable, EKG NSR without ST or T-wave changes, CTA:5 mm left anterior cerebral artery aneurysm, and 1.0 cm right distal cervical ICA aneurysm, with no evidence arterial occlusion or stenosis. Brain MRI: Negative for any acute intracranial. [facility] neurosurgery consult advised that no surgical intervention or immediate acute care intervention is required at this time patient to follow-up outpatient with Dr. Ephraim Crowley. Patient admitted for TIA. Discharge Providers Provider Date of admission: 08/10/22 17:43 Discharge Date: 08/12/22 Primary care physician: Laurence Lane PA-C Consults: 08/10/22 19:51 Consult to Occupational Therapy Evaluate & Treat Comment: possible Tia Physician Instructions: Evaluate and treat Consult to Physical Therapy Evaluate & Treat Comment: Possible Tia Physician Instructions: Evaluate and Treat 08/10/22 19:56 Consult to Dietitian, Adult Routine Comment: Reason For Exam: BMI 19.1 Discharge provider: Fabrice Herron DO Summary Hospital Course Discharge Diagnosis: 1. TIA, acute, with history of TIA, chronic, present on admission-resolving -Memory loss 24hrs -admitted under TIA protocol:? Overnight observation, Plavix, ASA, Lipitor, lipid panel, PT/OT evaluation -Brain MRI:? Negative for any acute intracranial processes. -EKG NSR without ST or T-wave changes -initial troponin negative 2. Aneurysm, cerebral artery, right distal cervical ICA, acute, present on admission -managed by [facility] Neurology -as evidence by CTA imagin mm left anterior cerebral artery aneurysm, and 1.0 cm right distal cervical ICA aneurysm, with no evidence arterial occlusion or stenosis.? -Brain MRI:? Negative for any acute intracranial.? -[facility] neurosurgery consult advised that no surgical intervention or immediate acute care intervention is required at this time patient to follow-up outpatient with Dr. Ephraim Crowley. 3 Hypothyroidism, secondary to thyroid nodule, acute on chronic, present on admission -TSH 0.260, free T4/T4/T3 WNL -levothyroxine change from patient's 75 mcg to 50 mcg recommend follow-up repeat TSH and free T4 testing in 6 weeks with PCP 4. Elevated blood pressure without the diagnosis of hypertension, acute, present on admission -ED blood pressure is 164/78, 156/77, on admit 145/96 -patient does not appear to be on medication, will allow for permissive hypertension at this time. -patient reports normal blood pressure is 100/70 5. Bipolar, depression, with anxiety, chronic, present on admission -continue duloxetine, Latuda, Ambien, diazepam 6. Malnutrition,moderate,acute on chronic, present on admission -as evidence by BMI 19.1 -patient's malnutrition places them at high risk for medical and surgical complications because of the severe malnutrition in relation to acute illness/chronic illness.? This increases the difficulty in complexity of medical management and increases the chances poor outcomes such as mortality and morbidity as well as impaired wound healing, and immune suppression. -dietary consult ordered to evaluate and implement steps to improve caloric intake and nutrition. Hospital Course: Admitted for TIA workup which was reassuring. MRI brain, echo and CT head were negative for stroke or other pathology. CTA head showed 2 aneurysms which were stable and neurosurg at said nothing to do about them at this time and for her to f/u with her neurologist. She was placed on baby aspirin for stroke prevention. Her TSH was low so her home synthroid was reduced to 50mcg from 75. Time Spent with Patient Time spent: Greater than 30 minutes Exam Vital Signs (past 8 hours): - 08/12/22 00:54 08/12/22 04:00 Temperature 97.4 F L 97.7 F Pulse Rate 64 72 Respiratory Rate 18 18 Blood Pressure 126/78 117/66 Pulse Oximetry 98 95 Oxygen Flow Rate 0 0 Oxygen Delivery Method Room Air Oxygen Flow Rate 0 Narrative Exam Narrative: General: Patient is a thin frail elderly appearing female, in no distress at this time. HEENT: Normocephalic, atraumatic, extraocular muscles intact, oral pharynx is clear and mucous membranes are moist. Neck is supple and symmetric, trachea is midline, no adenopathy, no thyroid enlargement, nontender, no masses palpated. Negative for JVD Chest: Normal AP diameter and contour without kyphoscoliosis, no nasal flaring, retractions, or tachypneic labored breathing. Lungs: Auscultation of all lung cast are clear without adventitious sounds, wheezes, rhonchi, or rales. Cardio: regular rate and rhythm without murmur, rubs, or gallops, no carotid bruit, no cardiac pulsations present. Abdomen: Soft nontender, negative for organomegaly, or masses. Bowel sounds are present in all 4 quadrants without guarding or rebound, no CVA tenderness. Musculoskeletal: Muscle strength and tone are equal within normal limits, no deformity, crepitus, effusions, cyanosis, clubbing or edema present. Full range of motion intact radial and pedal pulses are normal. Skin: Warm dry and intact without rashes, ulcerations or petechiae. Neuro: Alert and orientated x3, extremely articulate excellent recall as to medical care management providers and HPI. Strength is +5/5 in all extremities, sensation to touch intact, no gross deficits noted of cranial nerves. Psych: Patient has a well-kept appearance, appropriate affect, mental status attitude thought context and judgment are appropriate for age. Objective Labs 08/10/22 13:41 08/11/22 05:16 [facility] Medical History (Updated 08/11/22 @ 05:17 by TRIPP Nelson-SERA) Abnormal Pap smear of cervix Acute neck pain Acute tension-type headache Acute thoracic back pain Ankle pain (~2019) Asthma Autoimmune disease Cataracts, bilateral (~2006) Cauda equina syndrome (~2020) Cervical somatic dysfunction Chicken pox Chronic pain syndrome Colon polyps (~2006) COVID Cranial somatic dysfunction Foot pain (~2014) Gait instability Gastric ulcer (~2015) Arie's disease (~2019) Heavy menstrual period Hepatitis C History of urinary incontinence (~2019) Hypertension Hypothyroidism (~1993) Migraines Mumps (~1959) Osteoarthritis Osteopenia Osteoporosis Ovarian cyst Painful menstrual periods Psoriasis Raynaud disease Recurrent sinusitis Rheumatoid arthritis Segmental and somatic dysfunction of abdomen and other regions Segmental and somatic dysfunction of rib cage Shingles Somatic dysfunction of lower extremity Spine pain, lumbar (~2016) Thoracic region somatic dysfunction Thyroid nodule (~2019) Transient ischemic attack (TIA) Surgical History (Updated 08/11/22 @ 05:17 by ELIZA Nelson) H/O foot surgery History of colon resection History of hip surgery History of hysterectomy (~2006) Status post implantation of urinary electronic stimulator device Family History Father History of heart disease Mother History of heart disease Hyperlipidemia Hypertension Stroke Grandfather Parkinson's disease Grandmother Stroke Grandfather History of heart disease Hypertension Leukemia Grandmother Colon cancer Social History household members: family and children Smoking Status: Former smoker Discharge Plan Discharge Plan Patient Disposition: Home Provider Discharge Comment: All of your workup for stroke or TIA was negative. You have a couple aneurysms on your head scan which are stable and nothing to do about them. Please see Dr. Crowley neurosurgery at to follow-up on these. I've put you on a baby aspirin daily. We also noticed your thyroid labs suggested you are on too much levothyroxine so we have lowered your daily dose to 50 from 75. You should have a repeat thyroid lab test in 6 weeks with your PCP. Discharge orders & Medications Prescriptions: New aspirin 81 mg Tablet,Delayed Release (Dr/Ec) 81 mg PO DAILY Qty: 90 0RF levothyroxine [Synthroid] 50 mcg Tablet 50 mcg PO DAILY@0600 Qty: 90 0RF Continued duloxetine 30 mg capsule,delayed release(DR/EC) 30 mg PO BID Latuda 40 mg Tablet 40 mg PO BEDTIME Rx Instructions: must administer with food (at least 350 calories) zolpidem 10 mg Tablet 10 mg BEDTIME biotin 1,000 mcg tablet,chewable 1,000 mcg PO DAILY omega 3-6-9 1,000 mg PO BID calcium 600 mg PO BID cholecalciferol (vitamin D3) 1,000 unit capsule 2,000 unit PO BID magnesium malate 200 mg PO QPM [id number] See Rx Instructions .ROUTE .COMPLEX Rx Instructions: Take as directed by MD Espinoza levothyroxine [Levoxyl] 75 mcg tablet 75 mcg PO DAILY Follow up/Referrals: Laurence Lane PA-C [Primary Care Provider] - 08/16/22 8:40 am (Appt:08/16 @ 8:40 with Luis regalado please arrive 10 minutes prior to scheduled appointment time ) Visit Report/Discharge Packet Stand Alone Forms: Patient Portal/API, Stroke Signs & Symptoms Discharge Data Primary Care Provider: Laurence Lane Attending Provider: Na Lara
[2022-08-12 08:00] VITALS: BP 127/76; PULSE 69; RESP 18; TEMP 36.5; O2SAT 98
[2022-08-12] MEDS: ASPIRIN EC 81 MG TABLET PO (08:47)
[2022-08-12] MEDS: ENOXAPARIN 40 MG/0.4 ML SYRINGE SUBCUT (08:47)
[2022-08-12] MEDS: CLOPIDOGREL 75 MG TABLET PO (08:47)
[2022-08-12] MEDS: DULOXETINE 30 MG CAPSULE PO (08:47)
[2022-08-12] MEDS: ACETAMINOPHEN 325 MG TABLET 650 MG PO (08:48)
[2022-08-12] MEDS: SODIUM CHLORIDE 0.9% FLUSH 10 ML IV (08:52)
--- NOTE | 2022-08-12 10:26 | PT.IPTN ---
Addendum entered and electronically signed by Emeli Mackey, PT 08/12/22 10:27: Pt was left lying in bed with SCD's in place, call light and tray table withing reach. Original Note: Current Diagnoses Transient cerebral ischemic attack, unspecified (08/10/22) Physical Therapy Treatment Note M2 PT-IP Current Condition Start: 08/11/22 13:18 Freq: NEEDED Status: Active Protocol: Document 08/11/22 11:31 AB (Rec: 08/11/22 13:36 AB [id number]) Physical Therapy Current Condition Current Condition Evaluation Date 08/11/22 Treatment Diagnosis TIA; difficulty in walking Onset Date 08/10/22 M3 PT-IP Subjective Start: 08/11/22 13:18 Freq: NEEDED Status: Active Protocol: Document 08/12/22 10:06 LRN (Rec: 08/12/22 10:25 LRN [id number]) Subjective Physical Therapy Visit Type Type Treatment Note Visit Start Time 09:35 Visit Stop Time 10:05 Total Visit Minutes 30 Physical Therapy Visit Comments Patient Comments Pt would like to do therapy but use BR and get back into bed afterwards. Still tired. Pt reports difficulty reading texts on her phone, can't see well. States her headache is gone for the first time with use of meds. M4 PT-IP Mobility and Gait Start: 08/11/22 13:18 Freq: NEEDED Status: Active Protocol: Document 08/12/22 10:06 LRN (Rec: 08/12/22 10:25 LRN [id number]) PT-Bed Mobility Assessment Supine to Sit Supine to Sit Independent Sit to Supine Sit to Supine Independent Scooting Scooting to Edge of Bed Independent PT-Transfer Assessment Sit to and From Stand Sit to and from Stand Independent,Use of Upper Extremities Equipment Transfer Assistive Device None Orthotic/Prosthetic Devices or Brace: No Transfer Ability Level of Assist Independent Gait Assessment Gait Gait Assistance Required: Independent,Standby Assistance Distance (Feet) 212 Able to Maintain Weight Bearing Status Yes During Gait Assistive Devices Assistive Device None Orthotic/Prosthetic Devices or Brace: No Gait Deviations General Gait Pattern Decreased Stride Length Factors Limiting Gait Function Factors Limiting Gait Function Decreased Activity Tolerance, Difficulty Following Directions Comments Gait Comments TUG assessment 12 secsm, required 4-5 explanations and 3 alone for distance of gait. A paper tape line was eventually needed to be placed on the floor for the pt to recognize when to turn around (explanation and color tile change was not good enough). Stair Climbing Assessment Evaluation Level of Assist On Stairs Independent,Standby Assistance Technique/Endurance Stair Climbing Direction Ascend and Descend Stair Climbing Technique Step to Step Number of Steps Climbed 3 Stair Climbing Set # Repetitions (reps) 1 Comments Stair Climbing Comments No instabiity with gait using 1 railing noted. PT-Balance Assessment Sitting Balance and Reactions Static Sitting Balance Ability Normal Dynamic Sitting Balance Ability Normal Standing Balance and Reactions Static Standing Balance Ability Good Dynamic Standing Balance Ability Fair Device Used without AD Comments Other Balance Tests/Deviations/Treatment TUG score 12 secs (20-40% : impaired) Functional Assessments Functional Tests Timed Up and Go 12 secs (indicates 20-40% impaired) M5 PT-IP Objective Assessments Start: 08/11/22 13:18 Freq: NEEDED Status: Active Protocol: Document 08/12/22 10:06 LRN (Rec: 08/12/22 10:25 LRN [id number]) Orientation Orientation/Cognition Level of Alertness Alert Orientation Name,Place,Situation Safety Awareness Understands Safety Issues Memory Description Short Term Impaired Comments As noted above, pt required 4- 5 explanations of TUG test, including 3x on walking distance alone. M6 PT-IP Treatment Start: 08/11/22 13:18 Freq: NEEDED Status: Active Protocol: Document 08/11/22 11:31 AB (Rec: 08/11/22 13:36 AB [id number]) Physical Therapy Treatment Education Education Provided Safety M7 PT-IP Assessment and Plan Start: 08/11/22 13:18 Freq: NEEDED Status: Active Protocol: Document 08/12/22 10:06 LRN (Rec: 08/12/22 10:25 LRN [id number]) PT Summary Assessment and Plan Potential Rehabilitation Potential Good Status of Condition at Evaluation Stable Summary Impairments Strength,Balance,Coordination, Sensation,Gait,Activity Tolerance Assessment Summary Pt independent mobility mostly , only SBA when pt feeling fatigued. She presents with slow but steady gait without AD and is safe with stair ambulation with use of 1 rail. She seems to be aware of when she is having balance issues, but she had difficulty following directions even after repetitive explanation; therefore she may have short term memory dificits. Pt will benefit from further outpt PT to improve balance and ambulation to decrease risk of falls on discharge. Goals Transfer Goal Independent Gait Goal Independent Gait Distance 200 Other Goals up/down 2 steps L rail mod I Days to Meet Goals 1 Treatment Plan Physical Therapy Treatment Plan Gait Training,Therapeutic Exercise,Balance Retraining, Discharge Planning, Neuromuscular Re-ed, Coordination Retraining Precautions Other Precautions potential fall Recommendations To Nursing Amount of Assist Needed Independent,Standby Assistance Discharge Recommendations PT Discharge Recommendations Home with Assistance, Outpatient PT Transportation Needs at Discharge Private Vehicle
--- NOTE | 2022-08-12 10:56 | OT.IP.TRT ---
Current Diagnoses Transient cerebral ischemic attack, unspecified (08/10/22) Occupational Therapy Treatment Note M2 OT-IP Current Condition Start: 08/11/22 15:28 Freq: Status: Active Protocol: Document 08/11/22 15:28 [facility] (Rec: 08/11/22 15:59 [facility] [id number]) Occupational Therapy Current Condition Current Condition Evaluation Date 08/11/22 Treatment Diagnosis TIA, right aneurysm Diagnosis Onset Date 08/10/22 M3 OT- IP Subjective and Pain Start: 08/11/22 15:28 Freq: Status: Active Protocol: Document 08/12/22 11:51 [facility] (Rec: 08/12/22 11:59 [facility] [id number]) OT- Subjective Occupational Therapy Visit Type Type Treatment Note Visit Start Time 10:15 Visit Stop Time 10:56 Total Visit Minutes 41 Occupational Therapy Visit Comments Patient Comments Pt wanting to sponge off and get dressed. Pt agreed to redo Mcdonald making Part B. Patient/Caregiver Goals To go home. OT Pain Assessment Pain When Pain Assessed At Rest Pain Present Pain Present Denied Pain M4 OT- IP ADL's Start: 08/11/22 15:28 Freq: Status: Active Protocol: Document 08/12/22 11:51 [facility] (Rec: 08/12/22 11:59 [facility] [id number]) OT [id number] Comments OT Self-Feeding Comments Not at meal time. OT ADL-Grooming General Evaluation Grooming Ability Independent OT ADL-Oral Care General Eval Oral Care Ability Independent OT ADL-Dressing General Eval Upper Body Dressing Ability Independent Lower Body Dressing Ability Independent OT ADL-Toileting General Evaluation Toileting Ability Independent OT ADL-Bathing Bathing Type Bathing Type Sponge Bath Comments OT Bathing Comments Pt able to welding rod coater front of the sink to sponge off on her own. M5 OT- IP IADL's Start: 08/11/22 15:28 Freq: Status: Active Protocol: Document 08/11/22 15:28 [facility] (Rec: 08/11/22 15:59 [facility] [id number]) OT-Instrumental Activities of Daily Living Home Safety Awareness Home Safety Comments Increased time to answer home safety. Medication Management Medication Management Comments Pt states uses a pill box. Money Management Money Management Comments Pt states uses a credit card to pay her bills. M6 OT- IP Functional Cognition Start: 08/11/22 15:28 Freq: Status: Active Protocol: Document 08/12/22 11:51 [facility] (Rec: 08/12/22 11:59 [facility] [id number]) Cognitive Factors Limiting Selfcare Function Cognitive Ability Level of Alertness Alert Patient Orientation Name,Place,Situation Attention Span Ability Capable of Focused Attention, Capable of Sustained Attention Ability to Follow Commands Able to Follow One Step Commands Memory Description Short Term Impaired,Working Impaired Problem Solving Ability Unable to Identify Errors, Needs Assist to Identify Solutions Executive Function Ability Unable to Remember Details Cognitive Comments Cognitive Assessment Comments Pt score improved to 197 seconds for Mcdonald Making Part B and MIN vc which still implies severe impairments for visual attention, speed of processing, mental flexibility, executive functioning, and task switching. Pt is well aware that she will not be driving at this time. M7 OT- IP Mobility and Balance Start: 08/11/22 15:28 Freq: Status: Active Protocol: Document 08/12/22 11:51 [facility] (Rec: 08/12/22 11:59 [facility] [id number]) OT- Bed Mobility Assessment Supine to Sit Supine to Sit Assist Independent Sit to Supine Sit to Supine Assist Independent OT-Transfer Assessment Sit to and From Stand Sit to and from Stand Independent Transfers Transfer Ability Independent Technique Transfer Destination Bed,Chair,Toilet Comments Mobility Comments Pt independent to move in the room on her own. OT- Balance Assessment Sitting Balance and Reactions Static Sitting Balance Ability Normal Dynamic Sitting Balance Ability Normal Standing Balance and Reactions Static Standing Balance Ability Normal Dynamic Standing Balance Ability Good M8 OT- IP Objective Assessments Start: 08/11/22 15:28 Freq: Status: Active Protocol: Document 08/11/22 15:28 [facility] (Rec: 08/11/22 15:59 [facility] [id number]) OT Gross Range of Motion Upper Extremity Range of Motion ROM Impairments grossly WFL OT Strength Upper Extremity Strength Assessment Within Functional Limits OT- Coordination Assessment Upper Extremity Finger to Nose Test Within Functional Limits OT-Muscle Tone Assessment Muscle Tone WNL Yes OT Sensation Assessment Comments Summary Comments Intact for light touch M9 OT- IP Assessment and Plan Start: 08/11/22 15:28 Freq: Status: Active Protocol: Document 08/12/22 11:51 [facility] (Rec: 08/12/22 11:59 [facility] [id number]) OT Summary Assessment and Plan Potential Rehabilitation Potential Good Analytic Complexity at Evaluation Moderate Summary OT Impairments Pain,Balance,Functional Cognition,Functional Mobility, Dressing,Toileting,Bathing, Toilet Transfers,Shower Transfers,Activity Tolerance Progress Towards Goals Progressing Toward Goals Assessment Summary Pt's score improved with Mcdonald Making Part B but still implies severe impairments for visual attention, speed of processing, mental flexibility , executive functioning, and task switching. Pt is well aware that she will not be driving at this time. Pt to go home with assist. Treatment Plan OT Treatment Plan ADL Training,Functional Cognition Training,Functional Mobility,Patient/Family Education,Discharge Planning Discharge Recommendations OT Discharge Recommendations Home with Assistance, Outpatient PT Home Equipment Needs shower chair Transportation Needs at Discharge Private Vehicle
--- NOTE | 2022-08-12 12:03 | PC.NURSE ---
Day shift: discharge paperwork signed by patient. Education provided to patient and adult daughter at bedside. Patient's belongings given to patient, Latuda sent from inhouse pharmacy and was given back to patient before discharge. IVs discontinued. Tele removed. Patient's questions answered, follow up appointment scheduled. Patient wheeled by [facility] via wheelchair to private vehicle with patient's adult daughter at 1150.
== END 2022-08-12 11:50 | disposition home or self-care (01) ==
LOC: ED 17:43 → AC 08-11 08:53
PROVIDERS: Nurse Practitioner Family; Admitting Provider Neuromusculoskeletal Medicine, Sports Medicine; Emergency Provider Student in an Organized Health Care Education/Training Program; PCP Physician Assistant; Referring Provider Student in an Organized Health Care Education/Training Program; Visit Provider Neuromusculoskeletal Medicine, Sports Medicine
DX: G45.9 Transient cerebral ischemic attack, unspecified (principal); E44.0 Moderate protein-calorie malnutrition; I67.1 Cerebral aneurysm, nonruptured; R41.3 Other amnesia; E03.9 Hypothyroidism, unspecified; R03.0 Elevated blood-pressure reading, without diagnosis of hypertension; F31.9 Bipolar disorder, unspecified; F41.9 Anxiety disorder, unspecified; E46 Unspecified protein-calorie malnutrition; Z68.1 Body mass index [BMI] 19.9 or less, adult; Z20.822 Contact with and (suspected) exposure to COVID-19
CPT/HCPCS: 0241U; 36415; 70496; 70498; 70551; 71046; 80048; 80053; 80061; 80305; 80320; 80329; 81001; 81003; 83036; 83605; 83690; 83880; 84436; 84439; 84443; 84481; 84484; 85025; 85610; 85730; 93005; 93306; 96361; 96372; 96374; 97161; 97166; 97530; 97535; 99284; G0378; G0480; J1650; J1885; Q9967

== ENCOUNTER → 2022-08-27 15:45 | Outpatient (CLI) | payer MEDICARE, OTHER, SELFPAY ==
[2022-08-10 18:39] VITALS: BMI 19.1
--- NOTE | 2022-08-27 15:51 | DI.MRI.S_ITS ---
PROCEDURE: MR CERVICAL SPINE WO CON INDICATIONS: Spondylosis cervical TECHNIQUE: Noncontrast sagittal T1 spin echo and T2 fast spin echo, sagittal STIR, foraminal oblique sagittal T2 fast spin echo, and axial gradient echo or T2 fast spin echo through the cervical spine. COMPARISON: [facility], MR, MR CERVICAL SPINE WO CON, 06/18/2022, 12:32. [facility], CR, XR CERVICAL SPINE 6+ VIEWS, 06/08/2022, 9:44. [facility], MR, MR ANGIO HEAD WO CON, 08/27/2022, 15:56. [facility], CT, CT ANGIO HEAD AND NECK, 08/10/2022, 13:13. FINDINGS: Image quality: This examination is limited by involuntary motion artifact. Alignment and Curvature: Mild retrolisthesis can be seen at C4-C5. There is minimal anterolisthesis seen at the C7-T1 level. Bone Marrow: Marrow demonstrates normal overall signal. Spinal Cord: Visualized spinal cord has normal size and signal. No cerebellar tonsillar herniation. Paraspinous Soft Tissues: No paravertebral masses. Prevertebral soft tissues are normal in thickness. C2-C3: The disc height is well-preserved. Loss of disc signal is seen at this level. A mild degree of generalized disc osteophyte complex is seen. There is mild right-sided and [id number]-di-rmzvzzij left-sided facet hypertrophy. No neural foraminal narrowing can be seen. No central canal narrowing can be seen. Stable from the prior study. C3-C4: Moderate loss of disc height is seen. Loss of disc signal is seen. Moderate disc osteophyte complex is seen, which is eccentric to the left. At least moderate facet hypertrophy can be seen. Moderate bilateral neural foraminal narrowing is seen. Moderate central canal narrowing is seen, with mild mass effect upon the ventral spinal cord. Stable from the prior study. C4-C5: At least moderate loss of disc height and disc signal can be seen at this level. At least moderate disc osteophyte complex is seen, which is eccentric to the right. There is a central disc osteophyte protrusion. Uncovertebral joint hypertrophy is seen at this level. At least moderate facet hypertrophy is seen. Moderate to severe bilateral neural foraminal narrowing can be seen. At least moderate central canal narrowing is seen, with associated mass effect upon the ventral spinal cord. When comparison is made with the prior images, these findings are similar. C5-C6: Prior fusion change can be seen at this level. There is opzo-ij-hkjphmtc left-sided and mild right-sided neural foraminal narrowing. No significant central canal narrowing is seen. When comparison is made with the prior images, these findings are similar. C6-C7: Moderate loss of disc height is seen. Loss of disc signal is seen. Moderate disc osteophyte complex is seen, with a central disc osteophyte protrusion. There is at least moderate left-sided and moderate right-sided neural foraminal narrowing. Mild to moderate central canal narrowing can be seen. No significant change from the prior. C7-T1: Mild loss of disc height is seen. Loss of disc signal is seen. Mild to moderate facet hypertrophy can be seen. At least moderate bilateral neural foraminal narrowing can be seen. No significant central canal narrowing is seen. IMPRESSION: Multiple levels of cervical spine degenerative change are seen, which are not significantly progressed compared to the prior recent MRI. Prior fusion of the C5 and C6 vertebral bodies can be seen. Dictated by: Sky Metcalf M.D. on 08/27/2022 at 16:10 Approved by: Sky Metcalf M.D. on 08/27/2022 at 16:17
--- NOTE | 2022-08-27 15:51 | DI.MRI.S_ITS ---
PROCEDURE: MR ANGIO HEAD WO CON INDICATIONS: Cerebral aneurysm,nonruptured Spondylosis cervical TECHNIQUE: Noncontrast axial 3-D [id number] MR angiogram, with 3-dimensional maximum intensity projection (MIP) reformats of the internal carotid arteries and posterior circulation then performed. COMPARISON: [facility], CT, CT ANGIO HEAD AND NECK, 08/10/2022, 13:13. FINDINGS: Image quality: Excellent. Anterior circulation: 10 mm diameter aneurysm of the right high cervical internal carotid artery, as before. Intracranial internal carotid arteries demonstrate otherwise normal size and intraluminal flow signal. 5 mm aneurysm within the A2 segment of the left anterior cerebral artery is present, as before. The flow within the paired anterior cerebral arteries is otherwise normal and symmetric. The flow within the middle cerebral arteries is normal and symmetric. The anterior communicating artery is seen. No occlusions or stenosis. Posterior circulation: Visualized portions of the vertebral arteries demonstrate normal caliber, and join to form a normal appearing basilar artery. The flow within the posterior cerebral arteries is normal and symmetric. No stenoses, occlusions, or aneurysms. IMPRESSION: 1. 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 2. 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 Dictated by: Usman Chan M.D. on 08/27/2022 at 16:45 Approved by: Usman Chan M.D. on 08/27/2022 at 16:47
== END ==
PROVIDERS: PCP Physician Assistant; Referring Provider Psychiatry & Neurology Neurology; Visit Provider Psychiatry & Neurology Neurology
DX: I67.1 Cerebral aneurysm, nonruptured (principal); M47.812 Spondylosis without myelopathy or radiculopathy, cervical region; Z98.1 Arthrodesis status
CPT/HCPCS: 70544; 72141

== ENCOUNTER → 2022-10-07 12:19 | Outpatient (CLI) | payer MEDICARE, OTHER, SELFPAY ==
[2022-08-10 18:39] VITALS: BMI 19.1
--- NOTE | 2022-10-07 | DI.RAD.S_ITS ---
PROCEDURE: XR CERVICAL SPINE 4V OR 5V INDICATIONS: Cervicalgia TECHNIQUE: 5 views of the cervical spine were acquired. COMPARISON: None. FINDINGS: Bones: No fractures or dislocations to the C7 level. No suspicious bony lesions. There is decreased range of motion between flexion and extension, with preserved normal bony alignment. No abnormal motion with flexion or extension. Multilevel facet arthrosis, most prominent at C4-5. Multilevel degenerative disc disease, moderate at all levels. Osseous fusion of C5-6. Soft tissues: Prevertebral soft tissues are normal in thickness. IMPRESSION: Moderate, multilevel degenerative disc disease and facet arthrosis. No abnormal motion with flexion or extension. Dictated by: Davie Churchill M.D. on 10/07/2022 at 14:59 Approved by: Davie Churchill M.D. on 10/07/2022 at 15:01
== END ==
PROVIDERS: PCP Physician Assistant; Referring Provider Physician Assistant Medical; Visit Provider Physician Assistant Medical
DX: M46.92 Unspecified inflammatory spondylopathy, cervical region (principal); M50.30 Other cervical disc degeneration, unspecified cervical region
CPT/HCPCS: 72050

== ENCOUNTER → 2022-12-07 10:27 | Outpatient (CLI) | payer MEDICARE, OTHER, SELFPAY ==
[2022-08-10 18:39] VITALS: BMI 19.1
--- NOTE | 2022-12-07 10:32 | DI.CT.S_ITS ---
PROCEDURE: CT ANGIO NECK INDICATIONS: Aneurysm of carotid artery, epigastric pain TECHNIQUE: After the administration of intravenous contrast, 1.5 mm axial sections acquired from the aortic arch to the [place] of Sy. Maximum intensity projection (MIP) reformats were then performed. COMPARISON: [facility], CT, CT ANGIO HEAD AND NECK, 08/10/2022, 13:13. [facility], MR, MR ANGIO HEAD WO CON, 08/27/2022, 15:56. FINDINGS: Image quality: Excellent. Carotid system: The great vessels demonstrate a conventional anatomy as they arise from the aortic arch. The origins of the common carotid arteries appear patent. The common carotid arteries demonstrate normal calibers and courses. The bifurcation regions appear normal bilaterally. 7 mm aneurysmal dilation in the high right cervical internal carotid artery is stable. The left internal carotid artery is unremarkable. Posterior circulation: There is a left vertebral artery dominance. The origins of the vertebral arteries appear patent. The more superior portions of the vertebral arteries demonstrate normal course and caliber. They join to form a normal appearing basilar artery. Anterior circulation: 4 mm aneurysmal dilation in the proximal A2 segment of the left anterior cerebral artery is stable. Soft tissues: Visualized neck soft tissues demonstrate no suspicious abnormalities. Thyroid gland is unremarkable . Bones: No suspicious bony lesions. Visualized cervical spine appears normally aligned. IMPRESSION: Stable 4 mm aneurysmal dilation of the A2 segment of the left anterior cerebral artery. Stable 7 mm aneurysmal dilation of the high right cervical internal carotid artery. Any quantitative stenosis measurements were performed using the NASCET criteria. Dictated by: Alesha Mae M.D. on 12/07/2022 at 14:37 Approved by: Alesha Mae M.D. on 12/07/2022 at 14:44
--- NOTE | 2022-12-07 10:32 | DI.CT.S_ITS ---
PROCEDURE: CT ABDOMEN PELVIS W CON INDICATIONS: Aneurysm of carotid artery, epigastric pain TECHNIQUE: After the administration of oral and IV contrast, axial sections were acquired from the lung bases to the pubic symphysis. Coronal and sagittal reformats were performed. For radiation dose reduction, the following was used: automated exposure control, adjustment of mA and/or kV according to patient size. COMPARISON: CT, ANGIOGRAPHY ABDOMEN AND PELVIS, 07/02/2016, 9:18. [facility], CT, CT ABDOMEN W CON, 12/28/2019, 11:06. FINDINGS: Image quality: Excellent. Lung bases: Unremarkable. Small hiatal hernia. Heart: No significant findings. ABDOMEN: Liver: Mild hepatomegaly. Gallbladder: Unremarkable. Biliary ducts: Unremarkable. Pancreas: Unremarkable. Spleen: Unremarkable. Adrenal Glands: Unremarkable. Kidneys and Ureters: Unremarkable. Stomach and Bowel: There is mild gastric wall thickening and thickening of the duodenum and prox jejunum. Colon is normal in caliber and wall thickness. Peritoneum: No abnormal intraperitoneal fluid. No free air. Ventral Wall: No hernia. Abdominal Nodes: No retroperitoneal or mesenteric adenopathy by size criteria. Vessels: Aorta and inferior vena cava are normal in size. PELVIS: Pelvic Organs: Unremarkable. Bladder: Unremarkable. Pelvic Nodes: No enlarged lymph nodes. Miscellaneous: No inguinal hernias are seen. There is a nerve stimulator in sacrum. Bones: Unremarkable. Bilateral hip arthroplasties. IMPRESSION: 1. Gastric thickening, and thickening of the duodenum and proximal jejunum, consistent with gastroenteritis. Etiology may be inflammatory bowel disease or infection. Recommend clinical correlation. 2. Mild hepatomegaly. Dictated by: Dania Nguyen M.D. on 12/07/2022 at 12:38 Approved by: Dania Nguyen M.D. on 12/07/2022 at 14:49
== END ==
PROVIDERS: PCP Physician Assistant; Referring Provider Internal Medicine; Visit Provider Internal Medicine
DX: I67.1 Cerebral aneurysm, nonruptured (principal); I72.0 Aneurysm of carotid artery; R10.13 Epigastric pain; R16.0 Hepatomegaly, not elsewhere classified
CPT/HCPCS: 70498; 74177; Q9967

== ENCOUNTER → 2022-12-16 11:55 | Outpatient (CLI) | payer MEDICARE, OTHER, SELFPAY ==
[2022-08-10 18:39] VITALS: BMI 19.1
[2022-12-16 13:21] LABS: C-Reactive Protein Quant < 0.5 mg/dL (<1.0)
== END ==
PROVIDERS: PCP Physician Assistant; Referring Provider Specialist; Visit Provider Specialist
DX: R11.0 Nausea (principal)
CPT/HCPCS: 36415; 86140

== ENCOUNTER → 2023-02-18 12:47 | Outpatient (CLI) | payer MEDICARE, OTHER, SELFPAY ==
[2022-08-10 18:39] VITALS: BMI 19.1
[2023-02-18 13:19] LABS: Estimated Glomerular Filt Rate > 60 mL/min (>60)
== END ==
PROVIDERS: PCP Physician Assistant; Referring Provider Radiology Diagnostic Radiology; Visit Provider Radiology Diagnostic Radiology
DX: I67.1 Cerebral aneurysm, nonruptured (principal)
CPT/HCPCS: 36415; 82565

== ENCOUNTER → 2023-04-15 13:51 | Outpatient (CLI) | payer MEDICARE, OTHER, SELFPAY ==
[2022-08-10 18:39] VITALS: BMI 19.1
--- NOTE | 2023-04-15 13:53 | DI.RAD.S_ITS ---
PROCEDURE: XR KNEE LT 1TO2V INDICATIONS: bilateral knee pain TECHNIQUE: 3 views of the knee were acquired. COMPARISON: None. FINDINGS: Bones: No fractures or dislocations. Medial joint space narrowing and mild degenerative changes of the medial compartment. No suspicious bony lesions. Soft tissues: No joint effusion. No suspicious soft tissue calcifications. IMPRESSION: Degenerative changes and joint space narrowing of the medial compartment. Dictated by: Dimas Simmons M.D. on 04/15/2023 at 14:35 Approved by: Dimas Simmons M.D. on 04/15/2023 at 14:36
--- NOTE | 2023-04-15 13:53 | DI.RAD.S_ITS ---
PROCEDURE: XR KNEE RT 1TO2V INDICATIONS: bilateral knee pain TECHNIQUE: 3 views of the knee were acquired. COMPARISON: None. FINDINGS: Bones: No fractures or dislocations. No suspicious bony lesions. No significant degenerative change or joint space narrowing. Soft tissues: No joint effusion. No suspicious soft tissue calcifications. IMPRESSION: No significant abnormality. Dictated by: Dimas Simmons M.D. on 04/15/2023 at 14:37 Approved by: Dimas Simmons M.D. on 04/15/2023 at 14:37
== END ==
PROVIDERS: PCP Physician Assistant; Referring Provider Student in an Organized Health Care Education/Training Program; Visit Provider Student in an Organized Health Care Education/Training Program
DX: M25.561 Pain in right knee (principal); M25.562 Pain in left knee
CPT/HCPCS: 73560

== ENCOUNTER → 2023-05-16 14:32 | Outpatient (CLI) | payer MEDICARE, OTHER, SELFPAY ==
[2022-08-10 18:39] VITALS: BMI 19.1
--- NOTE | 2023-05-16 | DI.MG.S_ITS ---
BILATERAL DIGITAL SCREENING MAMMOGRAM 3D/2D WITH CAD WITH AUGMENTATION: 05/16/2023 CLINICAL: Routine screening. Family history of breast cancer. Comparison is made to exams dated: 05/14/2022 mammogram, 12/04/2020 mammogram, 08/29/2019 mammogram - [facility], and 08/30/2017 mammogram - [facility]. There are scattered areas of fibroglandular density in both breasts (category b / 25%-50% glandular tissue). Current study was also evaluated with a Computer Aided Detection (CAD) system. Bilateral breast implants are stable. There are benign vascular calcifications in both breasts. No significant masses, calcifications, or other findings are seen in either breast. There has been no significant interval change. IMPRESSION: BENIGN There is no mammographic evidence of malignancy. A 1 year screening mammogram is recommended. Based on the Tyrer Cuzick model (a risk assessment model) the patient's lifetime risk is 7.6% and her 10 year risk is 4.8%. According to the ACR, ACS, and NCCN guidelines, an annual breast MRI exam along with mammogram is recommended if the patient's lifetime risk is 20% or greater. This exam was interpreted at Station ID: [id number]. NOTE: For mammograms, a report in lay terms will be sent to the patient. Approximately 15% of breast malignancies will not be visualized mammographically. In the management of a palpable breast mass, a negative mammogram must not discourage biopsy of a clinically suspicious lesion. Electronically Signed By: Bhanu [email or web address]:05/16/2023 15:17:22 letter sent: Normal Exam ACR BI-RADS Category 2: Benign Finding(s) 3342F
== END ==
PROVIDERS: PCP Physician Assistant; Referring Provider Physician Assistant; Visit Provider Physician Assistant
DX: Z12.31 Encounter for screening mammogram for malignant neoplasm of breast (principal); Z80.3 Family history of malignant neoplasm of breast
CPT/HCPCS: 77063; 77067

== ENCOUNTER → 2024-05-28 11:05 | Outpatient (CLI) | payer MEDICARE, OTHER, SELFPAY ==
[2022-08-10 18:39] VITALS: BMI 19.1
[2024-05-28 11:54] LABS: Add Manual Diff / Slide Review NO; Basophils Absolute Auto 0 /uL (0-100); Basophils Percent Auto 0.7 % (0-2); Eosinophils Absolute Auto 300 /uL (0-450); Eosinophils Percent Auto 6.5 % (2-4); Hematocrit 41.4 % (36-46); Hemoglobin 13.8 g/dL (12.0-16.0); Lymphocytes Absolute Auto 1100 /uL (1100-4500); Lymphocytes Percent Auto 25.5 % (25-40); Mean Corpuscular HGB Conc 33.3 % (30-36); Mean Corpuscular Hemoglobin 32.8 PG (26-34); Mean Corpuscular Volume 98.3 fL (80-100); Monocytes Absolute Auto 400 /uL (0-900); Monocytes Percent Auto 9.1 % (3-14); Neutrophils Absolute Auto 2600 /uL (1500-7000); Neutrophils Percent Auto 58.2 % (50-75); Platelet Count 218 X10^3/uL (150-400); Red Blood Cell Count 4.21 X10^6/uL (4.0-5.2); Red Cell Distribution Width 13.3 % (11.6-14.8); White Blood Cell Count 4.5 X10^3/uL (4.5-11.0)
[2024-05-28 12:16] LABS: Alanine Aminotransferase 17 IU/L (<35); Albumin 4.3 g/dL (3.5-5.0); Albumin Globulin Ratio 1.9 (1.0-2.8); Alkaline Phosphatase 40 U/L (38-126); Aspartate Aminotransferase 27 IU/L (14-36); BUN Creatinine Ratio 22.9 (6-22); Bilirubin Total 0.5 mg/dL (0.2-1.3); Blood Urea Nitrogen 16 mg/dL (7-17); Calcium 9.6 mg/dL (8.4-10.2); Carbon Dioxide 32 mmol/L (22-32); Chloride 99 mmol/L (98-107); Estimated Glomerular Filt Rate > 60 mL/min (>60); Globulin 2.3 g/dL (1.7-4.1); Glucose 111 mg/dL (80-110); HEMOLYSIS 15 (0-50); Potassium 4.8 mmol/L (3.4-5.1); Sodium 134 mmol/L (137-145); Total Protein 6.6 g/dL (6.3-8.2)
[2024-05-29 11:22] LABS: Lipase 211 U/L (23-300)
== END ==
PROVIDERS: Family Provider Physician Assistant; PCP Physician Assistant; Referring Provider Internal Medicine Gastroenterology; Visit Provider Internal Medicine Gastroenterology
DX: R10.9 Unspecified abdominal pain (principal); K21.9 Gastro-esophageal reflux disease without esophagitis
CPT/HCPCS: 36415; 80053; 83690; 85025

== ENCOUNTER → 2024-05-30 08:21 | Outpatient (CLI) | payer MEDICARE, OTHER, SELFPAY ==
[2022-08-10 18:39] VITALS: BMI 19.1
--- NOTE | 2024-05-30 08:24 | DI.US.S_ITS ---
PROCEDURE: US ABDOMEN COMPLETE INDICATIONS: abdominal pain, unspecified abdominal location TECHNIQUE: Real-time scanning was performed of the abdominal and retroperitoneal organs, with image documentation. COMPARISON: [facility], US, US ABDOMEN LIMITED, 11/30/2019, 16:37. [facility], CT, CT ABDOMEN PELVIS WITH CONTRAST, 07/07/2023, 13:01. FINDINGS: Liver: Liver is enlarged in size, measuring up to 19 cm in length, and is homogeneous in echotexture. Gallbladder: Gallbladder is contracted and suboptimally visualized. No obvious stones or wall thickening. Biliary ducts: Intrahepatic bile ducts are non-dilated. Extrahepatic bile duct caliber measures 2 mm. Normal is 6-7 mm or less in diameter, or 10 mm or less post-cholecystectomy. Pancreas: Visualized portions of the pancreas are sonographically normal. Spleen: Spleen is normal in size and homogeneous in echotexture. Kidneys: Kidneys are normal in size and echotexture. Right kidney measures 8.3 cm long; left kidney measures 8.8 cm long. No hydronephrosis or nephrolithiasis. No solid masses. Aorta: Visualized aorta is normal in caliber at less than 3 cm. Iliacs: Proximal common iliac arteries are normal in caliber at less than 2.5 cm. IVC: Intrahepatic inferior vena cava is patent. Miscellaneous: No free abdominal fluid. IMPRESSION: 1. Hepatomegaly 2. Otherwise, no acute abnormalities. Dictated by: Virgil Estrella [facility] Interpreted: Inder Oropeza MD on 05/30/2024 at 9:45 Transcribed by: BRENT on 05/30/2024 at 9:48 Approved by: Inder Oropeza M.D. on 06/06/2024 at 8:32
== END ==
PROVIDERS: Family Provider Physician Assistant; PCP Physician Assistant; Referring Provider Internal Medicine Gastroenterology; Visit Provider Internal Medicine Gastroenterology
DX: K21.9 Gastro-esophageal reflux disease without esophagitis (principal); R10.9 Unspecified abdominal pain; R16.0 Hepatomegaly, not elsewhere classified
CPT/HCPCS: 76700

== ENCOUNTER → 2024-07-03 07:47 | Outpatient (CLI) | payer MEDICARE, OTHER, SELFPAY ==
[2022-08-10 18:39] VITALS: BMI 19.1
--- NOTE | 2024-07-03 | DI.NM.S_ITS ---
PROCEDURE: NM HIDA WITH CCK PHARMACEUTICAL: 5.4 mCi Tc-99m mebrofenin IV; 1.1 mcg CCK IV. INDICATIONS: Unspecified abdominal pain TECHNIQUE: Following intravenous administration of Tc-99m mebrofenin, sequential anterior abdominal images were obtained. To evaluate the contractile response of the gallbladder in response to Cholecystokinin (CCK), sincalide (0.02 ?g/kg) was administered by slow intravenous infusion approximately 60 minutes after the administration of the radiopharmaceutical. Sequential imaging was continued for 30 minutes after the start of CCK infusion. Gallbladder ejection fraction was calculated. COMPARISON: None. FINDINGS: Biliary scan: There is normal tracer uptake and excretion by the liver. There is normal visualization of the intrahepatic ducts, common bile duct, and gallbladder. There is normal tracer transit into the duodenum. CCK stimulation: There is normal contractile response of the gallbladder to CCK infusion. The calculated gallbladder ejection fraction is 53 percent ; normal values are above 35%. It has been shown that any patient abdominal pain after CCK administration is related to the rate of CCK injection, rather than to any underlying gallbladder disease (Clinical Nuclear Medicine 2012; 37: 63-70. Journal of Nuclear Medicine 2014; 55: 1-9). IMPRESSION: 1. There is normal tracer uptake and excretion by the liver with visualization of the bile ducts, gallbladder and transit into the duodenum. 2. Normal contractile response of the gallbladder to CCK infusion. Dictated by: Cornel Monroe M.D. on 07/03/2024 at 13:00 Approved by: Cornel Monroe M.D. on 07/03/2024 at 13:08
== END ==
PROVIDERS: Family Provider Physician Assistant; PCP Physician Assistant; Referring Provider Internal Medicine Gastroenterology; Visit Provider Internal Medicine Gastroenterology
DX: R10.9 Unspecified abdominal pain (principal)
CPT/HCPCS: 78227; A9537; J2805

== ENCOUNTER 2024-08-20 11:28 | Emergency (ER) | payer MEDICARE, OTHER, SELFPAY ==
[2022-08-10 18:39] VITALS: BMI 19.1
[2024-08-20] VITALS (21 sets, daily range): BP systolic 109–171; BP diastolic 55–86; PULSE 87–105; RESP 16–22; TEMP 37.7; O2SAT 93–98; BMI 18.4
--- NOTE | 2024-08-20 11:56 | DI.RAD.S_ITS ---
PROCEDURE: XR CHEST 2V INDICATIONS: fever, weakness, multiple symptoms TECHNIQUE: 2 views of the chest were acquired. COMPARISON: [facility], CR, XR CHEST 2V, 08/10/2022, 13:13. [facility], CR, XR CHEST 2V, 02/20/2021, 11:30. FINDINGS: Surgical changes and devices: None. Lungs and pleura: Lungs are clear. No pleural effusions or pneumothorax. Peribronchial cuffing. Increased pulmonary markings. Mediastinum: Mediastinal contours are normal. Heart size is mildly enlarged. Bones and chest wall: No suspicious bony abnormalities. Soft tissues appear unremarkable. IMPRESSION: Suspected mild pulmonary edema. Dictated by: Davie Churchill M.D. on 08/20/2024 at 12:28 Approved by: Davie Churchill M.D. on 08/20/2024 at 12:29
--- NOTE | 2024-08-20 12:01 | PC.NURSE ---
This RN quickly interviewed patient about symptoms. Patient states that that she was diagnosed with Cauda equina syndrome in 2020. Patient states that she has been in pain since that event. Patient states that she has problems with bowel and bladder incontinence but that it has increased since the fall in June. Patient states that while they have only hit the ground only that time that she has had multiple events where she has caught herself falling on furniture and the wall. This RN immediately informed provider. Dr. Ma placed orders.
--- NOTE | 2024-08-20 12:05 | PC.NURSE ---
Patient was taken to diagnostic imaging department by x-ray data collection technician.
[2024-08-20 12:33] LABS: Appearance Urine UA CLEAR; Bilirubin Urine UA NEGATIVE (NEGATIVE); Color Urine UA YELLOW; Glucose Urine UA NEGATIVE (Negative); Ketones Urine UA NEGATIVE (NEGATIVE); Leukocyte Esterase Urine UA NEGATIVE (NEGATIVE); Nitrite Urine UA NEGATIVE (Negative); Occult Blood Urine UA NEGATIVE (Negative); Protein Urine UA 1+ (Negative); Urobilinogen Urine UA 0.2 E.U./dL (0.2)
[2024-08-20 12:40] LABS: Urine Volume 10mL (spun)
[2024-08-20 12:41] LABS: Bacteria Urine None Seen; RBC Urine None Seen (0-5/HPF); Squamous Epithelial Cell Urine None Seen (0-5/HPF); WBC Urine None Seen (0-5/HPF)
[2024-08-20 12:42] LABS: Culture Indicated Urine Cult Not Indicated; Mucus Urine 2+ (Negative)
[2024-08-20 12:56] LABS: COVID-19 CEPHEID 4-PLEX PCR Negative (Negative); Influenza A - CEPHEID Flu A NEGATIVE (NEGATIVE); Influenza B - CEPHEID Flu B NEGATIVE (NEGATIVE); Respiratory Syncytial Virus Negative (Negative)
[2024-08-20 13:30] LABS: Add Manual Diff / Slide Review NO; Basophils Absolute Auto 0 /uL (0-100); Basophils Percent Auto 0.4 % (0-2); Eosinophils Absolute Auto 100 /uL (0-450); Eosinophils Percent Auto 1.1 % (2-4); Hematocrit 36.5 % (36-46); Hemoglobin 12.3 g/dL (12.0-16.0); Lactate (Lactic Acid) 0.9 mmol/L (0.7-2.1); Lymphocytes Absolute Auto 800 /uL (1100-4500); Mean Corpuscular HGB Conc 33.6 % (30-36); Mean Corpuscular Hemoglobin 32.5 PG (26-34); Mean Corpuscular Volume 96.7 fL (80-100); Monocytes Absolute Auto 1500 /uL (0-900); Monocytes Percent Auto 18.6 % (3-14); Neutrophils Absolute Auto 5600 /uL (1500-7000); Neutrophils Percent Auto 69.9 % (50-75); Platelet Count 191 X10^3/uL (150-400); Red Blood Cell Count 3.78 X10^6/uL (4.0-5.2); Red Cell Distribution Width 13.4 % (11.6-14.8)
[2024-08-20 13:31] LABS: Alanine Aminotransferase 13 IU/L (<35); Albumin Globulin Ratio 1.4 (1.0-2.8); Alkaline Phosphatase 46 U/L (38-126); Aspartate Aminotransferase 22 IU/L (14-36); BUN Creatinine Ratio 24.6 (6-22); Bilirubin Total 0.8 mg/dL (0.2-1.3); Blood Urea Nitrogen 15 mg/dL (7-17); Calcium 8.7 mg/dL (8.4-10.2); Carbon Dioxide 29 mmol/L (22-32); Chloride 93 mmol/L (98-107); Estimated Glomerular Filt Rate > 60 mL/min (>60); Globulin 2.9 g/dL (1.7-4.1); Glucose 111 mg/dL (80-110); HEMOLYSIS < 15 (0-50); Potassium 3.9 mmol/L (3.4-5.1); Sodium 128 mmol/L (137-145); Total Protein 6.9 g/dL (6.3-8.2)
--- NOTE | 2024-08-20 13:46 | PC.NURSE ---
Pt reports shingles near anus. States this is my 18th case of it. Pt also reporting that she had a recent virus, had norovirus.
[2024-08-20 13:49] LABS: Procalcitonin 0.066 ng/mL (<0.5)
--- NOTE | 2024-08-20 13:55 | ED_ITS ---
HPI - Back Pain/Injury General Chief Complaint: Back Pain/Injury Stated Complaint: been sick, had migraine, back pain and dizzy Time Seen by Provider: 08/20/24 11:54 Source: patient, RN notes reviewed and old records reviewed Mode of arrival: Ambulatory Limitations: no limitations History of Present Illness HPI Narrative: 70-year-old female former smoker, history of asthma and hypothyroidism, bipolar disorder, prior cauda equina syndrome, rheumatoid arthritis, migraines who presents with complaint of migraine that started a week ago she actually states it went away but then came back she states right now her headaches actually not that bad but has pain in her neck as well as shoulders and upper back as well as describing generalized myalgias. Patient states she was felt warm at home. Denies vision changes. Describes occasional shortness of breath. Has had nausea but no vomiting. Had some diarrhea. Had abdominal pain the other day but not today. No dysuria, urgency or frequency. States no new urinary changes. Has a history of cauda equina had incontinence in the past. Had back surgery and states she has a stimulator in place. Patient states she currently has a shingles outbreak in his taking valacyclovir no rashes on her buttock region. She states no new rashes or skin changes. Patient has been known Ashutosh they had Norovirus she had have a fall and hit her head at that time but states she was not really having any symptoms or issues this was while on a cruise. They recovered and in the past 5 days both developed viral symptoms according to her . He had more nausea vomiting and diarrhea she has had nausea but no vomiting but diarrhea. He states was very ill until yesterday but she has not recovered yet. Patient states she takes duloxetine, levothyroxine, medication for GERD states she was found to cyclobenzaprine which she tried which was not helpful. She has not taken anything for pain states she avoids NSAIDs, Tylenol because of liver and kidney issues does reported history of hepatitis-C remotely. Also noted that she has been chronically hyponatremic when reviewing her labs. Related Data Home Medications Medication Instructions Recorded Confirmed duloxetine 30 mg capsule,delayed 30 mg PO BID 12/07/21 09/23/23 release amitriptyline 25 mg tablet 25 mg PO ONCE PM 09/23/23 09/23/23 loperamide 2 mg capsule mg PO 09/23/23 09/23/23 modafinil 100 mg tablet mg PO 09/23/23 09/23/23 rabeprazole 20 mg tablet,delayed 20 mg PO QAM 09/23/23 09/23/23 release sucralfate 1 gram tablet 1 g PO 4XD 09/23/23 09/23/23 Previous Rx's Medication Instructions Recorded levothyroxine 50 mcg tablet 50 mcg PO DAILY@0600 #90 tabs 08/12/22 (Synthroid) ondansetron 4 mg disintegrating 4 mg PO Q6H PRN nausea and 08/20/24 tablet vomiting #10 tabs oxycodone 5 mg tablet 5 mg PO Q6H PRN pain #10 tabs 08/20/24 Allergies Allergy/AdvReac Type Severity Reaction Status Date / Time fluoxetine [From Prozac] Allergy Severe Hallucinati Verified 04/26/22 09:25 ng shellfish derived Allergy Mild N/V Verified 04/26/22 09:25 [SHELLFISH DERIVED] aripiprazole [From Abilify] Allergy Unknown Verified 04/26/22 09:25 cephalexin [From KEFLEX] Allergy Unknown HIVES Verified 04/26/22 09:25 silver AdvReac Mild Verified 04/26/22 09:25 [From Tegaderm AG Mesh] Review of Systems Review of Systems ROS Unobtainable: All systems reviewed & are unremarkable except as noted in HPI and below Patient History Medical History COVID Somatic dysfunction of lower extremity Acute tension-type headache Segmental and somatic dysfunction of abdomen and other regions Segmental and somatic dysfunction of rib cage Thoracic region somatic dysfunction Cervical somatic dysfunction Cranial somatic dysfunction Acute thoracic back pain Acute neck pain Osteoarthritis Transient ischemic attack (TIA) Migraines Osteopenia Spine pain, lumbar (~2016) Foot pain (~2014) Ankle pain (~2019) Mumps (~1960) Chicken pox Recurrent sinusitis Cataracts, bilateral (~2006) Painful menstrual periods Ovarian cyst Heavy menstrual period Abnormal Pap smear of cervix History of urinary incontinence (~2019) Gastric ulcer (~2015) Arie's disease (~2019) Thyroid nodule (~2019) Hypertension Hepatitis C Raynaud disease Asthma Autoimmune disease Hypothyroidism (~1993) Chronic pain syndrome Gait instability Cauda equina syndrome (~2020) Osteoporosis Colon polyps (~2006) Shingles Rheumatoid arthritis Psoriasis Surgical History Status post implantation of urinary electronic stimulator device History of hysterectomy (~2006) History of colon resection History of hip surgery H/O foot surgery Family History Father History of heart disease Mother History of heart disease Hyperlipidemia Hypertension Stroke Grandfather Parkinson's disease Grandmother Stroke Grandfather History of heart disease Hypertension Leukemia Grandmother Colon cancer Social History household members: family and children Smoking Status: Former smoker Smoking Status: Former smoker alcohol intake frequency: 0-2 drinks per day Alcohol type: beer and wine Exam Narrative Exam Narrative: GEN: Thin elderly appearing female, alert and oriented x 3, patient appears to be in mild distress. HEENT: Atraumatic, pupils are equal round reactive to light, extraocular movements are intact, nares are clear, TMs are clear with no fluid, there is no conjunctival pallor. Throat is clear without any exudates, erythema, tonsillar enlargement or uvular deviation, no cervical vertebral tenderness. No meningeal signs. HEART: Regular rate and rhythm without murmur, clicks, rubs. Pulses are equal in upper and lower extremities LUNGS:Lungs clear to auscultation, no wheezes, rales, crackles, chest moves symmetrically ABD:bowel sounds normal, soft, non-tender, no guarding, rebound, rigidity, no masses noted, no hepatosplenomegaly :No CVA tenderness MSCL: Non-tender, no muscle atrophy, muscles strength 5/5 upper and lower extremities, full range of motion, patient was able to ambulate to the bathroom without assistance. NEURO:CN 2-12 intact, sensation normal. Initial Vital Signs Initial Vital Signs: Vital Signs Temperature 100 F H 08/20/24 11:32 Pulse Rate 105 H 08/20/24 11:32 Respiratory Rate 22 08/20/24 11:32 Blood Pressure 127/73 08/20/24 11:32 Pulse Oximetry 97 08/20/24 11:32 Oxygen Delivery Method Room Air 08/20/24 11:32 Course Orders Ordered: ED Orders 08/20/24 11:56 Chest [XR chest 2V] Stat 08/20/24 12:00 Covid-19 + FLU A/B + RSV - PCR Stat 08/20/24 12:19 Urinalysis and Microscopic Stat 08/20/24 13:05 Blood Culture Stat CBC Auto Diff [Complete Blood Count AUTO DIFF] Stat CMP [Comprehensive Metabolic Panel] Stat Lactate (Lactic Acid) Stat Procalcitonin Stat 08/20/24 14:23 CT head/brain wo con Stat 08/20/24 15:06 CT angio head and neck Stat Discontinued Medications Sodium Chloride (Normal Saline 0.9%) 1,000 mls @ 1,000 mls/hr IV BOLUS ONE Stop: 08/20/24 15:31 Last Infusion: 08/20/24 15:30 Dose: Infused Documented By: Admin: 08/20/24 14:41 Dose: 1,000 mls/hr Documented By: DAYNA Morphine Sulfate (Morphine 4 Mg/Ml Inj) 4 mg IV NOW ONE Stop: 08/20/24 14:24 Last Admin: 08/20/24 14:42 Dose: 4 mg Documented By: DAYNA Ondansetron HCl (Ondansetron 4 Mg/2 Ml Inj) 4 mg IV NOW ONE Stop: 08/20/24 14:24 Last Admin: 08/20/24 14:42 Dose: 4 mg Documented By: DAYNA Vital Signs Vital signs: Vital Signs - 8 hr 08/20/24 11:32 08/20/24 11:49 08/20/24 11:49 Temperature 100 F H Pulse Rate 105 H 97 H Respiratory Rate 22 Blood Pressure 127/73 125/74 Pulse Oximetry 97 97 Oxygen Delivery Method Room Air 08/20/24 12:00 08/20/24 12:00 08/20/24 12:19 Temperature Pulse Rate 94 H Respiratory Rate Blood Pressure 125/70 142/68 H Pulse Oximetry 97 Oxygen Delivery Method 08/20/24 12:19 08/20/24 12:30 08/20/24 12:30 Temperature Pulse Rate 97 H 97 H Respiratory Rate Blood Pressure 123/61 Pulse Oximetry 93 98 Oxygen Delivery Method 08/20/24 12:45 08/20/24 12:45 08/20/24 13:00 Temperature Pulse Rate 90 Respiratory Rate Blood Pressure 124/58 L 125/63 Pulse Oximetry 97 Oxygen Delivery Method 08/20/24 13:00 08/20/24 13:15 08/20/24 13:15 Temperature Pulse Rate 88 87 Respiratory Rate Blood Pressure 125/64 Pulse Oximetry 95 95 Oxygen Delivery Method 08/20/24 13:30 08/20/24 13:30 08/20/24 13:45 Temperature Pulse Rate 90 Respiratory Rate Blood Pressure 116/60 143/64 H Pulse Oximetry 95 Oxygen Delivery Method Room Air 08/20/24 13:45 08/20/24 14:00 08/20/24 14:00 Temperature Pulse Rate 94 H 95 H Respiratory Rate Blood Pressure 130/60 Pulse Oximetry 97 96 Oxygen Delivery Method 08/20/24 14:15 08/20/24 14:15 08/20/24 14:35 Temperature Pulse Rate 95 H 101 H Respiratory Rate Blood Pressure 133/66 Pulse Oximetry 98 96 Oxygen Delivery Method Room Air 08/20/24 14:36 08/20/24 14:36 08/20/24 14:45 Temperature Pulse Rate 100 H Respiratory Rate Blood Pressure 171/77 H 128/86 Pulse Oximetry 93 Oxygen Delivery Method 08/20/24 14:45 08/20/24 15:00 08/20/24 15:00 Temperature Pulse Rate 93 H 92 H Respiratory Rate Blood Pressure 113/63 Pulse Oximetry 97 95 Oxygen Delivery Method Room Air 08/20/24 15:15 08/20/24 15:15 08/20/24 15:55 Temperature Pulse Rate 87 Respiratory Rate Blood Pressure 109/55 L 151/74 H Pulse Oximetry 97 Oxygen Delivery Method Room Air 08/20/24 15:55 08/20/24 16:00 08/20/24 16:00 Temperature Pulse Rate 100 H 90 Respiratory Rate 16 18 Blood Pressure 131/63 Pulse Oximetry 96 96 Oxygen Delivery Method 08/20/24 16:15 08/20/24 16:15 08/20/24 16:30 Temperature Pulse Rate 89 Respiratory Rate 19 Blood Pressure 128/60 137/78 Pulse Oximetry 96 Oxygen Delivery Method 08/20/24 16:30 Temperature Pulse Rate 100 H Respiratory Rate 18 Blood Pressure Pulse Oximetry Oxygen Delivery Method MDM - Back Pain/Injury Lab Data 08/20/24 13:05 08/20/24 13:05 Labs: Lab Results 08/20/24 08/20/24 08/20/24 Range/Units 12:00 12:19 13:05 WBC 8.0 (4.5-11.0) X10^3/uL RBC 3.78 L (4.0-5.2) X10^6/uL Hgb 12.3 (12.0-16.0) g/dL Hct 36.5 (36-46) % MCV 96.7 (80-100) fL MCH 32.5 (26-34) PG MCHC 33.6 (30-36) % RDW 13.4 (11.6-14.8) % Plt Count 191 (150-400) X10^3/uL Neut % (Auto) 69.9 (50-75) % Lymph % (Auto) 10.0 L (25-40) % Shelby % (Auto) 18.6 H (3-14) % Eos % (Auto) 1.1 L (2-4) % Baso % (Auto) 0.4 (0-2) % Neut # (Auto) 5600 (0852-2452) /uL Lymph # (Auto) 800 L (4625-8431) /uL Shelby # (Auto) 1500 H (0-900) /uL Eos # (Auto) 100 (0-450) /uL Baso # (Auto) 0 (0-100) /uL Sodium 128 L (137-145) mmol/L Potassium 3.9 (3.4-5.1) mmol/L Chloride 93 L (98-107) mmol/L Carbon Dioxide 29 (22-32) mmol/L BUN 15 (7-17) mg/dL Creatinine 0.61 (0.52-1.04) mg/dL Estimated GFR > 60 (>60) mL/min BUN/Creatinine Ratio 24.6 H (6-22) Glucose 111 H (80-110) mg/dL Lactate 0.9 (0.7-2.1) mmol/L Calcium 8.7 (8.4-10.2) mg/dL Total Bilirubin 0.8 (0.2-1.3) mg/dL AST 22 (14-36) IU/L ALT 13 (<35) IU/L Alkaline Phosphatase 46 (38-126) U/L Total Protein 6.9 (6.3-8.2) g/dL Albumin 4.0 (3.5-5.0) g/dL Globulin 2.9 (1.7-4.1) g/dL Albumin/Globulin Ratio 1.4 (1.0-2.8) Procalcitonin 0.066 (<0.5) ng/mL Urine Color Yellow Urine Appearance Clear Urine pH 6.0 (4.5-8.0) Ur Specific Ryan 1.020 (1.000-1.035) Urine Protein 1+ H (Negative) Urine Glucose (UA) Negative (Negative) g/dL Urine Ketones Negative (NEGATIVE) Urine Occult Blood Negative (Negative) Urine Nitrate Negative (Negative) Urine Bilirubin Negative (NEGATIVE) Urine Urobilinogen 0.2 (0.2) E.U./dL Ur Leukocyte Esterase Negative (NEGATIVE) Urine RBC None seen (0-5/HPF) Urine WBC None seen (0-5/HPF) Ur Squamous Epith Cells None seen (0-5/HPF) Urine Bacteria None seen (None) Urine Mucus 2+ H (Negative) Ur Culture Indicated? Cult not indicated Vol Urine Centrifuged 10ml (spun) SARS-CoV-2 (PCR) Negative (Negative) Influenza A (RT-PCR) Flu a negative (NEGATIVE) Influenza B (RT-PCR) Flu b negative (NEGATIVE) RSV (PCR) Negative (Negative) Urine Dip Bedside Urine Glucose Negative Bedside Urine Bilirubin - Negative Bedside Urine Ketone - Negative Urine Specific Ryan 1.020 Bedside Urine Occult Blood +/- Bedside Urine pH 6.0 Bedside Urine Protein +/- 15 Bedside Urine Urobilinogen - Negative Bedside Urine Nitrite - Negative Bedside Urine Leukocytes - Negative Esterase Imaging Data Chest x-ray: Radiologist's Impression: [address] [address] XRay Report Signed Patient: Rizwana Abarca MR#: [id number] : 1950 Acct:[id number] Age/Sex: 74 / F Date of Service: 08/20/24 Loc: ED Accession Number: [id number] Procedure: XR chest 2V Ordering Provider: Leatha Ma D.O. PROCEDURE: XR CHEST 2V INDICATIONS: fever, weakness, multiple symptoms TECHNIQUE: 2 views of the chest were acquired. COMPARISON: [facility], CR, XR CHEST 2V, 08/10/2022, 13:13. [facility], CR, XR CHEST 2V, 02/20/2021, 11:30. FINDINGS: Surgical changes and devices: None. Lungs and pleura: Lungs are clear. No pleural effusions or pneumothorax. Peribronchial cuffing. Increased pulmonary markings. Mediastinum: Mediastinal contours are normal. Heart size is mildly enlarged. Bones and chest wall: No suspicious bony abnormalities. Soft tissues appear unremarkable. IMPRESSION: Suspected mild pulmonary edema. Dictated by: Davie Churchill M.D. on 08/20/2024 at 12:28 Approved by: Davie Churchill M.D. on 08/20/2024 at 12:29 [facility] Narrative Medical decision making narrative: Labs show white count 8 hemoglobin 12.3 platelets of 191, sodium is 128 potassium 3.9 chloride 93 CO2 is 29 BUN 15 creatinine 0.61 glucose of 111. Prior sodium was 134 May of 2024. Lactate 0.9 LFTs are negative procalcitonin is 0.066. Urinalysis shows 1+ protein, 2+ mucus. COVID/influenza/RSV is negative. Chest x-ray shows suspected mild pulmonary edema. Head CT shows no acute intracranial pathology, maxillary sinusitis. 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 No other intracranial stenosis, occlusion or filling defects widely patent internal carotids. Reviewed patient's findings she notes she was chronically hyponatremic she states that is normal for her both her and her has been recently had what sounds like a viral type syndrome he was recovered in the last day but she sounds like she was still probably having symptoms. She noted headache but states that is actually little bit improved but also some myalgias throughout as well as neck and shoulder myalgias. Patient does not have any acute neurologic changes. Temperature was a 100? F she was slightly tachycardic so did have labs, urine, COVID/influenza no clear sources appreciated. 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 Reviewing patient chart and noted she has had stable aneurysmal dilation of left anterior cerebral artery and right cervical internal carotid artery which patient has not mentioned during her evaluation prior to her head CT, this is 10 mm on the right cervical internal and 5 mm of the A2 segment of left anterior cerebral artery. Discussed with the patient about obtaining CT angio as she was complaining of pain in the neck area as well as head. Discussed findings with the patient. Has not been significantly hypertensive has stable aneurysms on imaging felt appropriate for discharge home at this time. Patient is feeling improved after medications. She was no acute neurologic changes does not appear to be septic, we will give short course of antinausea and pain medication with strict return precautions. Discussed with patient and at bedside they both feel comfortable with this plan. Discharge Plan Departure Patient Disposition: Home Clinical Impression: Headache, Nausea Activity Restrictions/Additional Instructions: Follow up for recheck in the next several days if you are not having any improvement. Your imaging today shows stable 4 mm left a 2 segment cerebral aneurysm as well as a stable cervical right internal carotid aneurysm when compared from imaging from 2022. Your labs shows some mild hyponatremia but no other acute changes. Please continue your home medications as prescribed. You can take ondansetron or Zofran 1 tablet every 6 hours as needed for nausea. Can also take oxycodone 1 tablet every 6 hours as needed for pain. This medication can make you sleepy do not drive, perform hazardous activities or make any major decisions while taking it. This medication will make you constipated please take a stool softener once to twice daily until stools are soft and regular. Prescription sent to [facility] in [place]. Please return for new or worsening symptoms, rapidly worsening headaches, passing out, difficulty with speech, movement, persistent vomiting, difficulty new numbness tingling or weakness, difficulty with breathing or other new or concerning changes. Prescriptions: New ondansetron 4 mg tablet,disintegrating 4 mg PO Q6H PRN (Reason: nausea and vomiting) Qty: 10 0RF oxycodone 5 mg tablet 5 mg PO Q6H PRN (Reason: pain) Qty: 10 0RF No Action modafinil 100 mg tablet PO rabeprazole 20 mg tablet,delayed release (DR/EC) 20 mg PO QAM amitriptyline 25 mg tablet 25 mg PO ONCE PM loperamide 2 mg capsule PO sucralfate 1 gram tablet 1 g PO 4XD duloxetine 30 mg capsule,delayed release(DR/EC) 30 mg PO BID levothyroxine [Synthroid] 50 mcg Tablet 50 mcg PO DAILY@0600 Qty: 90 0RF Referrals: Laurence Lane PA-C [Primary Care Provider] - Stand Alone Forms: Patient Portal/API/Survey
--- NOTE | 2024-08-20 14:23 | DI.CT.S_ITS ---
PROCEDURE: CT HEAD/BRAIN WO CON INDICATIONS: meza, hx migraines but lasted longer TECHNIQUE: Noncontrast 4.5 mm thick angled axial sections acquired from the foramen magnum to the vertex, with coronal and sagittal reformats. For radiation dose reduction, the following was used: automated exposure control, adjustment of mA and/or kV according to patient size. COMPARISON: [facility], CT, CT HEAD/BRAIN WO CON, 07/25/2020, 20:03. FINDINGS: Image quality: Diagnostic. CSF spaces: Basal cisterns are patent. No extra-axial fluid collections. Ventricles are normal in size and shape. Brain: No midline shift. No intracranial masses or hemorrhage. Shipley-white matter interface is normal. Skull and face: Calvarium and visualized facial bones are intact, without suspicious lesions. Sinuses: Air-fluid levels in the maxillary sinuses. IMPRESSION: No acute intracranial pathology. Maxillary sinusitis. Dictated by: Davie Churchill M.D. on 08/20/2024 at 14:38 Approved by: Davie Churchill M.D. on 08/20/2024 at 14:39
[2024-08-20] MEDS: SODIUM CHLORIDE 0.9% 1,000 ML 1000 ML IV (14:41)
[2024-08-20] MEDS: ONDANSETRON 4 MG/2 ML INJ IV (14:42)
[2024-08-20] MEDS: MORPHINE 4 MG/ML INJ IV (14:42)
--- NOTE | 2024-08-20 15:06 | DI.CT.S_ITS ---
PROCEDURE: CT ANGIO HEAD AND NECK INDICATIONS: meza, neck pain, aneurysm left anterior cerebral artery +R ICA TECHNIQUE: After the administration of intravenous contrast, 1 mm thick sections acquired from the aortic arch through the Hyde of Sy. 3-dimensional gleenyi-bsaihnjoq-eikkbeesta (MIP) and/or volume rendering reformats were acquired of the central intracranial vasculature and neck separately. For radiation dose reduction, the following was used: automated exposure control, adjustment of mA and/or kV according to patient size. COMPARISON: [facility], CT, CT ANGIO HEAD AND NECK, 07/07/2023, 13:01. [facility], CT, CT ANGIO HEAD AND NECK, 08/10/2022, 13:13. [facility], CT, CT HEAD/BRAIN WO CON, 08/20/2024, 14:27. FINDINGS: Image quality: Diagnostic. BRAIN: CSF spaces: Ventricles are normal in size and shape. Basal cisterns are patent. No extra-axial fluid collections. Brain: No significant abnormality of the brain can be seen. Skull and face: Calvarium and facial bones appear intact, without suspicious lesions. Orbits appear normal. Sinuses: Bilateral maxillary sinus air-fluid levels. HEAD CT ANGIOGRAPHY: Anterior circulation: Intracranial internal carotid arteries are normal in size and flow. The flow within the paired anterior cerebral arteries is normal and symmetric. The flow within the middle cerebral arteries is normal and symmetric. The anterior communicating artery is seen. There is a stable aneurysm involving the A2 segment of the left anterior cerebral artery, measuring 4 mm. Posterior circulation: Visualized portions of the vertebral arteries demonstrate normal caliber, and join to form a normal appearing basilar artery. Flow within the posterior cerebral arteries is normal and symmetric. No aneurysms are seen. NECK CT ANGIOGRAPHY: Carotid system: The great vessels demonstrate a conventional anatomy as they arise from the aortic arch. The origins of the common carotid arteries appear patent. The common carotid arteries demonstrate normal caliber and courses. The bifurcation regions are both widely patent. Again noted is a stable saccular aneurysm off of the cervical right internal carotid artery at the level of approximately C1, measuring 9 x 7 x 4 mm. Posterior circulation: The origins of the vertebral arteries both appear widely patent. The more superior extracranial portions of both vertebral arteries also demonstrate normal courses and calibers. They join to form a normal appearing basilar artery. Soft tissues: Visualized neck soft tissues demonstrate no suspicious abnormalities. Bones: No suspicious bony lesions. Visualized cervical spine appears normally aligned. IMPRESSION: Stable 4 mm left A2 segment cerebral aneurysm. No intracranial stenosis, occlusion, or filling defect. 3. Widely patent internal carotids. 4. 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 Any quantitative measurements of stenosis were performed using NASCET criteria. Dictated by: Harpal Sanchez M.D. on 08/20/2024 at 15:49 Approved by: Harpal Sanchez M.D. on 08/20/2024 at 15:59
== END 2024-08-20 16:41 | disposition home or self-care (01) ==
PROVIDERS: Emergency Provider Emergency Medicine; Family Provider Physician Assistant; PCP Physician Assistant
DX: R51.9 Headache, unspecified (principal); Z87.891 Personal history of nicotine dependence; R11.0 Nausea; J45.909 Unspecified asthma, uncomplicated; E03.9 Hypothyroidism, unspecified; Z86.73 Personal history of transient ischemic attack (TIA), and cerebral infarction without residual deficits; R50.9 Fever, unspecified; R53.1 Weakness; R00.0 Tachycardia, unspecified; G89.4 Chronic pain syndrome; G83.4 Cauda equina syndrome
CPT/HCPCS: 0241U; 36415; 70450; 70496; 70498; 71046; 80053; 81001; 81003; 83605; 84145; 85025; 87040; 96361; 96374; 96375; 99284; J2270; J2405; Q9967

== ENCOUNTER → 2024-09-20 16:38 | Outpatient (CLI) | payer MEDICARE, OTHER, SELFPAY ==
[2022-08-10 18:39] VITALS: BMI 19.1
--- NOTE | 2024-09-20 | DI.MG.S_ITS ---
MM screening mammo implant BI: 09/20/2024. BI-RADS: 2 CLINICAL: 74-year old female for bilateral screening mammogram. Tyrer-Cuzick lifetime risk of 4.4%. No personal or first-degree family history of breast cancer. The patient has bilateral implants. PRIOR EXAMS 05/16/2023, 05/14/2022, 12/04/2020, 08/29/2019, 07/04/2015, 12/12/2014, 12/06/2014. MAMMOGRAPHY TECHNIQUE: 2D and 3D (tomosynthesis) digital mammographic views obtained, with additional images as needed for full coverage. Current study was also evaluated with a Computer Aided Detection (CAD) system. DENSITY B. There are scattered areas of fibroglandular density. IMPLANTS Breast implants present. MAMMOGRAPHY FINDINGS Bilateral: No suspicious finding with benign findings noted. IMPRESSION: * No evidence of malignancy with benign findings. RECOMMENDATIONS Bilateral * Annual screening mammography. OVERALL ASSESSMENT CATEGORY BI-RADS-2: Benign. The [employer] recommends annual screening mammography beginning at age 40 for women with average risk of breast cancer. ELECTRONICALLY SIGNED: Clive Kinsey M.D. on 09/21/2024 at 08:06:28 AM PT Interpreting Station ID: [id number]
== END ==
PROVIDERS: Family Provider Physician Assistant; PCP Physician Assistant; Referring Provider Physician Assistant; Visit Provider Physician Assistant
DX: Z12.31 Encounter for screening mammogram for malignant neoplasm of breast (principal); Z98.82 Breast implant status
CPT/HCPCS: 77063; 77067

== ENCOUNTER 2024-09-26 11:30 | Outpatient (RCR) | payer MEDICARE, OTHER, SELFPAY ==
[2022-08-10 18:39] VITALS: BMI 19.1
--- NOTE | 2024-05-15 16:55 | PT.OIE ---
Current Diagnoses Stress incontinence (female) (male) (05/15/24) Pelvic muscle wasting (05/15/24) Nocturia (05/15/24) Urgency of urination (05/15/24) Past Medical History (Last Updated 08/11/22 @ 05:17 by Yun Hernandez [facility]) Abnormal Pap smear of cervix Acute neck pain Acute tension-type headache Acute thoracic back pain Ankle pain (~2019) Asthma Autoimmune disease Cataracts, bilateral (~2006) Cauda equina syndrome (~2020) Cervical somatic dysfunction Chicken pox Chronic pain syndrome Colon polyps (~2006) COVID Cranial somatic dysfunction Foot pain (~2014) Gait instability Gastric ulcer (~2015) Arie's disease (~2019) Heavy menstrual period Hepatitis C History of urinary incontinence (~2019) Hypertension Hypothyroidism (~1993) Migraines Mumps (~1959) Osteoarthritis Osteopenia Osteoporosis Ovarian cyst Painful menstrual periods Psoriasis Raynaud disease Recurrent sinusitis Rheumatoid arthritis Segmental and somatic dysfunction of abdomen and other regions Segmental and somatic dysfunction of rib cage Shingles Somatic dysfunction of lower extremity Spine pain, lumbar (~2016) Thoracic region somatic dysfunction Thyroid nodule (~2019) Transient ischemic attack (TIA) Past Surgical History (Last Updated 08/11/22 @ 05:17 by Yun Hernandez [facility]) H/O foot surgery History of colon resection History of hip surgery History of hysterectomy (~2006) Status post implantation of urinary electronic stimulator device Visit Care Team Role Provider Type Laurence Lane PA-C Family Provider Advanced Personal Care Assistant Primary Care Provider Specialty: Medical Address: [address] [place] [address], [id number] Email: Milagros Tello PA-C Attending Provider Non-Staff Referring Provider Specialty: Medical Address: [address] [place], [address] Email: Physical Therapy Initial Evaluation PT-OP-A Visit Information Start: 05/15/24 13:39 Freq: Status: Active Protocol: Document 05/15/24 16:00 [facility] (Rec: 05/15/24 16:00 [facility] [id number]) Out-Patient Physical Therapy Visit Information Visit Information Visit Type Initial Evaluation Visit Start Time 13:45 Visit Stop Time 14:30 Visit Number 1 Evaluation Information Evaluation Date 05/15/24 PT-OP-B Current Condition Start: 05/15/24 13:39 Freq: Status: Active Protocol: Document 05/15/24 13:45 [facility] (Rec: 05/15/24 14:02 [facility] [id number]) Current Condition History of Current Condition Onset Date 3-4 years ago her symptoms began increasing Current Complaints Mixed urinary incontinence S/P InterStim sacral neuromodulator implant History of Current Condition two years ago she had the neuromodulator and it ws working okay but then it seemed to stop working and the leaking got to a point that she is not able to control it Last month The transportation sales consultant had her turn the stimulator off for two weeks which she said was horrible and she was leaking a great amount. They added new programs and she has been on this new program for the past two weeks. She does feel it is helping again some however she is still experiencing severe urgency and leaking frequently. She drinks water and herbal tea no caffiene. She does drink 2 glasses of wine per day. gynological history of 4 vaginal delveries, 2 with epesiotomies ectopic and ovarian cyst removal, hysterectomy with bladder and rectal sling Prior Treatments and Tests symptoms began in childhood leaking with laughter and then as a adult she would leak with skiing if she fell. She has a history of caudia equina in 2018 along with scoliosis and spinal stenosis hx of right foot fusion PT-OP-C Subjective Start: 05/15/24 13:39 Freq: Status: Active Protocol: Document 05/15/24 13:45 [facility] (Rec: 05/15/24 16:14 [facility] [id number]) Patient Questionnaires Pelvic Pain and Urgency/Frequency Patient Symptom Scale Pelvic Pain Score 23 PT-OP-I Pelvic Floor Start: 05/15/24 13:39 Freq: Status: Active Protocol: Document 05/15/24 13:45 [facility] (Rec: 05/15/24 16:14 [facility] [id number]) Pelvic Floor Assessment Urine Pelvic Floor Surgery Yes: hysterectomy, bladder and rectocele repair Urinary Symptoms Urge Sensation,Pain Other Urinary Symptoms mixed urinary incontinence with urgency all throughout the day Leakage Size Large Leakage Cause Cough,Exercise,Lifting,Sneeze, Urge Other Leakage Causes constant leakage at times Leaks Per Day 4 Voiding Frequency over 20xms a day Nocturia 1-2 Urine Pad Type Maxi Pad Pelvic Clock Pelvic Clock 12-3 Atrophy Pelvic Clock 3-6 Atrophy Pelvic Clock 6-9 Atrophy Pelvic Clock 9-12 Atrophy Contraction Ability Voluntary Contraction Weak Voluntary Relaxation Weak Manual Muscle Testing Left 2 Manual Muscle Testing Right 2 Manual Muscle Testing Anterior 2 Manual Muscle Testing Posterior 2 Muscle Endurance (Seconds) 2 Comments Pelvic Floor Comments poor endurance of pelvic floor contractions, pt is only able to sustain a contraction x 1- 2 seconds only PT-OP-Q Treatments Start: 05/15/24 13:39 Freq: Status: Active Protocol: Document 05/15/24 13:45 [facility] (Rec: 05/15/24 16:14 [facility] [id number]) Therapeutic Exercises Supine Exercises supine pelvic floor isolation with ball squeeze assist Reps/Minutes x 5 sec holds with 10 sec relaxation x 10 reps modified squat stretch for the pelvic floor Reps/Minutes hold 30 sec x 2 reps PT-OP-T Assessment and Plan Start: 05/15/24 13:39 Freq: Status: Active Protocol: Document 05/15/24 13:45 [facility] (Rec: 05/15/24 16:14 [facility] [id number]) Physical Therapy Assessment Rehab Potential Rehabilitation Potential Good Evaluation Complexity Number of Personal Factors/Comorbidities 0 Number of Body Systems Impaired 1-2 Clinical Presentation at Evaluation Stable Impairments Impairments Activity Tolerance,Soft Tissue Mobility,Strength Other Impairments urinary incontinence Goals 4 Impairment mixed urinary incontinence with leakage 2-4 times per day Component Inspector Goal (LTG) With a pelvic floor strength and endurance program Rizwana reports a overall reduction of urinary leakage LTG Duration 12 weeks 3 Impairment urinary urgency and frequent voiding over 20 times per day. Short Term Goal (STG) Rizwana is educated on the urge deference technique and bladder retraining STG Duration 4 weeks Component Inspector Goal (LTG) Rizwana is able to cut down the number of voids per day and is able to void every 2-3 hours during the day LTG Duration 12 weeks 2 Impairment Decreased endurance of the pelvic floor Short Term Goal (STG) Rizwana is able to sustain a pelvic floor contraction in supine x 10 seconds STG Duration 5 weeks Component Inspector Goal (LTG) Rizwana is able to sustain a pelvic floor contraction in standing x 10 seconds LTG Duration 12 weeks 1 Impairment pelvic floor weakness with MMT of 2/5 for all abreu of the levator ani Alf Goal (LTG) Rizwana is able to increase pelvic floor muscle strength by at least one muscle grade for improved support of the bladder. LTG Duration 12 weeks Assessment Summary Assessment Rizwana is a 73 year old female referred to PT with chief complaints of both urinary urge and stress incontinence. She reports having symptoms of urinary stress incontinence since she was a child however in the past 3-4 years her symptoms have worsened. She reports a history of cauda equina with resulting Lumbar laminectomy at L4-5, hysterectomy with bladder and rectal repair in 2018, Cervical laminectomy at C 4-5, esophageal resection 06/26/24 , interstim with sacral neuromodulator placement 2 years ago. Rizwana reports the sacral neuromodulator did help her however in the beginning however she has felt it hasn't been as helpful lately. She was instructed to turn it off for two weeks while a newer setting was programed and during that time she had a considerable amount of leakage. She has been on a new program these past two weeks and feels it is helping some. She reports constant urgency throughout the day and voids over 20 times. She wakes 1-2 times per night to void. She reports leaking 2 -4 times per day and at times it feels constant. She is wearing maxipads for protection. Leaking increases with activities such as walking. With exam today Rizwana presents with ability to engage all abreu of the levator ani however she is weak and tests 2/5 for MMT. She has difficulty with sustaining a pelvic floor contraction for more than a few seconds. She reports loosing sensation of her pelvic floor if she tries to contract for longer than 1- 2 seconds. Rizwana is also guarded and tight in her abdominal wall and notes since her esophageal resection she has been very guarded in her abdominal wall. She has difficulty relaxing the abdominal wall for her voids. Rizwana is a good candidate for pelvic floor PT. Physical Therapy Plan Frequency and Duration Frequency of Treatment 1x/Week Duration of treatment (weeks) 12 Plan of Care Start Date 05/15/24 Plan of Care End Date 08/07/24 Therapeutic Interventions Therapeutic Interventions Home Exercise Program, Neuromuscular Re-education, Patient/Caregiver Education, Therapeutic Exercises Modalities Biofeedback,Electric Stimulation Next Visit Focus/Plan Next Note Type Treatment Note Next Visit Plan Begin EMG biofeedback for pelvic floor endurance training, urge deference technique and bladder retraining, review stretches for the pelvic floor
--- NOTE | 2024-05-22 15:34 | PT.OTN ---
Current Diagnoses Stress incontinence (female) (male) (05/22/24) Pelvic muscle wasting (05/22/24) Nocturia (05/22/24) Urgency of urination (05/22/24) Physical Therapy Treatment Note PT-OP-A Visit Information Start: 05/15/24 13:39 Freq: Status: Active Protocol: Document 05/22/24 14:30 [facility] (Rec: 05/22/24 14:38 [facility] [id number]) Out-Patient Physical Therapy Visit Information Visit Information Visit Type Treatment Note Visit Start Time 14:30 Visit Stop Time 15:15 Visit Number 2 PT-OP-B Current Condition Start: 05/15/24 13:39 Freq: Status: Active Protocol: Document 05/15/24 13:45 [facility] (Rec: 05/15/24 14:02 [facility] [id number]) Current Condition History of Current Condition Onset Date 3-4 years ago her symptoms began increasing Current Complaints Mixed urinary incontinence S/P InterStim sacral neuromodulator implant History of Current Condition two years ago she had the neuromodulator and it ws working okay but then it seemed to stop working and the leaking got to a point that she is not able to control it Last month The senior internet sales consultant had her turn the stimulator off for two weeks which she said was horrible and she was leaking a great amount. They added new programs and she has been on this new program for the past two weeks. She does feel it is helping again some however she is still experiencing severe urgency and leaking frequently. She drinks water and herbal tea no caffiene. She does drink 2 glasses of wine per day. gynological history of 4 vaginal delveries, 2 with epesiotomies ectopic and ovarian cyst removal, hysterectomy with bladder and rectal sling Prior Treatments and Tests symptoms began in childhood leaking with laughter and then as a adult she would leak with skiing if she fell. She has a history of caudia equina in 2018 along with scoliosis and spinal stenosis hx of right foot fusion PT-OP-C Subjective Start: 05/15/24 13:39 Freq: Status: Active Protocol: Document 05/22/24 14:30 [facility] (Rec: 05/22/24 14:38 [facility] [id number]) OP-PT Subjective Patient Comments Patient Comments pt notes she used a pillow to squeeze, she notes the interstim has been working well and she was laying down alot as she was dealing with anxiety but today when she went for a walk she had more leakage. This week the neurostim has been working better and urgency has been worse. Patient Reported Progress Improving PT-OP-I Pelvic Floor Start: 05/15/24 13:39 Freq: Status: Active Protocol: Document 05/15/24 13:45 [facility] (Rec: 05/15/24 16:14 [facility] [id number]) Pelvic Floor Assessment Urine Pelvic Floor Surgery Yes: hysterectomy, bladder and rectocele repair Urinary Symptoms Urge Sensation,Pain Other Urinary Symptoms mixed urinary incontinence with urgency all throughout the day Leakage Size Large Leakage Cause Cough,Exercise,Lifting,Sneeze, Urge Other Leakage Causes constant leakage at times Leaks Per Day 4 Voiding Frequency over 20xms a day Nocturia 1-2 Urine Pad Type Maxi Pad Pelvic Clock Pelvic Clock 12-3 Atrophy Pelvic Clock 3-6 Atrophy Pelvic Clock 6-9 Atrophy Pelvic Clock 9-12 Atrophy Contraction Ability Voluntary Contraction Weak Voluntary Relaxation Weak Manual Muscle Testing Left 2 Manual Muscle Testing Right 2 Manual Muscle Testing Anterior 2 Manual Muscle Testing Posterior 2 Muscle Endurance (Seconds) 2 Comments Pelvic Floor Comments poor endurance of pelvic floor contractions, pt is only able to sustain a contraction x 1- 2 seconds only PT-OP-Q Treatments Start: 05/15/24 13:39 Freq: Status: Active Protocol: Document 05/22/24 14:30 [facility] (Rec: 05/22/24 15:07 [facility] [id number]) Therapeutic Exercises Supine Exercises pelvic floor long holds Reps/Minutes x 10 reps holding 10 seconds Comments average 7.1 and max 20 supine pelvic floor isolation with ball squeeze assist Side bilateral Reps/Minutes x 10 average 10.9 uv modified squat stretch for the pelvic floor Supine Exercise Name HEP Self-Care/Home Management Treatment Education Patient Education Home Exercise Program Other Education pt was educated in urge deference technique for home time was spent on proper breath technique for pelvic floor contractions to avoid breath hold PT-OP-T Assessment and Plan Start: 05/15/24 13:39 Freq: Status: Active Protocol: Document 05/22/24 14:30 [facility] (Rec: 05/22/24 15:31 [facility] [id number]) Physical Therapy Assessment Assessment Summary Assessment I started Rizwana on EMG biofeedback today and she did really well with being able to visualize her pelvic floor. She has difficulty sustaining a pelvic floor contraction and does do better with adductor assist. She was also instructed in urge deference technique as a way to calm down the nervous system with urgency. Rizwana does note her urgency has been decreased this week and her interstim seems to be working better. We also spent time working on exhale with contraction to avoid holding her breath. Physical Therapy Plan Frequency and Duration Frequency of Treatment 1x/Week Duration of treatment (weeks) 12 Plan of Care Start Date 05/15/24 Plan of Care End Date 08/07/24 Therapeutic Interventions Therapeutic Interventions Home Exercise Program, Neuromuscular Re-education, Patient/Caregiver Education, Therapeutic Exercises Modalities Biofeedback,Electric Stimulation Next Visit Focus/Plan Next Note Type Treatment Note Next Visit Plan continue with EMG biofeedback for the pelvic floor working on endurance holds, begin working on lateral hip stabilization next visit
--- NOTE | 2024-06-05 17:05 | PT.OTN ---
Current Diagnoses Stress incontinence (female) (male) (06/05/24) Pelvic muscle wasting (06/05/24) Nocturia (06/05/24) Urgency of urination (06/05/24) Physical Therapy Treatment Note PT-OP-A Visit Information Start: 05/15/24 13:39 Freq: Status: Active Protocol: Document 06/05/24 13:47 [facility] (Rec: 06/05/24 14:34 [facility] [id number]) Out-Patient Physical Therapy Visit Information Visit Information Visit Type Treatment Note Visit Start Time 13:45 Visit Stop Time 14:30 Visit Number 3 PT-OP-B Current Condition Start: 05/15/24 13:39 Freq: Status: Active Protocol: Document 05/15/24 13:45 [facility] (Rec: 05/15/24 14:02 [facility] [id number]) Current Condition History of Current Condition Onset Date 3-4 years ago her symptoms began increasing Current Complaints Mixed urinary incontinence S/P InterStim sacral neuromodulator implant History of Current Condition two years ago she had the neuromodulator and it ws working okay but then it seemed to stop working and the leaking got to a point that she is not able to control it Last month The sales market leader had her turn the stimulator off for two weeks which she said was horrible and she was leaking a great amount. They added new programs and she has been on this new program for the past two weeks. She does feel it is helping again some however she is still experiencing severe urgency and leaking frequently. She drinks water and herbal tea no caffiene. She does drink 2 glasses of wine per day. gynological history of 4 vaginal delveries, 2 with epesiotomies ectopic and ovarian cyst removal, hysterectomy with bladder and rectal sling Prior Treatments and Tests symptoms began in childhood leaking with laughter and then as a adult she would leak with skiing if she fell. She has a history of caudia equina in 2018 along with scoliosis and spinal stenosis hx of right foot fusion PT-OP-C Subjective Start: 05/15/24 13:39 Freq: Status: Active Protocol: Document 06/05/24 13:47 [facility] (Rec: 06/05/24 14:34 [facility] [id number]) OP-PT Subjective Patient Comments Patient Comments she reports she has been having diarhea with her anxiety PT-OP-I Pelvic Floor Start: 05/15/24 13:39 Freq: Status: Active Protocol: Document 05/15/24 13:45 [facility] (Rec: 05/15/24 16:14 [facility] [id number]) Pelvic Floor Assessment Urine Pelvic Floor Surgery Yes: hysterectomy, bladder and rectocele repair Urinary Symptoms Urge Sensation,Pain Other Urinary Symptoms mixed urinary incontinence with urgency all throughout the day Leakage Size Large Leakage Cause Cough,Exercise,Lifting,Sneeze, Urge Other Leakage Causes constant leakage at times Leaks Per Day 4 Voiding Frequency over 20xms a day Nocturia 1-2 Urine Pad Type Maxi Pad Pelvic Clock Pelvic Clock 12-3 Atrophy Pelvic Clock 3-6 Atrophy Pelvic Clock 6-9 Atrophy Pelvic Clock 9-12 Atrophy Contraction Ability Voluntary Contraction Weak Voluntary Relaxation Weak Manual Muscle Testing Left 2 Manual Muscle Testing Right 2 Manual Muscle Testing Anterior 2 Manual Muscle Testing Posterior 2 Muscle Endurance (Seconds) 2 Comments Pelvic Floor Comments poor endurance of pelvic floor contractions, pt is only able to sustain a contraction x 1- 2 seconds only PT-OP-Q Treatments Start: 05/15/24 13:39 Freq: Status: Active Protocol: Document 06/05/24 13:47 [facility] (Rec: 06/05/24 14:34 [facility] [id number]) Therapeutic Exercises Supine Exercises hip abduction with theraband Reps/Minutes x 10 reps pelvic floor long holds Reps/Minutes x 10 reps holding 10 seconds Comments 5.2 and max of 13 supine pelvic floor isolation with ball squeeze assist Reps/Minutes 10 reps Comments 13.4 with ball and max of 20 uv Self-Care/Home Management Treatment Education Patient Education Home Exercise Program PT-OP-T Assessment and Plan Start: 05/15/24 13:39 Freq: Status: Active Protocol: Document 06/05/24 13:45 [facility] (Rec: 06/05/24 17:05 [facility] [id number]) Physical Therapy Assessment Assessment Summary Assessment Rizwana has difficulty with breath holds with pelvic floor contractions, exhale with the contraction is very difficult for her and she tends to inhale and hold her breath. Time was spent today working on relaxing the upper neck and shoulders to try and isolate the pelvic floor without a sharp inhale. Physical Therapy Plan Frequency and Duration Frequency of Treatment 1x/Week Duration of treatment (weeks) 12 Plan of Care Start Date 05/15/24 Plan of Care End Date 08/07/24 Therapeutic Interventions Therapeutic Interventions Home Exercise Program, Neuromuscular Re-education, Patient/Caregiver Education, Therapeutic Exercises Modalities Biofeedback,Electric Stimulation Next Visit Focus/Plan Next Note Type Treatment Note Next Visit Plan continue with EMG biofeedback for the pelvic floor working on endurance holds, review hip ER exercise and continue with the breathing work for pelvic floor isolations
--- NOTE | 2024-06-13 12:50 | PT.OTN ---
Current Diagnoses Stress incontinence (female) (male) (06/13/24) Pelvic muscle wasting (06/13/24) Nocturia (06/13/24) Urgency of urination (06/13/24) Physical Therapy Treatment Note PT-OP-A Visit Information Start: 05/15/24 13:39 Freq: Status: Active Protocol: Document 06/13/24 10:46 [facility] (Rec: 06/13/24 11:23 [facility] [id number]) Out-Patient Physical Therapy Visit Information Visit Information Visit Type Treatment Note Visit Start Time 10:45 Visit Stop Time 11:30 Visit Number 4 PT-OP-B Current Condition Start: 05/15/24 13:39 Freq: Status: Active Protocol: Document 05/15/24 13:45 [facility] (Rec: 05/15/24 14:02 [facility] [id number]) Current Condition History of Current Condition Onset Date 3-4 years ago her symptoms began increasing Current Complaints Mixed urinary incontinence S/P InterStim sacral neuromodulator implant History of Current Condition two years ago she had the neuromodulator and it ws working okay but then it seemed to stop working and the leaking got to a point that she is not able to control it Last month The director of premium seat sales had her turn the stimulator off for two weeks which she said was horrible and she was leaking a great amount. They added new programs and she has been on this new program for the past two weeks. She does feel it is helping again some however she is still experiencing severe urgency and leaking frequently. She drinks water and herbal tea no caffiene. She does drink 2 glasses of wine per day. gynological history of 4 vaginal delveries, 2 with epesiotomies ectopic and ovarian cyst removal, hysterectomy with bladder and rectal sling Prior Treatments and Tests symptoms began in childhood leaking with laughter and then as a adult she would leak with skiing if she fell. She has a history of caudia equina in 2018 along with scoliosis and spinal stenosis hx of right foot fusion PT-OP-C Subjective Start: 05/15/24 13:39 Freq: Status: Active Protocol: Document 06/13/24 10:46 [facility] (Rec: 06/13/24 11:23 [facility] [id number]) OP-PT Subjective Patient Comments Patient Comments pt notes she hasn't been as good this week with her exercises she had two episodes of leakage this week one during the night and one when she got up. Leakage was happening more throughout the day Patient Reported Progress Improving PT-OP-I Pelvic Floor Start: 05/15/24 13:39 Freq: Status: Active Protocol: Document 05/15/24 13:45 [facility] (Rec: 05/15/24 16:14 [facility] [id number]) Pelvic Floor Assessment Urine Pelvic Floor Surgery Yes: hysterectomy, bladder and rectocele repair Urinary Symptoms Urge Sensation,Pain Other Urinary Symptoms mixed urinary incontinence with urgency all throughout the day Leakage Size Large Leakage Cause Cough,Exercise,Lifting,Sneeze, Urge Other Leakage Causes constant leakage at times Leaks Per Day 4 Voiding Frequency over 20xms a day Nocturia 1-2 Urine Pad Type Maxi Pad Pelvic Clock Pelvic Clock 12-3 Atrophy Pelvic Clock 3-6 Atrophy Pelvic Clock 6-9 Atrophy Pelvic Clock 9-12 Atrophy Contraction Ability Voluntary Contraction Weak Voluntary Relaxation Weak Manual Muscle Testing Left 2 Manual Muscle Testing Right 2 Manual Muscle Testing Anterior 2 Manual Muscle Testing Posterior 2 Muscle Endurance (Seconds) 2 Comments Pelvic Floor Comments poor endurance of pelvic floor contractions, pt is only able to sustain a contraction x 1- 2 seconds only PT-OP-Q Treatments Start: 05/15/24 13:39 Freq: Status: Active Protocol: Document 06/13/24 10:46 [facility] (Rec: 06/13/24 11:23 [facility] [id number]) Therapeutic Exercises Supine Exercises pelvic floor long holds Reps/Minutes x 10 reps holding 10 seconds Comments 7.5 and max of 13 uv supine pelvic floor isolation with ball squeeze assist Reps/Minutes 10 reps Comments 13.4 with ball and max of 20 uv Sidelying Exercises diaphragmatic breathing Sidelying Exercise Name working to relax the upper abdominal wall Reps/Minutes x 8 reps clam shells Reps/Minutes 2 x 10 reps Comments tight hamstrings PT-OP-T Assessment and Plan Start: 05/15/24 13:39 Freq: Status: Active Protocol: Document 06/13/24 10:46 [facility] (Rec: 06/13/24 11:23 [facility] [id number]) Physical Therapy Assessment Goals 4 Impairment mixed urinary incontinence with leakage 2-4 times per day Long-Term Goal (LTG) With a pelvic floor strength and endurance program Rizwana reports a overall reduction of urinary leakage LTG Duration 12 weeks 3 Impairment urinary urgency and frequent voiding over 20 times per day. Short Term Goal (STG) Rizwana is educated on the urge deference technique and bladder retraining STG Duration 4 weeks Long-Term Goal (LTG) Rizwana is able to cut down the number of voids per day and is able to void every 2-3 hours during the day LTG Duration 12 weeks 2 Impairment Decreased endurance of the pelvic floor Short Term Goal (STG) Rizwana is able to sustain a pelvic floor contraction in supine x 10 seconds STG Duration 5 weeks Core Drilling Supervisor Goal (LTG) Rizwana is able to sustain a pelvic floor contraction in standing x 10 seconds LTG Duration 12 weeks 1 Impairment pelvic floor weakness with MMT of 2/5 for all abreu of the levator ani Core Drilling Supervisor Goal (LTG) Rizwana is able to increase pelvic floor muscle strength by at least one muscle grade for improved support of the bladder. LTG Duration 12 weeks Assessment Summary Assessment endurance holds are improving for Rizwana, time was spent today on breathing in sidelying to help relax the upper abdominal wall and I added in clam shells for Rizwana . She is doing better overall with decreased c/o leakage Physical Therapy Plan Frequency and Duration Frequency of Treatment 1x/Week Duration of treatment (weeks) 12 Plan of Care Start Date 05/15/24 Plan of Care End Date 08/07/24 Therapeutic Interventions Therapeutic Interventions Home Exercise Program, Neuromuscular Re-education, Patient/Caregiver Education, Therapeutic Exercises Modalities Biofeedback,Electric Stimulation Next Visit Focus/Plan Next Note Type Treatment Note Next Visit Plan continue with EMG biofeedback for the pelvic floor working on endurance holds, review hip ER exercise and continue with the breathing work for pelvic floor isolations
--- NOTE | 2024-06-20 10:37 | PT.OTN ---
Current Diagnoses Stress incontinence (female) (male) (06/20/24) Pelvic muscle wasting (06/20/24) Nocturia (06/20/24) Urgency of urination (06/20/24) Physical Therapy Treatment Note PT-OP-A Visit Information Start: 05/15/24 13:39 Freq: Status: Active Protocol: Document 06/20/24 09:48 [facility] (Rec: 06/20/24 10:36 [facility] [id number]) Out-Patient Physical Therapy Visit Information Visit Information Visit Type Treatment Note Visit Start Time 09:45 Visit Stop Time 10:30 Visit Number 5 PT-OP-B Current Condition Start: 05/15/24 13:39 Freq: Status: Active Protocol: Document 05/15/24 13:45 [facility] (Rec: 05/15/24 14:02 [facility] [id number]) Current Condition History of Current Condition Onset Date 3-4 years ago her symptoms began increasing Current Complaints Mixed urinary incontinence S/P InterStim sacral neuromodulator implant History of Current Condition two years ago she had the neuromodulator and it ws working okay but then it seemed to stop working and the leaking got to a point that she is not able to control it Last month The retail tire sales manager had her turn the stimulator off for two weeks which she said was horrible and she was leaking a great amount. They added new programs and she has been on this new program for the past two weeks. She does feel it is helping again some however she is still experiencing severe urgency and leaking frequently. She drinks water and herbal tea no caffiene. She does drink 2 glasses of wine per day. gynological history of 4 vaginal delveries, 2 with epesiotomies ectopic and ovarian cyst removal, hysterectomy with bladder and rectal sling Prior Treatments and Tests symptoms began in childhood leaking with laughter and then as a adult she would leak with skiing if she fell. She has a history of caudia equina in 2018 along with scoliosis and spinal stenosis hx of right foot fusion PT-OP-C Subjective Start: 05/15/24 13:39 Freq: Status: Active Protocol: Document 06/20/24 09:48 [facility] (Rec: 06/20/24 10:36 [facility] [id number]) OP-PT Subjective Patient Comments Patient Comments pt notes she does leak during the night , she wakes up and her pad is wet, she will leak when walking PT-OP-I Pelvic Floor Start: 05/15/24 13:39 Freq: Status: Active Protocol: Document 05/15/24 13:45 [facility] (Rec: 05/15/24 16:14 [facility] [id number]) Pelvic Floor Assessment Urine Pelvic Floor Surgery Yes: hysterectomy, bladder and rectocele repair Urinary Symptoms Urge Sensation,Pain Other Urinary Symptoms mixed urinary incontinence with urgency all throughout the day Leakage Size Large Leakage Cause Cough,Exercise,Lifting,Sneeze, Urge Other Leakage Causes constant leakage at times Leaks Per Day 4 Voiding Frequency over 20xms a day Nocturia 1-2 Urine Pad Type Maxi Pad Pelvic Clock Pelvic Clock 12-3 Atrophy Pelvic Clock 3-6 Atrophy Pelvic Clock 6-9 Atrophy Pelvic Clock 9-12 Atrophy Contraction Ability Voluntary Contraction Weak Voluntary Relaxation Weak Manual Muscle Testing Left 2 Manual Muscle Testing Right 2 Manual Muscle Testing Anterior 2 Manual Muscle Testing Posterior 2 Muscle Endurance (Seconds) 2 Comments Pelvic Floor Comments poor endurance of pelvic floor contractions, pt is only able to sustain a contraction x 1- 2 seconds only PT-OP-Q Treatments Start: 05/15/24 13:39 Freq: Status: Active Protocol: Document 06/20/24 09:48 [facility] (Rec: 06/20/24 10:36 [facility] [id number]) Therapeutic Exercises Supine Exercises quick flicks Reps/Minutes 15 reps templates for eccentric control and coordination Reps/Minutes 5 reps pelvic floor long holds Reps/Minutes x 10 reps holding 10 seconds Comments 7.4 and max of 18.7 uv supine pelvic floor isolation with ball squeeze assist Comments 10.2 and max of 29 Sidelying Exercises clam shells Reps/Minutes 2 x 10 reps PT-OP-T Assessment and Plan Start: 05/15/24 13:39 Freq: Status: Active Protocol: Document 06/20/24 09:48 [facility] (Rec: 06/20/24 10:36 [facility] [id number]) Physical Therapy Assessment Goals 4 Impairment mixed urinary incontinence with leakage 2-4 times per day Sales Operations Specialist Goal (LTG) With a pelvic floor strength and endurance program Rizwana reports a overall reduction of urinary leakage LTG Duration 12 weeks 3 Impairment urinary urgency and frequent voiding over 20 times per day. Short Term Goal (STG) Rizwana is educated on the urge deference technique and bladder retraining STG Duration 4 weeks Sales Operations Specialist Goal (LTG) Rizwana is able to cut down the number of voids per day and is able to void every 2-3 hours during the day LTG Duration 12 weeks 2 Impairment Decreased endurance of the pelvic floor Short Term Goal (STG) Rizwana is able to sustain a pelvic floor contraction in supine x 10 seconds STG Duration 5 weeks Half-Way Goal (LTG) Rizwana is able to sustain a pelvic floor contraction in standing x 10 seconds LTG Duration 12 weeks 1 Impairment pelvic floor weakness with MMT of 2/5 for all abreu of the levator ani Sales Operations Specialist Goal (LTG) Rizwana is able to increase pelvic floor muscle strength by at least one muscle grade for improved support of the bladder. LTG Duration 12 weeks Assessment Summary Assessment Rizwana was introduced to eccentric control and coordination with templates and she did well with this. Endurance is improving however it is better with adductor assist for her. Physical Therapy Plan Frequency and Duration Frequency of Treatment 1x/Week Duration of treatment (weeks) 12 Plan of Care Start Date 05/15/24 Plan of Care End Date 08/07/24 Therapeutic Interventions Therapeutic Interventions Home Exercise Program, Neuromuscular Re-education, Patient/Caregiver Education, Therapeutic Exercises Modalities Biofeedback,Electric Stimulation Next Visit Focus/Plan Next Note Type Treatment Note Next Visit Plan Rizwana has one visit left in PT and then she will be discharged to a HEP
--- NOTE | 2024-08-02 13:43 | PT.OTN ---
Current Diagnoses Stress incontinence (female) (male) (08/02/24) Pelvic muscle wasting (08/02/24) Nocturia (08/02/24) Urgency of urination (08/02/24) Physical Therapy Treatment Note PT-OP-A Visit Information Start: 05/15/24 13:39 Freq: Status: Active Protocol: Document 08/02/24 10:48 [facility] (Rec: 08/02/24 11:30 [facility] [id number]) Out-Patient Physical Therapy Visit Information Visit Information Visit Type Treatment Note Visit Start Time 10:47 Visit Stop Time 11:30 Visit Number 6 PT-OP-B Current Condition Start: 05/15/24 13:39 Freq: Status: Active Protocol: Document 05/15/24 13:45 [facility] (Rec: 05/15/24 14:02 [facility] [id number]) Current Condition History of Current Condition Onset Date 3-4 years ago her symptoms began increasing Current Complaints Mixed urinary incontinence S/P InterStim sacral neuromodulator implant History of Current Condition two years ago she had the neuromodulator and it ws working okay but then it seemed to stop working and the leaking got to a point that she is not able to control it Last month The outbound sales agent had her turn the stimulator off for two weeks which she said was horrible and she was leaking a great amount. They added new programs and she has been on this new program for the past two weeks. She does feel it is helping again some however she is still experiencing severe urgency and leaking frequently. She drinks water and herbal tea no caffiene. She does drink 2 glasses of wine per day. gynological history of 4 vaginal delveries, 2 with epesiotomies ectopic and ovarian cyst removal, hysterectomy with bladder and rectal sling Prior Treatments and Tests symptoms began in childhood leaking with laughter and then as a adult she would leak with skiing if she fell. She has a history of caudia equina in 2018 along with scoliosis and spinal stenosis hx of right foot fusion PT-OP-C Subjective Start: 05/15/24 13:39 Freq: Status: Active Protocol: Document 08/02/24 10:48 [facility] (Rec: 08/02/24 11:30 [facility] [id number]) OP-PT Subjective Patient Comments Patient Comments pt notes she will be standing and all of a sudden it just leaks She took a trip to [place] and she had a hard time on the [employer] walking. She was okay on her trip without leakage but since then her symptoms have gone down hill. She came back sick with GI issues and was exhausted and still feels exhausted. PT-OP-I Pelvic Floor Start: 05/15/24 13:39 Freq: Status: Active Protocol: Document 05/15/24 13:45 [facility] (Rec: 05/15/24 16:14 [facility] [id number]) Pelvic Floor Assessment Urine Pelvic Floor Surgery Yes: hysterectomy, bladder and rectocele repair Urinary Symptoms Urge Sensation,Pain Other Urinary Symptoms mixed urinary incontinence with urgency all throughout the day Leakage Size Large Leakage Cause Cough,Exercise,Lifting,Sneeze, Urge Other Leakage Causes constant leakage at times Leaks Per Day 4 Voiding Frequency over 20xms a day Nocturia 1-2 Urine Pad Type Maxi Pad Pelvic Clock Pelvic Clock 12-3 Atrophy Pelvic Clock 3-6 Atrophy Pelvic Clock 6-9 Atrophy Pelvic Clock 9-12 Atrophy Contraction Ability Voluntary Contraction Weak Voluntary Relaxation Weak Manual Muscle Testing Left 2 Manual Muscle Testing Right 2 Manual Muscle Testing Anterior 2 Manual Muscle Testing Posterior 2 Muscle Endurance (Seconds) 2 Comments Pelvic Floor Comments poor endurance of pelvic floor contractions, pt is only able to sustain a contraction x 1- 2 seconds only PT-OP-Q Treatments Start: 05/15/24 13:39 Freq: Status: Active Protocol: Document 08/02/24 10:48 [facility] (Rec: 08/02/24 11:30 [facility] [id number]) Therapeutic Exercises Supine Exercises quick flicks Reps/Minutes 15 reps hip abduction with theraband Reps/Minutes 2 x 10 reps pelvic floor long holds Reps/Minutes x 10 reps holding 10 seconds Comments 6.2 uv max 12.1 supine pelvic floor isolation with ball squeeze assist Reps/Minutes 10 reps PT-OP-T Assessment and Plan Start: 05/15/24 13:39 Freq: Status: Active Protocol: Document 08/02/24 10:48 [facility] (Rec: 08/02/24 11:30 [facility] [id number]) Physical Therapy Assessment Goals 4 Impairment mixed urinary incontinence with leakage 2-4 times per day Resource Center Teacher Goal (LTG) With a pelvic floor strength and endurance program Rizwana reports a overall reduction of urinary leakage some progress LTG Duration 12 weeks 3 Impairment urinary urgency and frequent voiding over 20 times per day. Short Term Goal (STG) Rizwana is educated on the urge deference technique and bladder retraining goal met STG Duration 4 weeks [facility] Goal (LTG) Rizwana is able to cut down the number of voids per day and is able to void every 2-3 hours during the day good progress LTG Duration 12 weeks 2 Impairment Decreased endurance of the pelvic floor Short Term Goal (STG) Rizwana is able to sustain a pelvic floor contraction in supine x 10 seconds good progress STG Duration 5 weeks [facility] Goal (LTG) Rizwana is able to sustain a pelvic floor contraction in standing x 10 seconds goal not yet met LTG Duration 12 weeks 1 Impairment pelvic floor weakness with MMT of 2/5 for all abreu of the levator ani Resource Center Teacher Goal (LTG) Rizwana is able to increase pelvic floor muscle strength by at least one muscle grade for improved support of the bladder. some progress LTG Duration 12 weeks Assessment Summary Assessment Rizwana returns to PT after not being seen since 06/20/24 due to traveling. She did do really well traveling and did not notice much leakage. She notes since she had been home she has been very fatigued and did have gastrointenstional upset. She was weaker with her pelvic floor muscle contractions today as compared to last visit in June. Rizwana would benefit from continued PT. Physical Therapy Plan Frequency and Duration Frequency of Treatment 1x/Week Duration of treatment (weeks) 12 Plan of Care Start Date 08/02/24 Plan of Care End Date 10/25/24 Therapeutic Interventions Therapeutic Interventions Home Exercise Program, Neuromuscular Re-education, Patient/Caregiver Education, Therapeutic Exercises Modalities Biofeedback,Electric Stimulation Next Visit Focus/Plan Next Note Type Treatment Note Next Visit Plan continue PT for pelvic floor endurance training and strengthening
--- NOTE | 2024-08-02 13:43 | PT.OPPOC ---
Physical, Occupational & Speech Therapy At [facility] Current Diagnoses Stress incontinence (female) (male) (08/02/24) Pelvic muscle wasting (08/02/24) Nocturia (08/02/24) Urgency of urination (08/02/24) Visit Care Team Role Provider Type Laurence Lane PA-C Family Provider Advanced Wardrobe Manager Primary Care Provider Specialty: Medical Address: [address] [place] [address], [id number] Email: Milagros Tello PA-C Attending Provider Non-Staff Referring Provider Specialty: Medical Address: [address] [place], [address] Email: Plan Of Care PT-OP-B Current Condition Start: 05/15/24 13:39 Freq: Status: Active Protocol: Document 05/15/24 13:45 [facility] (Rec: 05/15/24 14:02 [facility] [id number]) Current Condition History of Current Condition Onset Date 3-4 years ago her symptoms began increasing Current Complaints Mixed urinary incontinence S/P InterStim sacral neuromodulator implant History of Current Condition two years ago she had the neuromodulator and it ws working okay but then it seemed to stop working and the leaking got to a point that she is not able to control it Last month The membership sales representative had her turn the stimulator off for two weeks which she said was horrible and she was leaking a great amount. They added new programs and she has been on this new program for the past two weeks. She does feel it is helping again some however she is still experiencing severe urgency and leaking frequently. She drinks water and herbal tea no caffiene. She does drink 2 glasses of wine per day. gynological history of 4 vaginal delveries, 2 with epesiotomies ectopic and ovarian cyst removal, hysterectomy with bladder and rectal sling Prior Treatments and Tests symptoms began in childhood leaking with laughter and then as a adult she would leak with skiing if she fell. She has a history of caudia equina in 2018 along with scoliosis and spinal stenosis hx of right foot fusion PT-OP-T Assessment and Plan Start: 05/15/24 13:39 Freq: Status: Active Protocol: Document 08/02/24 10:48 [facility] (Rec: 08/02/24 11:30 [facility] [id number]) Physical Therapy Assessment Goals 4 Impairment mixed urinary incontinence with leakage 2-4 times per day Senior Care Goal (LTG) With a pelvic floor strength and endurance program Rizwana reports a overall reduction of urinary leakage some progress LTG Duration 12 weeks 3 Impairment urinary urgency and frequent voiding over 20 times per day. Short Term Goal (STG) Rizwana is educated on the urge deference technique and bladder retraining goal met STG Duration 4 weeks Telegraph Equipment Maintainer Goal (LTG) Rizwana is able to cut down the number of voids per day and is able to void every 2-3 hours during the day good progress LTG Duration 12 weeks 2 Impairment Decreased endurance of the pelvic floor Short Term Goal (STG) Rizwana is able to sustain a pelvic floor contraction in supine x 10 seconds good progress STG Duration 5 weeks Telegraph Equipment Maintainer Goal (LTG) Rizwana is able to sustain a pelvic floor contraction in standing x 10 seconds goal not yet met LTG Duration 12 weeks 1 Impairment pelvic floor weakness with MMT of 2/5 for all abreu of the levator ani Senior Care Goal (LTG) Rizwana is able to increase pelvic floor muscle strength by at least one muscle grade for improved support of the bladder. some progress LTG Duration 12 weeks Assessment Summary Assessment Rizwana returns to PT after not being seen since 06/20/24 due to traveling. She did do really well traveling and did not notice much leakage. She notes since she had been home she has been very fatigued and did have gastrointenstional upset. She was weaker with her pelvic floor muscle contractions today as compared to last visit in June. Rizwana would benefit from continued PT. Physical Therapy Plan Frequency and Duration Frequency of Treatment 1x/Week Duration of treatment (weeks) 12 Plan of Care Start Date 08/02/24 Plan of Care End Date 10/25/24 Therapeutic Interventions Therapeutic Interventions Home Exercise Program, Neuromuscular Re-education, Patient/Caregiver Education, Therapeutic Exercises Modalities Biofeedback,Electric Stimulation Next Visit Focus/Plan Next Note Type Treatment Note Next Visit Plan continue PT for pelvic floor endurance training and strengthening Plan of Care Dates Plan of Care Start Date 08/02/24 Plan of Care End Date 10/25/24 Electronically Signed by: Sammi Villalba, PT 08/02/24 1343 If you are in agreement with this Plan of Care, please return a signed and dated copy. I have reviewed this Plan of Care and certify that the skilled therapy services above are required to meet the patient?s needs. Physician Signature Date Printed Name and Credentials Clinical Instructor Signature Printed Name and Credentials
--- NOTE | 2024-08-09 14:53 | PT.OTN ---
Current Diagnoses Stress incontinence (female) (male) (08/09/24) Pelvic muscle wasting (08/09/24) Nocturia (08/09/24) Urgency of urination (08/09/24) Physical Therapy Treatment Note PT-OP-A Visit Information Start: 05/15/24 13:39 Freq: Status: Active Protocol: Document 08/09/24 10:44 [facility] (Rec: 08/09/24 11:32 [facility] [id number]) Out-Patient Physical Therapy Visit Information Visit Information Visit Type Treatment Note Visit Start Time 10:45 Visit Stop Time 11:30 Visit Number 7 PT-OP-B Current Condition Start: 05/15/24 13:39 Freq: Status: Active Protocol: Document 05/15/24 13:45 [facility] (Rec: 05/15/24 14:02 [facility] [id number]) Current Condition History of Current Condition Onset Date 3-4 years ago her symptoms began increasing Current Complaints Mixed urinary incontinence S/P InterStim sacral neuromodulator implant History of Current Condition two years ago she had the neuromodulator and it ws working okay but then it seemed to stop working and the leaking got to a point that she is not able to control it Last month The golf sales associate had her turn the stimulator off for two weeks which she said was horrible and she was leaking a great amount. They added new programs and she has been on this new program for the past two weeks. She does feel it is helping again some however she is still experiencing severe urgency and leaking frequently. She drinks water and herbal tea no caffiene. She does drink 2 glasses of wine per day. gynological history of 4 vaginal delveries, 2 with epesiotomies ectopic and ovarian cyst removal, hysterectomy with bladder and rectal sling Prior Treatments and Tests symptoms began in childhood leaking with laughter and then as a adult she would leak with skiing if she fell. She has a history of caudia equina in 2018 along with scoliosis and spinal stenosis hx of right foot fusion PT-OP-C Subjective Start: 05/15/24 13:39 Freq: Status: Active Protocol: Document 08/09/24 10:44 [facility] (Rec: 08/09/24 11:32 [facility] [id number]) OP-PT Subjective Patient Comments Patient Comments pt notes she feels that her GI system is still upset She has pain near her heart as well that she had after her esphoagus surgery Sep 06 She has been noticing when she is at the kitchen counter washing dishes that she has been leaking PT-OP-I Pelvic Floor Start: 05/15/24 13:39 Freq: Status: Active Protocol: Document 05/15/24 13:45 [facility] (Rec: 05/15/24 16:14 [facility] [id number]) Pelvic Floor Assessment Urine Pelvic Floor Surgery Yes: hysterectomy, bladder and rectocele repair Urinary Symptoms Urge Sensation,Pain Other Urinary Symptoms mixed urinary incontinence with urgency all throughout the day Leakage Size Large Leakage Cause Cough,Exercise,Lifting,Sneeze, Urge Other Leakage Causes constant leakage at times Leaks Per Day 4 Voiding Frequency over 20xms a day Nocturia 1-2 Urine Pad Type Maxi Pad Pelvic Clock Pelvic Clock 12-3 Atrophy Pelvic Clock 3-6 Atrophy Pelvic Clock 6-9 Atrophy Pelvic Clock 9-12 Atrophy Contraction Ability Voluntary Contraction Weak Voluntary Relaxation Weak Manual Muscle Testing Left 2 Manual Muscle Testing Right 2 Manual Muscle Testing Anterior 2 Manual Muscle Testing Posterior 2 Muscle Endurance (Seconds) 2 Comments Pelvic Floor Comments poor endurance of pelvic floor contractions, pt is only able to sustain a contraction x 1- 2 seconds only PT-OP-Q Treatments Start: 05/15/24 13:39 Freq: Status: Active Protocol: Document 08/09/24 10:44 [facility] (Rec: 08/09/24 11:32 [facility] [id number]) Therapeutic Exercises Supine Exercises quick flicks Reps/Minutes 15 reps templates for eccentric control and coordination Reps/Minutes 5 min hip abduction with theraband Reps/Minutes 2 x 10 reps pelvic floor long holds Reps/Minutes x 10 reps holding 10 seconds Comments 6.2 uv and max of 18.2 supine pelvic floor isolation with ball squeeze assist Side bilateral Reps/Minutes 10 reps Comments 10.4 and 18.1 modified squat stretch for the pelvic floor Supine Exercise Name HEP Sidelying Exercises diaphragmatic breathing Sidelying Exercise Name working to relax the upper abdominal wall Reps/Minutes x 8 reps clam shells Reps/Minutes 2 x 10 reps PT-OP-T Assessment and Plan Start: 05/15/24 13:39 Freq: Status: Active Protocol: Document 08/09/24 10:44 [facility] (Rec: 08/09/24 11:32 [facility] [id number]) Physical Therapy Assessment Assessment Summary Assessment Rizwana was more fatigued today with her pelvic floor and her endurance was limited as compared to last couple of visits. We did talk about changing the setting on her interstim to see if that would help Physical Therapy Plan Frequency and Duration Frequency of Treatment 1x/Week Duration of treatment (weeks) 12 Plan of Care Start Date 08/02/24 Plan of Care End Date 10/25/24 Therapeutic Interventions Therapeutic Interventions Home Exercise Program, Neuromuscular Re-education, Patient/Caregiver Education, Therapeutic Exercises Modalities Biofeedback,Electric Stimulation Next Visit Focus/Plan Next Note Type Treatment Note Next Visit Plan continue PT for pelvic floor endurance training and strengthening
--- NOTE | 2024-09-12 12:27 | PT.OTN ---
Current Diagnoses Stress incontinence (female) (male) (09/12/24) Pelvic muscle wasting (09/12/24) Nocturia (09/12/24) Urgency of urination (09/12/24) Physical Therapy Treatment Note PT-OP-A Visit Information Start: 05/15/24 13:39 Freq: Status: Active Protocol: Document 09/12/24 10:50 [facility] (Rec: 09/12/24 11:28 [facility] [id number]) Out-Patient Physical Therapy Visit Information Visit Information Visit Type Progress Note Visit Start Time 10:50 Visit Stop Time 11:30 Visit Number 8 PT-OP-B Current Condition Start: 05/15/24 13:39 Freq: Status: Active Protocol: Document 05/15/24 13:45 [facility] (Rec: 05/15/24 14:02 [facility] [id number]) Current Condition History of Current Condition Onset Date 3-4 years ago her symptoms began increasing Current Complaints Mixed urinary incontinence S/P InterStim sacral neuromodulator implant History of Current Condition two years ago she had the neuromodulator and it ws working okay but then it seemed to stop working and the leaking got to a point that she is not able to control it Last month The sales assistant institutional sales had her turn the stimulator off for two weeks which she said was horrible and she was leaking a great amount. They added new programs and she has been on this new program for the past two weeks. She does feel it is helping again some however she is still experiencing severe urgency and leaking frequently. She drinks water and herbal tea no caffiene. She does drink 2 glasses of wine per day. gynological history of 4 vaginal delveries, 2 with epesiotomies ectopic and ovarian cyst removal, hysterectomy with bladder and rectal sling Prior Treatments and Tests symptoms began in childhood leaking with laughter and then as a adult she would leak with skiing if she fell. She has a history of caudia equina in 2018 along with scoliosis and spinal stenosis hx of right foot fusion PT-OP-C Subjective Start: 05/15/24 13:39 Freq: Status: Active Protocol: Document 09/12/24 10:50 [facility] (Rec: 09/12/24 11:28 [facility] [id number]) OP-PT Subjective Patient Comments Patient Comments Thalia reports she went on a cruise and got very sick. She has been sick the past three weeks and feels very weak. Urinary urgency and leakage symptoms have decreased. Patient Reported Progress Improving PT-OP-I Pelvic Floor Start: 05/15/24 13:39 Freq: Status: Active Protocol: Document 05/15/24 13:45 [facility] (Rec: 05/15/24 16:14 [facility] [id number]) Pelvic Floor Assessment Urine Pelvic Floor Surgery Yes: hysterectomy, bladder and rectocele repair Urinary Symptoms Urge Sensation,Pain Other Urinary Symptoms mixed urinary incontinence with urgency all throughout the day Leakage Size Large Leakage Cause Cough,Exercise,Lifting,Sneeze, Urge Other Leakage Causes constant leakage at times Leaks Per Day 4 Voiding Frequency over 20xms a day Nocturia 1-2 Urine Pad Type Maxi Pad Pelvic Clock Pelvic Clock 12-3 Atrophy Pelvic Clock 3-6 Atrophy Pelvic Clock 6-9 Atrophy Pelvic Clock 9-12 Atrophy Contraction Ability Voluntary Contraction Weak Voluntary Relaxation Weak Manual Muscle Testing Left 2 Manual Muscle Testing Right 2 Manual Muscle Testing Anterior 2 Manual Muscle Testing Posterior 2 Muscle Endurance (Seconds) 2 Comments Pelvic Floor Comments poor endurance of pelvic floor contractions, pt is only able to sustain a contraction x 1- 2 seconds only PT-OP-Q Treatments Start: 05/15/24 13:39 Freq: Status: Active Protocol: Document 09/12/24 10:50 [facility] (Rec: 09/12/24 11:28 [facility] [id number]) Therapeutic Exercises Supine Exercises quick flicks Reps/Minutes 15 reps Comments 17 uv max templates for eccentric control and coordination Reps/Minutes 5 min hip abduction with theraband Reps/Minutes 2 x 10 reps pelvic floor long holds Reps/Minutes x 10 reps holding 10 seconds Comments 6.1 and 14.7 supine pelvic floor isolation with ball squeeze assist Side bilateral Reps/Minutes 10 reps Comments 11.8 average and max of 26 modified squat stretch for the pelvic floor Supine Exercise Name HEP Sidelying Exercises diaphragmatic breathing Sidelying Exercise Name working to relax the upper abdominal wall Reps/Minutes x 8 reps clam shells Reps/Minutes 2 x 10 reps PT-OP-T Assessment and Plan Start: 05/15/24 13:39 Freq: Status: Active Protocol: Document 09/12/24 10:50 [facility] (Rec: 09/12/24 11:28 [facility] [id number]) Physical Therapy Assessment Goals 4 Impairment mixed urinary incontinence with leakage 2-4 times per day Account Relationship Manager Goal (LTG) With a pelvic floor strength and endurance program Thalia reports a overall reduction of urinary leakage Thalia notes she has made progress and leakage has decreased LTG Duration 12 weeks 3 Impairment urinary urgency and frequent voiding over 20 times per day. Short Term Goal (STG) Thalia is educated on the urge deference technique and bladder retraining goal met STG Duration 4 weeks Jail Goal (LTG) Thalia is able to cut down the number of voids per day and is able to void every 2-3 hours during the day good progress and thalia is able to void every 3 hours LTG Duration 12 weeks 2 Impairment Decreased endurance of the pelvic floor Short Term Goal (STG) Thalia is able to sustain a pelvic floor contraction in supine x 10 seconds good progress STG Duration 5 weeks Jail Goal (LTG) Thalia is able to sustain a pelvic floor contraction in standing x 10 seconds goal not yet met LTG Duration 12 weeks 1 Impairment pelvic floor weakness with MMT of 2/5 for all abreu of the levator ani Jail Goal (LTG) Thalia is able to increase pelvic floor muscle strength by at least one muscle grade for improved support of the bladder. some progress LTG Duration 12 weeks Assessment Summary Assessment Thalia has been progressing well with her pelvic floor program. She has not been seen for a month as she was on vacation and then ended up getting really sick. She returns today and her pelvic floor endurance is still showing good improvements. She is noting overall decreased urgency and notes her leakage has been reduced. She has 2 visits left in PT and will then be discharged to a [facility] Physical Therapy Plan Frequency and Duration Frequency of Treatment 1x/Week Duration of treatment (weeks) 6 Plan of Care Start Date 09/12/24 Plan of Care End Date 10/31/24 Therapeutic Interventions Therapeutic Interventions Home Exercise Program, Neuromuscular Re-education, Patient/Caregiver Education, Therapeutic Exercises Modalities Biofeedback,Electric Stimulation Next Visit Focus/Plan Next Note Type Treatment Note Next Visit Plan continue PT for pelvic floor endurance training and strengthening
--- NOTE | 2024-09-20 14:33 | PT.OTN ---
Current Diagnoses Stress incontinence (female) (male) (09/20/24) Pelvic muscle wasting (09/20/24) Nocturia (09/20/24) Urgency of urination (09/20/24) Physical Therapy Treatment Note PT-OP-A Visit Information Start: 05/15/24 13:39 Freq: Status: Active Protocol: Document 09/20/24 14:32 [facility] (Rec: 09/20/24 14:33 [facility] [id number]) Out-Patient Physical Therapy Visit Information Visit Information Visit Type Treatment Note Visit Start Time 13:45 Visit Stop Time 14:25 Visit Number 9 PT-OP-B Current Condition Start: 05/15/24 13:39 Freq: Status: Active Protocol: Document 05/15/24 13:45 [facility] (Rec: 05/15/24 14:02 [facility] [id number]) Current Condition History of Current Condition Onset Date 3-4 years ago her symptoms began increasing Current Complaints Mixed urinary incontinence S/P InterStim sacral neuromodulator implant History of Current Condition two years ago she had the neuromodulator and it ws working okay but then it seemed to stop working and the leaking got to a point that she is not able to control it Last month The party plan sales host/hostess had her turn the stimulator off for two weeks which she said was horrible and she was leaking a great amount. They added new programs and she has been on this new program for the past two weeks. She does feel it is helping again some however she is still experiencing severe urgency and leaking frequently. She drinks water and herbal tea no caffiene. She does drink 2 glasses of wine per day. gynological history of 4 vaginal delveries, 2 with epesiotomies ectopic and ovarian cyst removal, hysterectomy with bladder and rectal sling Prior Treatments and Tests symptoms began in childhood leaking with laughter and then as a adult she would leak with skiing if she fell. She has a history of caudia equina in 2018 along with scoliosis and spinal stenosis hx of right foot fusion PT-OP-C Subjective Start: 05/15/24 13:39 Freq: Status: Active Protocol: Document 09/20/24 13:50 [facility] (Rec: 09/20/24 14:32 [facility] [id number]) OP-PT Subjective Patient Comments Patient Comments pt feels like her pelvic floor is doing well and she has been focusing on hamstring stretches and she feels it made a difference She did notice a leak with walking yesterday. PT-OP-I Pelvic Floor Start: 05/15/24 13:39 Freq: Status: Active Protocol: Document 05/15/24 13:45 [facility] (Rec: 05/15/24 16:14 [facility] [id number]) Pelvic Floor Assessment Urine Pelvic Floor Surgery Yes: hysterectomy, bladder and rectocele repair Urinary Symptoms Urge Sensation,Pain Other Urinary Symptoms mixed urinary incontinence with urgency all throughout the day Leakage Size Large Leakage Cause Cough,Exercise,Lifting,Sneeze, Urge Other Leakage Causes constant leakage at times Leaks Per Day 4 Voiding Frequency over 20xms a day Nocturia 1-2 Urine Pad Type Maxi Pad Pelvic Clock Pelvic Clock 12-3 Atrophy Pelvic Clock 3-6 Atrophy Pelvic Clock 6-9 Atrophy Pelvic Clock 9-12 Atrophy Contraction Ability Voluntary Contraction Weak Voluntary Relaxation Weak Manual Muscle Testing Left 2 Manual Muscle Testing Right 2 Manual Muscle Testing Anterior 2 Manual Muscle Testing Posterior 2 Muscle Endurance (Seconds) 2 Comments Pelvic Floor Comments poor endurance of pelvic floor contractions, pt is only able to sustain a contraction x 1- 2 seconds only PT-OP-Q Treatments Start: 05/15/24 13:39 Freq: Status: Active Protocol: Document 09/20/24 13:50 [facility] (Rec: 09/20/24 14:32 [facility] [id number]) Therapeutic Exercises Supine Exercises quick flicks Reps/Minutes 15 Comments 23.6 templates for eccentric control and coordination Reps/Minutes 5 min hip abduction with theraband Reps/Minutes 2 x 10 reps pelvic floor long holds Reps/Minutes x 10 reps holding 10 seconds Comments 14.3 average and max 26.2 supine pelvic floor isolation with ball squeeze assist Reps/Minutes 10 reps Comments 16 average and 31 max contractions PT-OP-T Assessment and Plan Start: 05/15/24 13:39 Freq: Status: Active Protocol: Document 09/20/24 13:50 [facility] (Rec: 09/20/24 14:32 [facility] [id number]) Physical Therapy Assessment Assessment Summary Assessment Rizwana is doing really well and her average for pelvic floor endurance was improved today. She has one visit left prior to DC Physical Therapy Plan Frequency and Duration Frequency of Treatment 1x/Week Duration of treatment (weeks) 6 Plan of Care Start Date 09/12/24 Plan of Care End Date 04/16/25 Therapeutic Interventions Therapeutic Interventions Home Exercise Program, Neuromuscular Re-education, Patient/Caregiver Education, Therapeutic Exercises Modalities Biofeedback,Electric Stimulation Next Visit Focus/Plan Next Note Type Treatment Note Next Visit Plan continue PT for pelvic floor endurance training and strengthening
--- NOTE | 2024-09-26 12:37 | PT.OTN ---
Current Diagnoses Stress incontinence (female) (male) (09/26/24) Pelvic muscle wasting (09/26/24) Nocturia (09/26/24) Urgency of urination (09/26/24) Physical Therapy Treatment Note PT-OP-A Visit Information Start: 05/15/24 13:39 Freq: Status: Active Protocol: Document 09/26/24 11:36 [facility] (Rec: 09/26/24 12:21 [facility] [id number]) Out-Patient Physical Therapy Visit Information Visit Information Visit Type Treatment Note Visit Start Time 11:35 Visit Stop Time 12:20 Visit Number 10 PT-OP-B Current Condition Start: 05/15/24 13:39 Freq: Status: Active Protocol: Document 05/15/24 13:45 [facility] (Rec: 05/15/24 14:02 [facility] [id number]) Current Condition History of Current Condition Onset Date 3-4 years ago her symptoms began increasing Current Complaints Mixed urinary incontinence S/P InterStim sacral neuromodulator implant History of Current Condition two years ago she had the neuromodulator and it ws working okay but then it seemed to stop working and the leaking got to a point that she is not able to control it Last month The senior sales director had her turn the stimulator off for two weeks which she said was horrible and she was leaking a great amount. They added new programs and she has been on this new program for the past two weeks. She does feel it is helping again some however she is still experiencing severe urgency and leaking frequently. She drinks water and herbal tea no caffiene. She does drink 2 glasses of wine per day. gynological history of 4 vaginal delveries, 2 with epesiotomies ectopic and ovarian cyst removal, hysterectomy with bladder and rectal sling Prior Treatments and Tests symptoms began in childhood leaking with laughter and then as a adult she would leak with skiing if she fell. She has a history of caudia equina in 2018 along with scoliosis and spinal stenosis hx of right foot fusion PT-OP-C Subjective Start: 05/15/24 13:39 Freq: Status: Active Protocol: Document 09/26/24 11:36 [facility] (Rec: 09/26/24 12:21 [facility] [id number]) OP-PT Subjective Patient Comments Patient Comments pt continues to work on stretching her hamstrings PT-OP-I Pelvic Floor Start: 05/15/24 13:39 Freq: Status: Active Protocol: Document 05/15/24 13:45 [facility] (Rec: 05/15/24 16:14 [facility] [id number]) Pelvic Floor Assessment Urine Pelvic Floor Surgery Yes: hysterectomy, bladder and rectocele repair Urinary Symptoms Urge Sensation,Pain Other Urinary Symptoms mixed urinary incontinence with urgency all throughout the day Leakage Size Large Leakage Cause Cough,Exercise,Lifting,Sneeze, Urge Other Leakage Causes constant leakage at times Leaks Per Day 4 Voiding Frequency over 20xms a day Nocturia 1-2 Urine Pad Type Maxi Pad Pelvic Clock Pelvic Clock 12-3 Atrophy Pelvic Clock 3-6 Atrophy Pelvic Clock 6-9 Atrophy Pelvic Clock 9-12 Atrophy Contraction Ability Voluntary Contraction Weak Voluntary Relaxation Weak Manual Muscle Testing Left 2 Manual Muscle Testing Right 2 Manual Muscle Testing Anterior 2 Manual Muscle Testing Posterior 2 Muscle Endurance (Seconds) 2 Comments Pelvic Floor Comments poor endurance of pelvic floor contractions, pt is only able to sustain a contraction x 1- 2 seconds only PT-OP-Q Treatments Start: 05/15/24 13:39 Freq: Status: Active Protocol: Document 09/26/24 11:36 [facility] (Rec: 09/26/24 12:21 [facility] [id number]) Therapeutic Exercises Supine Exercises quick flicks Reps/Minutes 15 Comments 23.6 hip abduction with theraband Reps/Minutes 2 x 10 reps pelvic floor long holds Reps/Minutes x 10 reps holding 10 seconds Comments 9.1 with max of 22.1 supine pelvic floor isolation with ball squeeze assist Comments 11.0 21.6 uv max PT-OP-T Assessment and Plan Start: 05/15/24 13:39 Freq: Status: Active Protocol: Document 09/26/24 11:36 [facility] (Rec: 09/26/24 12:21 [facility] [id number]) Physical Therapy Assessment Goals 4 Impairment mixed urinary incontinence with leakage 2-4 times per day Consumer Loan Officer Goal (LTG) With a pelvic floor strength and endurance program Thalia reports a overall reduction of urinary leakage Thalia notes she has made progress and leakage has decreased LTG Duration 12 weeks 3 Impairment urinary urgency and frequent voiding over 20 times per day. Short Term Goal (STG) Thalia is educated on the urge deference technique and bladder retraining goal met STG Duration 4 weeks Consumer Loan Officer Goal (LTG) Thalia is able to cut down the number of voids per day and is able to void every 2-3 hours during the day good progress and thalia is able to void every 3 hours LTG Duration 12 weeks 2 Impairment Decreased endurance of the pelvic floor Short Term Goal (STG) Thalia is able to sustain a pelvic floor contraction in supine x 10 seconds goal met STG Duration 5 weeks [facility] Goal (LTG) Thalia is able to sustain a pelvic floor contraction in standing x 10 seconds goal not yet met LTG Duration 12 weeks 1 Impairment pelvic floor weakness with MMT of 2/5 for all abreu of the levator ani [facility] Goal (LTG) Thalia is able to increase pelvic floor muscle strength by at least one muscle grade for improved support of the bladder. good progress LTG Duration 12 weeks Assessment Summary Assessment Thalia has made great overall progress with PT. She notes overall decreased urinary urgency and decreased urinary leakage. She is independent with her HEP at this time and will be discharged to a [facility] Physical Therapy Plan Discharge Physical Therapy Discharge Comments Excellent progress towards goals
== END 2024-09-27 08:56 | disposition home or self-care (01) ==
LOC: PHYS 11:30
PROVIDERS: Family Provider Physician Assistant; PCP Physician Assistant; Referring Provider Physician Assistant Medical; Visit Provider Physician Assistant Medical
DX: N39.3 Stress incontinence (female) (male) (principal); N81.84 Pelvic muscle wasting; R39.15 Urgency of urination; R35.1 Nocturia
CPT/HCPCS: 97110; 97161; 97535

== ENCOUNTER → 2024-11-05 | Outpatient (CLI) | payer MEDICARE, OTHER, SELFPAY ==
[2022-08-10 18:39] VITALS: BMI 19.1
--- NOTE | 2024-11-05 13:36 | DI.MRI.S_ITS ---
PROCEDURE: MR HEAD/BRAIN WO/W CON INDICATIONS: dizziness and disequilibrium TECHNIQUE: Noncontrast axial T1 spin echo, axial T2 fast spin echo, sagittal and axial FLAIR, coronal T2 fast spin echo, axial gradient echo, axial diffusion and ADC through the brain. After the administration of contrast, axial and coronal and sagittal T1 spin echo with fat saturation through the brain. COMPARISON: [facility], MR, MR HEAD/BRAIN WO CON, 08/10/2022, 14:35. [facility], CT, CT ANGIO HEAD AND NECK, 08/20/2024, 15:32. [facility], CT, CT HEAD/BRAIN WO CON, 08/20/2024, 14:27. FINDINGS: Image quality: Diagnostic, with note made of motion artifact. CSF spaces: Basal cisterns are patent. No extra-axial fluid collections. Ventricles are normal in size and shape. Brain: No midline shift. No intracranial bleeds or masses. No abnormal intracranial enhancement. There is cerebral volume loss for age. There is periventricular white matter chronic small vessel ischemic change. The brainstem appears normal. Diffusion-weighted images demonstrate no acute infarct. No chronic ischemic insults. Normal intravascular flow voids are present. In this patient with this given history, scrutiny is given to cerebellopontine angle cisterns and to the internal auditory canals. To the limits of this standard protocol study, no masses or abnormal enhancement can be seen within these regions. Skull and face: Calvarial marrow is normal in signal. Orbits appear normal. Note is made of bilateral lens replacements. Sinuses: Mild mucosal thickening can be seen within the inferior left maxillary sinus. Sinuses and mastoids otherwise appear clear. IMPRESSION: No imaging explanation is found for this patient's presenting symptoms. No masses or abnormal enhancement can be seen. Dictated by: Sky Metcalf M.D. on 11/05/2024 at 16:46 Approved by: Sky Metcalf M.D. on 11/05/2024 at 16:48
== END ==
PROVIDERS: Family Provider Physician Assistant; PCP Physician Assistant; Referring Provider Otolaryngology; Visit Provider Otolaryngology
DX: R42 Dizziness and giddiness (principal)
CPT/HCPCS: 70553; A9579

== ENCOUNTER 2025-01-22 15:27 | Emergency (ER) | payer MEDICARE, OTHER, SELFPAY ==
[2022-08-10 18:39] VITALS: BMI 19.1
[2025-01-22] VITALS (12 sets, daily range): BP systolic 131–182; BP diastolic 72–96; PULSE 60–80; RESP 16; TEMP 36.7–36.9; O2SAT 95–100; BMI 18.0
--- NOTE | 2025-01-22 20:34 | PC.NURSE ---
Patient c/o on-going numbness to BLE, R>L for weeks, and getting worse. Patient seen by neurologist and states baclofen helped for 2 days and then numbness returned. Patient states neurologist ordered MRI and she has been unable to drive to appt due to weakness. Patient c/o trouble sleeping and weakness. Patient c/o dizzines and states I've had dizziness for years.
--- NOTE | 2025-01-22 21:07 | ED_ITS ---
HPI - Neuro Symptoms/Deficit General Chief Complaint: Neuro Symptoms/Deficit Stated Complaint: Numbness/tingling down both legs-dizziness Time Seen by Provider: 01/22/25 21:05 Source: patient Mode of arrival: Ambulatory History of Present Illness HPI Narrative: Patient is a 74-year-old female with a past medical history of asthma, bipolar, Arie's, chronic pain syndrome, comes into the ED from home for evaluation of increased numbness tingling in bilateral lower legs ongoing persistent for the past 3 weeks, states that she does have a stimulator in her right buttock for her bladder, states that she has seen her neurologist and has an MRI ordered but given the stimulator has to get the MRI in [place] or [facility], she presenting to the emergency department due to the fact that she is wanting to be transferred to these outside hospitals in order to obtain her MRI due to the fact that she is unable to drive. Patient not complaining of any new symptoms, has been ongoing persistent for the past 3 weeks, she states that she is having worsening muscle spasms to her lower extremities. Template evaluation NIH of 0 no focal deficits On Anticoagulants: No Related Data Home Medications ?Medication ?Instructions ?Recorded ?Confirmed duloxetine 30 mg capsule,delayed 30 mg PO BID 12/07/21 09/23/23 release amitriptyline 25 mg tablet 25 mg PO ONCE PM 09/23/23 0 09/23/23 loperamide 2 mg capsule mg PO 09/23/23 09/23/23 modafinil 100 mg tablet mg PO 09/23/23 09/23/23 rabeprazole 20 mg tablet,delayed 20 mg PO QAM 09/23/23 09/23/23 release sucralfate 1 gram tablet 1 g PO 4XD 09/23/23 09/23/23 Previous Rx's ?Medication ?Instructions ?Recorded levothyroxine 50 mcg tablet 50 mcg PO DAILY@0600 #90 t abs 08/12/22 (Synthroid) ondansetron 4 mg disintegrating 4 mg PO Q6H PRN nausea and 08/20/24 tablet vomiting #10 tabs oxycodone 5 mg tablet 5 mg PO Q6H PRN pain #10 tab s 08/20/24 gabapentin 100 mg capsule 100 mg PO TID 1 week #21 cap s 01/23/25 Allergies Allergy/AdvReac Type Severity Reaction Status Date / Time fluoxetine (From Prozac) Allergy Severe Hallucinati Verified 04/26/22 09:25 ng shellfish derived (SHELLFISH Allergy Mild N/V Verified 04/26/22 09:25 DERIVED) aripiprazole (From Abilify) Allergy Unknown Verified 04/26/22 09:25 cephalexin (From KEFLEX) Allergy Unknown HIVES Verified 04/26/22 09:25 silver (From Tegaderm AG AdvReac Mild Verified 04/26/22 09:25 Mesh) Review of Systems Review of Systems Narrative: General: Denies fever, chills, weight loss HEENT: Denies headache, eye drainage, eye irritation, head trauma, sore throat, voice change Cardiovascular: Denies any chest pain, palpitations, tachycardia Respiratory: Denies any shortness of breath, cough, wheeze, stridor GI/: Denies any abdominal pain, nausea, vomiting, diarrhea, bright red blood per rectum, melanotic stools, urinary frequency, urinary retention, dysuria, hematuria MSK: Denies any joint pain, muscle pains, swelling Skin: Denies any rashes, lesions, discoloration Neuro: Positive tingling/fullness sensation to lower extremities, positive muscle spasms lower extremities, Denies any headache, lightheadedness, dizziness, fainting, weakness Psych: Denies SI/HI Hematologic/Lymphatic On Anticoagulants: No Patient History Medical History COVID Somatic dysfunction of lower extremity Acute tension-type headache Segmental and somatic dysfunction of abdomen and other regions Segmental and somatic dysfunction of rib cage Thoracic region somatic dysfunction Cervical somatic dysfunction Cranial somatic dysfunction Acute thoracic back pain Acute neck pain Osteoarthritis Transient ischemic attack (TIA) Migraines Osteopenia Spine pain, lumbar (~2016) Foot pain (~2014) Ankle pain (~2019) Mumps (~1960) Chicken pox Recurrent sinusitis Cataracts, bilateral (~2006) Painful menstrual periods Ovarian cyst Heavy menstrual period Abnormal Pap smear of cervix History of urinary incontinence (~2019) Gastric ulcer (~2015) Arie's disease (~2019) Thyroid nodule (~2019) Hypertension Hepatitis C Raynaud disease Asthma Autoimmune disease Hypothyroidism (~1993) Chronic pain syndrome Gait instability Cauda equina syndrome (~2020) Osteoporosis Colon polyps (~2006) Shingles Rheumatoid arthritis Psoriasis Surgical History Status post implantation of urinary electronic stimulator device History of hysterectomy (~2006) History of colon resection History of hip surgery H/O foot surgery Family History Father History of heart disease Mother History of heart disease Hyperlipidemia Hypertension Stroke Grandfather Parkinson's disease Grandmother Stroke Grandfather History of heart disease Hypertension Leukemia Grandmother Colon cancer Social History household members: family and children alcohol intake frequency: 0-2 drinks per day Alcohol type: beer and wine Exam Narrative Exam Narrative: General: Cooperative, well-developed, not in acute distress HEENT: Normocephalic, atraumatic, PERRLA, normal sclera, eyelids normal Neck: Active full range of motion, atraumatic Chest: Normal to inspection, negative crepitus, no overlying erythema ecchymosis Respiratory: Normal respiratory effort, not in acute respiratory distress, clear to auscultation bilaterally negative cough, wheeze, tachypnea, rhonchi, rales Cardiology: Regular rate rhythm negative gallop, murmur, rubs GI/: No tenderness to palpation, soft, non rigid, normal to inspection, exam deferred MSK: Full active range of motion in all 4 extremities, atraumatic, no tenderness to palpation of any bony prominences Skin: No rashes or lesions noted Neuro: NIH of 0 no focal deficits Alert awake oriented x3, moves all 4 extremities spontaneously, cranial nerves intact, able to answer all questions appropriately follows commands appropriately Psych: Cooperative, negative suicidal or homicidal ideations Initial Vital Signs Initial Vital Signs: Vital Signs Temperature 98.1 F 01/22/25 16:11 Pulse Rate 80 01/22/25 16:11 Respiratory Rate 16 01/22/25 16:11 Blood Pressure 131/77 01/22/25 16:11 Pulse Oximetry 97 01/22/25 16:11 Oxygen Delivery Method Room Air 01/22/25 16:11 Course Orders Ordered: ED Orders 01/22/25 21:26 CT lumbar spine wo con Stat 01/22/25 23:00 CBC Auto Diff [Complete Blood Count AUTO DIFF] Stat CK [Creatine Kinase] Stat CMP [Comprehensive Metabolic Panel] Stat MAG [Magnesium] Stat Discontinued Medications Diazepam (Diazepam 10 Mg/2 Ml Syringe) 2 mg IV NOW ONE Stop: 01/22/25 21:27 Last Admin: 01/22/25 22:07 Dose: 2 mg Documented By: ANNELISE Diazepam (Diazepam 10 Mg/2 Ml Syringe) 5 mg IV NOW ONE Stop: 01/22/25 23:24 Last Admin: 01/23/25 00:09 Dose: 5 mg Documented By: ANNELISE Sodium Chloride (Normal Saline 0.9%) 1,000 mls @ 1,000 mls/hr IV BOLUS ONE Stop: 01/22/25 22:25 Last Infusion: 01/23/25 00:01 Dose: Infused Documented By: Admin: 01/22/25 22:05 Dose: 1,000 mls/hr Documented By: ANNELISE Ketorolac Tromethamine (Ketorolac 30 Mg/Ml Vial) 30 mg IV NOW ONE Stop: 01/22/25 21:27 Last Admin: 01/22/25 22:06 Dose: 30 mg Documented By: ANNELISE Vital Signs Vital signs: Vital Signs - 8 hr 01/22/25 19:47 01/22/25 20:17 01/22/25 20:18 Temperature 98.5 F Pulse Rate 74 66 Blood Pressure 164/80 H 175/96 H Pulse Oximetry 99 97 Oxygen Delivery Method Room Air 01/22/25 20:18 01/22/25 20:30 01/22/25 20:30 Temperature Pulse Rate 66 62 Blood Pressure 182/95 H Pulse Oximetry 97 96 Oxygen Delivery Method 01/22/25 21:00 01/22/25 21:00 01/22/25 21:30 Temperature Pulse Rate 60 64 Blood Pressure 157/81 H Pulse Oximetry 98 98 Oxygen Delivery Method 01/22/25 21:49 01/22/25 21:49 01/22/25 22:00 Temperature Pulse Rate 68 Blood Pressure 149/76 H 148/81 H Pulse Oximetry 98 Oxygen Delivery Method 01/22/25 22:00 01/22/25 22:30 01/22/25 22:30 Temperature Pulse Rate 66 68 Blood Pressure 137/75 Pulse Oximetry 98 97 Oxygen Delivery Method 01/22/25 23:00 01/22/25 23:00 01/22/25 23:30 Temperature Pulse Rate 63 Blood Pressure 150/78 H 149/72 H Pulse Oximetry 100 Oxygen Delivery Method 01/22/25 23:30 Temperature Pulse Rate 65 Blood Pressure Pulse Oximetry 95 Oxygen Delivery Method MDM - Neuro Symptoms/Deficit Differential Diagnosis Differential diagnosis: Likely other (Electrolyte abnormality, spinal stenosis, nontraumatic rhabdomyolysis) Lab Data 01/22/25 23:00 01/22/25 23:00 Labs: Lab Results 01/22/25 Range/Units 23:00 WBC 5.0 (4.5-11.0) X10^3/uL RBC 4.38 (4.0-5.2) X10^6/uL Hgb 14.3 (12.0-16.0) g/dL Hct 42.0 (36-46) % MCV 95.9 (80-100) fL MCH 32.6 (26-34) PG MCHC 34.0 (30-36) % RDW 13.1 (11.6-14.8) % Plt Count 214 (150-400) X10^3/uL Neut % (Auto) 42.8 L (50-75) % Lymph % (Auto) 37.8 (25-40) % [place] % (Auto) 10.1 (3-14) % Eos % (Auto) 8.4 H (2-4) % Baso % (Auto) 0.9 (0-2) % Neut # (Auto) 2200 (6102-5922) /uL Lymph # (Auto) 1900 (4388-9352) /uL [place] # (Auto) 500 (0-900) /uL Eos # (Auto) 400 (0-450) /uL Baso # (Auto) 0 (0-100) /uL Sodium 136 L (137-145) mmol/L Potassium 3.8 (3.4-5.1) mmol/L Chloride 100 (98-107) mmol/L Carbon Dioxide 31 (22-32) mmol/L BUN 10 (7-17) mg/dL Creatinine 0.60 (0.52-1.04) mg/dL Estimated GFR > 60 (>60) mL/min BUN/Creatinine Ratio 16.7 (6-22) Glucose 98 (70-99) mg/dL Calcium 9.1 (8.4-10.2) mg/dL Magnesium 1.9 (1.6-2.3) mg/dL Total Bilirubin 0.7 (0.2-1.3) mg/dL AST 29 (14-36) IU/L ALT 19 (<35) IU/L Alkaline Phosphatase 55 (38-126) U/L Total Creatine Kinase 89 (30-135) U/L Total Protein 6.9 (6.3-8.2) g/dL Albumin 4.4 (3.5-5.0) g/dL Globulin 2.5 (1.7-4.1) g/dL Albumin/Globulin Ratio 1.8 (1.0-2.8) Urine Dip Bedside Urine Glucose Negative Bedside Urine Bilirubin - Negative Bedside Urine Ketone +/- 5 Urine Specific Amelia 1.010 Bedside Urine Occult Blood +/- Bedside Urine pH 7.0 Bedside Urine Protein - Negative Bedside Urine Urobilinogen - Negative Bedside Urine Nitrite - Negative Bedside Urine Leukocytes - Negative Esterase Imaging Data CT lumbar spine: Radiologist's Impression: [address] [address] [address] Scan Report Signed Patient: Rizwana Abarca MR#: [id number] : 1950 Acct:[id number] Age/Sex: 74 / F Date of Service: 01/22/25 Loc: ED Accession Number: [id number] Procedure: CT lumbar spine wo con Ordering Provider: Greyson Wells D.O. PROCEDURE: CT LUMBAR SPINE WO CON INDICATIONS: low back pain, pt with bladder stimulator TECHNIQUE: Noncontrast 3 mm thick sections acquired from the T12 level to the sacrum. Sagittal and coronal reformats were constructed. For radiation dose reduction, the following was used: automated exposure control. COMPARISON: None. FINDINGS: Image quality: Excellent. Bones: There is no visualized fracture or dislocation. No suspicious osseous lesions. Multilevel degenerative disc and foraminal narrowing are present overall most prominent L5-S1. Partially visualized arthroplasties. Soft tissues: No retroperitoneal masses or hematomas. Visualized aorta is normal in caliber. Stimulator device is present within the right/gluteal subcutaneous. Leads are present within the lower pelvis. IMPRESSION: Degenerative changes most severe at L5-S1. MDM Narrative Medical decision making narrative: Patient is a 74-year-old female with a past medical history of hypothyroidism, asthma, presenting to the emergency department for muscle cramping and MRI. States that she has been having muscle cramping to her lower extremities as well as pain and tingling sensation to bilateral lower legs for several weeks, patient states that the cramping has gotten worse but otherwise her tingling/heaviness of her lower extremities are the same. She states that she saw a ENT as well as a neurologist recently and had a negative workup, she states that her neurologist raise is recommending an MRI of her brain and her whole spine given history of bladder stimulator she states that she is only able to get the MRI in either [facility] or [place], she states that she has this set up but states that she does not feel comfortable driving herself for her scheduled appointment therefore decided come into the ED for further evaluation treatment. Patient did have lab work imaging urinalysis performed here in the emergency department. Lab work unremarkable, CT lumbar just showing chronic degenerative changes, patient without any cauda equina symptoms. CK normal urinalysis without any acute signs of infection. Patient's symptoms did improve after administration medication here, informed patient that we are unable to transfer patient to outside hospital in order to obtain her outpatient scheduled MRIs. Patient is able to stand bear weight ambulate unassisted here in the emergency department, she was given strict return precautions and verbalized understanding of being discharged home with outpatient follow up. We will trial gabapentin to help with patient's symptoms, patient agreeable Review of records does show patient had a brain MRI on 11/05/2024 for similar symptoms, no acute findings was noted Discharge Plan Departure Patient Disposition: Home Clinical Impression: Bilateral leg pain Activity Restrictions/Additional Instructions: Please follow up with your neurologist and go to your scheduled MRI Please read the discharge instructions sheet carefully and bring all papers to all doctor follow-up visits, as it may contain information that your doctor may want to see. Disease processes change and evolve, if your symptoms worsen or if you develop any new symptoms that are concerning to you please return for evaluation. Your evaluation today does not show any evidence of any life- threatening/serious illnesses requiring admission to the hospital or surgery. Please follow-up with your doctor for re-evaluation in approximately 1 day. Seek immediate medical attention for any worrisome symptoms. *If you do not have a primary care provider please contact the [facility] Resource line at [phone]. They will ask some questions about your medical history and help get you set up with a doctor in the community. Prescriptions: New gabapentin 100 mg capsule 100 mg PO TID 7 Days Qty: 21 0RF No Action modafinil 100 mg tablet PO rabeprazole 20 mg tablet,delayed release (DR/EC) 20 mg PO QAM amitriptyline 25 mg tablet 25 mg PO ONCE PM loperamide 2 mg capsule PO sucralfate 1 gram tablet 1 g PO 4XD duloxetine 30 mg capsule,delayed release(DR/EC) 30 mg PO BID levothyroxine [Synthroid] 50 mcg Tablet 50 mcg PO DAILY@0600 Qty: 90 0RF ondansetron 4 mg tablet,disintegrating 4 mg PO Q6H PRN (Reason: nausea and vomiting) Qty: 10 0RF oxycodone 5 mg tablet 5 mg PO Q6H PRN (Reason: pain) Qty: 10 0RF Referrals: Laurence Lane PA-C [Primary Care Provider, Medical] Stand Alone Forms: Patient Portal/API
--- NOTE | 2025-01-22 21:26 | DI.CT.S_ITS ---
PROCEDURE: CT LUMBAR SPINE WO CON INDICATIONS: low back pain, pt with bladder stimulator TECHNIQUE: Noncontrast 3 mm thick sections acquired from the T12 level to the sacrum. Sagittal and coronal reformats were constructed. For radiation dose reduction, the following was used: automated exposure control. COMPARISON: None. FINDINGS: Image quality: Excellent. Bones: There is no visualized fracture or dislocation. No suspicious osseous lesions. Multilevel degenerative disc and foraminal narrowing are present overall most prominent L5-S1. Partially visualized arthroplasties. Soft tissues: No retroperitoneal masses or hematomas. Visualized aorta is normal in caliber. Stimulator device is present within the right/gluteal subcutaneous. Leads are present within the lower pelvis. IMPRESSION: Degenerative changes most severe at L5-S1. Dictated by: Alesha Mae M.D. on 01/22/2025 at 22:01 Approved by: Alesha Mae M.D. on 01/22/2025 at 22:03
[2025-01-22] MEDS: SODIUM CHLORIDE 0.9% 1,000 ML 1000 ML IV (22:05)
[2025-01-22] MEDS: KETOROLAC 30 MG/ML VIAL IV (22:06)
[2025-01-22 23:21] LABS: Add Manual Diff / Slide Review NO; Hematocrit 42.0 % (36-46); Hemoglobin 14.3 g/dL (12.0-16.0); Lymphocytes Absolute Auto 1900 /uL (1100-4500); Mean Corpuscular HGB Conc 34.0 % (30-36); Mean Corpuscular Hemoglobin 32.6 PG (26-34); Mean Corpuscular Volume 95.9 fL (80-100); Platelet Count 214 X10^3/uL (150-400)
[2025-01-22 23:35] LABS: Alanine Aminotransferase 19 IU/L (<35); Albumin 4.4 g/dL (3.5-5.0); Albumin Globulin Ratio 1.8 (1.0-2.8); Alkaline Phosphatase 55 U/L (38-126); Blood Urea Nitrogen 10 mg/dL (7-17); Calcium 9.1 mg/dL (8.4-10.2); Carbon Dioxide 31 mmol/L (22-32); Chloride 100 mmol/L (98-107); Creatine Kinase 89 U/L (30-135); Estimated Glomerular Filt Rate > 60 mL/min (>60); Globulin 2.5 g/dL (1.7-4.1); Glucose 98 mg/dL (70-99); HEMOLYSIS < 15 (0-50); Magnesium 1.9 mg/dL (1.6-2.3); Potassium 3.8 mmol/L (3.4-5.1); Sodium 136 mmol/L (137-145); Total Protein 6.9 g/dL (6.3-8.2)
[2025-01-23] VITALS: BP 159/79; PULSE 64; O2SAT 98
[2025-01-23 00:21] VITALS: PULSE 65; O2SAT 97
[2025-01-23 00:30] VITALS: BP 142/67
[2025-01-23 00:36] VITALS: PULSE 63; O2SAT 96
[2025-01-23] MEDS: GABAPENTIN 100 MG CAPSULE PO (00:52)
== END 2025-01-23 01:43 | disposition home or self-care (01) ==
PROVIDERS: Emergency Provider Student in an Organized Health Care Education/Training Program; Family Provider Physician Assistant; PCP Physician Assistant
DX: M79.605 Pain in left leg (principal); M79.604 Pain in right leg; M54.50 Low back pain, unspecified
CPT/HCPCS: 36415; 72131; 80053; 81003; 82550; 83735; 85025; 96361; 96374; 96375; 96376; 99284; J1885; J3360